=== PATIENT | female | born 1970 | race Two or more races ===

== ENCOUNTER 2018-10-07 18:35 | Inpatient (IN) | payer OTHER ==
[~2018-10-07] VITALS: Ht 157.5 cm; Wt 66.2 kg
--- NOTE | 2018-10-07 18:35 | NUR ---
ED Nurse Note: BROUGHT IN BY LOTTIE FROM [facility] DUE TO MISSED DIALYSIS YESTERDAY. PER EMS, PT IS BLIND AND BS RESULT WAS "HIGH". PORTACATH ON LEFT UPPER CHEST.
[2018-10-07] MEDS ORDERED: CARVEDILOL25 MG ORAL (18:45)
[2018-10-07] MEDS ORDERED: ATORVASTATIN CA40 MG ORAL (18:45)
[2018-10-07] MEDS ORDERED: TRADJENTA5 MG PO (18:45)
[2018-10-07] MEDS ORDERED: RENAGEL800 MG ORAL (18:45)
[2018-10-07] MEDS ORDERED: LOSARTAN POTASS25 MG ORAL (18:45)
[2018-10-07] MEDS ORDERED: LANTUS SOL100 UNIT/1 SUBQ (18:45)
[2018-10-07] MEDS ORDERED: NIFEDIPINE ER60 M2 ORAL (18:45)
[2018-10-07] MEDS ORDERED: ASPIRIN81 MG ORAL (18:45)
[2018-10-07] MEDS ORDERED: LATANOPROST2.5 ML BOTH EYES (18:45)
[2018-10-07] MEDS ORDERED: TRAZODONE HCL50 MG ORAL (18:45)
[2018-10-07] MEDS ORDERED: NEPHROVITE1 TAB ORAL (18:45)
[2018-10-07] MEDS ORDERED: ACETAMINOPHEN325 M1 ORAL (18:45)
[2018-10-07] MEDS ORDERED: HUMALOG100 UNIT/4 SUBQ (18:45)
--- NOTE | 2018-10-07 18:46 | NUR ---
ED Nurse Note: PT REFUSED TO HAVE CONCRETE ROD BUSTER AND DRAW BLOOD. ERMD AT BEDSIDE.
--- NOTE | 2018-10-07 18:55 | Emergency Room Report ---
History of Present Illness General Chief Complaint: Abnormal Labs Source: Patient, EMS Present Illness HPI Apparently dialysis was missed yesterday. Apparently the patient is hypertensive, has high blood sugar and allegedly high potassium at this time. The patient says that she gets short of breath when she lays down. She states he still makes urine at this time. She has only vascular asked success from a Vas-Cath. She says that they didn't clean her Vas-Cath Tuesday when dialysis was performed. + orthopnea. No productive cough. No fevers or chills. No joint pain. She also alleges that she hasn't gotten her insulin and hasn't eaten anything Patient is blind Denies chest pain, NVD, rashes, headache. Allergies: Coded Allergies: PENICILLINS (Verified Allergy, Unknown, 10/07/18) PIPERACILLIN (Verified Allergy, Unknown, 10/07/18) TAZOBACTAM (Verified Allergy, Unknown, 10/07/18) Patient History Past Medical History: see triage record Past Surgical History: other - vascath Social History: Denies: smoking, alcohol use Social History Narrative [facility] facility Reviewed Nursing Documentation: PMH: Agreed; PSxH: Agreed Review of Systems All Other Systems: negative except mentioned in HPI Physical Exam Vital Signs Date Time Temp Pulse Resp B/P (MAP) Pulse Ox O2 Delivery O2 Flow Rate FiO2 10/07/18 18:29 97.5 90 20 168/67 (100) 99 Sp02 EP Interpretation: reviewed, normal General Appearance: well appearing, no apparent distress, GCS 15 Head: normocephalic, atraumatic Eyes: left eye other - Opacity; bilateral eye Scleral Injection ENT: moist mucus membranes Neck: supple Respiratory: decreased breath sounds, rales, other - vas-Cath left Cardiovascular #1: regular rate, rhythm, JVD, edema - 3+ pitting Cardiovascular #2: 2+ radial (R) Gastrointestinal: normal inspection, normal bowel sounds, non tender, no mass, non-distended Musculoskeletal: back normal, gait/station normal, normal range of motion Neurologic: alert, motor strength/tone normal, oriented - 2 Psychiatric: other - Refusing care aside fro Skin: warm/dry, other - Sallow with venous disease Medical Decision Making Diagnostic Impression: Primary Impression: ESRD on dialysis Additional Impressions: Bradycardia Hyperglycemia Pleural effusion, right ER Course Patient presents missing dialysis apparently. I differential includes acute myocardial infarction, congestive heart failure, pulmonary edema, hyperkalemia amongst others. Evaluation with EKG, chest x-ray and labs. Patient is refusing to have IV and labs started. He tried to convince her to allow us to do this. The nurses attempting at this time. Patient will be treated with nitroglycerin paste. Accucheck = 320. Insulin (low dose) ordered. OK to eat. Bloods obtained, but refuses IV. CXR with CHF and R effusion, inc cor. Bicarb 18. K normal. Inc BUN and creat. O2 sats OK but requests oxygen. Insists on sitting. BP better with nitro bid. Text and call Dr. Guzman. Discussed with Dr. Garcia who will write dialysis orders. Admit telemetry, Dr. Guzman. Laboratory Tests Test 10/07/18 18:58 White Blood Count 8.8 K/UL (4.8-10.8) Red Blood Count 3.99 M/UL (4.20-5.40) L Hemoglobin 12.4 G/DL (12.0-16.0) Hematocrit 38.3 % (37.0-47.0) Mean Corpuscular Volume 96 FL (80-99) Mean Corpuscular Hemoglobin 31.0 PG (27.0-31.0) Mean Corpuscular Hemoglobin Concent 32.3 G/DL (32.0-36.0) Red Cell Distribution Width 13.8 % (11.6-14.8) Platelet Count 137 K/UL (150-450) L Mean Platelet Volume 9.2 FL (6.5-10.1) Neutrophils (%) (Auto) 84.2 % (45.0-75.0) H Lymphocytes (%) (Auto) 5.4 % (20.0-45.0) L Monocytes (%) (Auto) 6.6 % (1.0-10.0) Eosinophils (%) (Auto) 2.4 % (0.0-3.0) Basophils (%) (Auto) 1.3 % (0.0-2.0) Prothrombin Time 11.4 SEC (9.30-11.50) Prothrombin Time INR 1.1 (0.9-1.1) PTT 32 SEC (23-33) Sodium Level 126 MMOL/L (136-145) L Potassium Level 4.9 MMOL/L (3.5-5.1) Chloride Level 91 MMOL/L (98-107) L Carbon Dioxide Level 18 MMOL/L (21-32) L Anion Gap 17 mmol/L (5-15) H Blood Urea Nitrogen 76 mg/dL (7-18) H Creatinine 7.1 MG/DL (0.55-1.30) H Estimate Glomerular Filtration Rate 6.2 mL/min (>60) Glucose Level 336 MG/DL (74-106) H Calcium Level 8.4 MG/DL (8.5-10.1) L Total Bilirubin 0.7 MG/DL (0.2-1.0) Aspartate Amino Transferase (AST) 24 U/L (15-37) Alanine Aminotransferase (ALT) 30 U/L (12-78) Alkaline Phosphatase 555 U/L (46-116) H Total Creatine Kinase 65 U/L (26-308) Troponin I 0.011 ng/mL (0.000-0.056) Pro-B-Type Natriuretic Peptide 98282 pg/mL (0-125) H Total Protein 9.1 G/DL (6.4-8.2) H Albumin 3.3 G/DL (3.4-5.0) L Globulin 5.8 g/dL Albumin/Globulin Ratio 0.6 (1.0-2.7) L EKG Diagnostic Results Rate: bradycardiac Rhythm: NSR ST Segments: no acute changes Rhythm Strip Diag. Results EP Interpretation: yes Rhythm: NSR, no PVC's, no ectopy Chest X-Ray Diagnostic Results Chest X-Ray Diagnostic Results : Chest X-Ray Ordered: Yes # of Views/Limited/Complete: 1 View Indication: Shortness of Breath EP Interpretation: Yes Interpretation: no pneumothorax, other - vascath, effusion R, CHF Last Vital Signs Date Time Temp Pulse Resp B/P (MAP) Pulse Ox O2 Delivery O2 Flow Rate FiO2 10/07/18 21:20 98.2 68 20 160/72 99 Nasal Cannula 1.0 Status: improved Disposition: ADMITTED INPATIENT Condition: Serious Roel Malik MD Oct 07, 2018 18:55
[2018-10-07] MEDS ORDERED: Insulin Human Regular 100units/ml 3ml SUBQ ONE (19:00)
[2018-10-07] MEDS ORDERED: Nitroglycerin 2% oint pkt TOPIC ONE (19:00)
--- NOTE | 2018-10-07 19:00 | NUR ---
ED Nurse Note: NOTIFIED ERMD THAT BLOOD DRAWN BUT PT REFUSED IV.
--- NOTE | 2018-10-07 19:07 | NUR ---
HAND-OFF: Report given to GRACIELA MASCORRO. NO S/S OF DISTRESS.
[2018-10-07 19:10] VITALS: BP 165/70
--- NOTE | 2018-10-07 19:15 | NUR ---
ED Nurse Note: Pt asking for NC o2, Dr Malik ordered 1L, placed on pt, tolerating well. Spo2 99% non-labored breathing
[2018-10-07 19:24] LABS: BASOPHILS % (AUTO) 1.3 % (0.0-2.0); EOSINOPHILS % (AUTO) 2.4 % (0.0-3.0); HEMATOCRIT 38.3 % (37.0-47.0); HEMOGLOBIN 12.4 G/DL (12.0-16.0); LYMPHOCYTES % (AUTO) 5.4 % (20.0-45.0); MEAN CORPUSCULAR VOLUME 96 FL (80-99); MONOCYTES % (AUTO) 6.6 % (1.0-10.0); NEUTROPHILS % (AUTO) 84.2 % (45.0-75.0); PLATELET COUNT 137 K/UL (150-450); RED BLOOD COUNT 3.99 M/UL (4.20-5.40); RED CELL DISTRIBUTION WIDTH 13.8 % (11.6-14.8); WHITE BLOOD COUNT 8.8 K/UL (4.8-10.8)
--- NOTE | 2018-10-07 19:24 | Diagnostic Imaging Report ---
EXAM: XR Chest, 1 View CLINICAL HISTORY: CP TECHNIQUE: Frontal view of the chest. COMPARISON: No relevant prior studies available. FINDINGS: Lungs: Near complete opacification of the right hemithorax. Combination of consolidation and effusion in the left hemithorax. Pleural space: Unremarkable. No pneumothorax. Heart: Probable cardiomegaly. Mediastinum: Bulbous aortic knob Bones/joints: No acute fracture. Tubes, lines and devices: Central line. IMPRESSION: 1. Near complete opacification of the right hemithorax. 2. Combination of consolidation and effusion in the left hemithorax.
[2018-10-07 19:26] LABS: ANION GAP 17 mmol/L (5-15); BLOOD UREA NITROGEN 76 mg/dL (7-18); CALCIUM 8.4 MG/DL (8.5-10.1); CARBON DIOXIDE 18 MMOL/L (21-32); CHLORIDE 91 MMOL/L (98-107); CREATININE 7.1 MG/DL (0.55-1.30); POTASSIUM 4.9 MMOL/L (3.5-5.1); SODIUM 126 MMOL/L (136-145)
[2018-10-07 19:30] LABS: INR 1.1 (0.9-1.1)
[2018-10-07 19:37] LABS: ALANINE AMINOTRANSFERASE 30 U/L (12-78); ALBUMIN 3.3 G/DL (3.4-5.0); ALBUMIN/GLOBULIN RATIO 0.6 (1.0-2.7); ALKALINE PHOSPHATASE 555 U/L (46-116); ASPARTATE AMINO TRANSFERASE 24 U/L (15-37); BILIRUBIN,TOTAL 0.7 MG/DL (0.2-1.0); CREATINE KINASE 65 U/L (26-308)
--- NOTE | 2018-10-07 20:31 | NUR ---
ED Nurse Note: Pt refused accucheck. Dr Malik notified.
[2018-10-07 21:20] VITALS: BP 160/72
--- NOTE | 2018-10-07 22:46 | NUR ---
ED Nurse Note: Pt sitting up, refuses to have monitor attached, eating a sandwhich and drinking coffee, denies pain. Will continue to monitor
[2018-10-07 23:00] VITALS: BP 146/92
--- NOTE | 2018-10-08 00:41 | NUR ---
ED Nurse Note: Called to give eport, told to call back in 30 mins, room being cleaned. Rn is Rachael
--- NOTE | 2018-10-08 01:02 | NUR ---
ED Nurse Note: Pt refused VRE and MRSA swabs.
[2018-10-08 01:03] VITALS: BP 152/78
--- NOTE | 2018-10-08 01:30 | NUR ---
TRANSFER TO FLOOR: Patient transferred to as ordered, per Dr Malik. Report given to GRACIELA Cano. . Family and or S/O informed of transfer.
--- NOTE | 2018-10-08 02:00 | NUR ---
NURSE NOTES: received pt from ER, no acute distress noted. pt ambulated from [facility] to , pt refusing IV access and mrsa and vre swab. education provided pt still refused IV access and mrsa and vre swab. pt unable to sign belonging form pt blind, Dr velazquez placed orders. will contact DR. Guzman for additional orders
[2018-10-08 04:00] VITALS: BP 156/62
[2018-10-08] MEDS: Nateglinide 60mg tab ORAL SCH ×3 (06:16→17:28)
--- NOTE | 2018-10-08 06:44 | NUR ---
NURSE NOTES: tried to contact Dr umana, unable to left a message. trying to get order for insulin. will endorse to incoming nurse.
--- NOTE | 2018-10-08 06:53 | NUR ---
NURSE NOTES: pt refusing blood draw. and medications scheduled at 06:00. education provided pt still refused.
--- NOTE | 2018-10-08 06:54 | NUR ---
NURSE NOTES: pt remains stable, no change in condition. all needs met during my shift. bed locked and lowest position. side rail upx2. call light within reach. will endorse plan of care to incoming nurse.
--- NOTE | 2018-10-08 07:02 | NUR ---
NURSE NOTES: reached [facility] for dialysis, waiting bridge ironworker back. will endorse to incoming nurse.
[2018-10-08 08:00] VITALS: BP 130/78
[2018-10-08] MEDS: Aspirin Baby 81mg ORAL SCH (09:00)
[2018-10-08] MEDS: Heparin 5000 units/ml inj SUBQ SCH ×2 (09:00→21:00)
[2018-10-08] MEDS: Nitroglycerin Patch 0.4mg TDERMAL SCH (09:00)
[2018-10-08] MEDS ORDERED: Carvedilol 25mg Tab ORAL SCH (09:00)
--- NOTE | 2018-10-08 10:00 | NUR ---
NURSE NOTES: PATIENT IS LEGALLY BLIND. A/A/OX4, CITIZEN OF [place] SPEAKING. APPEARED NONCOMPLIANT AT TIMES. REFUSED AM MEDS. AWAITING FOR [facility] TO CALL BACK. KEPT BED IN THE LOWEST POSITION. SIDERAILS ARE UP X2, CALL LIGHT IS WITHIN REACH. BED IS LOCK MODE AND ALARM ACTIVATED. WILL CONT TO MONITOR.
[2018-10-08] MEDS: NovoLOG Insulin Flexpen SUBQ SCH ×3 (11:30→21:00)
[2018-10-08] MEDS ORDERED: NovoLOG Insulin Flexpen SUBQ SCH (11:30)
--- NOTE | 2018-10-08 11:35 | NUR ---
NURSE NOTES: CIERRA FROM [facility] CALLED BACK AND CONFIRMED PATIENT WILL BE DIALYZED TODAY. WILL CONT TO MONITOR.
[2018-10-08 12:00] VITALS: BP 177/78
--- NOTE | 2018-10-08 12:17 | NUR ---
NURSE NOTES: PATIENT IS NONCOMPLIANT TO SOME MED REGIMEN. EXPLAINED THE INDICATIONS AND IMPORTANCE OF IT. IRRITABLE AND RESISTIVE TO CARE. PATIENT REFUSED FOR THE B/P TO BE RECHECKED. REFUSED FOR THE NTG PATCH TO BE PLACED AND SHE FOND OF CUSSING TO STAFF. WILL CONT TO MONITOR.
[2018-10-08] MEDS ORDERED: DiphenhydrAMINE 50mg/ml Inj IVP SCH (13:30)
--- NOTE | 2018-10-08 13:38 | Consultation ---
Consult Note Consult Note i was asked to eval for dialysis management Patient ESRD - Adnitted via ER last night. Apparantly misse dialysis on Tuesday Poor historian ER: note Apparently dialysis was missed yesterday. Apparently the patient is hypertensive, has high blood sugar and allegedly high potassium at this time. The patient says that she gets short of breath when she lays down. She states he still makes urine at this time. She has only vascular asked success from a Vas-Cath. She says that they didn't clean her Vas-Cath Tuesday when dialysis was performed. + orthopnea. No productive cough. No fevers or chills. No joint pain. She also alleges that she hasn't gotten her insulin and hasn't eaten anything Patient is blind Denies chest pain, NVD, rashes, headache. Allergies: Coded Allergies: PENICILLINS (Verified Allergy, Unknown, 10/07/18) PIPERACILLIN (Verified Allergy, Unknown, 10/07/18) TAZOBACTAM (Verified Allergy, Unknown, 10/07/18) seen in room 206 dialysis is about to get started via left chest permacath Assessment/Plan Volume overload ESRD on dialysis Bradycardia Hyperglycemia Pleural effusion, right Dialysis and UF BP and BS control per orders discussed with RN and cracker off Elvin Garcia MD Oct 08, 2018 13:37
--- NOTE | 2018-10-08 14:50 | NUR ---
NURSE NOTES: Keith ([facility]) HD nurse @ bedside.
[2018-10-08 16:00] VITALS: BP 139/61
--- NOTE | 2018-10-08 19:12 | NUR ---
HAND-OFF: Report given to Zara.
--- NOTE | 2018-10-08 19:30 | NUR ---
NURSE NOTES: RECEIVED PATIENT LYING IN BED, AWAKE, LATVIAN SPEAKING, DENIES PAIN, HEAD OF BED ELEVATED TO FACILITATE BREATHING, NO SIGNS AND SYMPTOMS OF ACUTE CARDIO RESPIRATORY DISTRESS/SHORTNESS OF BREATH, TRACE EDEMA NOTED, NOTED WITH MULTIPLE SCARS/SELF INFLICTED SCRATCHES/WOUNDS TO BILATERAL LOWER EXTREMITIES, NO BLEEDING NOTED. ABDOMEN SOFT/NON DISTENDED/NON TENDER, BOWEL SOUNDS AUDIBLE. INCONTINENT OF BOWEL, CARE PROVIDED, TOLERATED WELL. PERMACATH TO LEFT UPPER CHEST WALL, DRESSING DRY AND INTACT, HD TODAY, PATIENT REFUSED TUESDAY, REGULAR SCHEDULED DAYS MWF. SIDE RAILS UP X3/BED IN LOWEST POSITION FOR SAFETY. CALL LIGHT WITHIN REACH. NAD.
[2018-10-08 20:00] VITALS: BP 182/79
[2018-10-08] MEDS ORDERED: TraZODone 50mg tab ORAL SCH (21:00)
--- NOTE | 2018-10-08 21:11 | NUR ---
NURSE NOTES: PATIENT REFUSED BLOOD GLUCOSE CHECK VIA GLUCOMETER X3-
[2018-10-09] VITALS: BP 146/61
--- NOTE | 2018-10-09 02:00 | History and Physical Report ---
DATE OF ADMISSION: 10/07/2018 HISTORY OF PRESENT ILLNESS: The patient is admitted for elevated blood pressure as well as blood sugar. The patient has end-stage renal disease, on hemodialysis and diabetes. The patient has hyponatremia. The patient basically denies nausea or vomiting. Denies fever or chills. Denies cough. Denies shortness of breath. Denies chest pain. Denies orthopnea. PAST MEDICAL HISTORY: Significant for NIDDM; hypertension; end-stage renal disease, on hemodialysis; hypertension; history of pleural effusion; history of bradycardia; and hyperlipidemia. PAST SURGICAL HISTORY: Dialysis access on the chest wall and hysterectomy. MEDICATIONS: Insulin, Coreg, Lipitor, aspirin, Tradjenta, losartan, nifedipine, Renagel, and trazodone. ALLERGIES: Penicillin and tazobactam. FAMILY HISTORY: Does have history of diabetes and hypertension. SOCIAL HISTORY: Denies history of smoking, alcohol, or illicit drugs. Comes from a snf. REVIEW OF SYSTEMS: HEENT: Denies headaches. RESPIRATORY: Denies shortness of breath. Denies cough. CARDIOVASCULAR: Denies chest pain. GASTROINTESTINAL: Denies nausea, vomiting, or diarrhea. EXTREMITIES: Denies any pain. NEUROLOGIC: No significant change in speech pattern. PHYSICAL EXAMINATION: VITAL SIGNS: Temperature 97.6 degrees, pulse is 59, and blood pressure is 130/78. HEENT: PERRLA. NECK: Supple. No lymphadenopathy. CHEST: Clear to auscultation. CARDIOVASCULAR: Regular rate and rhythm. No murmurs or extra sounds. GASTROINTESTINAL: Soft, nontender, and nondistended. No organomegaly. EXTREMITIES: A 1+ edema. Reflexes are equal on both sides. Moves all four extremities. LABORATORY DATA: WBC of 8.8, hemoglobin 12.4, and platelets of 137,000. Sodium 136, potassium 4.9, BUN of 76, creatinine 7.1, and glucose of 336. ASSESSMENT AND PLAN: End-stage renal disease, on hemodialysis. Skipped the dialysis session. Blood pressure is elevated as well as blood sugar is elevated. I have asked Dr. Iqbal and Dr. Garcia to see the patient for the management of the blood pressure and end-stage renal disease as well as management of elevated blood pressure. Kimberlee Guzman M.D. DR: ARON JOB#: [id number] CC:
[2018-10-09 04:00] VITALS: BP 149/71
--- NOTE | 2018-10-09 05:14 | NUR ---
NURSE NOTES: REFUSED AM LABS X2-
--- NOTE | 2018-10-09 06:06 | NUR ---
NURSE NOTES: NON COMPLIANT WITH PLAN OF CARE; REFUSED MEDS, REFUSED LABS, REFUSED AM BLOOD GLUCOSE MONITORING VIA GLUCOMETER, "STATED NO MEDICINE SEVERAL TIMES IN [place]".
[2018-10-09] MEDS: Nateglinide 60mg tab ORAL SCH ×3 (06:30→16:01)
[2018-10-09] MEDS ORDERED: sitaGLIPtin 25mg tab ORAL SCH (06:30)
[2018-10-09] MEDS: NovoLOG Insulin Flexpen SUBQ SCH ×4 (06:30→21:00)
--- NOTE | 2018-10-09 07:18 | NUR ---
HAND-OFF: Report given to GRACIELA STAHL.
--- NOTE | 2018-10-09 07:30 | Consultation ---
DATE OF CONSULTATION: 10/09/2018 ENDOCRINOLOGY CONSULTATION: CONSULTING PHYSICIAN: Marck Iqbal M.D. REFERRING PHYSICIAN: Kimberlee Guzman M.D. REASON FOR CONSULTATION: Hyperglycemia. HISTORY OF PRESENT ILLNESS: The patient is a 47-year-old female with history of diabetes, end-stage renal disease on hemodialysis, and hypertension, who missed her dialysis on the day prior to the admission. The patient was hypertensive, elevated glucose, and high potassium. She gets shortness of breath when she lies down. She still makes urine. The patient was admitted to the hospital for observation and treatment and hemodialysis. I was called to manage diabetes since the glucose is over 300. The patient has been refusing glucose monitoring as well as insulin injections and most of her other home medications. The patient is also blind. PAST MEDICAL HISTORY: 1. End-stage disease, on hemodialysis. 2. Diabetes. 3. Hypertension. 4. Blindness. PAST SURGICAL HISTORY: 1. Dialysis access placement. 2. Hysterectomy. ALLERGIES: Penicillin, Zosyn, and Cipro. FAMILY HISTORY: Family history of diabetes. SOCIAL HISTORY: No smoking, alcohol, or drug use. From nursing home facility. REVIEW OF SYSTEMS: As per HPI. MEDICATIONS: Reviewed and reconciled. LABORATORY VALUES: Sodium 126, potassium 4.9, chloride 91, bicarb 18, BUN 76, creatinine 7.1, glucose 336. WBC 8.8, hemoglobin 12, hematocrit 38, platelets of 137. PHYSICAL EXAMINATION: GENERAL: The patient is awake. VITAL SIGNS: Blood pressure 147/91, pulse 57, temperature 98.3, respiratory rate of 19. HEENT: The patient is blind. NECK: No JVD. HEART: Regular. LUNGS: Crackles. ABDOMEN: Positive bowel sounds. EXTREMITIES: Positive for edema. DIAGNOSES: 1. End-stage renal disease, on hemodialysis. 2. Diabetes, out of control. 3. Hypertension. 4. Noncompliance to medication. PLAN: 1. Levemir 8 units daily. 2. Starlix 60 mg before each meal. 3. Januvia 25 mg daily. 4. NovoLog sliding scale before meals and at bedtime. 5. Further adjustment according to the blood glucose values. Thank you, Dr. Guzman, for the courtesy of this consultation. Marck Iqbal M.D. DR: GEORGINA JOB#: [id number] CC: CHEO
[2018-10-09 08:00] VITALS: BP 158/71
--- NOTE | 2018-10-09 08:23 | NUR ---
NURSE NOTES: received report from Zara OWENS. Pt on youth nutritional monitor no signs of cardiac or respiratory distress. Pt is complaining of itching all over body. pt has no IV access. Bed locked and in lowest position. Call light is within reach. Will continue to monitor.
[2018-10-09] MEDS ORDERED: Levemir Flexpen SUBQ SCH (09:00)
[2018-10-09] MEDS: Nitroglycerin Patch 0.4mg TDERMAL SCH (09:00)
[2018-10-09] MEDS: Aspirin Baby 81mg ORAL SCH (09:00)
[2018-10-09] MEDS: Heparin 5000 units/ml inj SUBQ SCH ×2 (09:00→21:00)
[2018-10-09] MEDS ORDERED: Carvedilol 6.25mg Tab ORAL SCH (09:00)
--- NOTE | 2018-10-09 09:20 | NUR ---
NURSE NOTES: Pt refusing all morning meds. and blood sugar check. Per Dr. Rodriguez pt to be transfer to med surge.
--- NOTE | 2018-10-09 09:51 | Nephrology Progress Note ---
Assessment/Plan Problem List: (1) ESRD on dialysis (2) Hyperglycemia (3) Volume overload Assessment Volume overload ESRD on dialysis Bradycardia Hyperglycemia Pleural effusion, right Plan Dialysis and UF 10/08 refusing blood work patient un cooporative and wants to be discharged to [facility] - surg BP and BS control per orders discussed with RN Subjective ROS Limited/Unobtainable: No Constitutional: Reports: other - uncooporative Objective Objective Last 24 Hour Vital Signs Date Time Temp Pulse Resp B/P (MAP) Pulse Ox O2 Delivery O2 Flow Rate FiO2 10/09/18 08:00 96.6 58 18 158/71 (100) 100 10/09/18 04:00 57 10/09/18 04:00 98.3 57 19 149/71 (97) 93 10/09/18 00:00 97.7 57 21 146/61 (89) 94 10/09/18 00:00 57 10/08/18 21:00 Room Air 10/08/18 20:00 73 10/08/18 20:00 97.5 73 19 182/79 (113) 94 10/08/18 17:28 63 139/61 10/08/18 16:52 Room Air 10/08/18 16:00 98.2 63 20 139/61 (87) 90 10/08/18 12:00 98.1 59 20 177/78 (111) 90 Intake and Output 10/08/18 10/09/18 18:59 06:59 Intake Total 260 ml 240 ml Output Total 3200 ml Balance -2940 ml 240 ml Intake Oral 260 ml 240 ml Output Hemodialysis UF 3200 ml # Voids 3 # Bowel Movements 3 Height (Feet): 5 Height (Inches): 2.00 Weight (Pounds): 145 General Appearance: no apparent distress Cardiovascular: normal rate Respiratory/Chest: lungs clear Abdomen: soft Elvin Garcia MD Oct 09, 2018 09:51
--- NOTE | 2018-10-09 11:08 | General Progress Note ---
Assessment/Plan Problem List: (1) Hyperglycemia ICD Codes: R73.9 - Hyperglycemia, unspecified SNOMED: 35445398 (2) ESRD on dialysis ICD Codes: N18.6 - End stage renal disease; Z99.2 - Dependence on renal dialysis SNOMED: 681276340 (3) Volume overload ICD Codes: E87.70 - Fluid overload, unspecified SNOMED: 97951241 (4) Bradycardia ICD Codes: R00.1 - Bradycardia, unspecified SNOMED: 59390882 Status: progressing Assessment/Plan: refused labwork esrd on hd htn elevated bp r/o fluid overload Subjective ROS Limited/Unobtainable: Yes Allergies: Coded Allergies: PENICILLINS (Verified Allergy, Unknown, 10/07/18) PIPERACILLIN (Verified Allergy, Unknown, 10/07/18) TAZOBACTAM (Verified Allergy, Unknown, 10/07/18) Objective Last 24 Hour Vital Signs Date Time Temp Pulse Resp B/P (MAP) Pulse Ox O2 Delivery O2 Flow Rate FiO2 10/09/18 08:00 96.6 58 18 158/71 (100) 100 10/09/18 04:00 57 10/09/18 04:00 98.3 57 19 149/71 (97) 93 10/09/18 00:00 97.7 57 21 146/61 (89) 94 10/09/18 00:00 57 10/08/18 21:00 Room Air 10/08/18 20:00 73 10/08/18 20:00 97.5 73 19 182/79 (113) 94 10/08/18 17:28 63 139/61 10/08/18 16:52 Room Air 10/08/18 16:00 98.2 63 20 139/61 (87) 90 10/08/18 12:00 98.1 59 20 177/78 (111) 90 Intake and Output 10/08/18 10/09/18 18:59 06:59 Intake Total 260 ml 240 ml Output Total 3200 ml Balance -2940 ml 240 ml Intake Oral 260 ml 240 ml Output Hemodialysis UF 3200 ml # Voids 3 # Bowel Movements 3 Height (Feet): 5 Height (Inches): 2.00 Weight (Pounds): 145 EENT: PERRL/EOMI Neck: supple Cardiovascular: normal rate Respiratory/Chest: lungs clear Kimberlee Guzman MD Oct 09, 2018 11:08
--- NOTE | 2018-10-09 11:45 | NUR ---
Pt refused blood sugar check as well as V/S.
--- NOTE | 2018-10-09 13:00 | NUR ---
NURSE NOTES: Transferred pt to Med surg gave report to Valerie . pt off monitoring and evaluation advisor no signs of cardiac distress. pt on stable condition. Belonging list checked. Pt has no pressure ulcers just itching a lot and picks on old scars. Pt is none compliant with meds. V/s and blood sugar checks.
--- NOTE | 2018-10-09 13:02 | NUR ---
NURSE NOTES: Received pt from Tele (GRACIELA Jacobsen) with stable condition. pt denies any pain. a/ox3. Breathing regular and unlabored. all belongings checked and kept at bedside. no iv access due to refusal. still noncompliant. Educated pt to use call light when needed assistance. will continue to monitor
--- NOTE | 2018-10-09 13:16 | NUR ---
*-* NO INSURANCE INFORMATION IN THE BAR UNABLE TO SEND CLINICALS OR REVIEWS *-*
[2018-10-09 16:00] VITALS: BP 143/53
--- NOTE | 2018-10-09 19:16 | NUR ---
HAND-OFF: Report given to GRACIELA Asher.
--- NOTE | 2018-10-09 20:00 | NUR ---
NURSE NOTES: Received patient awake,verbal,Faroese speaking,sitting in bed,no complaints.
[2018-10-09 20:11] VITALS: BP 159/73
[2018-10-09] MEDS: TraZODone 50mg tab ORAL SCH (21:00)
[2018-10-09] MEDS: Carvedilol 6.25mg Tab ORAL SCH (21:00)
[2018-10-10] VITALS: BP 140/67
[2018-10-10] MEDS: sitaGLIPtin 25mg tab ORAL SCH (05:46)
[2018-10-10] MEDS: NovoLOG Insulin Flexpen SUBQ SCH ×4 (05:47→20:44)
[2018-10-10] MEDS: Nateglinide 60mg tab ORAL SCH ×3 (05:47→17:54)
--- NOTE | 2018-10-10 06:30 | General Progress Note ---
Assessment/Plan Problem List: (1) ESRD on dialysis ICD Codes: N18.6 - End stage renal disease; Z99.2 - Dependence on renal dialysis SNOMED: 178300433 (2) Hyperglycemia ICD Codes: R73.9 - Hyperglycemia, unspecified SNOMED: 40821503 (3) Pleural effusion, right ICD Codes: J90 - Pleural effusion, not elsewhere classified SNOMED: 32928008 (4) Bradycardia ICD Codes: R00.1 - Bradycardia, unspecified SNOMED: 71754150 Status: progressing Assessment/Plan: continue Starlix 60 mg ac tid continue Januvia 25 mg daily continue Levemir 8 units daily continue NISS ac / hs Subjective Allergies: Coded Allergies: PENICILLINS (Verified Allergy, Unknown, 10/07/18) PIPERACILLIN (Verified Allergy, Unknown, 10/07/18) TAZOBACTAM (Verified Allergy, Unknown, 10/07/18) All Systems: reviewed and negative except above Subjective events noted refusing glucose check and medications and lab draw Objective Last 24 Hour Vital Signs Date Time Temp Pulse Resp B/P (MAP) Pulse Ox O2 Delivery O2 Flow Rate FiO2 10/10/18 00:00 98.0 59 16 140/67 (91) 98 10/09/18 21:00 Room Air 10/09/18 21:00 57 159/73 10/09/18 20:11 98.8 57 18 159/73 (101) 97 10/09/18 17:22 60 143/53 10/09/18 16:00 98.8 60 18 143/53 (83) 100 10/09/18 12:00 56 10/09/18 09:00 Room Air 10/09/18 08:00 64 10/09/18 08:00 96.6 58 18 158/71 (100) 100 Intake and Output 10/09/18 10/10/18 19:00 07:00 Intake Total 970 ml Balance 970 ml Intake Oral 970 ml # Voids 2 1 Height (Feet): 5 Height (Inches): 2.00 Weight (Pounds): 145 General Appearance: no apparent distress Neck: normal alignment Cardiovascular: normal rate Respiratory/Chest: lungs clear Abdomen: normal bowel sounds Edema: no edema noted Arm (L), no edema noted Arm (R), no edema noted Leg (L), no edema noted Leg (R), no edema noted Pedal (L), no edema noted Pedal (R), no edema noted Generalized Objective Current Medications Medications (Trade) Dose Ordered Sig/Soren Route PRN Reason Start Time Stop Time Status Last Admin Dose Admin Acetaminophen (Tylenol) 650 mg Q6H PRN ORAL Pain Scale (3-5) 10/09/18 12:30 11/06/18 12:29 Aspirin (ASA) 81 mg DAILY ORAL 10/10/18 09:00 11/07/18 08:59 Carvedilol (Coreg) 6.25 mg EVERY 12 HOURS ORAL 10/09/18 21:00 11/07/18 08:59 Dextrose (Dextrose 50%) 25 ml Q30M PRN IV Hypoglycemia 10/09/18 12:38 11/08/18 12:37 Dextrose (Dextrose 50%) 50 ml Q30M PRN IV Hypoglycemia 10/09/18 12:38 11/08/18 12:37 Heparin Sodium (Porcine) (Heparin 5000 units/ml) 5,000 units EVERY 12 HOURS SUBQ 10/09/18 21:00 11/07/18 08:59 Insulin Aspart (NovoLOG) BEFORE MEALS AND HS SUBQ 10/09/18 16:30 11/07/18 11:29 Insulin Detemir (Levemir) 8 units DAILY SUBQ 10/10/18 09:00 11/08/18 08:59 Nateglinide (Starlix) 60 mg TIAC ORAL 10/09/18 16:30 11/07/18 06:29 Nifedipine (Procardia XL) 60 mg BID ORAL 10/09/18 18:00 11/07/18 08:59 10/09/18 17:22 Nitroglycerin (Ntg) 1 patch DAILY TDERMAL 10/10/18 09:00 11/07/18 08:59 Pantoprazole (Protonix) 40 mg ACBREAKFAST ORAL 10/10/18 06:30 11/07/18 06:29 Sevelamer Carbonate (Renvela) 800 mg TIPC ORAL 10/09/18 13:00 11/07/18 08:59 Sitagliptin Phosphate (Januvia) 25 mg ACBREAKFAST ORAL 10/10/18 06:30 11/08/18 06:29 Trazodone HCl (Desyrel) 50 mg BEDTIME ORAL 10/09/18 21:00 11/07/18 20:59 Marck Iqbal MD Oct 10, 2018 06:30
--- NOTE | 2018-10-10 07:44 | NUR ---
HAND-OFF: Report given to Jhonny Garrett RN.
--- NOTE | 2018-10-10 07:45 | NUR ---
NURSE NOTES: Received patient sitting up comfortably at bedside. No IV placed at this time, MD aware. PRESTON AV shunt for HD. Bed at lowest level with 2 side rails up. Call light within reach. In no apparent distress at this time. Will continue to monitor.
[2018-10-10 08:00] VITALS: BP 116/63
[2018-10-10] MEDS: Levemir Flexpen SUBQ SCH (09:00)
[2018-10-10] MEDS: Nitroglycerin Patch 0.4mg TDERMAL SCH (09:00)
[2018-10-10] MEDS: Heparin 5000 units/ml inj SUBQ SCH ×2 (09:00→20:44)
[2018-10-10] MEDS: Aspirin Baby 81mg ORAL SCH (09:00)
[2018-10-10] MEDS: Carvedilol 6.25mg Tab ORAL SCH (09:01)
--- NOTE | 2018-10-10 09:41 | Nephrology Progress Note ---
Assessment/Plan Problem List: (1) ESRD on dialysis (2) Hyperglycemia (3) Volume overload Assessment Volume overload ESRD on dialysis Bradycardia Hyperglycemia Pleural effusion, right Plan Dialysis and UF 10/08 next 10/11 stop Coreg due to low HR refusing blood work patient un cooporative and wants to be discharged in med - surg BP and BS control per orders discussed with RN Subjective ROS Limited/Unobtainable: No Objective Objective Last 24 Hour Vital Signs Date Time Temp Pulse Resp B/P (MAP) Pulse Ox O2 Delivery O2 Flow Rate FiO2 10/10/18 09:01 59 140/67 10/10/18 09:01 59 140/67 10/10/18 00:00 98.0 59 16 140/67 (91) 98 10/09/18 21:00 Room Air 10/09/18 21:00 57 159/73 10/09/18 20:11 98.8 57 18 159/73 (101) 97 10/09/18 17:22 60 143/53 10/09/18 16:00 98.8 60 18 143/53 (83) 100 10/09/18 12:00 56 Intake and Output 10/09/18 10/10/18 19:00 07:00 Intake Total 970 ml Balance 970 ml Intake Oral 970 ml # Voids 2 1 Height (Feet): 5 Height (Inches): 2.00 Weight (Pounds): 145 General Appearance: no apparent distress, other - uncooparative Cardiovascular: bradycardia Objective no change Elvin Garcia MD Oct 10, 2018 09:41
[2018-10-10] MEDS ORDERED: HydrALAZINE 25mg tab ORAL PRN (09:45)
--- NOTE | 2018-10-10 11:50 | NUR ---
NURSE NOTES: Left message with [facility] neph[facility] regarding dialysis scheduled tomorrow, 10/11/18.
--- NOTE | 2018-10-10 12:00 | Consultation ---
DATE OF CONSULTATION: 10/10/2018 NOTE: POOR AUDIO HISTORY OF PRESENT ILLNESS: The patient is a 47-year-old female who is very uncooperative, noncompliant with her care, dialysis medication. In the hospital, she has been refusing IV access uncooperative with the examination PAST MEDICAL HISTORY: renal failure, on dialysis. ALLERGIES: Penicillin, piperacillin, and tazobactam. SUBSTANCE ABUSE HISTORY: No known history of illicit drug use or alcohol. MENTAL STATUS EXAMINATION: The patient is uncooperative with examination, unable to due to being uncooperative. She is alert and oriented times self, place, and situation. Mood is irritable. Affect is constricted, congruent with mood. Thought process is linear. Thought content, no suicidal or homicidal ideations. ASSESSMENT: PLAN: the patient will be started on trazodone . I will continue to follow. May readjust the medication. Barrera Zhu M.D. DR: MORGAN JOB#: [id number] CC:
--- NOTE | 2018-10-10 16:36 | NUR ---
*-* INSURANCE *-* ALL CLINICALS AND REVIEWS HAVE BEEN FAXED TO: MACKENZIE... SHERRY: CULLEN P- [phone] F- [phone]...........REVIEW/CLINICAL
--- NOTE | 2018-10-10 16:42 | NUR ---
CASE MANAGEMENT:REVIEW 47 YR OLD FEMALE BIBA FROM [facility] CC; MISSED DIALYSIS SI: HYPERGLYCEMIA. RT PLEURAL EFFUSION 97.5 90 20 168/67 99% ON RA NA-126 BUN+76 CR+7.1 IS: NITRO 1" TO CW INSULIN SQ X1 CHEST XRAY : TO TELEMETRY UNIT @ 0130 ON 10/08/18
--- NOTE | 2018-10-10 16:49 | NUR ---
CASE MANAGEMENT:REVIEW 10/09/18 SI: HYPERGLYCEMIA. VOLUME OVERLOAD PLEURAL EFFUSION 96.6 58 18 158/71 100% ON RA REFUSED LABS IS: COREG PO Q12 ~ REFUSED LEVEMIR SQ QD ~ REFUSED JANUVIA PO QAM ~ REFUSED TRAZODONE PO QHS ~REFUSED PROCARDIA PO BID ~REFUSED : TELEMETRY STATUS PLAN: TRANSFER TO MED/SURG
--- NOTE | 2018-10-10 18:45 | Progress Note ---
DATE: 10/10/2018 SUBJECTIVE: The patient is not cooperative, refusing blood work. However, during my evaluation, she was not having any anxiety or agitation. She was cooperative and she is Albanian-speaking. MENTAL STATUS EXAMINATION: The patient is alert and oriented x3. Mood is neutral. Affect is flat. Thought process, there is a paucity of thought content. Thought content, no suicidal or homicidal ideations. ASSESSMENT: Stable, MDD. PLAN: 1. We will continue current medications. 2. Provide the patient with reality orientation and supportive therapy. 3. Encourage her to participate in care and treatment. Barrera Zhu M.D. DR: TOSIN JOB#: [id number] CC:
--- NOTE | 2018-10-10 19:25 | NUR ---
HAND-OFF: Report given to GRACIELA Russell.
--- NOTE | 2018-10-10 19:46 | NUR ---
NURSE NOTES: Received patient awake,sitting in a chair,comfortable.
[2018-10-10] MEDS: TraZODone 50mg tab ORAL SCH (20:44)
--- NOTE | 2018-10-10 22:30 | General Progress Note ---
Assessment/Plan Problem List: (1) Hyperglycemia ICD Codes: R73.9 - Hyperglycemia, unspecified SNOMED: 73850068 (2) ESRD on dialysis ICD Codes: N18.6 - End stage renal disease; Z99.2 - Dependence on renal dialysis SNOMED: 165535880 (3) Volume overload ICD Codes: E87.70 - Fluid overload, unspecified SNOMED: 18369128 (4) Bradycardia ICD Codes: R00.1 - Bradycardia, unspecified SNOMED: 84605681 Status: progressing Assessment/Plan: noncompliance afebrile no sob esrd on hd htn elevated bp r/o fluid overload Subjective ROS Limited/Unobtainable: Yes Allergies: Coded Allergies: PENICILLINS (Verified Allergy, Unknown, 10/07/18) PIPERACILLIN (Verified Allergy, Unknown, 10/07/18) TAZOBACTAM (Verified Allergy, Unknown, 10/07/18) Objective Last 24 Hour Vital Signs Date Time Temp Pulse Resp B/P (MAP) Pulse Ox O2 Delivery O2 Flow Rate FiO2 10/10/18 21:37 Room Air 10/10/18 09:01 59 140/67 10/10/18 09:01 59 140/67 10/10/18 09:00 Room Air 10/10/18 08:00 98.6 63 18 116/63 (80) 95 10/10/18 00:00 98.0 59 16 140/67 (91) 98 Intake and Output 10/09/18 10/10/18 19:00 07:00 Intake Total 970 ml Balance 970 ml Intake Oral 970 ml # Voids 2 1 Height (Feet): 5 Height (Inches): 2.00 Weight (Pounds): 145 Neck: supple Cardiovascular: normal rate Respiratory/Chest: lungs clear Kimberlee Guzman MD Oct 10, 2018 22:30
[2018-10-11] MEDS: sitaGLIPtin 25mg tab ORAL SCH (05:48)
[2018-10-11] MEDS: Nateglinide 60mg tab ORAL SCH ×3 (05:48→17:33)
[2018-10-11] MEDS: NovoLOG Insulin Flexpen SUBQ SCH ×3 (05:49→17:37)
--- NOTE | 2018-10-11 06:21 | General Progress Note ---
Assessment/Plan Problem List: (1) ESRD on dialysis ICD Codes: N18.6 - End stage renal disease; Z99.2 - Dependence on renal dialysis SNOMED: 384504295 (2) Hyperglycemia ICD Codes: R73.9 - Hyperglycemia, unspecified SNOMED: 03136790 (3) Pleural effusion, right ICD Codes: J90 - Pleural effusion, not elsewhere classified SNOMED: 46253770 (4) Bradycardia ICD Codes: R00.1 - Bradycardia, unspecified SNOMED: 68370783 Status: progressing Assessment/Plan: continue Starlix 60 mg ac tid continue Januvia 25 mg daily continue Levemir 8 units daily continue NISS ac / hs Subjective ROS Limited/Unobtainable: Yes Allergies: Coded Allergies: PENICILLINS (Verified Allergy, Unknown, 10/07/18) PIPERACILLIN (Verified Allergy, Unknown, 10/07/18) TAZOBACTAM (Verified Allergy, Unknown, 10/07/18) Subjective events noted refusing glucose check and medications Objective Last 24 Hour Vital Signs Date Time Temp Pulse Resp B/P (MAP) Pulse Ox O2 Delivery O2 Flow Rate FiO2 10/10/18 21:37 Room Air 10/10/18 09:01 59 140/67 10/10/18 09:01 59 140/67 10/10/18 09:00 Room Air 10/10/18 08:00 98.6 63 18 116/63 (80) 95 Intake and Output 10/10/18 10/11/18 19:00 07:00 Intake Total 600 ml Balance 600 ml Intake Oral 600 ml # Voids 1 1 # Bowel Movements 2 Height (Feet): 5 Height (Inches): 2.00 Weight (Pounds): 146 General Appearance: no apparent distress Neck: normal alignment Cardiovascular: normal rate Respiratory/Chest: decreased breath sounds Abdomen: normal bowel sounds Objective Current Medications Medications (Trade) Dose Ordered Sig/Soren Route PRN Reason Start Time Stop Time Status Last Admin Dose Admin Acetaminophen (Tylenol) 650 mg Q6H PRN ORAL Pain Scale (3-5) 10/09/18 12:30 11/06/18 12:29 Aspirin (ASA) 81 mg DAILY ORAL 10/10/18 09:00 11/07/18 08:59 10/10/18 09:00 Dextrose (Dextrose 50%) 25 ml Q30M PRN IV Hypoglycemia 10/09/18 12:38 11/08/18 12:37 Dextrose (Dextrose 50%) 50 ml Q30M PRN IV Hypoglycemia 10/09/18 12:38 11/08/18 12:37 Heparin Sodium (Porcine) (Heparin 5000 units/ml) 5,000 units EVERY 12 HOURS SUBQ 10/09/18 21:00 11/07/18 08:59 Hydralazine HCl (Apresoline) 25 mg Q4H PRN ORAL bp over 160 syst 10/10/18 09:45 11/09/18 09:44 Insulin Aspart (NovoLOG) BEFORE MEALS AND HS SUBQ 10/09/18 16:30 11/07/18 11:29 10/10/18 12:15 Insulin Detemir (Levemir) 8 units DAILY SUBQ 10/10/18 09:00 11/08/18 08:59 Nateglinide (Starlix) 60 mg TIAC ORAL 10/09/18 16:30 11/07/18 06:29 10/10/18 17:54 Nifedipine (Procardia XL) 60 mg BID ORAL 10/09/18 18:00 11/07/18 08:59 10/10/18 09:01 Nitroglycerin (Ntg) 1 patch DAILY TDERMAL 10/10/18 09:00 11/07/18 08:59 Pantoprazole (Protonix) 40 mg ACBREAKFAST ORAL 10/10/18 06:30 11/07/18 06:29 Sevelamer Carbonate (Renvela) 800 mg TIPC ORAL 10/09/18 13:00 11/07/18 08:59 Sitagliptin Phosphate (Januvia) 25 mg ACBREAKFAST ORAL 10/10/18 06:30 11/08/18 06:29 Trazodone HCl (Desyrel) 50 mg BEDTIME ORAL 10/09/18 21:00 11/07/18 20:59 Marck Iqbal MD Oct 11, 2018 06:21
--- NOTE | 2018-10-11 07:26 | NUR ---
HAND-OFF: Report given to Harriet Christensen LVN.
--- NOTE | 2018-10-11 07:30 | NUR ---
NURSE NOTES: RECEIVED PATIENT A/A/O, VERBALLY RESPONSIVE AND EXPRESSES NEEDS MORE IN [place] THAN [place]. EASILY GET FRUSTRATED AND HAS AGGRESSIVE BEHAVIOR. ABLE TO FEED SELF. PERMACATH TO LEFT UPPER CHEST WALL, DRESSING DRY AND INTACT, HD TODAY. SIDE RAILS UP X3/BED IN LOWEST POSITION FOR SAFETY. CALL LIGHT WITHIN REACH. WILL CONT TO MONITOR.
[2018-10-11 08:00] VITALS: BP 145/71
[2018-10-11] MEDS: Aspirin Baby 81mg ORAL SCH (08:24)
[2018-10-11] MEDS: Heparin 5000 units/ml inj SUBQ SCH (08:25)
[2018-10-11] MEDS: Levemir Flexpen SUBQ SCH (08:25)
[2018-10-11] MEDS: Nitroglycerin Patch 0.4mg TDERMAL SCH ×2 (09:00→17:34)
--- NOTE | 2018-10-11 09:53 | NUR ---
*-* INSURANCE *-* ALL CLINICALS AND REVIEWS HAVE BEEN FAXED TO: MACKENZIE... SHERRY: CULLEN P- [phone] F- [phone]...........REVIEW/CLINICAL
--- NOTE | 2018-10-11 11:52 | NUR ---
CASE MANAGEMENT:REVIEW 10/11/18 SI: HYPERGLYCEMIA. VOLUME OVERLOAD PLEURAL EFFUSION 96.7 63 18 145/71 94% ON RA IS: COREG PO Q12 ~ REFUSED LEVEMIR SQ QD ~ REFUSED JANUVIA PO QAM ~ REFUSED TRAZODONE PO QHS ~REFUSED PROCARDIA PO BID ~REFUSED : TELEMETRY STATUS DCP: FROM [facility] PLAN: DIALYZE TODAY
--- NOTE | 2018-10-11 12:09 | NUR ---
NOTIFICATION MESSAGE LEFT FOR DR ZHANG REGARDING HOSPITALIZATION CRITERIA
--- NOTE | 2018-10-11 13:48 | NUR ---
NURSE NOTES: PATIENT APPEARED NONCOMPLIANT AND HAS EPISODES OF AGGRESSIVENESS. QUITE STUBBORN AND FRUSTRATED. EXPLAINED THE IMPORTANCE AND INDICATIONS. HD NURSE JUST ARRIVED @ BEDSIDE. AT FIRST PATIENT WAS REFUSING HD HOWEVER, BY EXPLAINING AND REMINDING HER THAT SHE IS GOING BACK TO SNF TODAY. SHE FINALLY AGGREED TO HD. PATIENT BEEN IN A CHAIR SITTING. INSTRUCTED TO CALL FOR ASSISTANCE. CALL LIGHT IS WITHIN REACH. APPETITE IS ADEQUATE. WILL CONT TO MONITOR.
--- NOTE | 2018-10-11 14:49 | Nephrology Progress Note ---
Assessment/Plan Problem List: (1) ESRD on dialysis (2) Hyperglycemia (3) Volume overload Assessment Volume overload ESRD on dialysis Bradycardia Hyperglycemia Pleural effusion, right Plan Dialysis 10/11 stop Coreg due to low HR refusing blood work patient un cooporative and wants to be discharged in med - surg BP and BS control per orders discussed with RN Subjective ROS Limited/Unobtainable: No Constitutional: Reports: malaise Objective Objective Last 24 Hour Vital Signs Date Time Temp Pulse Resp B/P (MAP) Pulse Ox O2 Delivery O2 Flow Rate FiO2 10/11/18 09:00 145/71 10/11/18 09:00 Room Air 10/11/18 08:00 96.7 63 18 145/71 (95) 94 10/10/18 21:37 Room Air Intake and Output 10/10/18 10/11/18 19:00 07:00 Intake Total 600 ml Balance 600 ml Intake Oral 600 ml # Voids 1 1 # Bowel Movements 2 Height (Feet): 5 Height (Inches): 2.00 Weight (Pounds): 146 General Appearance: no apparent distress Objective no change Elvin Garcia MD Oct 11, 2018 14:48
[2018-10-11 16:00] VITALS: BP 178/72
--- NOTE | 2018-10-11 17:10 | NUR ---
DISCHARGE PLANNED PATIENT WILL RETURN TO [facility] [address] SKILLED T: [phone] FOR NURSE TO NURSE REPORT [facility] HAS BEEN ARRANGED FOR 1800 LOG SORTING SUPERVISOR TRANSFER FORM COMPLETED PATIENT WILL CONTINUE WITH OUTPATIENT DIALYSIS AT [facility] [address] [place] [address] T: [phone] M-W-F 1115 AM
--- NOTE | 2018-10-11 18:06 | NUR ---
NURSE NOTES: report given to Jose @ [facility]. Unable to reach the next of kin. voicemail was not set up. personal belongings reviewed noted. HD completed and 3L output. permacath patent and intact. no acute resp distress noted. able to give meds this evening. place NTG patch on Right upper chest. awaiting for ambulance.
[2018-10-11 18:39] VITALS: BP 148/67
--- NOTE | 2018-10-11 19:07 | NUR ---
HAND-OFF: Report given to SHADY.
--- NOTE | 2018-10-11 19:47 | NUR ---
NURSE NOTES: Received report from LINDA Larios. Patient sleeping. On 2L/min nasal cannula following dialysis. No signs of distress or labored breathing. No IV access. Awaiting discharge to [facility].
--- NOTE | 2018-10-11 20:44 | NUR ---
NURSE NOTES: Patient discharged to [facility] [address] [facility]. Gave report to real estate internship Joselyn Tejada and Reed Monterroso.
--- NOTE | 2018-10-11 21:20 | General Progress Note ---
Assessment/Plan Problem List: (1) Hyperglycemia ICD Codes: R73.9 - Hyperglycemia, unspecified SNOMED: 39965279 (2) ESRD on dialysis ICD Codes: N18.6 - End stage renal disease; Z99.2 - Dependence on renal dialysis SNOMED: 295490835 (3) Volume overload ICD Codes: E87.70 - Fluid overload, unspecified SNOMED: 25085076 (4) Bradycardia ICD Codes: R00.1 - Bradycardia, unspecified SNOMED: 07993588 Status: progressing Assessment/Plan: dc see dc summary esrd on hd Subjective Allergies: Coded Allergies: PENICILLINS (Verified Allergy, Unknown, 10/07/18) PIPERACILLIN (Verified Allergy, Unknown, 10/07/18) TAZOBACTAM (Verified Allergy, Unknown, 10/07/18) Objective Last 24 Hour Vital Signs Date Time Temp Pulse Resp B/P (MAP) Pulse Ox O2 Delivery O2 Flow Rate FiO2 10/11/18 18:39 66 148/67 (94) 10/11/18 17:34 178/72 10/11/18 17:33 68 178/72 10/11/18 16:00 97.4 68 18 178/72 (107) 100 10/11/18 09:00 Room Air 10/11/18 08:00 96.7 63 18 145/71 (95) 94 10/10/18 21:37 Room Air Intake and Output 10/10/18 10/11/18 18:59 06:59 Intake Total 600 ml Balance 600 ml Intake Oral 600 ml # Voids 1 1 # Bowel Movements 2 Height (Feet): 5 Height (Inches): 2.00 Weight (Pounds): 146 Kimberlee Guzman MD Oct 11, 2018 21:20
--- NOTE | 2018-10-12 03:30 | Progress Note ---
DATE: 10/11/2018 SUBJECTIVE: The patient is doing well, participating. The patient is uncooperative at times. She is Zimbabwean speaking. MENTAL STATUS EXAMINATION: The patient is alert, oriented to time, self, place, and situation. Mood is neutral. Affect is constricted, congruent with mood. Thought process is concrete. Thought content, no suicidal or homicidal ideation. ASSESSMENT: Major depressive disorder, anxiety disorder. PLAN: We will continue current medications. Provide the patient reality orientation and supportive therapy. Barrera Zhu M.D. DR: NEYMAR JOB#: [id number] CC:
--- NOTE | 2018-10-12 11:16 | Discharge Summary ---
Discharge Summary Discharge Summary _ DATE OF ADMISSION: 10/07/2018 DATE OF DISCHARGE: 10/11/2018 DISCHARGED BY: Dr. Kimberlee Chavez CONSULTANTS: Dr. Elvin Zhu [facility] HOSPITAL COURSE: Patient is a 47-year-old female, who is from shelter facility, who apparently missed hemodialysis. She was taken to ED via EMS. Patient apparently was hypertensive and blood sugar was elevated. She complained of shortness of breath when laying down. She denied any productive cough. She denied fever or chills. She denied joint pains. Denied chest pain, nausea, vomiting and diarrhea. On evaluation at ED, blood pressure was 168/67. Accu-Chek done was 320. Patient initially refused to have IV and blood work. She eventually agreed to blood work. Blood work did not show any leukocytosis, hemoglobin and hematocrit were stable. Sodium 126, potassium 4.9, chloride 91. BUN 76, creatinine 7.1. Glucose 336. Troponin negative. Chest x-ray showed evidence of CHF and right-sided effusion. Was near complete opacification of the right hemithorax; combination of consolidation and effusion in the left hemithorax. She was then admitted for volume overload, and hyperglycemia. Catalyst Concentration Operator was consulted. Inpatient hemodialysis was ordered through the left chest permacath. Blood pressure was monitored. Paraprofessional Education Assistant was consulted for diabetes management. She was ordered Levemir, Starlix and Januvia. She was placed on insulin sliding scale. She was given nifedipine and Coreg for blood pressure control. Patient was refusing lab work and glucose check and medications needed patient was uncooperative. Coreg was discontinued due to bradycardia. Psychiatric evaluation was done. She was diagnosed with anxiety and depression. She was started on trazodone. She was continued on inpatient hemodialysis. Heart rate improved. She was eventually discharged back to care home. FINAL DIAGNOSES: Volume overload Pleural effusion, right End-stage renal disease on hemodialysis Bradycardia Major depressive disorder Anxiety disorder Diabetes, out of control Hypertension Noncompliance DISPOSITION: Patient was discharged to a SNF. DISCHARGE MEDICATIONS: Refer to Discharge Medication List. I have been assigned to complete a discharge summary on this account, I was not involved with the patient's management. Demetria Lawler NP Oct 12, 2018 11:16
--- NOTE | 2018-10-13 14:01 | NUR ---
*-* INSURANCE *-* DISCHARGE SUMMARY HAVE BEEN FAXED TO: MACKENZIE... SHERRYM: CULLEN P- [phone] F- [phone]...........REVIEW/CLINICAL
--- NOTE | 2018-10-17 14:17 | Cardiology Report ---
APPROVED REPORT EKG Measurement Heart [id number] Sinus bradycardia Low voltage QRS Cannot rule out Anteroseptal infarct, age undetermined Prolonged QT Abnormal ECG
[2018-11-18] MEDS ORDERED: HydrALAZINE 25mg tab ORAL PRN (23:45)
== END 2018-10-11 20:43 | DRG 425 ==
LOC: EDBD 18:35 → EMR 19:46 → 2E 20:09 → EDBEDREQ 22:52 → 4E 10-09 12:55
PROC: 5A1D70Z Performance of Urinary Filtration, Intermittent, Less than 6 Hours Per Day (ICD-10-PCS; principal; 2018-10-11)
DX: E87.79 Other fluid overload (principal); J91.8 Pleural effusion in other conditions classified elsewhere; E11.22 Type 2 diabetes mellitus with diabetic chronic kidney disease; E11.65 Type 2 diabetes mellitus with hyperglycemia; I12.0 Hypertensive chronic kidney disease with stage 5 chronic kidney disease or end stage renal disease; N18.6 End stage renal disease; Z91.14 Patient's other noncompliance with medication regimen; Z99.2 Dependence on renal dialysis; F32.9 Major depressive disorder, single episode, unspecified; F41.9 Anxiety disorder, unspecified; R00.1 Bradycardia, unspecified; Z66 Do not resuscitate; Z90.710 Acquired absence of both cervix and uterus; T44.7X5A Adverse effect of beta-adrenoreceptor antagonists, initial encounter; Y92.89 Other specified places as the place of occurrence of the external cause; Z79.4 Long term (current) use of insulin; H54.8 Legal blindness, as defined in USA
CPT/HCPCS: 36415; 71045; 80053; 82550; 82962; 83880; 84484; 85025; 85610; 85730; 93005; 99285; J1815; S5561

== ENCOUNTER 2018-11-18 21:29 | Inpatient (IN) | payer OTHER ==
[~2018-11-18] VITALS: Ht 157.5 cm; Wt 69.9 kg
[~2018-11-18 21:29] MED LIST: ACETAMINOPHEN325 M1 ORAL; ASPIRIN81 MG ORAL; ATORVASTATIN CA40 MG ORAL; CARVEDILOL25 MG ORAL; HUMALOG100 UNIT/4 SUBQ; LANTUS SOL100 UNIT/1 SUBQ; LATANOPROST2.5 ML BOTH EYES; LOSARTAN POTASS25 MG ORAL; NEPHROVITE1 TAB ORAL; NIFEDIPINE ER60 M2 ORAL; RENAGEL800 MG ORAL; TRADJENTA5 MG PO; TRAZODONE HCL50 MG ORAL
[2018-11-18] MEDS ORDERED: NOVOLOG100 UNIT/5 (21:49)
[2018-11-18] MEDS ORDERED: PRO-STAT LIQUID30 ML ORAL (21:49)
[2018-11-18] MEDS ORDERED: LEVEMIR100 UNIT/1 SUBQ (21:49)
[2018-11-18] MEDS ORDERED: XALATAN2.5 ML BOTH EYES (21:49)
[2018-11-18] MEDS ORDERED: ATORVASTATIN CA40 MG ORAL (21:49)
[2018-11-18 22:00] VITALS: BP 105/57
--- NOTE | 2018-11-18 22:00 | NUR ---
ED Nurse Note: RECIEVED PT BIBA FROM SNF WITH C/O SUDDEN RESPIRATORY DISTRESS, RECIEVED PT IN BED, GOWNED AND ON BIPAP, PT ALSO ON CARDIAC MONITORING, PT IS NEPALI SPAKING ONLY, TRANSLATION ASSISTANCE PROVIDED BY [email or web address], PT NOTED WITH HEART RATE OF 43, MD INFORMED IMMEDIATELY, PT DENIES CP OR ANY PAIN, WILL RESUME CARE ORDERED, IV LINE PLACED AND LABS DRAWN, WILL RESUME CARE ORDERED AND CLOSELY MONITOR.
--- NOTE | 2018-11-18 22:40 | NUR ---
ED Nurse Note: PT SUDDENNLY BECAME VERY RESTLESS AND SHOUTING FOR NURSE, PT NOTED TO HAVE DIAPHORESIS AND CLAMMY SKIN, BS TAKEN IMMEDIATELY AND IS LOW AT 55, MD INFORMED, 1 AMP D50 GIVEN AND PT GIVEN SANDWICH AND JUICE, PT EATING ALL, REMAINS ON CARDIC MONITORING WITH HERT RATE OF ABOUT 40, MD REMAINS AWARE AND RE-INFORMED, WILL CONTINUE TO CLOSELY MONITOR, PT PLACED ON NASAL CANULA AT 3L WHILE EATING, O2 SAT=98%.
[2018-11-18 22:42] LABS: BASOPHILS % (AUTO) 1.3 % (0.0-2.0); EOSINOPHILS % (AUTO) 4.3 % (0.0-3.0); HEMATOCRIT 30.2 % (37.0-47.0); HEMOGLOBIN 9.9 G/DL (12.0-16.0); LYMPHOCYTES % (AUTO) 11.5 % (20.0-45.0); MEAN CORPUSCULAR VOLUME 96 FL (80-99); MONOCYTES % (AUTO) 12.2 % (1.0-10.0); NEUTROPHILS % (AUTO) 70.6 % (45.0-75.0); PLATELET COUNT 106 K/UL (150-450); RED BLOOD COUNT 3.15 M/UL (4.20-5.40); RED CELL DISTRIBUTION WIDTH 13.5 % (11.6-14.8); WHITE BLOOD COUNT 8.4 K/UL (4.8-10.8)
[2018-11-18 22:45] LABS: ANION GAP 9 mmol/L (5-15); BLOOD UREA NITROGEN 40 mg/dL (7-18); CALCIUM 8.2 MG/DL (8.5-10.1); CARBON DIOXIDE 30 MMOL/L (21-32); CHLORIDE 94 MMOL/L (98-107); CREATININE 4.3 MG/DL (0.55-1.30); POTASSIUM 3.9 MMOL/L (3.5-5.1); SODIUM 133 MMOL/L (136-145)
[2018-11-18] MEDS ORDERED: LORazepam Inj 2mg/ml 1ml IV ONE (22:45)
[2018-11-18 22:58] LABS: INR 1.1 (0.9-1.1)
[2018-11-18 22:59] LABS: ALANINE AMINOTRANSFERASE 23 U/L (12-78); ALBUMIN 2.9 G/DL (3.4-5.0); ALBUMIN/GLOBULIN RATIO 0.7 (1.0-2.7); ALKALINE PHOSPHATASE 486 U/L (46-116); ASPARTATE AMINO TRANSFERASE 33 U/L (15-37); BILIRUBIN,TOTAL 0.6 MG/DL (0.2-1.0); CKMB 0.8 NG/ML (0.0-3.6); CREATINE KINASE 40 U/L (26-308)
[2018-11-18 23:00] VITALS: BP 111/53
--- NOTE | 2018-11-18 23:35 | Emergency Room Report ---
History of Present Illness General Chief Complaint: Dyspnea/Respdistress Source: Patient, Medical Record Present Illness HPI This is a 48-year-old female with a history of diabetes, hypertension and renal failure hemodialysis. She presents with chief complaint of shortness of breath. care home called 911 because patient was dyspneic and short of breath. Onset tonight. She had dialysis yesterday and came home actually more fluid overloaded and swelling per patient. Worse with lying flat. Worse with exertion. There is some slight bruising to her lower extremity. She was very short of breath per EMS. On a nonrebreather mask and brought her here. Patient denies any chest pain. Allergies: Coded Allergies: PENICILLINS (Verified Allergy, Unknown, 10/07/18) PIPERACILLIN (Verified Allergy, Unknown, 10/07/18) TAZOBACTAM (Verified Allergy, Unknown, 10/07/18) Patient History Past Medical History: see triage record, old chart reviewed, DM, HTN, renal disease, dialysis Past Surgical History: other Pertinent Family History: none Social History: Denies: smoking Now: No Immunizations: other Reviewed Nursing Documentation: PMH: Agreed; PSxH: Agreed Nursing Documentation-PMH Hx Cardiac Problems: Yes Hx Hypertension: Yes Hx Diabetes: Yes Hx Cancer: Yes Hx Gastrointestinal Problems: No Hx Dialysis: Yes Hx Neurological Problems: Yes Hx Weakness: Yes Review of Systems Eye: Denies: eye pain, blurred vision ENT: Denies: ear pain, nose congestion, throat swelling Respiratory: Reports: shortness of breath; Denies: cough Cardiovascular: Denies: chest pain, palpitations Gastrointestinal: Denies: abdominal pain, diarrhea, nausea, vomiting Musculoskeletal: Denies: back pain, joint pain Skin: Denies: rash Neurological: Denies: headache, numbness Endocrine: Denies: increased thirst, increased urine Hematologic/Lymphatic: Denies: easy bruising All Other Systems: negative except mentioned in HPI Physical Exam Vital Signs Date Time Temp Pulse Resp B/P (MAP) Pulse Ox O2 Delivery O2 Flow Rate FiO2 11/18/18 21:25 47 22 102/45 (64) 96 Non-Rebreather 15.0 11/18/18 21:47 40 Vitals with bradycardia Sp02 EP Interpretation: abnormal General Appearance: moderate distress Head: normocephalic, atraumatic Eyes: bilateral eye PERRL, bilateral eye EOMI ENT: hearing grossly normal, normal pharynx Neck: full range of motion, supple, no meningismus Respiratory: chest non-tender, accessory muscle use, rales Cardiovascular #1: regular rate, rhythm, no murmur, bradycardia Gastrointestinal: normal bowel sounds, non tender, no mass, no organomegaly, no bruit, non-distended Musculoskeletal: back normal, normal range of motion, swelling - 2+ pitting edema Psychiatric: anxious Procedures Critical Care Time Critical Care Time Critical care is mandated in this patient who presented with acute respiratory failure secondary to CHF. Patient require my urgent intervention to attenuate the risks of respiratory collapse which may lead to cardiovascular collapse and . Critical care time is 35 minutes excluding any reportable procedure. Critical care time included evaluation, multiple reevaluation, looking at old charts, interpreting laboratory and diagnostic data, discussing case with patient and family and consultants, and charting. Medical Decision Making Diagnostic Impression: Primary Impression: Acute and chronic respiratory failure with hypoxia Additional Impressions: Bradycardia Hypoglycemia Volume overload Qualified Codes: E87.70 - Fluid overload, unspecified CHF exacerbation Qualified Codes: I50.9 - Heart failure, unspecified Anemia, chronic renal failure Qualified Codes: N18.5 - Chronic kidney disease, stage 5; D63.1 - Anemia in chronic kidney disease Sinus bradycardia ER Course Patient presents with respiratory distress. She is fluid overloaded. She may need further dialysis. She became very confused and was agitated here. She was diaphoretic. Blood sugar was low. She was given an amp of D50 and responded appropriately. She was given food. Is been persistently bradycardic at 40. No evidence of heart block. This may be secondary to beta-blockade. Blood pressure has been stable. Pt is comfortable on BiPAP. We will continue with BiPAP. Will admit. I contacted Dr. Guzman for admission. EKG Diagnostic Results Rate: bradycardiac Rhythm: NSR ST Segments: no acute changes Rhythm Strip Diag. Results EP Interpretation: yes Rate: 40 Rhythm: NSR, no PVC's, no ectopy Chest X-Ray Diagnostic Results Chest X-Ray Diagnostic Results : Chest X-Ray Ordered: Yes # of Views/Limited/Complete: 1 View Indication: Shortness of Breath EP Interpretation: Yes Interpretation: no consolidation, no effusion, no pneumothorax, other - Vascular congestion Impression: Other - CHF Electronically Signed by: Tobias Thomas MD Last Vital Signs Date Time Temp Pulse Resp B/P (MAP) Pulse Ox O2 Delivery O2 Flow Rate FiO2 11/18/18 23:09 45 26 97 Facial 40 11/18/18 21:25 102/45 (64) 15.0 Status: improved Disposition: ADMITTED INPATIENT Condition: Serious Referrals: Kimberlee Guzman MD (PCP) Tobias Thomas MD Nov 18, 2018 23:35
--- NOTE | 2018-11-18 23:40 | NUR ---
NURSE NOTES: orders given by DR. Velarde to Charge nurses Melanie- orders in putted by me and carried out.
--- NOTE | 2018-11-18 23:45 | NUR ---
ED Nurse Note: PT CONTINUES TO REST IN BED, HAS ROOM FOR ADMISSION, PT REMAINS ON N/C FOR O2, SAT=99%, MD AWARE, IV SITE PATENT, REPORT CALLD TO FLOOR NURSE, PT BEING TAKEN TO UNIT VIA GURNEY WITH ACLS PROTOCOLS WITH RN AND ER-TECH.
[2018-11-19] VITALS (7 sets, daily range): BP systolic 90–185; BP diastolic 54–78
--- NOTE | 2018-11-19 | NUR ---
ED Nurse Note: PT BEING ADMITTED, SKIN ASSESSMENT WITH NO PRESSURE WOUNDS BUT PT HAS MANY HEALED AND SCABED SMALL LESIONS ON BILAT LEGS, HX OF PT SUGGEST VASCULAR ISSUES, MD HERE AWARE, PT BEING ADMITTED.
--- NOTE | 2018-11-19 00:20 | NUR ---
ED Nurse Note: PT BEING TAKEN TO FLOOR FOR ADMISSION, REPORT CALLED TO GRACIELA VERA ON UNIT, PT SWABS COLLECTED, BELONGINGS LIST COMPLETED, PT REMAINS ON N/C DUE TO HER EATING, O2 SAT=99%, PT DENIES CP OR ANY PAIN, IV SITE PATENT, PT BEING TAKEN TO FLOOR UNIT VIA GURNEY AND ACLS PROTOCOLS WITH RN AND ER-TECH, NAD NOTED DURING PT TRANSPORT TO FLOOR BED.
--- NOTE | 2018-11-19 00:22 | NUR ---
NURSE NOTES: Received report from Lizzie OWENS, pt. brought up from ER, pt. in bed awake, Pashto speaking- able to make needs known, cardiac monitoring placed, pt. teaching done and VS taken, full body assessment done- pt. has intact skin but bilateral lower legs has scattered scabs, pt. appears to be sating well on current BIPAP settings 12/6 and FIo2 40%- no distress noted, bed bath given, pt. has RT. hand 22G IV Intact and patent, call light within easy reach, pt. appears to be calm and resting comfortably in bed, bed in lowest position and safety brakes engaged, safety measures continued, will continue with plan of care. Addendum: 11/19/18 at 0123 by LEODAN VILLAVICENCIO RN RN pt. has Perma cath to left side upper chest area for Hemodialysis.
--- NOTE | 2018-11-19 06:01 | NUR ---
NURSE NOTES: patients morning blood sugar was 62- pt. appears to be stable no signs or symptoms of hypoglycemia noted- pt. states also he is feeling good. one cup of orange juice given per eMAR - will reassess blood sugar in [address] Velarde of results.
[2018-11-19] MEDS: NovoLOG Insulin Flexpen SUBQ SCH ×4 (06:04→20:56)
--- NOTE | 2018-11-19 06:15 | NUR ---
NURSE NOTES: repeated blood sugar test now 75- pt. continues to appear stable and no signs or symptoms of hypoglycemia noted- will continue to monitor patient and with plan of care.
--- NOTE | 2018-11-19 06:19 | NUR ---
NURSE NOTES: left msg for DR. Velarde regarding patients blood sugar this morning was 62 - pt. was given a cup of orange juice per protocol - patients blood sugar is now 75- pt. is not displaying any signs or symptoms of hypoglycemia excess fatigue, shakiness, hunger or irritability- awaiting for call back from doctor.
[2018-11-19] MEDS ORDERED: NovoLOG Insulin Flexpen SUBQ SCH (06:30)
--- NOTE | 2018-11-19 06:45 | NUR ---
RESPIRATORY NOTE: Received pt on NC 2L 28% FiO2, pt is sleeping and stable, saturates at 98%. Put pt back on Bipap per MD's order with the current settings 04/12, 40%FiO2. Titrated FiO2 down to 30%, pt saturates at 96%. No redness or skin breakdown noted upon applying foam tapes to pt's nose bridge, chin and cheeks. Pt is awake, alert, and Occitan speaking only. No SOB or resp distress noted. RN made aware. Alarms are set and audible, Bipap is plugged into the red outlet, ambu bag is at bedside. Will continue to monitor pt. Addendum: 11/19/18 at 0832 by Rona SEGURA Correction: Bipap settin/6, back up rate 16.
--- NOTE | 2018-11-19 06:56 | NUR ---
NURSE NOTES: called spoke with a female powerhouse laborer regarding why pts cbc and cmp was cancelled- she was unaware- tired getting her name but she hung up - tried calling lab again and spoke to Gordon - he states he did not know and was not able to find out who I spoke to as there were many people working in lab. ordered stat labs again -lab aware to come and draw labs.
--- NOTE | 2018-11-19 07:13 | NUR ---
HAND-OFF: Report given to Camille Das, pt. appears to be stable and no sings of distress noted.
--- NOTE | 2018-11-19 07:13 | NUR ---
NURSE NOTES: pt. refusing lab draw- explained 3 times to patient- pt. continued to refuse.
--- NOTE | 2018-11-19 07:14 | NUR ---
NURSE NOTES: Received patient in bed. On bipap,a sleep, easy to arouse. In no apparent distress. denies any pain at this time. Will continue plan of care.
[2018-11-19] MEDS ORDERED: Carvedilol 25mg Tab ORAL SCH (09:00)
--- NOTE | 2018-11-19 09:00 | NUR ---
NURSE NOTES: Called [facility] to ask details regarding patient's dialysis. Staff said that on their record, patient's permacath was placed on september 24, 2018.
--- NOTE | 2018-11-19 09:20 | NUR ---
RESPIRATORY NOTE: Attempted to draw arterial blood gas per MD's order, but pt refused. Pt is Kyrgyz speaking only. Asked my colleague who speaks Kyrgyz to explain to her why we need the blood gas and she still refused. Pt is stable in condition. No SOB or resp distress noted. GRACIELA Turcios made aware. Will try again later.
[2018-11-19] MEDS: Nephrovite tab (Rena-Vite) ORAL SCH (09:42)
[2018-11-19] MEDS: Aspirin Baby 81mg ORAL SCH (09:42)
[2018-11-19] MEDS: Losartan 25mg tab ORAL SCH (10:00)
--- NOTE | 2018-11-19 13:30 | NUR ---
NURSE NOTES: Patient signed dialysis consent. Placed on patient's chart.
--- NOTE | 2018-11-19 13:40 | Consultation ---
Consult Note Consult Note Chief Complaint: Dyspnea/Respdistress HPI This is a 48-year-old female with a history of diabetes, hypertension and renal failure hemodialysis. She presents with chief complaint of shortness of breath. longterm called 911 because patient was dyspneic and short of breath. Onset tonight. She had dialysis yesterday and came home actually more fluid overloaded and swelling per patient. Worse with lying flat. Worse with exertion. There is some slight bruising to her lower extremity. She was very short of breath per EMS. On a nonrebreather mask and brought her here. Patient denies any chest pain. Allergies: Coded Allergies: PENICILLINS (Verified Allergy, Unknown, 10/07/18) PIPERACILLIN (Verified Allergy, Unknown, 10/07/18) TAZOBACTAM (Verified Allergy, Unknown, 10/07/18) Past Medical History: see triage record, old chart reviewed, DM, HTN, renal disease, dialysis Hx Cardiac Problems: Yes Hx Hypertension: Yes Hx Diabetes: Yes Hx Cancer: Yes Hx Gastrointestinal Problems: No Hx Dialysis: Yes Hx Neurological Problems: Yes Hx Weakness: Yes Assessment/Plan Volume overload ESRD on dialysis Bradycardia Hyperglycemia Pleural effusion, Dialysis and UF BP and BS control per orders discussed with RN and sales representative sales manager Elvin Garcia MD Nov 19, 2018 13:40
--- NOTE | 2018-11-19 14:30 | Diagnostic Imaging Report ---
Indication: Dyspnea Comparison: 10/07/2018 A single view chest radiograph was obtained. Findings: Pulmonary edema, moderate in degree demonstrated with suspicion of a prominent right pleural effusion. Heart is enlarged. Left permacath noted. IMPRESSION: Pulmonary edema. Right pleural effusion
[2018-11-19 14:37] LABS: BASOPHILS % (AUTO) 0.5 % (0.0-2.0); EOSINOPHILS % (AUTO) 2.3 % (0.0-3.0); HEMATOCRIT 30.4 % (37.0-47.0); HEMOGLOBIN 9.7 G/DL (12.0-16.0); LYMPHOCYTES % (AUTO) 12.1 % (20.0-45.0); MEAN CORPUSCULAR VOLUME 98 FL (80-99); MONOCYTES % (AUTO) 6.4 % (1.0-10.0); NEUTROPHILS % (AUTO) 78.6 % (45.0-75.0); PLATELET COUNT 108 K/UL (150-450); WHITE BLOOD COUNT 7.7 K/UL (4.8-10.8)
[2018-11-19 14:51] LABS: ANION GAP 8 mmol/L (5-15); BLOOD UREA NITROGEN 47 mg/dL (7-18); CALCIUM 8.5 MG/DL (8.5-10.1); CARBON DIOXIDE 31 MMOL/L (21-32); CHLORIDE 93 MMOL/L (98-107); CREATININE 4.8 MG/DL (0.55-1.30); POTASSIUM 4.1 MMOL/L (3.5-5.1); SODIUM 132 MMOL/L (136-145)
[2018-11-19 14:56] LABS: ALANINE AMINOTRANSFERASE 20 U/L (12-78); ALBUMIN/GLOBULIN RATIO 0.7 (1.0-2.7); ALKALINE PHOSPHATASE 482 U/L (46-116); ASPARTATE AMINO TRANSFERASE 29 U/L (15-37); BILIRUBIN,TOTAL 0.8 MG/DL (0.2-1.0)
[2018-11-19] MEDS: HydrALAZINE 25mg tab ORAL PRN ×2 (17:30→21:37)
--- NOTE | 2018-11-19 18:25 | Pulmonology Progress Note ---
Assessment/Plan Assessment/Plan Acute respiratory failure pulmonary edema pleural effusions ESRD PLAN renal noted HD keep negative off BIPAP as able monitor imaging impression, plan, and exam edited and reviewed in detail care discussed with RN Subjective Allergies: Coded Allergies: PENICILLINS (Verified Allergy, Unknown, 10/07/18) PIPERACILLIN (Verified Allergy, Unknown, 10/07/18) TAZOBACTAM (Verified Allergy, Unknown, 10/07/18) Subjective asked to assist with BIPAP seen earlier currently off and on NC Objective Last 24 Hour Vital Signs Date Time Temp Pulse Resp B/P (MAP) Pulse Ox O2 Delivery O2 Flow Rate FiO2 11/19/18 17:30 166/78 11/19/18 16:00 Nasal Cannula 2.0 11/19/18 16:00 97.2 63 22 166/78 (107) 100 11/19/18 15:27 61 11/19/18 12:53 64 20 94 11/19/18 12:00 Nasal Cannula 2.0 11/19/18 12:00 97.2 67 20 134/58 (83) 93 11/19/18 11:37 58 11/19/18 10:50 63 18 96 11/19/18 10:00 44 140/65 11/19/18 10:00 140/65 11/19/18 09:30 Nasal Cannula 2.0 11/19/18 09:28 44 97 11/19/18 08:57 45 15 97 Facial 30 11/19/18 08:00 Bi-pap 11/19/18 08:00 40 11/19/18 08:00 97.2 43 20 140/65 (90) 97 11/19/18 07:42 42 11/19/18 06:45 42 25 96 Facial 30 11/19/18 04:50 39 25 98 Facial 40 11/19/18 04:00 Bi-pap 11/19/18 04:00 38 11/19/18 04:00 95.9 40 23 119/54 (75) 98 11/19/18 04:00 40 11/19/18 03:07 41 22 99 Facial 40 11/19/18 01:08 Bi-pap 11/19/18 01:06 40 15 97 Facial 40 11/19/18 01:00 40 11/19/18 01:00 96.5 42 18 90/64 (73) 97 11/19/18 01:00 Bi-pap 11/19/18 00:48 40 11/19/18 00:22 40 11/19/18 00:20 98.8 40 26 111/53 97 Bi-pap 15.0 40 11/18/18 23:09 45 26 97 Facial 40 11/18/18 23:00 98.8 40 26 111/53 98 Bi-pap 15.0 40 11/18/18 22:00 50 31 15.0 40 11/18/18 22:00 42 31 105/57 98 Bi-pap 15.0 40 11/18/18 21:49 50 31 98 Bi-Pap 40 11/18/18 21:47 50 31 98 Facial 40 11/18/18 21:25 47 22 102/45 (64) 96 Non-Rebreather 15.0 Intake and Output 11/18/18 11/19/18 19:00 07:00 Output Total 0 ml Balance 0 ml Output Urine Total 0 ml # Bowel Movements 2 Objective WDWN NAD reduced breath sounds bilaterally with some crackles [id number] without MRG NABS nontender no HSM no CC nonfocal Laboratory Tests 11/18/18 22:00: White Blood Count 8.4, Red Blood Count 3.15L, Hemoglobin 9.9L, Hematocrit 30.2L , Mean Corpuscular Volume 96, Mean Corpuscular Hemoglobin 31.4H, Mean Corpuscular Hemoglobin Concent 32.7, Red Cell Distribution Width 13.5, Platelet Count 106L, Mean Platelet Volume 9.0, Neutrophils (%) (Auto) 70.6, Lymphocytes ( %) (Auto) 11.5L, Monocytes (%) (Auto) 12.2H, Eosinophils (%) (Auto) 4.3H, Basophils (%) (Auto) 1.3, Prothrombin Time 11.8H, Prothromb Time International Ratio 1.1, Activated Partial Thromboplast Time 29, Sodium Level 133L, Potassium Level 3.9, Chloride Level 94L, Carbon Dioxide Level 30, Anion Gap 9, Blood Urea Nitrogen 40H, Creatinine 4.3H, Estimat Glomerular Filtration Rate 10.9, Glucose Level 58L, Calcium Level 8.2L, Total Bilirubin 0.6, Aspartate Amino Transf (AST/ SGOT) 33, Alanine Aminotransferase (ALT/SGPT) 23, Alkaline Phosphatase 486H, Total Creatine Kinase 40, Creatine Kinase MB 0.8, Creatine Kinase MB Relative Index 2.0, Troponin I 0.026, Pro-B-Type Natriuretic Peptide 67187J, Total Protein 7.2, Albumin 2.9L, Globulin 4.3, Albumin/Globulin Ratio 0.7L 11/19/18 14:15: Sodium Level 132L, Potassium Level 4.1, Chloride Level 93L, Carbon Dioxide Level 31, Anion Gap 8, Blood Urea Nitrogen 47H, Creatinine 4.8H, Estimat Glomerular Filtration Rate 9.6, Glucose Level 172#H, Calcium Level 8.5, Total Bilirubin 0.8, Aspartate Amino Transf (AST/SGOT) 29, Alanine Aminotransferase ( ALT/SGPT) 20, Alkaline Phosphatase 482H, Total Protein 7.3, Albumin 3.0L, Globulin 4.3, Albumin/Globulin Ratio 0.7L, Hepatitis B Surface Antigen [Pending] 11/19/18 14:25: White Blood Count 7.7, Red Blood Count 3.10L, Hemoglobin 9.7L, Hematocrit 30.4L , Mean Corpuscular Volume 98, Mean Corpuscular Hemoglobin 31.4H, Mean Corpuscular Hemoglobin Concent 32.0, Red Cell Distribution Width 14.0, Platelet Count 108L, Mean Platelet Volume 9.1, Neutrophils (%) (Auto) 78.6H, Lymphocytes (%) (Auto) 12.1L, Monocytes (%) (Auto) 6.4, Eosinophils (%) (Auto) 2.3, Basophils (%) (Auto) 0.5 Current Medications Medications (Trade) Dose Ordered Sig/Soren Route PRN Reason Start Time Stop Time Status Last Admin Dose Admin Acetaminophen (Tylenol) 650 mg Q6H PRN ORAL Pain Scale (3-5) 11/19/18 00:30 12/19/18 00:29 Aspirin (ASA) 81 mg DAILY ORAL 11/19/18 09:00 12/19/18 08:59 11/19/18 09:42 Chlorhexidine Gluconate (Di-Hex 2%) 1 applic DAILY@1999 TOPIC 11/19/18 20:00 12/19/18 19:59 Dextrose (Dextrose 50%) 25 ml Q30M PRN IV Hypoglycemia 11/19/18 03:00 12/19/18 02:59 Dextrose (Dextrose 50%) 50 ml Q30M PRN IV Hypoglycemia 11/19/18 03:00 12/19/18 02:59 Hydralazine HCl (Apresoline) 25 mg Q4H PRN ORAL bp over 160 syst 11/19/18 13:45 12/19/18 13:44 11/19/18 17:30 Insulin Aspart (NovoLOG) BEFORE MEALS AND HS SUBQ 11/19/18 06:30 12/19/18 06:29 Latanoprost (Xalatan) 1 drop BEDTIME BOTH EYES 11/19/18 21:00 12/19/18 20:59 Losartan Potassium (Cozaar) 25 mg DAILY ORAL 11/19/18 09:00 12/19/18 08:59 Nifedipine (Procardia XL) 60 mg DAILY ORAL 11/19/18 09:00 12/19/18 08:59 Trazodone HCl (Desyrel) 50 mg BEDTIME ORAL 11/19/18 21:00 12/19/18 20:59 Vitamin B Complex/ Vit C/Folic Acid (Nephrovite) 1 tab DAILY ORAL 11/19/18 09:00 12/19/18 08:59 11/19/18 09:42 Gennaro Leong MD Nov 19, 2018 18:25
--- NOTE | 2018-11-19 19:15 | NUR ---
NURSE NOTES: Received report from Ana OWENS, pt. in bed awake, French speaking- able to make needs known, pt. in bed sitting listening to television, cardiac monitoring on, VS taken, pt. appears to be sating well on 2L NC- no distress noted, pt. has RT. hand 22G IV Intact and patent, call light within easy reach, pt. appears to be calm and resting comfortably in bed, bed in lowest position and safety brakes engaged, comfort measures provided, safety measures continued, will continue with plan of care. Addendum: 11/19/18 at 2010 by LEODAN VILLAVICENCIO RN RN correction to message above report given to Karolina Obrien RN- not Ana OWENS.
--- NOTE | 2018-11-19 19:30 | NUR ---
HAND-OFF: Report given to Veronica Townsend RN.
--- NOTE | 2018-11-19 19:34 | Cardiac Electrophysiology PN ---
Subjective Subjective Bradycardia due to Coreg, [id number] Objective Last 24 Hour Vital Signs Date Time Temp Pulse Resp B/P (MAP) Pulse Ox O2 Delivery O2 Flow Rate FiO2 11/19/18 17:30 166/78 11/19/18 16:00 Nasal Cannula 2.0 11/19/18 16:00 97.2 63 22 166/78 (107) 100 11/19/18 15:27 61 11/19/18 12:53 64 20 94 11/19/18 12:00 Nasal Cannula 2.0 11/19/18 12:00 97.2 67 20 134/58 (83) 93 11/19/18 11:37 58 11/19/18 10:50 63 18 96 11/19/18 10:00 44 140/65 11/19/18 10:00 140/65 11/19/18 09:30 Nasal Cannula 2.0 11/19/18 09:28 44 97 11/19/18 08:57 45 15 97 Facial 30 11/19/18 08:00 Bi-pap 11/19/18 08:00 40 11/19/18 08:00 97.2 43 20 140/65 (90) 97 11/19/18 07:42 42 11/19/18 06:45 42 25 96 Facial 30 11/19/18 04:50 39 25 98 Facial 40 11/19/18 04:00 Bi-pap 11/19/18 04:00 38 11/19/18 04:00 95.9 40 23 119/54 (75) 98 11/19/18 04:00 40 11/19/18 03:07 41 22 99 Facial 40 11/19/18 01:08 Bi-pap 11/19/18 01:06 40 15 97 Facial 40 11/19/18 01:00 40 11/19/18 01:00 96.5 42 18 90/64 (73) 97 11/19/18 01:00 Bi-pap 11/19/18 00:48 40 11/19/18 00:22 40 11/19/18 00:20 98.8 40 26 111/53 97 Bi-pap 15.0 40 11/18/18 23:09 45 26 97 Facial 40 11/18/18 23:00 98.8 40 26 111/53 98 Bi-pap 15.0 40 11/18/18 22:00 50 31 15.0 40 11/18/18 22:00 42 31 105/57 98 Bi-pap 15.0 40 11/18/18 21:49 50 31 98 Bi-Pap 40 11/18/18 21:47 50 31 98 Facial 40 11/18/18 21:25 47 22 102/45 (64) 96 Non-Rebreather 15.0 Intake and Output 11/18/18 11/19/18 19:00 07:00 Output Total 0 ml Balance 0 ml Output Urine Total 0 ml # Bowel Movements 2 Laboratory Tests Test 11/18/18 22:00 11/19/18 14:15 11/19/18 14:25 White Blood Count 8.4 K/UL (4.8-10.8) 7.7 K/UL (4.8-10.8) Red Blood Count 3.15 M/UL (4.20-5.40) L 3.10 M/UL (4.20-5.40) L Hemoglobin 9.9 G/DL (12.0-16.0) L 9.7 G/DL (12.0-16.0) L Hematocrit 30.2 % (37.0-47.0) L 30.4 % (37.0-47.0) L Mean Corpuscular Volume 96 FL (80-99) 98 FL (80-99) Mean Corpuscular Hemoglobin 31.4 PG (27.0-31.0) H 31.4 PG (27.0-31.0) H Mean Corpuscular Hemoglobin Concent 32.7 G/DL (32.0-36.0) 32.0 G/DL (32.0-36.0) Red Cell Distribution Width 13.5 % (11.6-14.8) 14.0 % (11.6-14.8) Platelet Count 106 K/UL (150-450) L 108 K/UL (150-450) L Mean Platelet Volume 9.0 FL (6.5-10.1) 9.1 FL (6.5-10.1) Neutrophils (%) (Auto) 70.6 % (45.0-75.0) 78.6 % (45.0-75.0) H Lymphocytes (%) (Auto) 11.5 % (20.0-45.0) L 12.1 % (20.0-45.0) L Monocytes (%) (Auto) 12.2 % (1.0-10.0) H 6.4 % (1.0-10.0) Eosinophils (%) (Auto) 4.3 % (0.0-3.0) H 2.3 % (0.0-3.0) Basophils (%) (Auto) 1.3 % (0.0-2.0) 0.5 % (0.0-2.0) Prothrombin Time 11.8 SEC (9.30-11.50) H Prothromb Time International Ratio 1.1 (0.9-1.1) Activated Partial Thromboplast Time 29 SEC (23-33) Sodium Level 133 MMOL/L (136-145) L 132 MMOL/L (136-145) L Potassium Level 3.9 MMOL/L (3.5-5.1) 4.1 MMOL/L (3.5-5.1) Chloride Level 94 MMOL/L (98-107) L 93 MMOL/L (98-107) L Carbon Dioxide Level 30 MMOL/L (21-32) 31 MMOL/L (21-32) Anion Gap 9 mmol/L (5-15) 8 mmol/L (5-15) Blood Urea Nitrogen 40 mg/dL (7-18) H 47 mg/dL (7-18) H Creatinine 4.3 MG/DL (0.55-1.30) H 4.8 MG/DL (0.55-1.30) H Estimat Glomerular Filtration Rate 10.9 mL/min (>60) 9.6 mL/min (>60) Glucose Level 58 MG/DL (74-106) L 172 MG/DL (74-106) #H Calcium Level 8.2 MG/DL (8.5-10.1) L 8.5 MG/DL (8.5-10.1) Total Bilirubin 0.6 MG/DL (0.2-1.0) 0.8 MG/DL (0.2-1.0) Aspartate Amino Transf (AST/SGOT) 33 U/L (15-37) 29 U/L (15-37) Alanine Aminotransferase (ALT/SGPT) 23 U/L (12-78) 20 U/L (12-78) Alkaline Phosphatase 486 U/L (46-116) H 482 U/L (46-116) H Total Creatine Kinase 40 U/L (26-308) Creatine Kinase MB 0.8 NG/ML (0.0-3.6) Creatine Kinase MB Relative Index 2.0 Troponin I 0.026 ng/mL (0.000-0.056) Pro-B-Type Natriuretic Peptide 12592 pg/mL (0-125) H Total Protein 7.2 G/DL (6.4-8.2) 7.3 G/DL (6.4-8.2) Albumin 2.9 G/DL (3.4-5.0) L 3.0 G/DL (3.4-5.0) L Globulin 4.3 g/dL 4.3 g/dL Albumin/Globulin Ratio 0.7 (1.0-2.7) L 0.7 (1.0-2.7) L Hepatitis B Surface Antigen Pending Amanuel Love MD Nov 19, 2018 19:34
[2018-11-19] MEDS ORDERED: Dyna-Hex 2% Top Sol 2oz TOPIC SCH (20:00)
--- NOTE | 2018-11-19 20:45 | History and Physical Report ---
DATE OF ADMISSION: 11/18/2018 HISTORY OF PRESENT ILLNESS: The patient was transferred 911 because of chest pain. The patient has end-stage renal disease on hemodialysis, also admitted for bradycardia and pulmonary edema. The patient is a poor historian. Denies nausea, vomiting, or diarrhea. The patient comes in with shortness of breath, admitted also for possible fluid overload, also pulmonary edema. Does have some mild cough. PAST MEDICAL HISTORY: End-stage renal disease on hemodialysis, hypertension, diabetes, history of cancer, depression, hyperlipidemia PAST SURGICAL HISTORY: Related to dialysis. ALLERGIES: Tazobactam and penicillin. MEDICATIONS: Coreg, insulin, Xalatan, Tradjenta, losartan, Renagel, trazodone. SOCIAL HISTORY: Denies history of smoking, alcohol or illicit drugs. Comes from a group home. FAMILY HISTORY: Diabetes and hypertension. REVIEW OF SYSTEMS: As mentioned. RESPIRATORY: The patient does have shortness of breath. Does have occasional cough CARDIOVASCULAR: Does have chest pain for one day that is nonradiating. Does have orthopnea. EXTREMITIES: leg edema. CENTRAL NERVOUS SYSTEM: Denies change in vision or speech pattern. Feels weak. PHYSICAL EXAMINATION: VITAL SIGNS: Temperature 97.2, pulse 67, blood pressure 132/58. HEENT: PERRLA. NECK: Supple. CHEST: Bibasilar rales. CARDIOVASCULAR: Irregularly irregular. GASTROINTESTINAL: Soft. Positive bowel sounds. No organomegaly. EXTREMITIES: Does have edema in the lower extremities. Reflexes on both sides. LABORATORY DATA: WBC of 8.4, hemoglobin 9.9, and platelets of 106. Sodium 138, potassium 3.9, BUN of 40, creatinine 4.3, and glucose of 58, [place] [address]. Chest x-ray shows possible pulmonary edema. EKG shows acute underlying bradycardia. Elevated BNP and patient also had evidence of hypoglycemia in the hospital. ASSESSMENT AND PLAN: 1. Hypoglycemia and bradycardia. 2. Chest pain rule out acute coronary syndrome. 3. Pulmonary edema. 4. Bradycardia. I have asked Dr. Iqbal, Dr. Leong, Dr. Love, Dr. Garcia see the patient for management of above-mentioned diagnoses and further treatment. Kimberlee Guzman M.D. DR: Polo JOB#: [id number] CC:
[2018-11-19] MEDS ORDERED: Atorvastatin 80mg tab ORAL SCH ×2 (21:00)
[2018-11-19] MEDS ORDERED: TraZODone 50mg tab ORAL SCH (21:00)
[2018-11-19] MEDS ORDERED: Latanoprost 0.005% Opth 2.5ml Soln BOTH EYES SCH ×2 (21:00)
--- NOTE | 2018-11-19 21:00 | Consultation ---
DATE OF CONSULTATION: 11/19/2018 CARDIOLOGY CONSULTATION CONSULTING PHYSICIAN: Amanuel Love M.D. REFERRING PHYSICIAN: Kimberlee Guzman M.D. REASON FOR CONSULTATION: Bradycardia. HISTORY OF PRESENT ILLNESS: The patient is a 48-year-old lady with history of hypertension, diabetes, end-stage renal disease on hemodialysis, was brought to the hospital for increasing shortness of breath. [facility] as the patient was dyspneic and short of breath. The patient had dialysis yesterday, noticed to have more fluid overloaded with more swelling. On admission, the patient was found to be bradycardic, heart rate dropping to 37. Cardiac electrophysiology consultation was obtained for further evaluation and management. REVIEW OF SYSTEMS: Review of systems was negative other than what is mentioned in the history of present illness. PAST MEDICAL HISTORY: As mentioned above. FAMILY HISTORY: Noncontributory. SOCIAL HISTORY: She does not smoke or drink alcohol. ALLERGIES: She is allergic to penicillin, piperacillin and tazobactam. PHYSICAL EXAMINATION: VITAL SIGNS: Show blood pressure 166/78, heart rate was in the 30s and currently 63, respirations 18, and temperature 97.2. HEAD AND NECK: No JVD. LUNGS: Clear. CARDIOVASCULAR: Shows regular S1 and S2 with no gallop. ABDOMEN: Soft. EXTREMITIES: No pitting edema. The PermCath in the left chest. LABORATORY DATA: Show white count 7.7, hemoglobin 9.7, hematocrit of 30, and platelet count is 108. Sodium is 132, potassium 4.1, BUN of 47, creatinine 4.8, and glucose of 170. [place] [address]. ASSESSMENT AND PLAN: 1. Bradycardia. This is likely due to the patient's carvedilol was discontinued. The heart rate has already improved. We will get an echocardiogram to evaluate of ejection fraction and wall motion abnormality. 2. History of hypertension on losartan 25 mg daily, Procardia XL 60 mg daily and p.r.n. p.o. hydralazine. 3. Diabetes on insulin. 4. End-stage renal disease, on hemodialysis. Thank you very much for allowing me to participate in the care of this patient. Please do not hesitate to contact me for any questions regarding my evaluation. Sincerely, Amanuel Love M.D. DR: Francisco Javier JOB#: [id number] CC:
[2018-11-20] VITALS (7 sets, daily range): BP systolic 151–184; BP diastolic 62–79
[2018-11-20] MEDS ORDERED: HydrALAZINE 25mg tab ORAL SCH
[2018-11-20] MEDS: HydrALAZINE 25mg tab ORAL PRN (05:09)
[2018-11-20] MEDS: NovoLOG Insulin Flexpen SUBQ SCH ×4 (05:34→21:40)
[2018-11-20] MEDS ORDERED: sitaGLIPtin 25mg tab ORAL SCH (06:45)
--- NOTE | 2018-11-20 07:03 | NUR ---
HAND-OFF: Report given to Farhat OWENS, pt. remains stable and no signs of distress noted.
--- NOTE | 2018-11-20 07:59 | Consultation ---
DATE OF CONSULTATION: 11/20/2018 ENDOCRINOLOGY CONSULTATION CONSULTING PHYSICIAN: Marck Iqbal M.D. REFERRING PHYSICIAN: Kimberlee Guzman M.D. REASON FOR CONSULTATION: Diabetes management. HISTORY OF PRESENT ILLNESS: The patient is a 48-year-old female with history of diabetes and end-stage renal disease, on hemodialysis. For diabetes, she is on Levemir 8 units daily and Tradjenta 5 mg daily. The patient presented to the hospital with worsening of the shortness of breath, admitted for observation and treatment. I was called to manage diabetes. Glucose is 266. PAST MEDICAL HISTORY: 1. Type 2 diabetes. 2. End-stage renal disease, on hemodialysis. 3. Cardiac disease. 4. History of cancer. ALLERGIES: Penicillin and Zosyn. REVIEW OF SYSTEMS: A 12-point review of systems was performed. The pertinent positives and negatives are mentioned in history of present illness. MEDICATIONS: Reviewed and reconciled. FAMILY HISTORY: Noncontributory. SOCIAL HISTORY: No smoking, alcohol, or drug use. LABORATORY VALUES: WBC 7.7, hemoglobin 9.7, hematocrit 30.4, platelets of 108. Sodium 132, potassium 4.1, chloride 92, bicarb 31, BUN 27, creatinine 4.8, alkaline phosphatase 482, glucose of 172. On presentation, had a glucose of 58. PHYSICAL EXAMINATION: GENERAL: The patient is awake. VITAL SIGNS: Blood pressure 156/79, pulse 59, respiratory rate of 20, temperature of 97.7. HEENT: Pupils reactive to light. Sclerae anicteric. NECK: Positive for JVD. HEART: Regular. LUNGS: Decreased breath sounds. ABDOMEN: Positive for bowel sounds. EXTREMITIES: Positive for edema. DIAGNOSES: 1. Diabetes, out of control. 2. Hypoglycemia. 3. End-stage renal disease, on hemodialysis. 4. CHF. 5. Bradycardia. PLAN: 1. Hold off on basal insulin. 2. NovoLog sliding scale before meals and at bedtime. 3. Start Januvia 25 mg daily. 4. I will follow the patient closely during hospital stay. Thank you, Dr. Guzman, for the courtesy of this consultation. Marck Iqbal M.D. DR: GEORGINA JOB#: [id number] CC: CHEO
--- NOTE | 2018-11-20 08:05 | NUR ---
RADIOLOGY DEPT., PT REFUSED EXAM AT THIS TIME.-P.D
--- NOTE | 2018-11-20 08:10 | NUR ---
NURSE NOTES: received pi in the bed, awake, alert, oriented, vital signs stable, no co pain, no SOB, pt blind, pt refuse, blood work, refuse 2d echo, dr Garcia aware, skin warm and dry to touch, bed in low position, call light within reach.
--- NOTE | 2018-11-20 08:33 | NUR ---
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 SINUS BRADYCARDIA . HYPOGLYCEMIA 102/45, P 40, T 98.8, RR 31, SpO2 96 on Bi-pap 15.0, FiO2 40 Glucose 58, RBC 3.15, H&H 9.9/30.2, Plt.Count 106, Na 133, BUN 40, CR 4.3 CXR: Pulmonary edema. Right pleural effusion IS:LASIX 80mg IV D50 50ml IV PLAN: ECHO pending Hold off on basal insulin Start JANUVIA 25mg ADMITTED TO [facility] DCP: RETURN TO [facility] Addendum: 11/20/18 at 1503 by Lubna Ryan CM INTERQUAL MET
[2018-11-20] MEDS: Nephrovite tab (Rena-Vite) ORAL SCH ×2 (08:56→09:00)
[2018-11-20] MEDS: Aspirin Baby 81mg ORAL SCH (08:56)
[2018-11-20] MEDS: Losartan 25mg tab ORAL SCH (08:57)
--- NOTE | 2018-11-20 09:45 | NUR ---
CARDIOLOGY PT REFUSED 2D ECHO
--- NOTE | 2018-11-20 10:21 | Nephrology Progress Note ---
Assessment/Plan Problem List: (1) ESRD (end stage renal disease) (2) Volume overload (3) Sinus bradycardia Assessment Volume overload ESRD on dialysis Bradycardia improved Hyperglycemia Pleural effusion, Plan Dialysis and UF done 11/19\ Refuses blood work , wants to be discharged BP and BS control per orders stable for med surg Subjective ROS Limited/Unobtainable: No Constitutional: Reports: other - awake NAD Uncooparative Objective Objective Last 24 Hour Vital Signs Date Time Temp Pulse Resp B/P (MAP) Pulse Ox O2 Delivery O2 Flow Rate FiO2 11/20/18 08:57 151/62 11/20/18 08:56 65 151/62 11/20/18 08:00 Nasal Cannula 2.0 11/20/18 08:00 59 11/20/18 08:00 97.9 65 20 151/62 (91) 95 11/20/18 06:17 59 156/79 (104) 11/20/18 05:09 177/66 11/20/18 04:00 2.0 11/20/18 04:00 Nasal Cannula 2.0 11/20/18 04:00 97.7 53 20 177/66 (103) 99 11/20/18 03:56 56 11/20/18 00:00 2.0 11/20/18 00:00 58 11/20/18 00:00 Nasal Cannula 2.0 11/20/18 00:00 97.4 69 18 152/73 (99) 100 11/19/18 22:00 63 158/69 (98) 11/19/18 21:37 185/65 11/19/18 20:00 72 11/19/18 20:00 Nasal Cannula 2.0 11/19/18 20:00 97.4 64 20 185/65 (105) 100 11/19/18 20:00 2.0 11/19/18 17:30 166/78 11/19/18 16:00 Nasal Cannula 2.0 11/19/18 16:00 97.2 63 22 166/78 (107) 100 11/19/18 15:27 61 11/19/18 12:53 64 20 94 11/19/18 12:00 Nasal Cannula 2.0 11/19/18 12:00 97.2 67 20 134/58 (83) 93 11/19/18 11:37 58 11/19/18 10:50 63 18 96 Intake and Output 11/19/18 11/20/18 19:00 07:00 Intake Total 240 ml Output Total 2175 ml 0 ml Balance -1935 ml 0 ml Intake Oral 240 ml Output Urine Total 175 ml 0 ml Hemodialysis UF 2000 ml # Bowel Movements 1 1 Laboratory Tests 11/19/18 14:15: Sodium Level 132L, Potassium Level 4.1, Chloride Level 93L, Carbon Dioxide Level 31, Anion Gap 8, Blood Urea Nitrogen 47H, Creatinine 4.8H, Estimat Glomerular Filtration Rate 9.6, Glucose Level 172#H, Calcium Level 8.5, Total Bilirubin 0.8, Aspartate Amino Transf (AST/SGOT) 29, Alanine Aminotransferase ( ALT/SGPT) 20, Alkaline Phosphatase 482H, Total Protein 7.3, Albumin 3.0L, Globulin 4.3, Albumin/Globulin Ratio 0.7L, Hepatitis B Surface Antigen [Pending] 11/19/18 14:25: White Blood Count 7.7, Red Blood Count 3.10L, Hemoglobin 9.7L, Hematocrit 30.4L , Mean Corpuscular Volume 98, Mean Corpuscular Hemoglobin 31.4H, Mean Corpuscular Hemoglobin Concent 32.0, Red Cell Distribution Width 14.0, Platelet Count 108L, Mean Platelet Volume 9.1, Neutrophils (%) (Auto) 78.6H, Lymphocytes (%) (Auto) 12.1L, Monocytes (%) (Auto) 6.4, Eosinophils (%) (Auto) 2.3, Basophils (%) (Auto) 0.5 Height (Feet): 5 Height (Inches): 2.00 Weight (Pounds): 148 General Appearance: no apparent distress Cardiovascular: normal rate Respiratory/Chest: decreased breath sounds Abdomen: distended Elvin Garcia MD Nov 20, 2018 10:21
[2018-11-20] MEDS ORDERED: HydrALAZINE 10mg Tab ORAL SCH (12:00)
--- NOTE | 2018-11-20 16:07 | NUR ---
NURSE NOTES: pt transferred to 4E as ordered, condition stable, report given to AMARI OWENS.
--- NOTE | 2018-11-20 16:12 | NUR ---
NURSE NOTES: Patient received in stable condition. Belongings reviewed with nurse, patient has a black ZTE phone and tong hooker by the bedside. Insulin pen received.
[2018-11-20] MEDS ORDERED: HydrALAZINE 25mg tab ORAL PRN (17:30)
[2018-11-20] MEDS ORDERED: Losartan 25mg tab ORAL SCH ×2 (18:00)
[2018-11-20] MEDS: HydrALAZINE 10mg Tab ORAL SCH (18:09)
--- NOTE | 2018-11-20 18:27 | Cardiac Electrophysiology PN ---
Assessment/Plan Assessment/Plan 1. Bradycardia. Resolved after carvedilol was discontinued. Echo pending 2. History of hypertension on losartan 25 mg daily, Procardia XL 60 mg daily and p.r.n. p.o. hydralazine. 3. Diabetes on insulin. 4. End-stage renal disease, on hemodialysis. Subjective Subjective HR improved off Coreg. Just transferred to [facility] Objective Last 24 Hour Vital Signs Date Time Temp Pulse Resp B/P (MAP) Pulse Ox O2 Delivery O2 Flow Rate FiO2 11/20/18 18:09 184/75 11/20/18 18:09 184/75 11/20/18 16:00 97.4 56 18 184/75 (111) 93 11/20/18 16:00 Nasal Cannula 2.0 11/20/18 12:53 175/68 11/20/18 12:00 54 11/20/18 12:00 97.9 58 21 175/68 (103) 94 11/20/18 12:00 Nasal Cannula 2.0 11/20/18 08:57 151/62 11/20/18 08:56 65 151/62 11/20/18 08:00 Nasal Cannula 2.0 11/20/18 08:00 59 11/20/18 08:00 97.9 65 20 151/62 (91) 95 11/20/18 06:17 59 156/79 (104) 11/20/18 05:09 177/66 11/20/18 04:00 2.0 11/20/18 04:00 Nasal Cannula 2.0 11/20/18 04:00 97.7 53 20 177/66 (103) 99 11/20/18 03:56 56 11/20/18 00:00 2.0 11/20/18 00:00 58 11/20/18 00:00 Nasal Cannula 2.0 11/20/18 00:00 97.4 69 18 152/73 (99) 100 11/19/18 22:00 63 158/69 (98) 11/19/18 21:37 185/65 11/19/18 20:00 72 11/19/18 20:00 Nasal Cannula 2.0 11/19/18 20:00 97.4 64 20 185/65 (105) 100 11/19/18 20:00 2.0 Intake and Output 11/19/18 11/20/18 18:59 06:59 Intake Total 240 ml Output Total 2175 ml 0 ml Balance -1935 ml 0 ml Intake Oral 240 ml Output Urine Total 175 ml 0 ml Hemodialysis UF 2000 ml # Bowel Movements 1 1 Objective HEAD AND NECK: No JVD. LUNGS: Clear. CARDIOVASCULAR: Shows regular S1 and S2 with no gallop. ABDOMEN: Soft. EXTREMITIES: No pitting edema. The PermCath in the left chest. Amanuel Love MD Nov 20, 2018 18:27
--- NOTE | 2018-11-20 19:31 | NUR ---
HAND-OFF: Report given to Suri OWENS.
--- NOTE | 2018-11-20 19:40 | NUR ---
NURSE NOTES: Received report from GRACIELA Peralta. Patient is awake, sitting up in bed, alert x4. Patient is wearing nasal cannula with no signs of respiratory distress. Bed is locked and in lowest position. Call light is within reach. Will continue to monitor the patient.
[2018-11-20] MEDS ORDERED: Dyna-Hex 2% Top Sol 2oz TOPIC SCH (20:00)
[2018-11-20] MEDS ORDERED: Latanoprost 0.005% Opth 2.5ml Soln BOTH EYES SCH (21:00)
[2018-11-20] MEDS ORDERED: TraZODone 50mg tab ORAL SCH (21:00)
--- NOTE | 2018-11-20 22:16 | General Progress Note ---
Assessment/Plan Problem List: (1) CHF exacerbation ICD Codes: I50.9 - Heart failure, unspecified SNOMED: 444291484, 32822866688980 Qualifiers: Qualified Codes: I50.9 - Heart failure, unspecified (2) Anemia, chronic renal failure ICD Codes: N18.9 - Chronic kidney disease, unspecified; D63.1 - Anemia in chronic kidney disease SNOMED: 43397833, 27418399210697 Qualifiers: Qualified Codes: N18.5 - Chronic kidney disease, stage 5; D63.1 - Anemia in chronic kidney disease (3) Bradycardia ICD Codes: R00.1 - Bradycardia, unspecified SNOMED: 91298283, 184062610 (4) ESRD (end stage renal disease) ICD Codes: N18.6 - End stage renal disease SNOMED: 29315881 (5) Volume overload ICD Codes: E87.70 - Fluid overload, unspecified SNOMED: 44163503 Qualifiers: Qualified Codes: E87.70 - Fluid overload, unspecified (6) Sinus bradycardia ICD Codes: R00.1 - Bradycardia, unspecified SNOMED: 34709502 Status: progressing Assessment/Plan: bradycardia chf pulmonary edema anemia esrd on hd no sob not hypoxic Subjective ROS Limited/Unobtainable: Yes Allergies: Coded Allergies: PENICILLINS (Verified Allergy, Unknown, 10/07/18) PIPERACILLIN (Verified Allergy, Unknown, 10/07/18) TAZOBACTAM (Verified Allergy, Unknown, 10/07/18) Objective Last 24 Hour Vital Signs Date Time Temp Pulse Resp B/P (MAP) Pulse Ox O2 Delivery O2 Flow Rate FiO2 11/20/18 18:09 184/75 11/20/18 18:09 184/75 11/20/18 16:00 97.4 56 18 184/75 (111) 93 11/20/18 16:00 Nasal Cannula 2.0 11/20/18 12:53 175/68 11/20/18 12:00 54 11/20/18 12:00 97.9 58 21 175/68 (103) 94 11/20/18 12:00 Nasal Cannula 2.0 11/20/18 08:57 151/62 11/20/18 08:56 65 151/62 11/20/18 08:00 Nasal Cannula 2.0 11/20/18 08:00 59 11/20/18 08:00 97.9 65 20 151/62 (91) 95 11/20/18 06:17 59 156/79 (104) 11/20/18 05:09 177/66 11/20/18 04:00 2.0 11/20/18 04:00 Nasal Cannula 2.0 11/20/18 04:00 97.7 53 20 177/66 (103) 99 11/20/18 03:56 56 11/20/18 00:00 2.0 11/20/18 00:00 58 11/20/18 00:00 Nasal Cannula 2.0 11/20/18 00:00 97.4 69 18 152/73 (99) 100 Intake and Output 11/19/18 11/20/18 19:00 07:00 Intake Total 240 ml Output Total 2175 ml 0 ml Balance -1935 ml 0 ml Intake Oral 240 ml Output Urine Total 175 ml 0 ml Hemodialysis UF 2000 ml # Bowel Movements 1 1 Height (Feet): 5 Height (Inches): 2.00 Weight (Pounds): 148 Cardiovascular: normal rate Respiratory/Chest: lungs clear Abdomen: soft Kimberlee Guzman MD Nov 20, 2018 22:16
--- NOTE | 2018-11-20 23:25 | Pulmonology Progress Note ---
Assessment/Plan Assessment/Plan Pulmonary Progress Note Assessment/Plan Acute respiratory failure improving - on NC O2, comfortable pulmonary edema pleural effusions ESRD on HD No new complaints, less SOB PLAN renal noted HD keep negative off BIPAP monitor imaging impression, plan, and exam edited and reviewed in detail care discussed with RN Subjective Allergies: Coded Allergies: PENICILLINS (Verified Allergy, Unknown, 10/07/18) PIPERACILLIN (Verified Allergy, Unknown, 10/07/18) TAZOBACTAM (Verified Allergy, Unknown, 10/07/18) Subjective asked to assist with BIPAP seen earlier currently off and on NC Objective Vital Signs Noted Objective WDWN NAD reduced breath sounds bilaterally with some crackles [id number] without MRG NABS nontender no HSM no CC nonfocal Laboratory Tests 11/18/18 22:00: White Blood Count 8.4, Red Blood Count 3.15L, Hemoglobin 9.9L, Hematocrit 30.2L , Mean Corpuscular Volume 96, Mean Corpuscular Hemoglobin 31.4H, Mean Corpuscular Hemoglobin Concent 32.7, Red Cell Distribution Width 13.5, Platelet Count 106L, Mean Platelet Volume 9.0, Neutrophils (%) (Auto) 70.6, Lymphocytes ( %) (Auto) 11.5L, Monocytes (%) (Auto) 12.2H, Eosinophils (%) (Auto) 4.3H, Basophils (%) (Auto) 1.3, Prothrombin Time 11.8H, Prothromb Time International Ratio 1.1, Activated Partial Thromboplast Time 29, Sodium Level 133L, Potassium Level 3.9, Chloride Level 94L, Carbon Dioxide Level 30, Anion Gap 9, Blood Urea Nitrogen 40H, Creatinine 4.3H, Estimat Glomerular Filtration Rate 10.9, Glucose Level 58L, Calcium Level 8.2L, Total Bilirubin 0.6, Aspartate Amino Transf (AST/ SGOT) 33, Alanine Aminotransferase (ALT/SGPT) 23, Alkaline Phosphatase 486H, Total Creatine Kinase 40, Creatine Kinase MB 0.8, Creatine Kinase MB Relative Index 2.0, Troponin I 0.026, Pro-B-Type Natriuretic Peptide 25060F, Total Protein 7.2, Albumin 2.9L, Globulin 4.3, Albumin/Globulin Ratio 0.7L 11/19/18 14:15: Sodium Level 132L, Potassium Level 4.1, Chloride Level 93L, Carbon Dioxide Level 31, Anion Gap 8, Blood Urea Nitrogen 47H, Creatinine 4.8H, Estimat Glomerular Filtration Rate 9.6, Glucose Level 172#H, Calcium Level 8.5, Total Bilirubin 0.8, Aspartate Amino Transf (AST/SGOT) 29, Alanine Aminotransferase ( ALT/SGPT) 20, Alkaline Phosphatase 482H, Total Protein 7.3, Albumin 3.0L, Globulin 4.3, Albumin/Globulin Ratio 0.7L, Hepatitis B Surface Antigen [Pending] 11/19/18 14:25: White Blood Count 7.7, Red Blood Count 3.10L, Hemoglobin 9.7L, Hematocrit 30.4L , Mean Corpuscular Volume 98, Mean Corpuscular Hemoglobin 31.4H, Mean Corpuscular Hemoglobin Concent 32.0, Red Cell Distribution Width 14.0, Platelet Count 108L, Mean Platelet Volume 9.1, Neutrophils (%) (Auto) 78.6H, Lymphocytes (%) (Auto) 12.1L, Monocytes (%) (Auto) 6.4, Eosinophils (%) (Auto) 2.3, Basophils (%) (Auto) 0.5 Current Medications Medications (Trade) Dose Ordered Sig/Soren Route PRN Reason Start Time Stop Time Status Last Admin Dose Admin Acetaminophen (Tylenol) 650 mg Q6H PRN ORAL Pain Scale (3-5) 11/19/18 00:30 12/19/18 00:29 Aspirin (ASA) 81 mg DAILY ORAL 11/19/18 09:00 12/19/18 08:59 11/19/18 09:42 Chlorhexidine Gluconate (Di-Hex 2%) 1 applic DAILY@1999 TOPIC 11/19/18 20:00 12/19/18 19:59 Dextrose (Dextrose 50%) 25 ml Q30M PRN IV Hypoglycemia 11/19/18 03:00 12/19/18 02:59 Dextrose (Dextrose 50%) 50 ml Q30M PRN IV Hypoglycemia 11/19/18 03:00 12/19/18 02:59 Hydralazine HCl (Apresoline) 25 mg Q4H PRN ORAL bp over 160 syst 11/19/18 13:45 12/19/18 13:44 11/19/18 17:30 Insulin Aspart (NovoLOG) BEFORE MEALS AND HS SUBQ 11/19/18 06:30 12/19/18 06:29 Latanoprost (Xalatan) 1 drop BEDTIME BOTH EYES 11/19/18 21:00 12/19/18 20:59 Losartan Potassium (Cozaar) 25 mg DAILY ORAL 11/19/18 09:00 12/19/18 08:59 Nifedipine (Procardia XL) 60 mg DAILY ORAL 11/19/18 09:00 12/19/18 08:59 Trazodone HCl (Desyrel) 50 mg BEDTIME ORAL 11/19/18 21:00 12/19/18 20:59 Vitamin B Complex/ Vit C/Folic Acid (Nephrovite) 1 tab DAILY ORAL 11/19/18 09:00 12/19/18 08:59 11/19/18 09:42 Subjective ROS Limited/Unobtainable: No Allergies: Coded Allergies: PENICILLINS (Verified Allergy, Unknown, 10/07/18) PIPERACILLIN (Verified Allergy, Unknown, 10/07/18) TAZOBACTAM (Verified Allergy, Unknown, 10/07/18) Objective Last 24 Hour Vital Signs Date Time Temp Pulse Resp B/P (MAP) Pulse Ox O2 Delivery O2 Flow Rate FiO2 11/20/18 18:09 184/75 11/20/18 18:09 184/75 11/20/18 16:00 97.4 56 18 184/75 (111) 93 11/20/18 16:00 Nasal Cannula 2.0 11/20/18 12:53 175/68 11/20/18 12:00 54 11/20/18 12:00 97.9 58 21 175/68 (103) 94 11/20/18 12:00 Nasal Cannula 2.0 11/20/18 08:57 151/62 11/20/18 08:56 65 151/62 11/20/18 08:00 Nasal Cannula 2.0 11/20/18 08:00 59 11/20/18 08:00 97.9 65 20 151/62 (91) 95 11/20/18 06:17 59 156/79 (104) 11/20/18 05:09 177/66 11/20/18 04:00 2.0 11/20/18 04:00 Nasal Cannula 2.0 11/20/18 04:00 97.7 53 20 177/66 (103) 99 11/20/18 03:56 56 11/20/18 00:00 2.0 11/20/18 00:00 58 11/20/18 00:00 Nasal Cannula 2.0 11/20/18 00:00 97.4 69 18 152/73 (99) 100 Intake and Output 11/19/18 11/20/18 19:00 07:00 Intake Total 240 ml Output Total 2175 ml 0 ml Balance -1935 ml 0 ml Intake Oral 240 ml Output Urine Total 175 ml 0 ml Hemodialysis UF 2000 ml # Bowel Movements 1 1 Current Medications Medications (Trade) Dose Ordered Sig/Soren Route PRN Reason Start Time Stop Time Status Last Admin Dose Admin Acetaminophen (Tylenol) 650 mg Q6H PRN ORAL Pain Scale (3-5) 11/20/18 17:00 12/19/18 16:59 Aspirin (ASA) 81 mg DAILY ORAL 11/21/18 09:00 12/19/18 08:59 Chlorhexidine Gluconate (Di-Hex 2%) 1 applic DAILY@2000 TOPIC 11/20/18 20:00 12/19/18 19:59 11/20/18 21:38 Dextrose (Dextrose 50%) 25 ml Q30M PRN IV Hypoglycemia 11/20/18 17:30 12/19/18 02:59 Dextrose (Dextrose 50%) 50 ml Q30M PRN IV Hypoglycemia 11/20/18 17:30 12/19/18 02:59 Hydralazine HCl (Apresoline) 25 mg Q4H PRN ORAL bp over 160 syst 11/20/18 17:30 12/19/18 17:29 Hydralazine HCl (Apresoline) 25 mg Q6H ORAL 11/21/18 00:00 12/21/18 00:00 Insulin Aspart (NovoLOG) BEFORE MEALS AND HS SUBQ 11/20/18 21:00 12/19/18 06:29 11/20/18 21:40 Latanoprost (Xalatan) 1 drop BEDTIME BOTH EYES 11/20/18 21:00 12/19/18 20:59 11/20/18 22:26 Losartan Potassium (Cozaar) 50 mg BID ORAL 11/21/18 09:00 12/19/18 08:59 Nifedipine (Procardia XL) 60 mg DAILY ORAL 11/21/18 09:00 12/19/18 08:59 Sitagliptin Phosphate (Januvia) 25 mg ACBREAKFAST ORAL 11/21/18 06:30 12/20/18 06:44 Trazodone HCl (Desyrel) 50 mg BEDTIME ORAL 11/20/18 21:00 12/19/18 20:59 11/20/18 21:38 Vitamin B Complex/ Vit C/Folic Acid (Nephrovite) 1 tab DAILY ORAL 11/21/18 09:00 12/19/18 08:59 Roel Flood MD Nov 20, 2018 23:25
[2018-11-21 00:20] VITALS: BP 112/53
[2018-11-21] MEDS: HydrALAZINE 10mg Tab ORAL SCH ×2 (03:43→03:44)
[2018-11-21 04:00] VITALS: BP 147/74
--- NOTE | 2018-11-21 04:55 | NUR ---
NURSE NOTES: Received report from microbiology, Jeramy Panchal, that the patient is positive for VRE - rectum. MD notified: left message.
--- NOTE | 2018-11-21 05:20 | NUR ---
HAND-OFF: Report given to GRACIELA Russell.
[2018-11-21] MEDS: HydrALAZINE 25mg tab ORAL SCH ×4 (06:00→17:08)
[2018-11-21] MEDS: NovoLOG Insulin Flexpen SUBQ SCH ×3 (06:06→17:07)
[2018-11-21] MEDS ORDERED: sitaGLIPtin 25mg tab ORAL SCH ×2 (06:30)
--- NOTE | 2018-11-21 07:19 | NUR ---
HAND-OFF: Report given to Leann Schneider RN.
--- NOTE | 2018-11-21 07:30 | NUR ---
NURSE NOTES: During round, patient is sitting in bed, awake, verbally responsive. Christopher any pain but noted with nose bleed. Rn helped the patient to stop the nose bleed. Nose bleed stopped after RN assisted patient. VSS. Afebrile. Patient denies any pain or discomfort. Will continue to monitor. Dr. Guzman was paged.
[2018-11-21 08:00] VITALS: BP 139/76
[2018-11-21] MEDS: Losartan 25mg tab ORAL SCH ×2 (08:34→17:08)
[2018-11-21] MEDS ORDERED: Nephrovite tab (Rena-Vite) ORAL SCH (09:00)
[2018-11-21] MEDS ORDERED: Aspirin Baby 81mg ORAL SCH (09:00)
--- NOTE | 2018-11-21 09:05 | Consultation ---
History of Present Illness General Chief Complaint: Dyspnea/Respdistress Present Illness Allergies: Coded Allergies: PENICILLINS (Verified Allergy, Unknown, 10/07/18) PIPERACILLIN (Verified Allergy, Unknown, 10/07/18) TAZOBACTAM (Verified Allergy, Unknown, 10/07/18) Medication History Scheduled Amino Acids/Protein Hydrolys (Pro-Stat Liquid), 45 ML ORAL TWICE A DAY, ( Reported) Aspirin* (Aspirin*), 81 MG ORAL DAILY, (Reported) Atorvastatin Calcium* (Atorvastatin Calcium*), 80 MG ORAL BEDTIME, (Reported) Atorvastatin Calcium* (Atorvastatin Calcium*), 40 MG ORAL BEDTIME, (Reported) Carvedilol* (Carvedilol*), 25 MG ORAL EVERY 12 HOURS, (Reported) Insulin Detemir (Levemir), 8 SUBQ BEDTIME, (Reported) Latanoprost* (Xalatan*), 1 DROP BOTH EYES BEDTIME, (Reported) Linagliptin (Tradjenta), 5 MG PO ONCE A DAY, (Reported) Losartan Potassium* (Losartan Potassium*), 25 MG ORAL DAILY, (Reported) Nifedipine* (Nifedipine Er*), 60 MG ORAL DAILY, (Reported) Sevelamer Hcl (Renagel), 800 MG ORAL ONCE A DAY, (Reported) Trazodone Hcl* (Desyrel*), 50 MG ORAL BEDTIME, (Reported) Vitamin B Cmplx/Vit C/Folic AC (Nephro-Michelet Tablet), 1 TAB ORAL DAILY, (Reported ) Scheduled PRN Acetaminophen* (Acetaminophen 325MG Tablet*), 650 MG ORAL Q6H PRN for Pain Scale (3-5), (Reported) Miscellaneous Medications Insulin Aspart (Novolog), (Reported) Discontinued Medications Insulin Glargine (Lantus), 0 SUBQ BEDTIME, (Reported) Discontinued Reason: MD discontinued med Insulin Lispro (Humalog), 0 SUBQ, (Reported) Discontinued Reason: MD discontinued med Patient History Healthcare decision maker Resuscitation status Do Not Resuscitate Advanced Directive on File Physical Exam Last 24 Hour Vital Signs Date Time Temp Pulse Resp B/P (MAP) Pulse Ox O2 Delivery O2 Flow Rate FiO2 11/21/18 08:35 57 139/76 11/21/18 08:34 139/76 11/21/18 06:00 147/74 11/21/18 04:00 97.7 51 20 147/74 (98) 94 11/21/18 00:20 50 112/53 (72) 11/21/18 00:00 112/53 11/21/18 00:00 Nasal Cannula 2.0 11/20/18 20:00 98.0 54 18 152/74 (100) 94 24 11/20/18 20:00 Nasal Cannula 2.0 11/20/18 18:09 184/75 11/20/18 18:09 184/75 11/20/18 16:00 97.4 56 18 184/75 (111) 93 11/20/18 16:00 Nasal Cannula 2.0 11/20/18 12:53 175/68 11/20/18 12:00 54 11/20/18 12:00 97.9 58 21 175/68 (103) 94 11/20/18 12:00 Nasal Cannula 2.0 Intake and Output 11/20/18 11/21/18 19:00 07:00 Intake Total 200 ml 120 ml Balance 200 ml 120 ml Intake Oral 200 ml 120 ml Height (Feet): 5 Height (Inches): 2.00 Weight (Pounds): 154 Medications Current Medications Medications (Trade) Dose Ordered Sig/Soren Route PRN Reason Start Time Stop Time Status Last Admin Dose Admin Acetaminophen (Tylenol) 650 mg Q6H PRN ORAL Pain Scale (3-5) 11/20/18 17:00 12/19/18 16:59 Aspirin (ASA) 81 mg DAILY ORAL 11/21/18 09:00 12/19/18 08:59 Chlorhexidine Gluconate (Di-Hex 2%) 1 applic DAILY@1999 TOPIC 11/20/18 20:00 12/19/18 19:59 11/20/18 21:38 Dextrose (Dextrose 50%) 25 ml Q30M PRN IV Hypoglycemia 11/20/18 17:30 12/19/18 02:59 Dextrose (Dextrose 50%) 50 ml Q30M PRN IV Hypoglycemia 11/20/18 17:30 12/19/18 02:59 Hydralazine HCl (Apresoline) 25 mg Q4H PRN ORAL bp over 160 syst 11/20/18 17:30 12/19/18 17:29 Hydralazine HCl (Apresoline) 25 mg Q6H ORAL 11/21/18 00:00 12/21/18 00:00 Insulin Aspart (NovoLOG) BEFORE MEALS AND HS SUBQ 11/20/18 21:00 12/19/18 06:29 11/20/18 21:40 Latanoprost (Xalatan) 1 drop BEDTIME BOTH EYES 11/20/18 21:00 12/19/18 20:59 11/20/18 22:26 Losartan Potassium (Cozaar) 50 mg BID ORAL 11/21/18 09:00 12/19/18 08:59 Nifedipine (Procardia XL) 60 mg DAILY ORAL 11/21/18 09:00 12/19/18 08:59 Sitagliptin Phosphate (Januvia) 25 mg ACBREAKFAST ORAL 11/21/18 06:30 12/20/18 06:44 Trazodone HCl (Desyrel) 50 mg BEDTIME ORAL 11/20/18 21:00 12/19/18 20:59 11/20/18 21:38 Vitamin B Complex/ Vit C/Folic Acid (Nephrovite) 1 tab DAILY ORAL 11/21/18 09:00 12/19/18 08:59 Assessment/Plan Assessment/Plan: Hematology Consult REQ MD: Kimberlee Guzman RFC: Anemia and thrombocytopenia Chief Complaint: Dyspnea/Respdistress HPI This is a 48-year-old female with a history of diabetes, hypertension and renal failure hemodialysis. Per ER notes, she presents with chief complaint of shortness of breath. [facility] called 911 because patient was dyspneic and short of breath. Onset tonight. She had dialysis yesterday and came home actually more fluid overloaded and swelling per patient. Worse with lying flat. Worse with exertion. There is some slight bruising to her lower extremity. She was very short of breath per EMS. On a nonrebreather mask and brought her here. Patient denies any chest pain. Noted to have anemia and low plts and heme was consulted. All: PENICILLINS (Verified Allergy, Unknown, 10/07/18) PIPERACILLIN (Verified Allergy, Unknown, 10/07/18) TAZOBACTAM (Verified Allergy, Unknown, 10/07/18) Patient History Past Medical History: see triage record, old chart reviewed, DM, HTN, renal disease, dialysis Past Surgical History: other Pertinent Family History: none Social History: Denies: smoking Now: No Immunizations: other Reviewed Nursing Documentation: PMH: Agreed; PSxH: Agreed Nursing Documentation-PMH Hx Cardiac Problems: Yes Hx Hypertension: Yes Hx Diabetes: Yes Hx Cancer: Yes Hx Gastrointestinal Problems: No Hx Dialysis: Yes Hx Neurological Problems: Yes Hx Weakness: Yes Review of Systems Eye: Denies: eye pain, blurred vision ENT: Denies: ear pain, nose congestion, throat swelling Respiratory: Reports: shortness of breath; Denies: cough Cardiovascular: Denies: chest pain, palpitations Gastrointestinal: Denies: abdominal pain, diarrhea, nausea, vomiting Musculoskeletal: Denies: back pain, joint pain Skin: Denies: rash Neurological: Denies: headache, numbness Endocrine: Denies: increased thirst, increased urine Hematologic/Lymphatic: No easy bruising All Other Systems: negative Physical Exam Vital Signs reviewed Sp02 EP Interpretation: abnormal Gen: moderate distress Head: normocephalic, atraumatic Respiratory: chest non-tender, accessory muscle use, rales CV: regular rate, rhythm, no murmur, bradycardia GI: normal bowel sounds, non tender, no mass, no organomegaly, nd Musculoskeletal: back normal, normal range of motion, swelling - 1-2+ pitting edema Labs: noted Imaging: reviewed Assessment and Recs: # Anemia due to underlying chronic disease, multifactorial, does have a hx of esrd --> anemia panel has been ordered --> hgb goal is >7 --> consider use of iron and/or epo based on anemia panel --> diuresis may help anemia as well, negative fluid balance --> smear has been reviewed and no schistocytes noted # Thrombocytopenia likely related to infection/chf --> at this time, hepatitis and hiv are ordered --> us of the abdomen has been ordered as well --> give plts if total plt <20k # Acute respiratory failure secondary to CHF --> diuresis as per cards --> pulm has evaluated, breathing rx --> hd will help as well # Bradycardia --> per cards # Esrd requiring HD --> as per renal # Pleural effusions --> likely related to overload Greatly appreciate consultation. Myke Pearson MD Nov 21, 2018 09:05
--- NOTE | 2018-11-21 09:10 | NUR ---
NURSE NOTES: Patient refused blood draw. refused to take 9:00am scheduled medication. Dr. Guzman called back and RN relayed the patient's condition. Dr. Guzman is aware of episodes of nose bleed and refusal of blood draw and meds with new order to discharge patient back to residential after dialysis with home meds.
--- NOTE | 2018-11-21 10:30 | NUR ---
NURSE NOTES: Patient noted with nose bleed again. RN assisted patient and VSS. Nose clip was on by the charge nurse. Will continue to monitor and patient let staff consultant draw the blood after she spoke to Dr. Garcia.
[2018-11-21 10:33] LABS: EOSINOPHILS % (AUTO) 2.9 % (0.0-3.0); HEMATOCRIT 32.6 % (37.0-47.0); HEMOGLOBIN 10.5 G/DL (12.0-16.0); LYMPHOCYTES % (AUTO) 9.7 % (20.0-45.0); MEAN CORPUSCULAR VOLUME 97 FL (80-99); MONOCYTES % (AUTO) 7.5 % (1.0-10.0); NEUTROPHILS % (AUTO) 78.8 % (45.0-75.0); PLATELET COUNT 117 K/UL (150-450); RED BLOOD COUNT 3.36 M/UL (4.20-5.40); RED CELL DISTRIBUTION WIDTH 14.4 % (11.6-14.8); WHITE BLOOD COUNT 8.7 K/UL (4.8-10.8)
--- NOTE | 2018-11-21 11:00 | NUR ---
NURSE NOTES: Nose bleed stopped. Will continue to monitor. VSS
--- NOTE | 2018-11-21 11:05 | NUR ---
TOLL RELIEF OPERATOR NOTES CONFIRMED PATIENT GETS DIALYSIS M-W-F [id number] [facility], T [phone].
[2018-11-21 11:06] LABS: ALANINE AMINOTRANSFERASE 20 U/L (12-78); ALBUMIN 3.4 G/DL (3.4-5.0); ALBUMIN/GLOBULIN RATIO 0.7 (1.0-2.7); ALKALINE PHOSPHATASE 510 U/L (46-116); ANION GAP 10 mmol/L (5-15); ASPARTATE AMINO TRANSFERASE 29 U/L (15-37); BLOOD UREA NITROGEN 44 mg/dL (7-18); CALCIUM 8.8 MG/DL (8.5-10.1); CARBON DIOXIDE 30 MMOL/L (21-32); CHLORIDE 90 MMOL/L (98-107); CHOLESTEROL 134 MG/DL (< 200); CREATINE KINASE 39 U/L (26-308); CREATININE 4.4 MG/DL (0.55-1.30); FERRITIN 1004 NG/ML (8-388); GAMMA GLUTAMYL TRANSPEPTIDASE 425 U/L (5-85); HDL CHOLESTEROL 64 MG/DL (40-60); PHOSPHORUS 5.5 MG/DL (2.5-4.9); SODIUM 130 MMOL/L (136-145); TRIGLYCERIDES 66 MG/DL (30-150)
--- NOTE | 2018-11-21 12:00 | NUR ---
NURSE NOTES: RN spoke to Lizz. Per Lizz Garcia would put dialysis order. RN is waiting dialysis order. RN spoke to dialysis nurse. She will be here when order is in.
--- NOTE | 2018-11-21 12:20 | NUR ---
NURSE NOTES: Lizz will remind Dr. Garcia for the dialysis order.
--- NOTE | 2018-11-21 12:45 | Cardiac Electrophysiology PN ---
Assessment/Plan Assessment/Plan 1. Bradycardia. Better after carvedilol was discontinued. Refused Echo 2. History of hypertension on losartan 25 mg daily, Procardia XL 60 mg daily and p.r.n. p.o. hydralazine. 3. Diabetes on insulin. 4. End-stage renal disease, on hemodialysis. CANDIE RN DC today Subjective Subjective HR improved off Coreg. Now off tele. .On Med Surge. Getting HD today Objective Last 24 Hour Vital Signs Date Time Temp Pulse Resp B/P (MAP) Pulse Ox O2 Delivery O2 Flow Rate FiO2 11/21/18 09:00 Nasal Cannula 2.0 11/21/18 08:35 57 139/76 11/21/18 08:34 139/76 11/21/18 08:00 97.0 60 20 139/76 (97) 96 11/21/18 06:00 147/74 11/21/18 04:00 97.7 51 20 147/74 (98) 94 11/21/18 00:20 50 112/53 (72) 11/21/18 00:00 112/53 11/21/18 00:00 Nasal Cannula 2.0 11/20/18 20:00 98.0 54 18 152/74 (100) 94 24 11/20/18 20:00 Nasal Cannula 2.0 11/20/18 18:09 184/75 11/20/18 18:09 184/75 11/20/18 16:00 97.4 56 18 184/75 (111) 93 11/20/18 16:00 Nasal Cannula 2.0 11/20/18 12:53 175/68 Intake and Output 11/20/18 11/21/18 19:00 07:00 Intake Total 200 ml 120 ml Balance 200 ml 120 ml Intake Oral 200 ml 120 ml Laboratory Tests Test 11/21/18 10:20 White Blood Count 8.7 K/UL (4.8-10.8) Red Blood Count 3.36 M/UL (4.20-5.40) L Hemoglobin 10.5 G/DL (12.0-16.0) L Hematocrit 32.6 % (37.0-47.0) L Mean Corpuscular Volume 97 FL (80-99) Mean Corpuscular Hemoglobin 31.4 PG (27.0-31.0) H Mean Corpuscular Hemoglobin Concent 32.4 G/DL (32.0-36.0) Red Cell Distribution Width 14.4 % (11.6-14.8) Platelet Count 117 K/UL (150-450) L Mean Platelet Volume 9.3 FL (6.5-10.1) Neutrophils (%) (Auto) 78.8 % (45.0-75.0) H Lymphocytes (%) (Auto) 9.7 % (20.0-45.0) L Monocytes (%) (Auto) 7.5 % (1.0-10.0) Eosinophils (%) (Auto) 2.9 % (0.0-3.0) Basophils (%) (Auto) 1.0 % (0.0-2.0) Sodium Level 130 MMOL/L (136-145) L Potassium Level 4.0 MMOL/L (3.5-5.1) Chloride Level 90 MMOL/L (98-107) L Carbon Dioxide Level 30 MMOL/L (21-32) Anion Gap 10 mmol/L (5-15) Blood Urea Nitrogen 44 mg/dL (7-18) H Creatinine 4.4 MG/DL (0.55-1.30) H Estimat Glomerular Filtration Rate 10.6 mL/min (>60) Glucose Level 200 MG/DL (74-106) H Hemoglobin A1c 9.4 % (4.3-6.0) H Uric Acid 4.2 MG/DL (2.6-7.2) Calcium Level 8.8 MG/DL (8.5-10.1) Phosphorus Level 5.5 MG/DL (2.5-4.9) H Magnesium Level 2.6 MG/DL (1.8-2.4) H Ferritin 1004 NG/ML (8-388) H Total Bilirubin 1.0 MG/DL (0.2-1.0) Gamma Glutamyl Transpeptidase 425 U/L (5-85) H Aspartate Amino Transf (AST/SGOT) 29 U/L (15-37) Alanine Aminotransferase (ALT/SGPT) 20 U/L (12-78) Alkaline Phosphatase 510 U/L (46-116) H Total Creatine Kinase 39 U/L (26-308) Troponin I 0.005 ng/mL (0.000-0.056) C-Reactive Protein, Quantitative 1.5 mg/dL (0.00-0.90) H Pro-B-Type Natriuretic Peptide 00006 pg/mL (0-125) H Total Protein 8.1 G/DL (6.4-8.2) Albumin 3.4 G/DL (3.4-5.0) Globulin 4.7 g/dL Albumin/Globulin Ratio 0.7 (1.0-2.7) L Triglycerides Level 66 MG/DL (30-150) Cholesterol Level 134 MG/DL (< 200) LDL Cholesterol 55 mg/dL (<100) HDL Cholesterol 64 MG/DL (40-60) H Cholesterol/HDL Ratio 2.1 (3.3-4.4) L Vitamin B12 Level > 2000 PG/ML (193-986) H Folate 17.7 NG/ML (8.6-58.9) Thyroid Stimulating Hormone (TSH) 4.751 uiU/mL (0.358-3.740) Hepatitis A IgM Antibody Pending Hepatitis B Surface Antigen Pending Hepatitis B Core IgM Antibody Pending Hepatitis C Antibody Pending HIV (1&2) Antibody Rapid Negative (NEGATIVE) Microbiology Date/Time Source Procedure Growth Status 11/19/18 00:38 Nasal Nares MRSA Culture - Final Staphylococcus Aureus - Mrsa Complete 11/19/18 00:38 Rectum VRE Culture - Final Enterococcus Faecalis - Vre Resulted 11/19/18 00:38 Rectum Pending Resulted Objective HEAD AND NECK: No JVD. LUNGS: Clear. CARDIOVASCULAR: Shows regular S1 and S2 with no gallop. ABDOMEN: Soft. EXTREMITIES: No pitting edema. The PermCath in the left chest. Amanuel Love MD Nov 21, 2018 12:45
--- NOTE | 2018-11-21 12:59 | Nephrology Progress Note ---
Assessment/Plan Problem List: (1) ESRD (end stage renal disease) (2) Volume overload (3) Sinus bradycardia Assessment Volume overload ESRD on dialysis Bradycardia improved Hyperglycemia Pleural effusion, Plan Dialysis and UF done 11/19 repeat 11/21 today's blood work reviewed BP and BS control per orders Ok to DC Subjective ROS Limited/Unobtainable: No Constitutional: Reports: malaise Objective Objective Last 24 Hour Vital Signs Date Time Temp Pulse Resp B/P (MAP) Pulse Ox O2 Delivery O2 Flow Rate FiO2 11/21/18 09:00 Nasal Cannula 2.0 11/21/18 08:35 57 139/76 11/21/18 08:34 139/76 11/21/18 08:00 97.0 60 20 139/76 (97) 96 11/21/18 06:00 147/74 11/21/18 04:00 97.7 51 20 147/74 (98) 94 11/21/18 00:20 50 112/53 (72) 11/21/18 00:00 112/53 11/21/18 00:00 Nasal Cannula 2.0 11/20/18 20:00 98.0 54 18 152/74 (100) 94 24 11/20/18 20:00 Nasal Cannula 2.0 11/20/18 18:09 184/75 11/20/18 18:09 184/75 11/20/18 16:00 97.4 56 18 184/75 (111) 93 11/20/18 16:00 Nasal Cannula 2.0 Intake and Output 11/20/18 11/21/18 19:00 07:00 Intake Total 200 ml 120 ml Balance 200 ml 120 ml Intake Oral 200 ml 120 ml Current Medications Medications (Trade) Dose Ordered Sig/Soren Route PRN Reason Start Time Stop Time Status Last Admin Dose Admin Acetaminophen (Tylenol) 650 mg Q6H PRN ORAL Pain Scale (3-5) 11/20/18 17:00 12/19/18 16:59 Aspirin (ASA) 81 mg DAILY ORAL 11/21/18 09:00 12/19/18 08:59 Chlorhexidine Gluconate (Di-Hex 2%) 1 applic DAILY@1999 TOPIC 11/20/18 20:00 12/19/18 19:59 11/20/18 21:38 Dextrose (Dextrose 50%) 25 ml Q30M PRN IV Hypoglycemia 11/20/18 17:30 12/19/18 02:59 Dextrose (Dextrose 50%) 50 ml Q30M PRN IV Hypoglycemia 11/20/18 17:30 12/19/18 02:59 Hydralazine HCl (Apresoline) 25 mg Q4H PRN ORAL bp over 160 syst 11/20/18 17:30 12/19/18 17:29 Hydralazine HCl (Apresoline) 25 mg Q6H ORAL 11/21/18 00:00 12/21/18 00:00 Insulin Aspart (NovoLOG) BEFORE MEALS AND HS SUBQ 11/20/18 21:00 12/19/18 06:29 11/21/18 12:08 Latanoprost (Xalatan) 1 drop BEDTIME BOTH EYES 11/20/18 21:00 12/19/18 20:59 11/20/18 22:26 Losartan Potassium (Cozaar) 50 mg BID ORAL 11/21/18 09:00 12/19/18 08:59 Nifedipine (Procardia XL) 60 mg DAILY ORAL 11/21/18 09:00 12/19/18 08:59 Sitagliptin Phosphate (Januvia) 25 mg ACBREAKFAST ORAL 11/21/18 06:30 12/20/18 06:44 Trazodone HCl (Desyrel) 50 mg BEDTIME ORAL 11/20/18 21:00 12/19/18 20:59 11/20/18 21:38 Vitamin B Complex/ Vit C/Folic Acid (Nephrovite) 1 tab DAILY ORAL 11/21/18 09:00 12/19/18 08:59 Laboratory Tests 11/21/18 10:20: White Blood Count 8.7, Red Blood Count 3.36L, Hemoglobin 10.5L, Hematocrit 32.6L , Mean Corpuscular Volume 97, Mean Corpuscular Hemoglobin 31.4H, Mean Corpuscular Hemoglobin Concent 32.4, Red Cell Distribution Width 14.4, Platelet Count 117L, Mean Platelet Volume 9.3, Neutrophils (%) (Auto) 78.8H, Lymphocytes (%) (Auto) 9.7L, Monocytes (%) (Auto) 7.5, Eosinophils (%) (Auto) 2.9, Basophils (%) (Auto) 1.0, Sodium Level 130L, Potassium Level 4.0, Chloride Level 90L, Carbon Dioxide Level 30, Anion Gap 10, Blood Urea Nitrogen 44H, Creatinine 4.4H, Estimat Glomerular Filtration Rate 10.6, Glucose Level 200H, Hemoglobin A1c 9.4H, Uric Acid 4.2, Calcium Level 8.8, Phosphorus Level 5.5H, Magnesium Level 2.6H, Ferritin 1004H, Total Bilirubin 1.0, Gamma Glutamyl Transpeptidase 425H, Aspartate Amino Transf (AST/SGOT) 29, Alanine Aminotransferase (ALT/SGPT) 20, Alkaline Phosphatase 510H, Total Creatine Kinase 39, Troponin I 0.005, C-Reactive Protein, Quantitative 1.5H, Pro-B-Type Natriuretic Peptide 50264M, Total Protein 8.1, Albumin 3.4, Globulin 4.7, Albumin/Globulin Ratio 0.7L, Triglycerides Level 66, Cholesterol Level 134, LDL Cholesterol 55, HDL Cholesterol 64H, Cholesterol/HDL Ratio 2.1L, Vitamin B12 Level > 2000H, Folate 17.7, Thyroid Stimulating Hormone (TSH) 4.751H, Hepatitis A IgM Antibody [Pending], Hepatitis B Surface Antigen [Pending], Hepatitis B Core IgM Antibody [Pending], Hepatitis C Antibody [Pending], HIV (1&2) Antibody Rapid Negative Height (Feet): 5 Height (Inches): 2.00 Weight (Pounds): 154 General Appearance: no apparent distress Cardiovascular: normal rate Respiratory/Chest: decreased breath sounds Abdomen: distended Objective no change Elvin Garcia MD Nov 21, 2018 12:59
--- NOTE | 2018-11-21 15:08 | NUR ---
NURSE NOTES: Dialysis is in progress. US abdomen done.
--- NOTE | 2018-11-21 15:37 | NUR ---
DISCHARGE PLANNED PT WILL DC TO [address] ASSISTED T [phone] FOR NURSE TO NURSE REPORT [facility] HAS BEEN PLACED ON WILL CALL. PATIENT NEEDS TO FINISH DIALYSIS BEFORE LEAVING, PER DC ORDER.
[2018-11-21 16:00] VITALS: BP 175/71
--- NOTE | 2018-11-21 16:03 | Diagnostic Imaging Report ---
Indication: Abdominal distention Technique: Ulloa-scale and duplex images of the upper abdomen were obtained there are Doppler interrogation of the pancreatic and hepatic vessels Comparison: none Findings: Gallbladder demonstrates gallstones. Gallbladder wall is thickened, measures up to 5 mm thick. Sonographic Conte's sign is negative. Common bile duct measures 4 mm in diameter. However, there is possibly a small stone noted within the common bile duct. No intrahepatic biliary ductal dilatation. Liver demonstrates normal echogenicity, no focal abnormality. Portal vein and hepatic veins are patent. Pancreas is unremarkable. Spleen is unremarkable. Left kidney measures 8.2 cm in length. Right kidney measures 7.7 cm length. Both kidneys demonstrate increased echogenicity. There is no hydronephrosis. No focal abnormality . Abdominal aorta is partially obscured by bowel gas, visualized portions are non-aneurysmal . There are bilateral pleural effusions. There is trace ascites fluid Impression: Trace ascites Bilateral pleural effusions Cholelithiasis. Gallbladder wall thickening raises concern for acute cholecystitis. However, given the presence of pleural fluid and a small amount of ascites, gallbladder wall thickening could represent edema due to hemodynamic derangements. Correlate with clinical findings, consider hepatobiliary nuclear scan if there is high clinical suspicion Possible choledocholithiasis. However, there is no biliary ductal dilatation. MRCP may be useful for better characterization is clinically indicated correlation with liver function tests is also recommended Echogenic atrophic kidneys, consistent with known history of medical renal disease
--- NOTE | 2018-11-21 17:41 | NUR ---
NURSE NOTES: RN set up the ambulance and inter facility report given to Marc nurse @ [facility] and discharge instruction given.
--- NOTE | 2018-11-21 18:38 | General Progress Note ---
Assessment/Plan Problem List: (1) Diabetes mellitus out of control ICD Codes: E11.65 - Type 2 diabetes mellitus with hyperglycemia SNOMED: 67075748, 053331257 (2) ESRD (end stage renal disease) ICD Codes: N18.6 - End stage renal disease SNOMED: 64971021 (3) Anemia, chronic renal failure ICD Codes: N18.9 - Chronic kidney disease, unspecified; D63.1 - Anemia in chronic kidney disease SNOMED: 63875294, 07180084302387 Qualifiers: Qualified Codes: N18.5 - Chronic kidney disease, stage 5; D63.1 - Anemia in chronic kidney disease (4) CHF exacerbation ICD Codes: I50.9 - Heart failure, unspecified SNOMED: 576436923, [id number] Qualifiers: Qualified Codes: I50.9 - Heart failure, unspecified (5) Hypoglycemia ICD Codes: E16.2 - Hypoglycemia, unspecified SNOMED: 413400874, 907103793 Status: progressing Assessment/Plan: add Levemir 5 units qhs continue Januvia 25 mg daily continue NISS ac / hs Subjective Allergies: Coded Allergies: PENICILLINS (Verified Allergy, Unknown, 10/07/18) PIPERACILLIN (Verified Allergy, Unknown, 10/07/18) TAZOBACTAM (Verified Allergy, Unknown, 10/07/18) All Systems: reviewed and negative except above Subjective events noted refusing Januvia glucose values on higher side Item Value Date Time Bedside Blood Glucose 162 mg/dl H 11/21/18 1707 Bedside Blood Glucose 183 mg/dl H 11/21/18 1208 Bedside Blood Glucose 181 mg/dl H 11/20/18 2140 Bedside Blood Glucose 255 mg/dl H 11/20/18 1651 Objective Last 24 Hour Vital Signs Date Time Temp Pulse Resp B/P (MAP) Pulse Ox O2 Delivery O2 Flow Rate FiO2 11/21/18 17:08 175/71 11/21/18 17:08 175/71 11/21/18 16:00 97.9 59 18 175/71 (105) 97 11/21/18 09:00 Nasal Cannula 2.0 11/21/18 08:35 57 139/76 11/21/18 08:34 139/76 11/21/18 08:00 97.0 60 20 139/76 (97) 96 11/21/18 06:00 147/74 11/21/18 04:00 97.7 51 20 147/74 (98) 94 11/21/18 00:20 50 112/53 (72) 11/21/18 00:00 112/53 11/21/18 00:00 Nasal Cannula 2.0 11/20/18 20:00 98.0 54 18 152/74 (100) 94 24 11/20/18 20:00 Nasal Cannula 2.0 Intake and Output 11/20/18 11/21/18 18:59 06:59 Intake Total 200 ml 120 ml Balance 200 ml 120 ml Intake Oral 200 ml 120 ml Laboratory Tests 11/21/18 10:20: White Blood Count 8.7, Red Blood Count 3.36L, Hemoglobin 10.5L, Hematocrit 32.6L , Mean Corpuscular Volume 97, Mean Corpuscular Hemoglobin 31.4H, Mean Corpuscular Hemoglobin Concent 32.4, Red Cell Distribution Width 14.4, Platelet Count 117L, Mean Platelet Volume 9.3, Neutrophils (%) (Auto) 78.8H, Lymphocytes (%) (Auto) 9.7L, Monocytes (%) (Auto) 7.5, Eosinophils (%) (Auto) 2.9, Basophils (%) (Auto) 1.0, Sodium Level 130L, Potassium Level 4.0, Chloride Level 90L, Carbon Dioxide Level 30, Anion Gap 10, Blood Urea Nitrogen 44H, Creatinine 4.4H, Estimat Glomerular Filtration Rate 10.6, Glucose Level 200H, Hemoglobin A1c 9.4H, Uric Acid 4.2, Calcium Level 8.8, Phosphorus Level 5.5H, Magnesium Level 2.6H, Ferritin 1004H, Total Bilirubin 1.0, Gamma Glutamyl Transpeptidase 425H, Aspartate Amino Transf (AST/SGOT) 29, Alanine Aminotransferase (ALT/SGPT) 20, Alkaline Phosphatase 510H, Total Creatine Kinase 39, Troponin I 0.005, C-Reactive Protein, Quantitative 1.5H, Pro-B-Type Natriuretic Peptide 90277B, Total Protein 8.1, Albumin 3.4, Globulin 4.7, Albumin/Globulin Ratio 0.7L, Triglycerides Level 66, Cholesterol Level 134, LDL Cholesterol 55, HDL Cholesterol 64H, Cholesterol/HDL Ratio 2.1L, Vitamin B12 Level > 2000H, Folate 17.7, Thyroid Stimulating Hormone (TSH) 4.751H, Hepatitis A IgM Antibody [Pending], Hepatitis B Surface Antigen [Pending], Hepatitis B Core IgM Antibody [Pending], Hepatitis C Antibody [Pending], HIV (1&2) Antibody Rapid Negative Height (Feet): 5 Height (Inches): 2.00 Weight (Pounds): 154 General Appearance: no apparent distress Neck: normal alignment Cardiovascular: normal rate Respiratory/Chest: decreased breath sounds Abdomen: normal bowel sounds Objective Current Medications Medications (Trade) Dose Ordered Sig/Soren Route PRN Reason Start Time Stop Time Status Last Admin Dose Admin Acetaminophen (Tylenol) 650 mg Q6H PRN ORAL Pain Scale (3-5) 11/20/18 17:00 12/19/18 16:59 Aspirin (ASA) 81 mg DAILY ORAL 11/21/18 09:00 12/19/18 08:59 Chlorhexidine Gluconate (Di-Hex 2%) 1 applic DAILY@2000 TOPIC 11/20/18 20:00 12/19/18 19:59 11/20/18 21:38 Dextrose (Dextrose 50%) 25 ml Q30M PRN IV Hypoglycemia 11/20/18 17:30 12/19/18 02:59 Dextrose (Dextrose 50%) 50 ml Q30M PRN IV Hypoglycemia 11/20/18 17:30 12/19/18 02:59 Hydralazine HCl (Apresoline) 25 mg Q4H PRN ORAL bp over 160 syst 11/20/18 17:30 12/19/18 17:29 Hydralazine HCl (Apresoline) 25 mg Q6H ORAL 11/21/18 00:00 12/21/18 00:00 Insulin Aspart (NovoLOG) BEFORE MEALS AND HS SUBQ 11/20/18 21:00 12/19/18 06:29 11/21/18 17:07 Latanoprost (Xalatan) 1 drop BEDTIME BOTH EYES 11/20/18 21:00 12/19/18 20:59 11/20/18 22:26 Losartan Potassium (Cozaar) 50 mg BID ORAL 11/21/18 09:00 12/19/18 08:59 Nifedipine (Procardia XL) 60 mg DAILY ORAL 11/21/18 09:00 12/19/18 08:59 Sitagliptin Phosphate (Januvia) 25 mg ACBREAKFAST ORAL 11/21/18 06:30 12/20/18 06:44 Trazodone HCl (Desyrel) 50 mg BEDTIME ORAL 11/20/18 21:00 12/19/18 20:59 11/20/18 21:38 Vitamin B Complex/ Vit C/Folic Acid (Nephrovite) 1 tab DAILY ORAL 11/21/18 09:00 12/19/18 08:59 Marck Iqbal MD Nov 21, 2018 18:38
[2018-11-21 18:54] VITALS: BP 176/72
--- NOTE | 2018-11-21 19:00 | NUR ---
NURSE NOTES: Given blood pressure meds due to BP of 176/72 her pulse is 77. Will continue to monitor
--- NOTE | 2018-11-21 19:15 | NUR ---
HAND-OFF: Report given to
--- NOTE | 2018-11-21 19:30 | NUR ---
NURSE NOTES: Patient sitting on chair waiting for ambulance coal picker. Will follow up accordingly. Patient strongly wanted to leave.
--- NOTE | 2018-11-21 20:07 | NUR ---
NURSE NOTES: Discharged patient via gurney with 2 ambulance personnel. Belongings took by patient. For transfer to [facility].
--- NOTE | 2018-11-21 20:11 | NUR ---
NURSE NOTES: IV access removed.
[2018-11-21] MEDS ORDERED: Levemir Flexpen SUBQ SCH (21:00)
--- NOTE | 2018-11-22 10:21 | NUR ---
INSURANCE UPDATED CLINICALS and REVIEW HAVE BEEN FAXED PLEASE FAX THE REVIEW AND CLINICAL TO: F/S FAXED TO CHANI/LARRY NCM: CULLEN P- [phone] F- [phone]....REVIEW/CLINICAL
--- NOTE | 2018-11-22 13:20 | Discharge Summary ---
Discharge Summary Discharge Summary _ DATE OF ADMISSION: 11/18/2018 DATE OF DISCHARGE: 11/21/2018 DISCHARGED BY: Dr. Huitron REASON FOR ADMISSION: 48 years old female with past medical history of diabetes mellitus, hypertension , renal failure, hemodialysis, presented with complaint of shortness of breath. half-way called 911 because patient was dyspneic and short of breath. Patient had dialysis day prior to presentation , but came with more fluid overload and swelling as per patient. Shortness of breath worse while lying flat and with exertion. Patient required nonrebreathing mask. Patient denied chest pain. Upon evaluation patient was bradycardic with heart rate of 47 , blood pressure on the low side 102/45 , tachypneic with respiratory rate 22 and pulse oximetry was 96% on 100% nonrebreathing mask. Patient presented with acute respiratory failure secondary to CHF / fluid overload. Upon evaluation laboratory work-up revealed no leukocytosis , hemoglobin 9.9, hematocrit 30.2 , platelet count 106. BUN 40, creatinine 4.3, consistent with known history of end-stage renal disease. Glucose 58. Sodium 133. Troponin -0.026. Pro BNP 46339. EKG revealed sinus bradycardia, no acute ischemic changes. Chest x-ray demonstrated pulmonary edema and right pleural effusion. Clinical presentation was consistent with acute respiratory failure secondary to congestive heart failure/fluid overload. Patient was placed on the BiPAP. Patient subsequently admitted for further evaluation and management. CONSULTANTS: senior brand manager Dr. Feliciano pulmonary Dr. Leong aircraft powertrain repairer Dr. Garcia machine sneller/oncologist Dr. Pearson career manager Dr. [facility]erald [facility] COURSE: Patient initially admitted to monitored floor. Steel Estimator closely followed. Serial troponin were negative. EKG revealed sinus bradycardia. Beta mylene was discontinued. Heart rate improved. Prior to discharge heart rate is 59. Patient declined echocardiogram. Blood pressure was managed with multiple antihypertensive regimen as per senior brand manager , including losartan, Procardia, and hydralazine on as-needed basis. Lipid panel was stable. Supplemental oxygen provided and titrated to keep pulse oximetry above 92%. Pulmonary toilet provided as needed. Patient was able to be weaned from the BiPAP. Prior to discharge pulse oximetry stable on oxygen 2 L via nasal cannula. Byproducts Extractor followed. Hemodialysis provided as per aircraft powertrain repairer orders with close monitoring of volumes and renal parameters. Electrolytes corrected as needed. Marshmallow Runner followed. Hemoglobin A1c -9.4, clearly not at goal. Blood sugar was managed with Januvia, long-acting Levemir, and sliding scale of insulin as needed. Patient was educated on diabetic diet. Diabetic teaching provided. No further episodes of hypoglycemia. Hemoglobin and hematocrit were closely monitored with goal to keep hemoglobin above 7. Ferritin elevated 1004. Prior to discharge hemoglobin 10.5, hematocrit 32.6. Patient noted to have thrombocytopenia. Counts were closely monitored. Platelet count improved from initial 106 up to 117. Hepatitis panel was negative. HIV test was nonreactive. Abdominal ultrasound revealed no evidence of liver disease. No biliary ductal dilatation. Echogenic atrophic kidneys, consistent with known history of medical renal disease. Per machine sneller thrombocytopenia was likely related to CHF. Patient clinically stabilized and was ready for discharge to the [facility] facility for continuation of care. FINAL DIAGNOSES: Acute respiratory failure-resolved Pulmonary edema CHF exacerbation Pleural effusion Bradycardia improved Hypertension Diabetes mellitus out of control End-stage renal disease , on hemodialysis Anemia of chronic disease/chronic kidney disease Thrombocytopenia Episode of hypoglycemia -resolved DISCHARGE MEDICATIONS: See Medication Reconciliation list. DISCHARGE INSTRUCTIONS: Patient was discharged to the [facility] facility. Follow up with medical doctor at the facility. I have been assigned to dictate discharge summary for this account. I was not involved in the patient's management. Chioma Sosa NP Nov 22, 2018 13:20
--- NOTE | 2018-11-22 18:41 | Diagnostic Imaging Report ---
APPROVED REPORT CPT Code: 36040 Present Symptoms Lower Extremity Edema: Bilateral BILATERAL: Imaging reveals a patent deep venous system bilaterally. There is no evidence of thrombus within the femoral, popliteal or tibial segments. The greater saphenous veins are also within normal limits. Doppler indicates normal spontaneous flow within these segments.
--- NOTE | 2018-11-27 20:57 | Cardiology Report ---
APPROVED REPORT EKG Measurement Heart [id number] Sinus bradycardia with 1st degree AV block Low voltage QRS Cannot rule out Anteroseptal infarct, age undetermined Abnormal ECG
== END 2018-11-21 20:07 | DRG 194 ==
LOC: EDBD 21:29 → EMR 21:59 → 2W 23:11 → EDBEDREQ 23:31 → 4E 11-20 15:40
PROC: 5A1D70Z Performance of Urinary Filtration, Intermittent, Less than 6 Hours Per Day (ICD-10-PCS; principal; 2018-11-19)
DX: I13.2 Hypertensive heart and chronic kidney disease with heart failure and with stage 5 chronic kidney disease, or end stage renal disease (principal); J96.00 Acute respiratory failure, unspecified whether with hypoxia or hypercapnia; N18.6 End stage renal disease; D69.6 Thrombocytopenia, unspecified; E11.649 Type 2 diabetes mellitus with hypoglycemia without coma; E87.70 Fluid overload, unspecified; I50.9 Heart failure, unspecified; Z88.1 Allergy status to other antibiotic agents; Z88.0 Allergy status to penicillin; Z79.4 Long term (current) use of insulin; R00.1 Bradycardia, unspecified; E78.5 Hyperlipidemia, unspecified; Z99.2 Dependence on renal dialysis; D63.1 Anemia in chronic kidney disease
CPT/HCPCS: 36415; 71045; 76700; 80053; 80061; 82550; 82553; 82607; 82728; 82746; 82962; 82977; 83036; 83735; 83880; 84100; 84443; 84484; 84550; 85025; 85610; 85730; 86140; 86703; 86705; 86706; 86709; 86803; 87081; 87340; 93005; 93970; 94660; 94664; 96374; 96375; 99285; J1815; S5561

== ENCOUNTER 2019-01-28 01:46 | Inpatient (IN) | payer OTHER ==
[~2019-01-28] VITALS: Ht 144.8 cm; Wt 53.1 kg
[~2019-01-28 01:46] MED LIST changes: +LEVEMIR100 UNIT/1 SUBQ; +NOVOLOG100 UNIT/5; +PRO-STAT LIQUID30 ML ORAL; +XALATAN2.5 ML BOTH EYES
[2019-01-28] MEDS ORDERED: AMLODIPINE BESYL5 MG ORAL (01:49)
[2019-01-28] MEDS ORDERED: LOVENOX10 MG SUBQ (01:51)
[2019-01-28] MEDS ORDERED: FERROUS SULFAT325 MG ORAL (01:51)
[2019-01-28] MEDS ORDERED: BENAZEPRIL HCL10 MG ORAL (01:51)
[2019-01-28] MEDS ORDERED: HUMALOG100 UNIT/4 SUBQ (01:52)
[2019-01-28 02:26] LABS: EOSINOPHILS % (AUTO) 2.5 % (0.0-3.0); HEMATOCRIT 33.4 % (37.0-47.0); HEMOGLOBIN 11.1 G/DL (12.0-16.0); LYMPHOCYTES % (AUTO) 10.8 % (20.0-45.0); MEAN CORPUSCULAR VOLUME 97 FL (80-99); MONOCYTES % (AUTO) 8.1 % (1.0-10.0); NEUTROPHILS % (AUTO) 77.6 % (45.0-75.0); PLATELET COUNT 261 K/UL (150-450); RED BLOOD COUNT 3.44 M/UL (4.20-5.40); RED CELL DISTRIBUTION WIDTH 14.4 % (11.6-14.8); WHITE BLOOD COUNT 11.2 K/UL (4.8-10.8)
--- NOTE | 2019-01-28 02:32 | Emergency Room Report ---
History of Present Illness General Chief Complaint: Chest Pain Source: Patient Present Illness HPI This is a 48-year-old female with history of renal failure hemodialysis. Dialysis days are Tuesday, Tuesday, and Tuesday. She presents with chief complaint of chest pain. Onset this morning. Pain is to the right side. No radiation. Does have a cough. Pain is 7 out of 10. No nausea no vomiting. No fever chills. Denies any other complaint. longterm sent her by EMS. Did not give any medication. Allergies: Coded Allergies: PENICILLINS (Verified Allergy, Unknown, 10/07/18) PIPERACILLIN (Verified Allergy, Unknown, 10/07/18) TAZOBACTAM (Verified Allergy, Unknown, 10/07/18) Patient History Past Medical History: see triage record, old chart reviewed, HTN, renal disease , dialysis Past Surgical History: other Pertinent Family History: none Social History: Denies: smoking Now: No Immunizations: other Reviewed Nursing Documentation: PMH: Agreed; PSxH: Agreed Nursing Documentation-PMH Past Medical History: No History, Except For Hx Hypertension: Yes Hx Diabetes: Yes Hx Cancer: Yes Hx Gastrointestinal Problems: No Hx Dialysis: Yes Hx Neurological Problems: Yes Hx Weakness: Yes Review of Systems Eye: Denies: eye pain, blurred vision ENT: Denies: ear pain, nose congestion, throat swelling Respiratory: Denies: cough, shortness of breath Cardiovascular: Reports: chest pain; Denies: palpitations Gastrointestinal: Denies: abdominal pain, diarrhea, nausea, vomiting Musculoskeletal: Denies: back pain, joint pain Skin: Denies: rash Neurological: Denies: headache, numbness Endocrine: Denies: increased thirst, increased urine Hematologic/Lymphatic: Denies: easy bruising All Other Systems: negative except mentioned in HPI Physical Exam Vital Signs Date Time Temp Pulse Resp B/P (MAP) Pulse Ox O2 Delivery O2 Flow Rate FiO2 01/28/19 01:45 97.5 82 16 175/75 (108) 96 Room Air Vitals with high blood pressure Sp02 EP Interpretation: reviewed, normal General Appearance: no apparent distress, alert, Chronically Ill Head: normocephalic, atraumatic Eyes: bilateral eye PERRL, bilateral eye EOMI ENT: hearing grossly normal, normal pharynx Neck: full range of motion, supple, no meningismus Respiratory: chest non-tender, rales - Right base Cardiovascular #1: regular rate, rhythm, no murmur Gastrointestinal: normal bowel sounds, non tender, no mass, no organomegaly, no bruit, non-distended Musculoskeletal: back normal, gait/station normal, normal range of motion Psychiatric: mood/affect normal Medical Decision Making Diagnostic Impression: Primary Impression: Chest pain Qualified Codes: R07.9 - Chest pain, unspecified ER Course Patient presents with right-sided chest pain. She does have end-stage renal disease and has pleural effusion in the right side. Also with atelectasis. Chest pain is atypical. She does have risk factor for CAD. Will admit for further work-up and rule out. I contacted Dr. Chavez for admission. EKG Diagnostic Results Rate: normal Rhythm: NSR ST Segments: no acute changes ASA given to the pt in ED: Yes Rhythm Strip Diag. Results EP Interpretation: yes Rate: 83 Rhythm: NSR, no PVC's, no ectopy Chest X-Ray Diagnostic Results Chest X-Ray Diagnostic Results : Chest X-Ray Ordered: Yes # of Views/Limited/Complete: 1 View Indication: Chest Pain EP Interpretation: Yes Interpretation: no pneumothorax, other - Cardiomegaly. Right effusion Impression: Other - rt effusion Last Vital Signs Date Time Temp Pulse Resp B/P (MAP) Pulse Ox O2 Delivery O2 Flow Rate FiO2 01/28/19 01:45 97.5 82 16 175/75 (108) 96 Room Air Status: improved Disposition: ADMITTED INPATIENT Condition: Serious Tobias Thomas MD Jan 28, 2019 02:32
[2019-01-28] MEDS ORDERED: Aspirin Baby 81mg ORAL ONE (02:45)
[2019-01-28 02:55] LABS: ANION GAP 13 mmol/L (5-15); BLOOD UREA NITROGEN 34 mg/dL (7-18); CALCIUM 10.1 MG/DL (8.5-10.1); CARBON DIOXIDE 28 MMOL/L (21-32); CHLORIDE 89 MMOL/L (98-107); CREATININE 4.6 MG/DL (0.55-1.30); POTASSIUM 3.8 MMOL/L (3.5-5.1); SODIUM 130 MMOL/L (136-145)
[2019-01-28 03:06] LABS: ALANINE AMINOTRANSFERASE 41 U/L (12-78); ALBUMIN 3.5 G/DL (3.4-5.0); ALBUMIN/GLOBULIN RATIO 0.6 (1.0-2.7); ALKALINE PHOSPHATASE 649 U/L (46-116); ASPARTATE AMINO TRANSFERASE 35 U/L (15-37); BILIRUBIN,TOTAL 1.3 MG/DL (0.2-1.0)
[2019-01-28 03:10] LABS: BILIRUBIN,DIRECT 0.8 MG/DL (0.0-0.3)
--- NOTE | 2019-01-28 03:20 | NUR ---
ED Nurse Note: PT C/O CHEST PAIN, 02/15, ERMD NOTIFIED. WILL FOLLOW UP WITH ORDER.
[2019-01-28] MEDS ORDERED: Morphine Sulfate 4mg/ml Inj (IV USE ONLY) IVP ONE (03:30)
[2019-01-28 03:33] VITALS: BP 170/70
--- NOTE | 2019-01-28 03:44 | NUR ---
ED Nurse Note: REPORT GIVEN TO GRACIELA DICKEY FROM TELE.
--- NOTE | 2019-01-28 03:48 | Diagnostic Imaging Report ---
EXAM: XR Chest, 1 View CLINICAL HISTORY: CP TECHNIQUE: Frontal view of the chest. COMPARISON: Chest x-ray November 18, 2018 FINDINGS: Lungs: Mild interstitial edema. Ill-defined opacity in the peripheral right midlung. Pleural space: Bilateral pleural effusions. No pneumothorax. Heart: Similar diffuse cardiomegaly left chest large bore central venous catheter. Mediastinum: Unremarkable. Bones joints: Unremarkable. IMPRESSION: Findings of heart failure with superimposed possible pneumonia in the right midlung.
--- NOTE | 2019-01-28 03:50 | NUR ---
ED Nurse Note: PT TRANSFERRED TO TELE, PT VSS, SINUS RHYTHM ON TWISTING MACHINE OPERATOR, IV INTACT AND PATENT, CARE ENDORSED TO RN KELI, RESP EVEN AND UNLABORED ON O2 VIA NC 2L/MIN, O2SAT 100%. PT HAS NO BELONGINGS AND SWABS SENT TO LAB.
--- NOTE | 2019-01-28 03:50 | NUR ---
NURSE NOTES: Received patient from ER. Patient is alert and oriented x4. Czech speaking. When asked if she is in pain, she states it is mostly emotional. No pressure sores noted. Trace edema bilateral feet. Patient is blind on both eyes. Left eye is reddish with diffuse white patches. Right eye is greater than 5mm and unreactive. Patient is on 2L NC, 96%, no signs of respiratory distress. Diminished lung sounds on the lower bases, rhonchi on the left upper lobe. Right forearm 22 gauge iv.
[2019-01-28 04:00] VITALS: BP 174/76
--- NOTE | 2019-01-28 04:30 | NUR ---
NURSE NOTES: Patient asleep in bed. No signs of distress or discomfort. Bed in low position, locked, bed alarm on, call light within reach. Called Dr. Guzman's emergency line, no response, left message requesting admission orders and that the patient is currently hypertensive.
--- NOTE | 2019-01-28 07:30 | NUR ---
NURSE NOTES: Received report from GRACIELA Enamorado. Patient in bed resting, no active s/s cardiac, respiratory distress noticed at this time. Patient AOX4, bilateral blind, SR with HR 80. Endorsed awaiting for admission orders from . IV on right FA 22G, asymptomatic, patent, intact. Bed in lowest position, side rails upx2, call light within reach. Will continue to monitor.
--- NOTE | 2019-01-28 07:45 | NUR ---
NURSE NOTES: Received admission order from Dr. Guzman. Order noted, entered, carried out.
[2019-01-28] MEDS ORDERED: DUONEB 0.5-3(2.53 ML HHN (07:49)
[2019-01-28] MEDS ORDERED: COLACE100 MG ORAL (07:49)
[2019-01-28] MEDS ORDERED: ARTIFICIAL TEA1 EAC2 OP (07:49)
[2019-01-28 08:00] VITALS: BP 156/76
[2019-01-28] MEDS ORDERED: Albuterol/Ipratropium 3ml neb HHN PRN (10:00)
--- NOTE | 2019-01-28 10:49 | Consultation ---
Consult Note Consult Note asked to eval for dialysis management know to me from her previous 2 admissions khmer speaker examined lab reviewed on HD for 4 years has a left permacath in upper chest ER: This is a 48-year-old female with history of renal failure hemodialysis. Dialysis days are Tuesday, Tuesday, and Tuesday. She presents with chief complaint of chest pain. Onset this morning. Pain is to the right side. No radiation. Does have a cough. Pain is 7 out of 10. No nausea no vomiting. No fever chills. Denies any other complaint. correction sent her by EMS. Did not give any medication. Allergies: Coded Allergies: PENICILLINS (Verified Allergy, Unknown, 10/07/18) PIPERACILLIN (Verified Allergy, Unknown, 10/07/18) TAZOBACTAM (Verified Allergy, Unknown, 10/07/18) Past Medical History: No History, Except For Hx Hypertension: Yes Hx Diabetes: Yes Hx Cancer: Yes Hx Gastrointestinal Problems: No Hx Dialysis: Yes Hx Neurological Problems: Yes Hx Weakness: Yes . Assessment/Plan Volume overload / CHF on CXR ESRD on dialysis M W Fri Hyperglycemia h/o Pleural effusion, Dialysis and UF in am BP and BS control per orders discussed with Elvin Bee MD Jan 28, 2019 10:49
[2019-01-28] MEDS: Benazepril 10mg tab ORAL SCH ×2 (11:04→20:09)
[2019-01-28] MEDS: Nephrovite tab (Rena-Vite) ORAL SCH (11:04)
--- NOTE | 2019-01-28 11:13 | NUR ---
NURSE NOTES: Called [facility]. Spoke to Dereck. GIO on 01/29/19.
--- NOTE | 2019-01-28 11:50 | Consultation ---
History of Present Illness General Date patient seen: Jan 28, 2019 Present Illness Allergies: Coded Allergies: PENICILLINS (Verified Allergy, Unknown, 10/07/18) PIPERACILLIN (Verified Allergy, Unknown, 10/07/18) TAZOBACTAM (Verified Allergy, Unknown, 10/07/18) Medication History Scheduled Amino Acids/Protein Hydrolys (Pro-Stat Liquid), 45 ML ORAL TWICE A DAY, ( Reported) Amlodipine Besylate* (Amlodipine Besylate*), 5 MG ORAL BID, (Reported) Aspirin* (Aspirin*), 81 MG ORAL DAILY, (Reported) Atorvastatin Calcium* (Atorvastatin Calcium*), 80 MG ORAL BEDTIME, (Reported) Atorvastatin Calcium* (Atorvastatin Calcium*), 40 MG ORAL BEDTIME, (Reported) Benazepril Hcl* (Benazepril Hcl*), 10 MG ORAL BID, (Reported) Carvedilol* (Carvedilol*), 25 MG ORAL EVERY 12 HOURS, (Reported) Dextran 70/Hypromellose (Artificial Tears), 1 EACH OP EVERY 6 HOURS, (Reported) Docusate Sodium* (Colace*), 100 MG ORAL BID, (Reported) Enoxaparin* (Lovenox*), 30 MG SUBQ DAILY, (Reported) Ferrous Sulfate* (Ferrous Sulfate*), 325 MG ORAL BID, (Reported) Insulin Detemir (Levemir), 8 SUBQ BEDTIME, (Reported) Ipratropium/Albuterol Sulfate (DuoNeb 0.5-3(2.5)mg/3ml), 3 ML HHN EVERY 4 HOURS, (Reported) Latanoprost* (Xalatan*), 1 DROP BOTH EYES BEDTIME, (Reported) Linagliptin (Tradjenta), 5 MG PO ONCE A DAY, (Reported) Losartan Potassium* (Losartan Potassium*), 25 MG ORAL DAILY, (Reported) Nifedipine* (Nifedipine Er*), 60 MG ORAL DAILY, (Reported) Sevelamer Hcl (Renagel), 800 MG ORAL ONCE A DAY, (Reported) Trazodone Hcl* (Desyrel*), 50 MG ORAL BEDTIME, (Reported) Vitamin B Cmplx/Vit C/Folic AC (Nephro-Michelet Tablet), 1 TAB ORAL DAILY, (Reported ) Scheduled PRN Acetaminophen* (Acetaminophen 325MG Tablet*), 650 MG ORAL Q6H PRN for Pain Scale (3-5), (Reported) Miscellaneous Medications Insulin Aspart (Novolog), (Reported) Insulin Lispro (Humalog), 0 SUBQ, (Reported) Patient History Healthcare decision maker Resuscitation status Do Not Resuscitate Advanced Directive on File Physical Exam Last 24 Hour Vital Signs Date Time Temp Pulse Resp B/P (MAP) Pulse Ox O2 Delivery O2 Flow Rate FiO2 01/28/19 11:04 156/76 01/28/19 11:04 79 156/76 01/28/19 09:00 Nasal Cannula 2.0 01/28/19 08:00 98.6 79 24 156/76 (102) 97 01/28/19 08:00 2.0 01/28/19 04:38 Nasal Cannula 2.0 01/28/19 04:00 97.6 80 24 174/76 (108) 96 01/28/19 04:00 80 01/28/19 03:45 99.2 81 18 170/67 99 Room Air 01/28/19 03:33 99.1 82 16 170/70 98 Room Air 01/28/19 03:28 82 16 Room Air 01/28/19 01:45 97.5 82 16 175/75 (108) 96 Room Air Intake and Output 01/27/19 01/28/19 18:59 06:59 Intake Total 20 ml Balance 20 ml IV Total 20 ml # Bowel Movements 1 Laboratory Tests Test 01/28/19 02:12 White Blood Count 11.2 K/UL (4.8-10.8) H Red Blood Count 3.44 M/UL (4.20-5.40) L Hemoglobin 11.1 G/DL (12.0-16.0) L Hematocrit 33.4 % (37.0-47.0) L Mean Corpuscular Volume 97 FL (80-99) Mean Corpuscular Hemoglobin 32.2 PG (27.0-31.0) H Mean Corpuscular Hemoglobin Concent 33.2 G/DL (32.0-36.0) Red Cell Distribution Width 14.4 % (11.6-14.8) Platelet Count 261 K/UL (150-450) Mean Platelet Volume 6.9 FL (6.5-10.1) Neutrophils (%) (Auto) 77.6 % (45.0-75.0) H Lymphocytes (%) (Auto) 10.8 % (20.0-45.0) L Monocytes (%) (Auto) 8.1 % (1.0-10.0) Eosinophils (%) (Auto) 2.5 % (0.0-3.0) Basophils (%) (Auto) 1.0 % (0.0-2.0) Sodium Level 130 MMOL/L (136-145) L Potassium Level 3.8 MMOL/L (3.5-5.1) Chloride Level 89 MMOL/L (98-107) L Carbon Dioxide Level 28 MMOL/L (21-32) Anion Gap 13 mmol/L (5-15) Blood Urea Nitrogen 34 mg/dL (7-18) H Creatinine 4.6 MG/DL (0.55-1.30) H Estimat Glomerular Filtration Rate 10.1 mL/min (>60) Glucose Level 262 MG/DL (74-106) H Calcium Level 10.1 MG/DL (8.5-10.1) Total Bilirubin 1.3 MG/DL (0.2-1.0) H Direct Bilirubin 0.8 MG/DL (0.0-0.3) H Aspartate Amino Transf (AST/SGOT) 35 U/L (15-37) Alanine Aminotransferase (ALT/SGPT) 41 U/L (12-78) Alkaline Phosphatase 649 U/L (46-116) H Troponin I 0.000 ng/mL (0.000-0.056) Total Protein 9.5 G/DL (6.4-8.2) H Albumin 3.5 G/DL (3.4-5.0) Globulin 6.0 g/dL Albumin/Globulin Ratio 0.6 (1.0-2.7) L Height (Feet): 4 Height (Inches): 9.00 Weight (Pounds): 116 Medications Current Medications Medications (Trade) Dose Ordered Sig/Soren Route PRN Reason Start Time Stop Time Status Last Admin Dose Admin Acetaminophen (Tylenol) 650 mg Q6H PRN ORAL Mild Pain/Temp > 100.5 01/28/19 07:45 02/27/19 07:44 Albuterol/ Ipratropium (Albuterol/ Ipratropium) 3 ml Q4H PRN HHN Shortness of Breath 01/28/19 10:00 02/02/19 09:59 Amlodipine Besylate (Norvasc) 5 mg BID ORAL 01/28/19 10:00 02/27/19 09:59 01/28/19 11:04 Artificial Tears (Akwa-Tears) 1 drop Q6HR BOTH EYES 01/28/19 12:00 02/27/19 11:59 Atorvastatin Calcium (Lipitor) 40 mg BEDTIME ORAL 01/28/19 21:00 02/27/19 20:59 Benazepril HCl (Lotensin) 10 mg Q12HR ORAL 01/28/19 10:00 02/27/19 09:59 01/28/19 11:04 Clonidine HCl (Catapres Tab) 0.1 mg Q4H PRN ORAL For High Blood Pressure 01/28/19 07:45 02/27/19 07:44 Dextrose (Dextrose 50%) 25 ml Q30M PRN IV Hypoglycemia 01/28/19 07:45 02/27/19 07:44 Dextrose (Dextrose 50%) 50 ml Q30M PRN IV Hypoglycemia 01/28/19 07:45 02/27/19 07:44 Docusate Sodium (Colace) 100 mg TID ORAL 01/28/19 13:00 02/27/19 17:59 Hydralazine HCl (Apresoline) 50 mg Q8HR ORAL 01/28/19 14:00 02/27/19 13:59 Insulin Aspart (NovoLOG) BEFORE MEALS AND HS SUBQ 01/28/19 11:30 02/27/19 11:29 Latanoprost (Xalatan) 1 drop BEDTIME BOTH EYES 01/28/19 21:00 02/27/19 20:59 Pantoprazole (Protonix) 40 mg DAILY ORAL 01/29/19 09:00 02/28/19 08:59 Vitamin B Complex/ Vit C/Folic Acid (Nephrovite) 1 tab DAILY ORAL 01/28/19 10:00 02/27/19 09:59 01/28/19 11:04 Assessment/Plan Assessment/Plan: (1) Chest pain (2) ACS (3) DJD (4) ESRD on dialysis seen dictated Nelson Lao Jan 28, 2019 11:50
[2019-01-28 12:00] VITALS: BP 162/69
[2019-01-28] MEDS ORDERED: Morphine Sulfate 2mg/ml Inj(IV/IM USE ONLY) IVP PRN (12:00)
[2019-01-28] MEDS: NovoLOG Insulin Flexpen SUBQ SCH ×3 (12:49→20:04)
[2019-01-28] MEDS: HydrALAZINE 50mg tab ORAL SCH ×2 (13:06→21:06)
[2019-01-28] MEDS: Docusate 100mg cap ORAL SCH ×2 (13:06→17:01)
[2019-01-28 16:00] VITALS: BP 155/84
--- NOTE | 2019-01-28 17:15 | Consultation ---
DATE OF CONSULTATION: 01/28/2019 PAIN MANAGEMENT CONSULTATION CONSULTING PHYSICIAN: Neo Carlos M.D. REFERRING PHYSICIAN: Kimberlee Guzman M.D. PHYSICIAN ELECTROCARDIOGRAM TECHNICIAN: Yolanda Cadet CHIEF COMPLAINT: Generalized body pain. HISTORY OF PRESENT ILLNESS: This is a 48-year-old female who is being seen on the telemetry floor of [facility] for initial pain management. The patient admitted under the care of Dr. Guzman due to chest pain and has been having this pain since Tuesday, she rates it as 8/10, describing the pain as pressure, increasing with breathing and movement, and also complaining of bilateral upper and lower extremity pain which is worse with movement, describes the pain as an aching and throbbing pain, was given one time dose morphine 4 mg IV in the ER which helped to relieve the pain. She also has a history of end-stage renal disease on hemodialysis and is being seen by a rn clinical trials at this time. We were consulted so that the patient would have adequate pain control while here in the hospital. PAST MEDICAL HISTORY: Hypertension, diabetes mellitus, end-stage renal disease. PAST SURGICAL HISTORY: Right eye surgery, . SOCIAL HISTORY: No history of smoking tobacco, drinking alcohol, or IV drug abuse. ALLERGIES: Penicillin, piperacillin and tazobactam. REVIEW OF SYSTEMS: Denies rash, fever, chills, sweating, dizziness, drowsiness, blurred vision, sore throat, change in weight. No shortness of breath. No nausea, vomiting, diarrhea, blood in the stool or urine. No bowel or bladder incontinence. No dysuria. She is complaining of generalized body pain. PHYSICAL EXAMINATION: GENERAL: Alert, awake, oriented. VITAL SIGNS: Blood pressure 156/76, heart rate 79, oxygen saturation 98%, respirations 24, temperature 98.6 degrees Fahrenheit. HEENT: Right PERRLA. Left changes noted. NECK: Range of motion is decreased due to the patient's condition. No tenderness to paracervical muscles. No adenopathy. LUNGS: Decreased breath sounds bilaterally. HEART: S1 and S2 regular. ABDOMEN: Obese. BACK: Range of motion is decreased in flexion and extension. EXTREMITIES: Upper and lower extremity range of motion is decreased due to the patient's condition. No cyanosis. No clubbing. Sensory is decreased. Reflexes are not obtainable. No adenopathy. ASSESSMENT: The patient is a 48-year-old female with chest pain, rule out ACS, end-stage renal disease on hemodialysis, degenerative joint disease. The patient will be started on morphine 2 mg IV every 4 hours as needed for severe pain. The patient was discussed with Dr. Carlos and Dr. Carlos concurred. We will follow the patient. Thank you very much for the courtesy of this consultation. Neo Carlos M.D. MORA Cadet DR: [place] JOB#: [id number] CC: CHEO
--- NOTE | 2019-01-28 17:17 | Cardiology Report ---
APPROVED REPORT EKG Measurement Heart [id number] [id number] Normal sinus rhythm Rightward axis Anterior infarct, age undetermined Abnormal ECG
[2019-01-28] MEDS ORDERED: Docusate 100mg cap ORAL SCH (18:00)
--- NOTE | 2019-01-28 19:10 | NUR ---
OBTAINED REPORT FROM IMELDA OWENS. PT RESTING IN CHAIR COMFORTABLY. NO DISTRESS NOTED.
--- NOTE | 2019-01-28 19:13 | NUR ---
HAND-OFF: Report given to GRACIELA Riley.
[2019-01-28] MEDS: Latanoprost 0.005% Opth 2.5ml Soln BOTH EYES SCH (20:05)
[2019-01-28] MEDS: Atorvastatin 20mg tab ORAL SCH (20:08)
[2019-01-28 21:00] VITALS: BP 153/90
[2019-01-29] VITALS: BP 153/79
--- NOTE | 2019-01-29 00:30 | History and Physical Report ---
DATE OF ADMISSION: 01/28/2019 HISTORY OF PRESENT ILLNESS: The patient is admitted for chest pain x1 day. The patient is Uzbek-speaking only. The patient denies nausea, vomiting, or diarrhea. Denies shortness of breath. Denies cough. Denies fever or chills. No abdominal pain. The patient has a moderate risk for VA because of hypertension, NIDDM, and her age and as well as hyperlipidemia. PAST MEDICAL HISTORY: Hypertension, hyperlipidemia, constipation, iron deficiency anemia, NIDDM, glaucoma, blindness, and end-stage renal disease. ALLERGIES: Penicillin. PAST SURGICAL HISTORY: related to dialysis. MEDICATIONS: Lipitor, benazepril, ferrous sulfate, insulin, Xalatan, Renagel, and Levemir. FAMILY HISTORY: Does have history of diabetes and hypertension. SOCIAL HISTORY: Denies history of smoking, alcohol, or illicit drugs. REVIEW OF SYSTEMS: HEENT: The patient is blind. RESPIRATORY: The patient has shortness of breath. Denies chest pain. Denies shortness of breath. Denies cough. CARDIOVASCULAR: Chest pain x1. No radiation. No orthopnea. GASTROINTESTINAL: Denies nausea, vomiting, or diarrhea. Denies heartburn. EXTREMITIES: Denies pain. CENTRAL NERVOUS SYSTEM: No change in vision or speech pattern. Does have blindness. PHYSICAL EXAMINATION: VITAL SIGNS: Temperature is 96.8, pulse is 74, and blood pressure 155/84. HEENT: The patient is blind. CHEST: Clear to auscultation. CARDIOVASCULAR: Regular rate and rhythm. No murmur. GASTROINTESTINAL: Soft. Positive bowel sounds. Nontender. EXTREMITIES: No edema. Reflexes on both sides. . LABORATORY DATA: WBC of 11.2, hemoglobin 11.1, and platelets 261,000. Sodium 130, potassium 3.8, BUN of 34, creatinine 4.6, and glucose of 262. ASSESSMENT AND PLAN: Chest pain; hypertension; end-stage renal disease, on dialysis; and hypertension. I have consulted Dr. Garcias as well as Dr. Garcia for the management of dialysis as well as for hypertension and management of chest pain. For the chest pain, she will be referred to Dr. Garcias. The patient is blind. I have also consulted Dr. Iqbal for the labile blood sugar. Ali Loreto Guzman DR: JESSICA JOB#: [id number] CC:
[2019-01-29 04:00] VITALS: BP 133/65
[2019-01-29] MEDS: HydrALAZINE 50mg tab ORAL SCH ×3 (05:00→22:00)
[2019-01-29] MEDS: NovoLOG Insulin Flexpen SUBQ SCH ×4 (06:19→21:00)
[2019-01-29] MEDS: sitaGLIPtin 25mg tab ORAL SCH (07:00)
--- NOTE | 2019-01-29 07:00 | NUR ---
HAND-OFF: Report given to Britni OWENS. Pt resting in bed comfortably. No apparent distress. Pt due for HD today. Day shift RN aware.
--- NOTE | 2019-01-29 07:18 | NUR ---
NURSE NOTES: Received report from GRACIELA Riley. Patient in chair resting, no active s/s cardiac, respiratory distress noticed at this time. Patient on 2L oxygen via NC. Endorsed patient schedule for HD today 01/29/19, patient signed consent for Hemodialysis. Permacath on upper left chest, asymptomatic. IV on right FA 22G, asymptomatic, patent, intact. Bed in lowest position, side rails upx2, patient made aware to call to assist when back to bed, call light within reach. Will continue to monitor.
--- NOTE | 2019-01-29 08:27 | General Progress Note ---
Assessment/Plan Assessment/Plan: (1) Chest pain (2) ACS (3) DJD (4) ESRD on dialysis Patient to be continued on Morphine as needed. D/w Dr. Carlos and he concurred. Subjective Date patient seen: Jan 29, 2019 Time patient seen: 08:15 - am Constitutional: Reports: weakness HEENT: Reports: blurred vision Cardiovascular: Reports: no symptoms Respiratory: Reports: no symptoms Gastrointestinal/Abdominal: Reports: no symptoms Genitourinary: Reports: no symptoms Neurologic/Psychiatric: Reports: weakness Endocrine: Reports: no symptoms Hematologic/Lymphatic: Reports: no symptoms Allergies: Coded Allergies: PENICILLINS (Verified Allergy, Unknown, 10/07/18) PIPERACILLIN (Verified Allergy, Unknown, 10/07/18) TAZOBACTAM (Verified Allergy, Unknown, 10/07/18) Subjective Patient is in bed denies pain at this time and has no requested the Morphine in the last 24hrs. She has no new complaints at this time. Objective Last 24 Hour Vital Signs Date Time Temp Pulse Resp B/P (MAP) Pulse Ox O2 Delivery O2 Flow Rate FiO2 01/29/19 08:00 73 01/29/19 07:09 68 16 97 Nasal Cannula 2.0 28 01/29/19 07:09 97 Nasal Cannula 2.0 28 01/29/19 05:00 133/65 01/29/19 04:00 74 01/29/19 04:00 97.5 73 18 133/65 (87) 95 01/29/19 00:00 97.5 69 18 153/79 (103) 96 01/29/19 00:00 73 01/28/19 21:06 150/90 01/28/19 21:00 75 01/28/19 21:00 97.7 72 18 153/90 (111) 95 01/28/19 20:09 155/90 01/28/19 19:45 Nasal Cannula 2.0 01/28/19 19:29 98 Nasal Cannula 2.0 28 01/28/19 19:29 80 20 98 Nasal Cannula 2.0 28 01/28/19 17:05 79 155/84 01/28/19 16:00 2.0 01/28/19 16:00 96.8 74 20 155/84 (107) 95 01/28/19 16:00 79 9/22/19 13:06 162/69 01/28/19 12:00 97.0 80 20 162/69 (100) 97 01/28/19 12:00 75 01/28/19 12:00 2.0 01/28/19 11:04 156/76 01/28/19 11:04 79 156/76 01/28/19 09:00 Nasal Cannula 2.0 Intake and Output 01/28/19 01/29/19 19:00 07:00 Intake Total 240 ml 130 ml Balance 240 ml 130 ml Intake Oral 240 ml 120 ml IV Total 10 ml # Voids 3 3 # Bowel Movements 1 Height (Feet): 4 Height (Inches): 9.00 Weight (Pounds): 116 General Appearance: no apparent distress EENT: normal ENT inspection Neck: non-tender, normal alignment Cardiovascular: normal rate, regular rhythm Respiratory/Chest: decreased breath sounds Abdomen: soft, no organomegaly Extremities: non-tender Edema: trace edema Neurologic: alert, oriented x 3 Skin: normal pigmentation Nelson Lao Jan 29, 2019 08:27
--- NOTE | 2019-01-29 08:30 | Consultation ---
DATE OF CONSULTATION: 01/29/2019 ENDOCRINOLOGY CONSULTATION CONSULTING PHYSICIAN: Marck Iqbal M.D. REFERRING PHYSICIAN: Kimberlee Guzman M.D. REASON FOR CONSULTATION: Diabetes management. HISTORY OF PRESENT ILLNESS: The patient is a 48-year-old female with past medical history of end-stage renal disease and diabetes. The patient is Arabic-speaking only, presented to the hospital with chest pain x1 day. Glucose was elevated upon presentation. Therefore, Endocrinology was consulted in order to assist in the management of diabetes. The patient is known to me due to some previous admissions to [facility]. PAST MEDICAL HISTORY: 1. Hypertension. 2. Dyslipidemia. 3. Iron deficiency anemia. 4. Diabetes. 5. Glaucoma. 6. Blindness. 7. Allergy to penicillin. PAST SURGICAL HISTORY: Dialysis access placement. MEDICATIONS: Reviewed and reconciled. FAMILY HISTORY: History of diabetes and hypertension. SOCIAL HISTORY: No smoking, alcohol, or drug use. REVIEW OF SYSTEMS: As per HPI. LABORATORY VALUES: WBC 11, hemoglobin 11, hematocrit 33, platelets of 261. Sodium 130, potassium 3.8, chloride 89, bicarb 28, BUN 34, creatinine 4.6, glucose 266. PHYSICAL EXAMINATION: VITAL SIGNS: Blood pressure 133/65, pulse 74, temperature 97.5, respiratory rate of 18. HEENT/NECK: No JVD. HEART: Regular. LUNGS: Clear. ABDOMEN: Positive bowel sounds. Soft. EXTREMITIES: Positive for edema. DIAGNOSES: 1. Chest pain. 2. Diabetes, out of control. 3. End-stage renal disease. 4. Hypertension. PLAN: 1. Start Levemir 8 units daily. 2. Start Januvia 25 mg daily. 3. NovoLog sliding scale before meals and at bedtime. 4. Further adjustment according to blood glucose value. Thank you, Dr. Guzman, for the courtesy of this consultation. Marck Iqbal M.D. DR: GRACIELA/ABDELRAHMAN JOB#: [id number] CC:
[2019-01-29] MEDS: Benazepril 10mg tab ORAL SCH ×2 (08:45→21:00)
[2019-01-29] MEDS: Docusate 100mg cap ORAL SCH ×3 (08:45→17:39)
[2019-01-29] MEDS: Nephrovite tab (Rena-Vite) ORAL SCH (08:46)
[2019-01-29] MEDS: Levemir Flexpen SUBQ SCH (08:47)
--- NOTE | 2019-01-29 09:00 | NUR ---
NURSE NOTES: Patient AOX3-4, explained risks of refusing medication and treatment. 0900 medication refused and patient refused to take vital sign and BS.
--- NOTE | 2019-01-29 09:13 | Consultation ---
History of Present Illness General Chief Complaint: Chest Pain Present Illness Allergies: Coded Allergies: PENICILLINS (Verified Allergy, Unknown, 10/07/18) PIPERACILLIN (Verified Allergy, Unknown, 10/07/18) TAZOBACTAM (Verified Allergy, Unknown, 10/07/18) Medication History Scheduled Amino Acids/Protein Hydrolys (Pro-Stat Liquid), 45 ML ORAL TWICE A DAY, ( Reported) Amlodipine Besylate* (Amlodipine Besylate*), 5 MG ORAL BID, (Reported) Aspirin* (Aspirin*), 81 MG ORAL DAILY, (Reported) Atorvastatin Calcium* (Atorvastatin Calcium*), 80 MG ORAL BEDTIME, (Reported) Atorvastatin Calcium* (Atorvastatin Calcium*), 40 MG ORAL BEDTIME, (Reported) Benazepril Hcl* (Benazepril Hcl*), 10 MG ORAL BID, (Reported) Carvedilol* (Carvedilol*), 25 MG ORAL EVERY 12 HOURS, (Reported) Dextran 70/Hypromellose (Artificial Tears), 1 EACH OP EVERY 6 HOURS, (Reported) Docusate Sodium* (Colace*), 100 MG ORAL BID, (Reported) Enoxaparin* (Lovenox*), 30 MG SUBQ DAILY, (Reported) Ferrous Sulfate* (Ferrous Sulfate*), 325 MG ORAL BID, (Reported) Insulin Detemir (Levemir), 8 SUBQ BEDTIME, (Reported) Ipratropium/Albuterol Sulfate (DuoNeb 0.5-3(2.5)mg/3ml), 3 ML HHN EVERY 4 HOURS, (Reported) Latanoprost* (Xalatan*), 1 DROP BOTH EYES BEDTIME, (Reported) Linagliptin (Tradjenta), 5 MG PO ONCE A DAY, (Reported) Losartan Potassium* (Losartan Potassium*), 25 MG ORAL DAILY, (Reported) Nifedipine* (Nifedipine Er*), 60 MG ORAL DAILY, (Reported) Sevelamer Hcl (Renagel), 800 MG ORAL ONCE A DAY, (Reported) Trazodone Hcl* (Desyrel*), 50 MG ORAL BEDTIME, (Reported) Vitamin B Cmplx/Vit C/Folic AC (Nephro-Michelet Tablet), 1 TAB ORAL DAILY, (Reported ) Scheduled PRN Acetaminophen* (Acetaminophen 325MG Tablet*), 650 MG ORAL Q6H PRN for Pain Scale (3-5), (Reported) Miscellaneous Medications Insulin Aspart (Novolog), (Reported) Insulin Lispro (Humalog), 0 SUBQ, (Reported) Patient History Healthcare decision maker Resuscitation status Do Not Resuscitate Advanced Directive on File Physical Exam Last 24 Hour Vital Signs Date Time Temp Pulse Resp B/P (MAP) Pulse Ox O2 Delivery O2 Flow Rate FiO2 01/29/19 08:46 73 133/65 01/29/19 08:45 133/65 01/29/19 08:00 73 01/29/19 07:09 68 16 97 Nasal Cannula 2.0 28 01/29/19 07:09 97 Nasal Cannula 2.0 28 01/29/19 05:00 133/65 01/29/19 04:00 74 01/29/19 04:00 97.5 73 18 133/65 (87) 95 01/29/19 00:00 97.5 69 18 153/79 (103) 96 01/29/19 00:00 73 01/28/19 21:06 150/90 01/28/19 21:00 75 01/28/19 21:00 97.7 72 18 153/90 (111) 95 01/28/19 20:09 155/90 01/28/19 19:45 Nasal Cannula 2.0 01/28/19 19:29 98 Nasal Cannula 2.0 28 01/28/19 19:29 80 20 98 Nasal Cannula 2.0 28 01/28/19 17:05 79 155/84 01/28/19 16:00 2.0 01/28/19 16:00 96.8 74 20 155/84 (107) 95 01/28/19 16:00 79 01/28/19 13:06 162/69 01/28/19 12:00 97.0 80 20 162/69 (100) 97 01/28/19 12:00 75 01/28/19 12:00 2.0 01/28/19 11:04 156/76 01/28/19 11:04 79 156/76 Intake and Output 01/28/19 01/29/19 19:00 07:00 Intake Total 240 ml 130 ml Balance 240 ml 130 ml Intake Oral 240 ml 120 ml IV Total 10 ml # Voids 3 3 # Bowel Movements 1 Height (Feet): 4 Height (Inches): 9.00 Weight (Pounds): 116 Medications Current Medications Medications (Trade) Dose Ordered Sig/Soren Route PRN Reason Start Time Stop Time Status Last Admin Dose Admin Acetaminophen (Tylenol) 650 mg Q6H PRN ORAL Mild Pain/Temp > 100.5 01/28/19 07:45 02/27/19 07:44 Albuterol/ Ipratropium (Albuterol/ Ipratropium) 3 ml Q4H PRN HHN Shortness of Breath 01/28/19 10:00 02/02/19 09:59 Amlodipine Besylate (Norvasc) 5 mg BID ORAL 01/28/19 10:00 02/27/19 09:59 01/28/19 17:05 Artificial Tears (Akwa-Tears) 1 drop Q6HR BOTH EYES 01/28/19 12:00 02/27/19 11:59 01/28/19 17:05 Atorvastatin Calcium (Lipitor) 40 mg BEDTIME ORAL 01/28/19 21:00 02/27/19 20:59 01/28/19 20:08 Benazepril HCl (Lotensin) 10 mg Q12HR ORAL 01/28/19 10:00 02/27/19 09:59 01/28/19 20:09 Clonidine HCl (Catapres Tab) 0.1 mg Q4H PRN ORAL For High Blood Pressure 01/28/19 07:45 02/27/19 07:44 Dextrose (Dextrose 50%) 25 ml Q30M PRN IV Hypoglycemia 01/29/19 07:00 02/28/19 06:59 Dextrose (Dextrose 50%) 50 ml Q30M PRN IV Hypoglycemia 01/29/19 07:00 02/28/19 06:59 Docusate Sodium (Colace) 100 mg TID ORAL 01/28/19 13:00 02/27/19 17:59 01/28/19 13:06 Hydralazine HCl (Apresoline) 50 mg Q8HR ORAL 01/28/19 14:00 02/27/19 13:59 01/28/19 21:06 Insulin Aspart (NovoLOG) BEFORE MEALS AND HS SUBQ 01/28/19 11:30 02/27/19 11:29 01/29/19 06:19 Insulin Detemir (Levemir) 8 units DAILY SUBQ 01/29/19 09:00 02/28/19 08:59 Latanoprost (Xalatan) 1 drop BEDTIME BOTH EYES 01/28/19 21:00 02/27/19 20:59 Morphine Sulfate (Morphine Sulfate) 2 mg Q4H PRN IVP severe pain 01/28/19 12:00 02/04/19 11:59 Pantoprazole (Protonix) 40 mg DAILY ORAL 01/29/19 09:00 02/28/19 08:59 Sitagliptin Phosphate (Januvia) 25 mg ACBREAKFAST ORAL 01/29/19 07:00 02/28/19 06:59 Vitamin B Complex/ Vit C/Folic Acid (Nephrovite) 1 tab DAILY ORAL 01/28/19 10:00 02/27/19 09:59 01/28/19 11:04 Assessment/Plan Assessment/Plan: Hematology Consult REQ MD: Kimberlee Guzman RFC: Anemia and hyperproteinemia Chief Complaint: Dyspnea/Respdistress, chest pain DOS: 01/29/19 HPI 48-year-old female with a history of diabetes, hypertension and renal failure hemodialysis. Per ER notes, she presents with chief complaint of chest pain/ discomfort. snf called 911 because patient had some shortness of breath as well. She has had hemodialysis 3x per week, p/w fluid overloaded and swelling per patient. Worse with lying flat. Worse with exertion. There is some slight bruising to her lower extremity. She was very short of breath per EMS. On a nonrebreather mask and brought her here. Patient denies any chest pain. Noted to have anemia and high protein, and heme was consulted. All: PENICILLINS (Verified Allergy, Unknown, 10/07/18) PIPERACILLIN (Verified Allergy, Unknown, 10/07/18) TAZOBACTAM (Verified Allergy, Unknown, 10/07/18) Patient History Past Medical History: see triage record, old chart reviewed, DM, HTN, renal disease, dialysis Past Surgical History: other Pertinent Family History: none Social History: Denies: smoking Now: No Immunizations: other Reviewed Nursing Documentation: PMH: Agreed; PSxH: Agreed Nursing Documentation-PMH Hx Cardiac Problems: Yes Hx Hypertension: Yes Hx Diabetes: Yes Hx Cancer: Yes Hx Gastrointestinal Problems: No Hx Dialysis: Yes Hx Neurological Problems: Yes Hx Weakness: Yes Review of Systems Eye: Denies: eye pain, blurred vision ENT: Denies: ear pain, nose congestion, throat swelling Respiratory: Reports: shortness of breath; Denies: cough Cardiovascular: Denies: chest pain, palpitations Gastrointestinal: Denies: abdominal pain, diarrhea, no nausea/vomiting Musculoskeletal: Denies: back pain, joint pain Skin: Denies: rash Neurological: Denies: headache, numbness Endocrine: Denies: increased thirst, increased urine Hematologic/Lymphatic: No easy bruising All Other Systems: negative Physical Exam Vital Signs: reviewed vitals noted Gen: mod distress Head: normocephalic, atraumatic Respiratory: chest non-tender, accessory muscle use, rales CV: regular rate, rhythm, no murmur, bradycardia GI: normal bowel sounds, non tender, no mass, no organomegaly, nd Musculoskeletal: 1-2+ pitting edema Labs: noted Imaging: reviewed Assessment and Recs: # Anemia due to underlying chronic disease, multifactorial, does have a hx of esrd, ferritin in the past was 1004 --> anemia panel has been reviewed from prior adm --> hgb goal is >7, transfuse prn --> consider use of iron and/or epo based on anemia panel (ferritin reordered) --> diuresis may help anemia as well, negative fluid balance --> smear has been reviewed and no schistocytes noted # Hyperproteinemia, on admission protein is >9 --> at this time can be 2/2 inflammatory process --> spep has been ordered --> if negative, consider get upep # Thrombocytopenia likely related to infection/chf --> in prior was negative, reviewed and us abd neg # Acute respiratory failure secondary to CHF --> diuresis as per cards --> pulm has evaluated, breathing rx --> hd will help as well # Bradycardia --> per cards # Esrd requiring HD --> as per renal --> continue 3x a week # Pleural effusions --> likely related to overload # Dvt ppx scds Time of note does not necessarily correspond to then patient was seen. Greatly appreciate consultation. Myke Pearson MD Jan 29, 2019 09:13
--- NOTE | 2019-01-29 09:20 | NUR ---
NURSE NOTES: Dr. Perason at the nursing station, made aware patient refusing treatment
--- NOTE | 2019-01-29 10:11 | NUR ---
*-* INSURANCE *-* ALL AVAILABLE CLINICALS HAVE BEEN FAXED TO: MACKENZIE POWELLM: [place] P- [phone] F- [phone]...........REVIEW/CLINICAL
--- NOTE | 2019-01-29 11:28 | NUR ---
CLINICAL TEAM LEAD: REVIEW 48 YR OLD FEMALE BIBS[facility] FROM [facility] CC: CHEST PAIN PMH: END STAGE RENAL DISEASE, HEMODIALYSIS SI: ACS 97.7 82 175/75 16 96% RA WBC 11.2; H/H 11.1/33.2; NA+ 130; BUN+34; CR+4.6; GFR 10.1 TROP NEG IS: ASA PO X1 IV MORPHINE X1 : TO TELE UNIT DCP: TO RETURN TO SNF UPON DISCHARGE PLAN: CONSULT CARDIO PENDING DIALYSIS IN AM
--- NOTE | 2019-01-29 11:38 | Nephrology Progress Note ---
Assessment/Plan Problem List: (1) ESRD (end stage renal disease) (2) Volume overload (3) Chest pain Assessment: CAD Assessment Volume overload / CHF on CXR ESRD on dialysis M W Fri Hyperglycemia h/o Pleural effusion, Plan Dialysis and UF today Refuses blood work BP and BS control per orders discussed with RN Subjective ROS Limited/Unobtainable: No Constitutional: Reports: malaise Objective Objective Last 24 Hour Vital Signs Date Time Temp Pulse Resp B/P (MAP) Pulse Ox O2 Delivery O2 Flow Rate FiO2 01/29/19 09:00 Nasal Cannula 2.0 01/29/19 08:46 73 133/65 01/29/19 08:45 133/65 01/29/19 08:00 74 01/29/19 08:00 73 01/29/19 07:09 68 16 97 Nasal Cannula 2.0 28 01/29/19 07:09 97 Nasal Cannula 2.0 28 01/29/19 05:00 133/65 01/29/19 04:00 74 01/29/19 04:00 97.5 73 18 133/65 (87) 95 01/29/19 00:00 97.5 69 18 153/79 (103) 96 01/29/19 00:00 73 01/28/19 21:06 150/90 01/28/19 21:00 75 01/28/19 21:00 97.7 72 18 153/90 (111) 95 01/28/19 20:09 155/90 01/28/19 19:45 Nasal Cannula 2.0 01/28/19 19:29 98 Nasal Cannula 2.0 28 01/28/19 19:29 80 20 98 Nasal Cannula 2.0 28 01/28/19 17:05 79 155/84 01/28/19 16:00 2.0 01/28/19 16:00 96.8 74 20 155/84 (107) 95 01/28/19 16:00 79 01/28/19 13:06 162/69 01/28/19 12:00 97.0 80 20 162/69 (100) 97 01/28/19 12:00 75 01/28/19 12:00 2.0 Intake and Output 01/28/19 01/29/19 18:59 06:59 Intake Total 240 ml 130 ml Balance 240 ml 130 ml Intake Oral 240 ml 120 ml IV Total 10 ml # Voids 3 3 # Bowel Movements 1 Height (Feet): 4 Height (Inches): 9.00 Weight (Pounds): 116 General Appearance: no apparent distress Cardiovascular: normal rate Respiratory/Chest: decreased breath sounds Abdomen: distended Objective no change Elvin Garcia MD Jan 29, 2019 11:38
--- NOTE | 2019-01-29 11:48 | NUR ---
NURSE NOTES: Called lab regarding Dr. Garcia requesting to blood drawn before HD. Called [facility] nephrology tele :[phone], spoke with Aleksandar and informed patient schedule for HD today 01/29/19. Will continue to monitor.
[2019-01-29] MEDS ORDERED: HYDRALAZINE HCL50 MG ORAL (14:37)
[2019-01-29] MEDS ORDERED: ACETAMINOPHEN325 M1 ORAL (14:37)
--- NOTE | 2019-01-29 15:08 | NUR ---
NURSE NOTES: Called [facility] nephrology 2nd time spoke with Kanu and informed patient schedule for HD today.
--- NOTE | 2019-01-29 17:44 | NUR ---
NURSE NOTES: Patient refused medication, explained risks and disadvantages. On HD, T 97.8, BP 170/83, HR 78 at this time.
--- NOTE | 2019-01-29 18:33 | NUR ---
NURSE NOTES: HD almost done 3L out, patient tolerating well, BP still high, 170/83, HR 78, 1800 amlodipine given.
--- NOTE | 2019-01-29 18:49 | Cardiology Progress Note ---
Assessment/Plan Assessment/Plan The patient is seen and examined, full consult note will be dictated. Objective Last 24 Hour Vital Signs Date Time Temp Pulse Resp B/P (MAP) Pulse Ox O2 Delivery O2 Flow Rate FiO2 01/29/19 18:30 78 170/83 01/29/19 16:00 81 01/29/19 16:00 80 01/29/19 12:00 80 01/29/19 12:00 81 01/29/19 09:00 Nasal Cannula 2.0 01/29/19 08:46 73 133/65 01/29/19 08:45 133/65 01/29/19 08:00 74 01/29/19 08:00 73 01/29/19 07:09 68 16 97 Nasal Cannula 2.0 28 01/29/19 07:09 97 Nasal Cannula 2.0 28 01/29/19 05:00 133/65 01/29/19 04:00 74 01/29/19 04:00 97.5 73 18 133/65 (87) 95 01/29/19 00:00 97.5 69 18 153/79 (103) 96 01/29/19 00:00 73 01/28/19 21:06 150/90 01/28/19 21:00 75 01/28/19 21:00 97.7 72 18 153/90 (111) 95 01/28/19 20:09 155/90 01/28/19 19:45 Nasal Cannula 2.0 01/28/19 19:29 98 Nasal Cannula 2.0 28 01/28/19 19:29 80 20 98 Nasal Cannula 2.0 28 Intake and Output 01/28/19 01/29/19 19:00 07:00 Intake Total 240 ml 130 ml Balance 240 ml 130 ml Intake Oral 240 ml 120 ml IV Total 10 ml # Voids 3 3 # Bowel Movements 1 Amanuel Garcias MD Jan 29, 2019 18:49
--- NOTE | 2019-01-29 19:04 | NUR ---
NURSE NOTES: Dr. Garcias at the nursing station, made aware patient was refusing everything including medication, procedure. No order given at this time.
--- NOTE | 2019-01-29 19:29 | NUR ---
HAND-OFF: Report given to GRACIELA Ogden.
--- NOTE | 2019-01-29 19:30 | NUR ---
NURSE NOTES: Received report from Reed Hernandes RN. Patient in bed AAO X3 Kinyarwanda speaking with blindness on both eyes. No complaints of acute pain or distress noted, kept clean, dry, and clean in bed. Patient kept on bedrest for safety. IV line intact and patent, placed on continuous cardiac monitoring per protocol. Safety precaution in place; siderails X3 up, call light within reach, bed in lowest position, brakes and alarm on at all times. Needs and wants anticipated and attended, will continue plan of care and monitor for any changes noted. HD done today, 3L out.
--- NOTE | 2019-01-29 20:45 | Consultation ---
DATE OF CONSULTATION: 01/29/2019 CARDIOLOGY CONSULTATION CONSULTING PHYSICIAN: Amanuel Garcias M.D. REFERRING PHYSICIAN: Kimberlee Guzman M.D. REASON FOR CONSULTATION: Management of chest pain. HISTORY OF PRESENT ILLNESS: The patient is a very unfortunate 48-year-old female, who presents to the hospital with complaints of chest pain, started on 01/28/2019, mostly in the right side, nonradiating with associated cough. Pain was greatest intensity of 7/10. The patient is a resident of a nursing facility and was sent by EMS. Her cardiovascular history is significant for history of diabetes mellitus, hypertension. She also suffers from end-stage renal disease. At the time of arrival to this facility, blood pressure was 175/75 mmHg and heart rate was 82. A 12-lead electrocardiogram reveals sinus rhythm with first-degree AV block, low voltage, and poor progression suggestive of possible anterior infarct, age indeterminate. There was no acute ischemic changes and some nonspecific T-wave changes were seen. Initial troponin I level was 0. The patient was admitted to telemetry for further evaluation and management of chest pain. Chest x-ray done in the emergency department was significant for bilateral pleural effusion and possible pneumonia in the right mid lung. The patient also showed leukocytosis on CBC. Cardiology consultation was made at request of Dr. Guzman for management of chest pain. PAST MEDICAL HISTORY: 1. Diabetes mellitus. 2. Hypertension. 3. End-stage renal disease, on hemodialysis on Tuesday, Tuesday, and Fridays. PAST SURGICAL HISTORY: Av shunt creation. MEDICATIONS: List of cardiac medication include amlodipine 5 mg twice daily, atorvastatin 40 mg at bedtime, benazepril 10 mg p.o. twice daily, enoxaparin 30 mg subcutaneous daily, hydralazine 50 mg q.8 h. ALLERGIES: Penicillin, piperacillin, tazobactam. SOCIAL HISTORY: Denies any tobacco, alcohol, or illicit drug use. FAMILY HISTORY: No premature coronary artery disease in first-degree relatives. REVIEW OF SYSTEMS: A 12-system review done, essentially negative except what is mentioned in the history of present illness. PHYSICAL EXAMINATION: VITAL SIGNS: Blood pressure was 175/75, respirations 16, pulse of 82, O2 saturation 98% on room air, and temperature 97.5 degrees Fahrenheit. GENERAL: The patient is a very unfortunate 48-year-old lady, in no apparent respiratory distress. Alert and oriented x4. HEENT: Atraumatic, normocephalic. Anicteric. Pupils are equal, round, and reactive to light and accommodation. Extraocular muscles intact. NECK: JVP less than 5 cm. No carotid bruit. Carotid upstroke is 2+ bilaterally. CARDIOVASCULAR: Normal S1, S2. Regular rate and rhythm. No murmurs, gallops, or rubs. PMI is at the fourth intercostal space at the midclavicular line. LUNGS: Clear to auscultation bilaterally. ABDOMEN: Soft, nontender, and nondistended. No hepatosplenomegaly. Positive bowel sounds. EXTREMITIES: No evidence of edema, clubbing, or cyanosis. LABORATORY FINDINGS: WBC is 11.2, hemoglobin 11.1, hematocrit 33.4, and platelet count is 261. Sodium 130, potassium 3.8, chloride 89, carbon dioxide 28, BUN of 34, creatinine 4.6, glucose is 262, and calcium is 10.1. Troponin I is 0. ASSESSMENT AND PLAN: The patient is a very unfortunate 48-year-old lady seen in Cardiology consultation. 1. Most likely atypical chest pain. Chest pain is most likely pleuritic and associated with pneumonia, which was evident on the chest x-ray. There is also evidence of pleural effusion on the right lung. We will obtain 2D echocardiography to assess LV systolic and diastolic function and assessment of LVEF. After therapeutic and diagnostic, decision will be based on the results of 2D echocardiography. We will obtain another troponin I level to also rule out acute myocardial infarction. A 12-lead electrocardiogram does not show any acute ischemic changes. 2. End-stage renal disease. 3. Diabetes mellitus. We will like to stress on using aspirin and statin on this patient. 4. History of hypertension. We will continue with hydralazine, amlodipine, and benazepril. Adjust the dose of the above medication to come to the goal of 120/80 mmHg. Clonidine will be used as needed for breakthrough hypertension. I would like to thank, Dr. Guzman, for the courtesy of this consultation. Amanuel Garcias M.D. DR: ЕКАТЕРИНА JOB#: [id number] CC:
[2019-01-29] MEDS: Latanoprost 0.005% Opth 2.5ml Soln BOTH EYES SCH (21:00)
[2019-01-29] MEDS: Atorvastatin 20mg tab ORAL SCH (21:00)
--- NOTE | 2019-01-29 21:31 | General Progress Note ---
Assessment/Plan Problem List: (1) ESRD (end stage renal disease) ICD Codes: N18.6 - End stage renal disease SNOMED: 33046479 (2) Chest pain ICD Codes: R07.9 - Chest pain, unspecified SNOMED: 99435093 Qualifiers: Qualified Codes: R07.9 - Chest pain, unspecified (3) Diabetes mellitus out of control ICD Codes: E11.65 - Type 2 diabetes mellitus with hyperglycemia SNOMED: 33553254, 114907590 Status: progressing Assessment/Plan: chest pain r/o acs esrd on hd htn niddm reviewed chart and labs Subjective ROS Limited/Unobtainable: Yes Allergies: Coded Allergies: PENICILLINS (Verified Allergy, Unknown, 10/07/18) PIPERACILLIN (Verified Allergy, Unknown, 10/07/18) TAZOBACTAM (Verified Allergy, Unknown, 10/07/18) Objective Last 24 Hour Vital Signs Date Time Temp Pulse Resp B/P (MAP) Pulse Ox O2 Delivery O2 Flow Rate FiO2 01/29/19 20:00 98 Nasal Cannula 2.0 28 01/29/19 20:00 68 16 97 Nasal Cannula 2.0 28 01/29/19 18:30 78 170/83 01/29/19 16:00 81 01/29/19 16:00 80 01/29/19 12:00 80 01/29/19 12:00 81 01/29/19 09:00 Nasal Cannula 2.0 01/29/19 08:46 73 133/65 01/29/19 08:45 133/65 01/29/19 08:00 74 01/29/19 08:00 73 01/29/19 07:09 68 16 97 Nasal Cannula 2.0 28 01/29/19 07:09 97 Nasal Cannula 2.0 28 01/29/19 05:00 133/65 01/29/19 04:00 74 01/29/19 04:00 97.5 73 18 133/65 (87) 95 01/29/19 00:00 97.5 69 18 153/79 (103) 96 01/29/19 00:00 73 Intake and Output 01/28/19 01/29/19 19:00 07:00 Intake Total 240 ml 130 ml Balance 240 ml 130 ml Intake Oral 240 ml 120 ml IV Total 10 ml # Voids 3 3 # Bowel Movements 1 Laboratory Tests 01/29/19 19:19: White Blood Count [Pending], Red Blood Count [Pending], Hemoglobin [Pending], Hematocrit [Pending], Mean Corpuscular Volume [Pending], Mean Corpuscular Hemoglobin [Pending], Mean Corpuscular Hemoglobin Concent [Pending], Red Cell Distribution Width [Pending], Platelet Count [Pending], Mean Platelet Volume [ Pending], Neutrophils (%) (Auto) [Pending], Lymphocytes (%) (Auto) [Pending], Monocytes (%) (Auto) [Pending], Eosinophils (%) (Auto) [Pending], Basophils (%) (Auto) [Pending], Troponin I 0.003 Height (Feet): 4 Height (Inches): 9.00 Weight (Pounds): 116 Cardiovascular: normal rate Respiratory/Chest: lungs clear Abdomen: soft Kimberlee Guzman MD Jan 29, 2019 21:31
--- NOTE | 2019-01-29 21:40 | NUR ---
NURSE NOTES: Patient refused HS meds and BS check. Explained risks and benefits. CN aware and will continue to monitor.
--- NOTE | 2019-01-29 22:10 | NUR ---
NURSE NOTES: Patient refused 2200 BP med. Refused VS check. Explained risks and benefits but still refused.
[2019-01-30] VITALS: BP 154/78
--- NOTE | 2019-01-30 00:26 | NUR ---
NURSE NOTES: Patient refused 0000 med, explained risks and benefits but still refused. Will continue to monitor.
[2019-01-30 04:00] VITALS: BP 162/75
--- NOTE | 2019-01-30 05:53 | Hematology/Onc Progress Note ---
Assessment/Plan Assessment/Plan Assessment and Recs: # Anemia due to underlying chronic disease, multifactorial, does have a hx of esrd, ferritin in the past was 1004 --> anemia panel has been reviewed from prior adm --> hgb goal is >7, transfuse prn --> consider use of iron and/or epo based on anemia panel (ferritin reordered) --> diuresis may help anemia as well, negative fluid balance --> smear has been reviewed and no schistocytes noted # Hyperproteinemia, on admission protein is >9 --> at this time can be 2/2 inflammatory process --> spep has been ordered --> if negative, consider get upep # Thrombocytopenia likely related to infection/chf --> in prior was negative, reviewed and us abd neg # Acute respiratory failure secondary to CHF --> diuresis as per cards --> pulm has evaluated, breathing rx --> hd will help as well # Bradycardia --> per cards # Esrd requiring HD --> as per renal --> continue 3x a week # Pleural effusions --> likely related to overload # Noncompliance, refusing labs, meds # Dvt ppx scds Time of note does not necessarily correspond to then patient was seen. Greatly appreciate consultation. Subjective Constitutional: Denies: no symptoms, chills, fever, malaise, weakness, other HEENT: Denies: no symptoms, eye pain, blurred vision, tearing, double vision, ear pain, ear discharge, nose pain, nose congestion, throat pain, throat swelling, mouth pain, mouth swelling, other Cardiovascular: Denies: no symptoms, chest pain, edema, irregular heart rate, lightheadedness, palpitations, syncope, other Respiratory: Denies: no symptoms, cough, shortness of breath, SOB with excertion, SOB at rest, sputum, wheezing, other Gastrointestinal/Abdominal: Denies: no symptoms, abdomen distended, abdominal pain, black stools, tarry stools, blood in stool, constipated, diarrhea, difficulty swallowing, nausea, poor appetite, poor fluid intake, rectal bleeding , vomiting, other Allergies: Coded Allergies: PENICILLINS (Verified Allergy, Unknown, 10/07/18) PIPERACILLIN (Verified Allergy, Unknown, 10/07/18) TAZOBACTAM (Verified Allergy, Unknown, 10/07/18) Subjective 01/30: has been refusing medications overnight, no chest pain this am, hd done yest Objective Objective Current Medications Medications (Trade) Dose Ordered Sig/Soren Route PRN Reason Start Time Stop Time Status Last Admin Dose Admin Acetaminophen (Tylenol) 650 mg Q6H PRN ORAL Mild Pain/Temp > 100.5 01/28/19 07:45 02/27/19 07:44 Albuterol/ Ipratropium (Albuterol/ Ipratropium) 3 ml Q4H PRN HHN Shortness of Breath 01/28/19 10:00 02/02/19 09:59 Amlodipine Besylate (Norvasc) 5 mg BID ORAL 01/28/19 10:00 02/27/19 09:59 01/29/19 18:30 Artificial Tears (Akwa-Tears) 1 drop Q6HR BOTH EYES 01/28/19 12:00 02/27/19 11:59 01/29/19 13:34 Atorvastatin Calcium (Lipitor) 40 mg BEDTIME ORAL 01/28/19 21:00 02/27/19 20:59 01/28/19 20:08 Benazepril HCl (Lotensin) 10 mg Q12HR ORAL 01/28/19 10:00 02/27/19 09:59 01/28/19 20:09 Clonidine HCl (Catapres Tab) 0.1 mg Q4H PRN ORAL For High Blood Pressure 01/28/19 07:45 02/27/19 07:44 Dextrose (Dextrose 50%) 25 ml Q30M PRN IV Hypoglycemia 01/29/19 07:00 02/28/19 06:59 Dextrose (Dextrose 50%) 50 ml Q30M PRN IV Hypoglycemia 01/29/19 07:00 02/28/19 06:59 Docusate Sodium (Colace) 100 mg TID ORAL 01/28/19 13:00 02/27/19 17:59 01/28/19 13:06 Hydralazine HCl (Apresoline) 50 mg Q8HR ORAL 01/28/19 14:00 02/27/19 13:59 01/28/19 21:06 Insulin Aspart (NovoLOG) BEFORE MEALS AND HS SUBQ 01/28/19 11:30 02/27/19 11:29 01/29/19 13:26 Insulin Detemir (Levemir) 8 units DAILY SUBQ 01/29/19 09:00 02/28/19 08:59 Latanoprost (Xalatan) 1 drop BEDTIME BOTH EYES 01/28/19 21:00 02/27/19 20:59 Morphine Sulfate (Morphine Sulfate) 2 mg Q4H PRN IVP severe pain 01/28/19 12:00 02/04/19 11:59 Pantoprazole (Protonix) 40 mg DAILY ORAL 01/29/19 09:00 02/28/19 08:59 Sitagliptin Phosphate (Januvia) 25 mg ACBREAKFAST ORAL 01/29/19 07:00 02/28/19 06:59 Vitamin B Complex/ Vit C/Folic Acid (Nephrovite) 1 tab DAILY ORAL 01/28/19 10:00 02/27/19 09:59 01/28/19 11:04 Last 24 Hour Vital Signs Date Time Temp Pulse Resp B/P (MAP) Pulse Ox O2 Delivery O2 Flow Rate FiO2 01/30/19 04:00 98.3 77 19 162/75 (104) 95 01/30/19 00:00 98.1 79 18 154/78 (103) 94 01/29/19 21:00 Nasal Cannula 2.0 01/29/19 20:00 75 01/29/19 20:00 98 Nasal Cannula 2.0 28 01/29/19 20:00 68 16 97 Nasal Cannula 2.0 28 01/29/19 18:30 78 170/83 01/29/19 16:00 81 01/29/19 16:00 80 01/29/19 12:00 80 01/29/19 12:00 81 01/29/19 09:00 Nasal Cannula 2.0 01/29/19 08:46 73 133/65 01/29/19 08:45 133/65 01/29/19 08:00 74 01/29/19 08:00 73 01/29/19 07:09 68 16 97 Nasal Cannula 2.0 28 01/29/19 07:09 97 Nasal Cannula 2.0 28 01/29/19 05:00 133/65 01/29/19 04:00 74 01/29/19 04:00 97.5 73 18 133/65 (87) 95 01/29/19 00:00 97.5 69 18 153/79 (103) 96 01/29/19 00:00 73 01/28/19 21:06 150/90 01/28/19 21:00 75 01/28/19 21:00 97.7 72 18 153/90 (111) 95 01/28/19 20:09 155/90 01/28/19 19:45 Nasal Cannula 2.0 01/28/19 19:29 98 Nasal Cannula 2.0 28 01/28/19 19:29 80 20 98 Nasal Cannula 2.0 28 01/28/19 17:05 79 155/84 01/28/19 16:00 2.0 01/28/19 16:00 96.8 74 20 155/84 (107) 95 01/28/19 16:00 79 01/28/19 13:06 162/69 01/28/19 12:00 97.0 80 20 162/69 (100) 97 01/28/19 12:00 75 01/28/19 12:00 2.0 01/28/19 11:04 156/76 01/28/19 11:04 79 156/76 01/28/19 09:00 Nasal Cannula 2.0 01/28/19 08:00 98.6 79 24 156/76 (102) 97 01/28/19 08:00 2.0 Intake and Output 01/29/19 01/30/19 19:00 07:00 Intake Total 490 ml Output Total 3000 ml Balance -2510 ml Intake Oral 490 ml Output Hemodialysis UF 3000 ml Labs Test 01/28/19 02:12 01/29/19 19:19 White Blood Count 11.2 K/UL (4.8-10.8) Red Blood Count 3.44 M/UL (4.20-5.40) Hemoglobin 11.1 G/DL (12.0-16.0) Hematocrit 33.4 % (37.0-47.0) Mean Corpuscular Volume 97 FL (80-99) Mean Corpuscular Hemoglobin 32.2 PG (27.0-31.0) Mean Corpuscular Hemoglobin Concent 33.2 G/DL (32.0-36.0) Red Cell Distribution Width 14.4 % (11.6-14.8) Platelet Count 261 K/UL (150-450) Mean Platelet Volume 6.9 FL (6.5-10.1) Neutrophils (%) (Auto) 77.6 % (45.0-75.0) Lymphocytes (%) (Auto) 10.8 % (20.0-45.0) Monocytes (%) (Auto) 8.1 % (1.0-10.0) Eosinophils (%) (Auto) 2.5 % (0.0-3.0) Basophils (%) (Auto) 1.0 % (0.0-2.0) Sodium Level 130 MMOL/L (136-145) Potassium Level 3.8 MMOL/L (3.5-5.1) Chloride Level 89 MMOL/L (98-107) Carbon Dioxide Level 28 MMOL/L (21-32) Anion Gap 13 mmol/L (5-15) Blood Urea Nitrogen 34 mg/dL (7-18) Creatinine 4.6 MG/DL (0.55-1.30) Estimat Glomerular Filtration Rate 10.1 mL/min (>60) Glucose Level 262 MG/DL (74-106) Calcium Level 10.1 MG/DL (8.5-10.1) Total Bilirubin 1.3 MG/DL (0.2-1.0) Direct Bilirubin 0.8 MG/DL (0.0-0.3) Aspartate Amino Transf (AST/SGOT) 35 U/L (15-37) Alanine Aminotransferase (ALT/SGPT) 41 U/L (12-78) Alkaline Phosphatase 649 U/L (46-116) Troponin I 0.000 ng/mL (0.000-0.056) 0.003 ng/mL (0.000-0.056) Total Protein 9.5 G/DL (6.4-8.2) Albumin 3.5 G/DL (3.4-5.0) Globulin 6.0 g/dL Albumin/Globulin Ratio 0.6 (1.0-2.7) Height (Feet): 4 Height (Inches): 9.00 Weight (Pounds): 116 Objective Physical Exam Vital Signs: reviewed vitals noted Gen: mod distress Head: normocephalic, atraumatic Respiratory: chest non-tender, accessory muscle use, rales CV: regular rate, rhythm, no murmur, bradycardia GI: normal bowel sounds, non tender, no mass, no organomegaly, nd Musculoskeletal: 1-2+ pitting edema Kleynberg,Myke L. MD Jan 30, 2019 05:53
[2019-01-30] MEDS: NovoLOG Insulin Flexpen SUBQ SCH ×4 (06:15→21:00)
[2019-01-30] MEDS: HydrALAZINE 50mg tab ORAL SCH ×3 (06:15→22:00)
[2019-01-30] MEDS: sitaGLIPtin 25mg tab ORAL SCH (06:16)
--- NOTE | 2019-01-30 06:41 | General Progress Note ---
Assessment/Plan Problem List: (1) Diabetes mellitus out of control ICD Codes: E11.65 - Type 2 diabetes mellitus with hyperglycemia SNOMED: 49884865, 559996466 (2) ESRD (end stage renal disease) ICD Codes: N18.6 - End stage renal disease SNOMED: 07598752 (3) Chest pain ICD Codes: R07.9 - Chest pain, unspecified SNOMED: 98322399 Qualifiers: Qualified Codes: R07.9 - Chest pain, unspecified Status: progressing Assessment/Plan: continue Levemir 8 units daily continue Januvia 25 mg daily continue NISS ac / hs Subjective Allergies: Coded Allergies: PENICILLINS (Verified Allergy, Unknown, 10/07/18) PIPERACILLIN (Verified Allergy, Unknown, 10/07/18) TAZOBACTAM (Verified Allergy, Unknown, 10/07/18) All Systems: reviewed and negative except above Subjective events noted refusing medications and vital signs check Item Value Date Time Bedside Blood Glucose 175 mg/dl H 01/29/19 1630 Bedside Blood Glucose 217 mg/dl H 01/29/19 1326 Bedside Blood Glucose 291 mg/dl H 01/29/19 0630 Objective Last 24 Hour Vital Signs Date Time Temp Pulse Resp B/P (MAP) Pulse Ox O2 Delivery O2 Flow Rate FiO2 01/30/19 06:15 162/85 01/30/19 05:55 78 01/30/19 04:00 98.3 77 19 162/75 (104) 95 01/30/19 00:00 98.1 79 18 154/78 (103) 94 01/30/19 00:00 80 01/29/19 21:00 Nasal Cannula 2.0 01/29/19 20:00 82 01/29/19 20:00 75 01/29/19 20:00 98 Nasal Cannula 2.0 28 01/29/19 20:00 68 16 97 Nasal Cannula 2.0 28 01/29/19 18:30 78 170/83 01/29/19 16:00 81 01/29/19 16:00 80 01/29/19 12:00 80 01/29/19 12:00 81 01/29/19 09:00 Nasal Cannula 2.0 01/29/19 08:46 73 133/65 01/29/19 08:45 133/65 01/29/19 08:00 74 01/29/19 08:00 73 01/29/19 07:09 68 16 97 Nasal Cannula 2.0 28 01/29/19 07:09 97 Nasal Cannula 2.0 28 Intake and Output 01/29/19 01/30/19 19:00 07:00 Intake Total 490 ml Output Total 3000 ml Balance -2510 ml Intake Oral 490 ml Output Hemodialysis UF 3000 ml Laboratory Tests 01/29/19 19:19: Troponin I 0.003 Height (Feet): 4 Height (Inches): 9.00 Weight (Pounds): 116 General Appearance: no apparent distress Neck: normal alignment Cardiovascular: normal rate Respiratory/Chest: decreased breath sounds Abdomen: normal bowel sounds Objective Current Medications Medications (Trade) Dose Ordered Sig/Soren Route PRN Reason Start Time Stop Time Status Last Admin Dose Admin Acetaminophen (Tylenol) 650 mg Q6H PRN ORAL Mild Pain/Temp > 100.5 01/28/19 07:45 02/27/19 07:44 Albuterol/ Ipratropium (Albuterol/ Ipratropium) 3 ml Q4H PRN HHN Shortness of Breath 01/28/19 10:00 02/02/19 09:59 Amlodipine Besylate (Norvasc) 5 mg BID ORAL 01/28/19 10:00 02/27/19 09:59 01/29/19 18:30 Artificial Tears (Akwa-Tears) 1 drop Q6HR BOTH EYES 01/28/19 12:00 02/27/19 11:59 01/29/19 13:34 Atorvastatin Calcium (Lipitor) 40 mg BEDTIME ORAL 01/28/19 21:00 02/27/19 20:59 01/28/19 20:08 Benazepril HCl (Lotensin) 10 mg Q12HR ORAL 01/28/19 10:00 02/27/19 09:59 01/28/19 20:09 Clonidine HCl (Catapres Tab) 0.1 mg Q4H PRN ORAL For High Blood Pressure 01/28/19 07:45 02/27/19 07:44 Dextrose (Dextrose 50%) 25 ml Q30M PRN IV Hypoglycemia 01/29/19 07:00 02/28/19 06:59 Dextrose (Dextrose 50%) 50 ml Q30M PRN IV Hypoglycemia 01/29/19 07:00 02/28/19 06:59 Docusate Sodium (Colace) 100 mg TID ORAL 01/28/19 13:00 02/27/19 17:59 01/28/19 13:06 Hydralazine HCl (Apresoline) 50 mg Q8HR ORAL 01/28/19 14:00 02/27/19 13:59 01/30/19 06:15 Insulin Aspart (NovoLOG) BEFORE MEALS AND HS SUBQ 01/28/19 11:30 02/27/19 11:29 01/29/19 13:26 Insulin Detemir (Levemir) 8 units DAILY SUBQ 01/29/19 09:00 02/28/19 08:59 Latanoprost (Xalatan) 1 drop BEDTIME BOTH EYES 01/28/19 21:00 02/27/19 20:59 Morphine Sulfate (Morphine Sulfate) 2 mg Q4H PRN IVP severe pain 01/28/19 12:00 02/04/19 11:59 Pantoprazole (Protonix) 40 mg DAILY ORAL 01/29/19 09:00 02/28/19 08:59 Sitagliptin Phosphate (Januvia) 25 mg ACBREAKFAST ORAL 01/29/19 07:00 02/28/19 06:59 Vitamin B Complex/ Vit C/Folic Acid (Nephrovite) 1 tab DAILY ORAL 01/28/19 10:00 02/27/19 09:59 01/28/19 11:04 Marck qIbal MD Jan 30, 2019 06:41
--- NOTE | 2019-01-30 08:02 | NUR ---
HAND-OFF: Report given to Jeremy Deleon RN. Patient in bed asleep in bed with no S/S of distress. Endorsed plan of care.
--- NOTE | 2019-01-30 08:03 | NUR ---
NURSE NOTES: Received report and patient from Alin OWENS in the chair having breakfast, denies any pain, no s/s of respiratory distress noted. Patient is legally blind and have episodes of confusion. Assisted patient with breakfast. Bed is on lowest position, brakes engaged for safety, call light is within reach. Will continue with the plan of care.
--- NOTE | 2019-01-30 08:39 | General Progress Note ---
Assessment/Plan Assessment/Plan: (1) Chest pain (2) ACS (3) DJD (4) ESRD on dialysis Patient to be continued on Morphine as needed. D/w Dr. Carlos and he concurred. Subjective Date patient seen: Jan 30, 2019 Time patient seen: 08:15 - am Allergies: Coded Allergies: PENICILLINS (Verified Allergy, Unknown, 10/07/18) PIPERACILLIN (Verified Allergy, Unknown, 10/07/18) TAZOBACTAM (Verified Allergy, Unknown, 10/07/18) Subjective Constitutional: Reports: weakness HEENT: Reports: blurred vision Cardiovascular: Reports: no symptoms Respiratory: Reports: no symptoms Gastrointestinal/Abdominal: Reports: no symptoms Genitourinary: Reports: no symptoms Neurologic/Psychiatric: Reports: weakness Endocrine: Reports: no symptoms Hematologic/Lymphatic: Reports: no symptoms Subjective Patient showing no signs of pain or distress. She denies pain and has not requested the Morphine in the last 24hrs. Was advised to take medications as prescribed by doctor and she seems to understand Objective Last 24 Hour Vital Signs Date Time Temp Pulse Resp B/P (MAP) Pulse Ox O2 Delivery O2 Flow Rate FiO2 01/30/19 06:15 162/85 01/30/19 05:55 78 01/30/19 04:00 98.3 77 19 162/75 (104) 95 01/30/19 00:00 98.1 79 18 154/78 (103) 94 01/30/19 00:00 80 01/29/19 21:00 Nasal Cannula 2.0 01/29/19 20:00 82 01/29/19 20:00 75 01/29/19 20:00 98 Nasal Cannula 2.0 28 01/29/19 20:00 68 16 97 Nasal Cannula 2.0 28 01/29/19 18:30 78 170/83 01/29/19 16:00 81 01/29/19 16:00 80 01/29/19 12:00 80 01/29/19 12:00 81 01/29/19 09:00 Nasal Cannula 2.0 01/29/19 08:46 73 133/65 01/29/19 08:45 133/65 Intake and Output 01/29/19 01/30/19 19:00 07:00 Intake Total 490 ml 250 ml Output Total 3000 ml Balance -2510 ml 250 ml Intake Oral 490 ml 250 ml Output Hemodialysis UF 3000 ml # Voids 1 Laboratory Tests 01/29/19 19:19: Troponin I 0.003 Height (Feet): 4 Height (Inches): 9.00 Weight (Pounds): 116 Objective General Appearance: no apparent distress EENT: normal ENT inspection Neck: non-tender, normal alignment Cardiovascular: normal rate, regular rhythm Respiratory/Chest: decreased breath sounds Abdomen: soft, no organomegaly Extremities: non-tender Edema: trace edema Neurologic: alert, oriented x 3 Skin: normal pigmentation Nelson Lao Jan 30, 2019 08:39
[2019-01-30] MEDS: Levemir Flexpen SUBQ SCH (08:45)
[2019-01-30] MEDS: Nephrovite tab (Rena-Vite) ORAL SCH (08:48)
[2019-01-30] MEDS: Docusate 100mg cap ORAL SCH ×3 (08:53→18:05)
[2019-01-30] MEDS: Benazepril 10mg tab ORAL SCH ×2 (08:53→21:53)
[2019-01-30 12:50] VITALS: BP 140/66
--- NOTE | 2019-01-30 14:53 | Nephrology Progress Note ---
Assessment/Plan Problem List: (1) ESRD (end stage renal disease) (2) Volume overload (3) Chest pain Assessment: CAD Assessment Volume overload / CHF on CXR ESRD on dialysis M W Fri Hyperglycemia h/o Pleural effusion, Plan Dialysis and UF done yesterday Refuses blood work BP and BS control per orders discussed with RN Subjective ROS Limited/Unobtainable: No Constitutional: Reports: malaise Objective Objective Last 24 Hour Vital Signs Date Time Temp Pulse Resp B/P (MAP) Pulse Ox O2 Delivery O2 Flow Rate FiO2 01/30/19 13:31 140/66 01/30/19 12:50 97.5 73 18 140/66 (90) 95 01/30/19 12:00 73 01/30/19 11:17 Nasal Cannula 2.0 01/30/19 08:53 166/77 01/30/19 08:53 90 166/77 01/30/19 08:30 72 16 97 Nasal Cannula 2.0 28 01/30/19 08:30 98 Nasal Cannula 2.0 28 01/30/19 08:00 88 01/30/19 08:00 88 01/30/19 06:15 162/85 01/30/19 05:55 78 01/30/19 04:00 98.3 77 19 162/75 (104) 95 01/30/19 00:00 98.1 79 18 154/78 (103) 94 01/30/19 00:00 80 01/29/19 21:00 Nasal Cannula 2.0 01/29/19 20:00 82 01/29/19 20:00 75 01/29/19 20:00 98 Nasal Cannula 2.0 28 01/29/19 20:00 68 16 97 Nasal Cannula 2.0 28 01/29/19 18:30 78 170/83 01/29/19 16:00 81 01/29/19 16:00 80 Intake and Output 01/29/19 01/30/19 18:59 06:59 Intake Total 490 ml 250 ml Output Total 3000 ml Balance -2510 ml 250 ml Intake Oral 490 ml 250 ml Output Hemodialysis UF 3000 ml # Voids 1 Laboratory Tests 01/29/19 19:19: Troponin I 0.003 Height (Feet): 4 Height (Inches): 9.00 Weight (Pounds): 116 General Appearance: no apparent distress Cardiovascular: normal rate Respiratory/Chest: decreased breath sounds Abdomen: soft Objective no change Elvin Garcia MD Jan 30, 2019 14:53
--- NOTE | 2019-01-30 18:27 | Cardiology Report ---
APPROVED REPORT EXAM: Two-dimensional and M-mode echocardiogram with Doppler and color Doppler. INDICATION Chest Pain M-Mode DIMENSIONS IVSd1.3 (0.7-1.1cm)Left Atrium (MM)4.1 (1.6-4.0cm) LVDd4.7 (3.5-5.6cm)Aortic Root2.5 (2.0-3.7cm) PWd1.1 (0.7-1.1cm)Aortic Cusp Exc.1.5 (1.5-2.0cm) LVDs3.7 (2.5-4.0cm) PWs1.4 cm Normal left ventricular chamber size. septum hypokinesis may be related to RV dysfucntion Left ventricular ejection fraction estimated to be 40-45 %. No left ventricular hypertrophy. Anterior Echo-free space, may be due to pericardial fat or effusion. Left and right atrial sizes at upper limits of normal. Right ventricular chamber size enlarged adn hypokinetic Focal aortic valve sclerosis with adequate cusp excursion. Thickened mitral valve leaflets with normal excursion. Mitral annulus and aortic root calcification. Pulmonic valve not well visualized. Normal tricuspid valve structure. IVC at normal size with physiologic collapse. A color flow and spectral Doppler study was performed and revealed: Mild to moderate mitral regurgitation. Mitral diastolic velocities suggest normal left ventricular diastolic function. Moderate tricuspid regurgitation. Tricuspid systolic velocities suggests peak right ventricular systolic pressure of 59 mmHg, consistent with moderate to severe pulmonary hypertension. Moderate pulmonic regurgitation present.
--- NOTE | 2019-01-30 18:50 | NUR ---
CASE MANAGEMENT: REVIEW SI: CHEST PAIN . ESRD ON HD . T 97.5 HR 73 RR 18 BP 140/66 SAT 95% NC/2L 2D ECHO w/DOPPLER -- MODERATE PULMONIC REGURGITATION -- MILD TO MODERATE MITRAL REGURGITATION -- MODERATE TRICUSPID REGURGITATION IS: PROTONIX PO QD LEVEMIR SUBQ QD JANUVIA PO QD HYDRALAZINE PO Q8HR NORVASC PO BID HD PRN TELEMETRY UNIT STATUS DCP: PATIENT IS FROM [facility]
--- NOTE | 2019-01-30 19:20 | NUR ---
HAND-OFF: Report given to Alin RN.Endorsed plan of care.
--- NOTE | 2019-01-30 19:30 | NUR ---
NURSE NOTES: Received report from Antonio Deleon RN. Patient in bed AAO X3-4 [place] speaking with no complaints of acute pain or distress noted. Kept clean, dry, and comfortable in bed. IV line and Permacath intact, and on continuous cardiac monitoring per protocol. Patient blind in both eyes. On 2L NC with no S/S of SOB. Safety precaution in place; siderails X3 up, call light within reach, bed in lowest position, brakes and alarm on at all times. Needs and wants anticipated and attended. Will continue plan of care and monitor for any changes noted. Patient is often times non-compliant with medications and treatment. Will continue to monitor.
[2019-01-30 20:00] VITALS: BP 134/68
[2019-01-30] MEDS: Latanoprost 0.005% Opth 2.5ml Soln BOTH EYES SCH (21:00)
--- NOTE | 2019-01-30 21:01 | General Progress Note ---
Assessment/Plan Problem List: (1) ESRD (end stage renal disease) ICD Codes: N18.6 - End stage renal disease SNOMED: 50899789 (2) Chest pain ICD Codes: R07.9 - Chest pain, unspecified SNOMED: 03954186 Qualifiers: Qualified Codes: R07.9 - Chest pain, unspecified (3) Diabetes mellitus out of control ICD Codes: E11.65 - Type 2 diabetes mellitus with hyperglycemia SNOMED: 28220802, 392368538 Status: progressing Assessment/Plan: no cp neg trop afebrile no gerd esrd on hd htn niddm reviewed chart and labs Subjective ROS Limited/Unobtainable: Yes Allergies: Coded Allergies: PENICILLINS (Verified Allergy, Unknown, 10/07/18) PIPERACILLIN (Verified Allergy, Unknown, 10/07/18) TAZOBACTAM (Verified Allergy, Unknown, 10/07/18) Objective Last 24 Hour Vital Signs Date Time Temp Pulse Resp B/P (MAP) Pulse Ox O2 Delivery O2 Flow Rate FiO2 01/30/19 18:05 72 140/66 01/30/19 16:00 72 01/30/19 16:00 72 01/30/19 13:31 140/66 01/30/19 12:50 97.5 73 18 140/66 (90) 95 01/30/19 12:00 73 01/30/19 11:17 Nasal Cannula 2.0 01/30/19 08:53 166/77 01/30/19 08:53 90 166/77 01/30/19 08:30 72 16 97 Nasal Cannula 2.0 28 01/30/19 08:30 98 Nasal Cannula 2.0 28 01/30/19 08:00 88 01/30/19 08:00 88 01/30/19 06:15 162/85 01/30/19 05:55 78 01/30/19 04:00 98.3 77 19 162/75 (104) 95 01/30/19 00:00 98.1 79 18 154/78 (103) 94 01/30/19 00:00 80 Intake and Output 01/29/19 01/30/19 18:59 06:59 Intake Total 490 ml 250 ml Output Total 3000 ml Balance -2510 ml 250 ml Intake Oral 490 ml 250 ml Output Hemodialysis UF 3000 ml # Voids 1 Height (Feet): 4 Height (Inches): 9.00 Weight (Pounds): 116 Cardiovascular: normal rate Respiratory/Chest: lungs clear Abdomen: soft Kimberlee Guzman MD Jan 30, 2019 21:01
[2019-01-30] MEDS: Atorvastatin 20mg tab ORAL SCH (21:53)
[2019-01-31] VITALS: BP 131/72
--- NOTE | 2019-01-31 00:07 | NUR ---
NURSE NOTES: Patient refused HS meds. Explained risks and benefits but still refused. Continue to monitor.
--- NOTE | 2019-01-31 02:56 | NUR ---
NURSE NOTES: Patient in bed asleep with no S/S of distress. Will continue to monitor.
[2019-01-31 04:00] VITALS: BP 125/66
[2019-01-31] MEDS: HydrALAZINE 50mg tab ORAL SCH ×2 (05:47→13:24)
[2019-01-31] MEDS: sitaGLIPtin 25mg tab ORAL SCH (05:47)
[2019-01-31] MEDS: NovoLOG Insulin Flexpen SUBQ SCH ×3 (06:48→16:30)
--- NOTE | 2019-01-31 06:57 | General Progress Note ---
Assessment/Plan Problem List: (1) Diabetes mellitus out of control ICD Codes: E11.65 - Type 2 diabetes mellitus with hyperglycemia SNOMED: 34839741, 483374071 (2) ESRD (end stage renal disease) ICD Codes: N18.6 - End stage renal disease SNOMED: 35395172 (3) Chest pain ICD Codes: R07.9 - Chest pain, unspecified SNOMED: 44456058 Qualifiers: Qualified Codes: R07.9 - Chest pain, unspecified Status: progressing Assessment/Plan: increase Levemir to 10 units daily continue Januvia 25 mg daily continue NISS ac / hs Subjective Allergies: Coded Allergies: PENICILLINS (Verified Allergy, Unknown, 10/07/18) PIPERACILLIN (Verified Allergy, Unknown, 10/07/18) TAZOBACTAM (Verified Allergy, Unknown, 10/07/18) All Systems: reviewed and negative except above Subjective events noted Item Value Date Time Bedside Blood Glucose 207 mg/dl H 01/31/19 0648 Bedside Blood Glucose 383 mg/dl H 01/30/19 0900 Objective Last 24 Hour Vital Signs Date Time Temp Pulse Resp B/P (MAP) Pulse Ox O2 Delivery O2 Flow Rate FiO2 01/31/19 05:47 125/66 01/31/19 04:00 97.4 77 18 125/66 (85) 98 01/31/19 04:00 89 01/31/19 00:00 97.4 66 18 131/72 (91) 97 01/31/19 00:00 72 01/30/19 21:53 134/68 01/30/19 21:00 69 18 95 Room Air 21 01/30/19 21:00 95 Room Air 21 01/30/19 21:00 Nasal Cannula 2.0 01/30/19 20:00 81 01/30/19 20:00 98.0 71 18 134/68 (90) 97 01/30/19 18:05 72 140/66 01/30/19 16:00 72 01/30/19 16:00 72 01/30/19 13:31 140/66 01/30/19 12:50 97.5 73 18 140/66 (90) 95 01/30/19 12:00 73 01/30/19 11:17 Nasal Cannula 2.0 01/30/19 08:53 166/77 01/30/19 08:53 90 166/77 9/24/19 08:30 72 16 97 Nasal Cannula 2.0 28 01/30/19 08:30 98 Nasal Cannula 2.0 28 01/30/19 08:00 88 01/30/19 08:00 88 Intake and Output 01/30/19 01/31/19 19:00 07:00 Intake Total 630 ml Balance 630 ml Intake Oral 630 ml # Voids 2 # Bowel Movements 1 Height (Feet): 4 Height (Inches): 9.00 Weight (Pounds): 117 General Appearance: no apparent distress Neck: normal alignment Cardiovascular: normal rate Respiratory/Chest: lungs clear Abdomen: normal bowel sounds Objective Current Medications Medications (Trade) Dose Ordered Sig/Soren Route PRN Reason Start Time Stop Time Status Last Admin Dose Admin Acetaminophen (Tylenol) 650 mg Q6H PRN ORAL Mild Pain/Temp > 100.5 01/28/19 07:45 02/27/19 07:44 Albuterol/ Ipratropium (Albuterol/ Ipratropium) 3 ml Q4H PRN HHN Shortness of Breath 01/28/19 10:00 02/02/19 09:59 Amlodipine Besylate (Norvasc) 5 mg BID ORAL 01/28/19 10:00 02/27/19 09:59 01/30/19 18:05 Artificial Tears (Akwa-Tears) 1 drop Q6HR BOTH EYES 01/28/19 12:00 02/27/19 11:59 01/31/19 05:48 Atorvastatin Calcium (Lipitor) 40 mg BEDTIME ORAL 01/28/19 21:00 02/27/19 20:59 01/30/19 21:53 Benazepril HCl (Lotensin) 10 mg Q12HR ORAL 01/28/19 10:00 02/27/19 09:59 01/30/19 21:53 Clonidine HCl (Catapres Tab) 0.1 mg Q4H PRN ORAL For High Blood Pressure 01/28/19 07:45 02/27/19 07:44 Dextrose (Dextrose 50%) 25 ml Q30M PRN IV Hypoglycemia 01/29/19 07:00 02/28/19 06:59 Dextrose (Dextrose 50%) 50 ml Q30M PRN IV Hypoglycemia 01/29/19 07:00 02/28/19 06:59 Docusate Sodium (Colace) 100 mg TID ORAL 01/28/19 13:00 02/27/19 17:59 01/30/19 18:05 Hydralazine HCl (Apresoline) 50 mg Q8HR ORAL 01/28/19 14:00 02/27/19 13:59 01/31/19 05:47 Insulin Aspart (NovoLOG) BEFORE MEALS AND HS SUBQ 01/28/19 11:30 02/27/19 11:29 01/31/19 06:48 Insulin Detemir (Levemir) 8 units DAILY SUBQ 01/29/19 09:00 02/28/19 08:59 01/30/19 08:45 Latanoprost (Xalatan) 1 drop BEDTIME BOTH EYES 01/28/19 21:00 02/27/19 20:59 Morphine Sulfate (Morphine Sulfate) 2 mg Q4H PRN IVP severe pain 01/28/19 12:00 02/04/19 11:59 Pantoprazole (Protonix) 40 mg DAILY ORAL 01/29/19 09:00 02/28/19 08:59 01/30/19 08:48 Sitagliptin Phosphate (Januvia) 25 mg ACBREAKFAST ORAL 01/29/19 07:00 02/28/19 06:59 01/31/19 05:47 Vitamin B Complex/ Vit C/Folic Acid (Nephrovite) 1 tab DAILY ORAL 01/28/19 10:00 02/27/19 09:59 01/30/19 08:48 Marck Iqbal MD Jan 31, 2019 06:57
--- NOTE | 2019-01-31 07:31 | NUR ---
HAND-OFF: Report given to Antonio Deleon RN. Patient in bed asleep with no S/S of distress. Endorsed plan of care.
--- NOTE | 2019-01-31 07:33 | NUR ---
NURSE NOTES: Received report and patient from Alin OWENS in the chair having breakfast, denies any pain, no s/s of respiratory distress noted. Patient is legally blind with episodes of confusion. Assisted patient with breakfast. Bed is on lowest position, brakes engaged for safety, call light is within reach. Will continue with the plan of care.
[2019-01-31 08:00] VITALS: BP 157/73
--- NOTE | 2019-01-31 08:39 | General Progress Note ---
Assessment/Plan Assessment/Plan: (1) Chest pain (2) ACS (3) DJD (4) ESRD on dialysis Patient to be continued on Morphine as needed. D/w Dr. Carlos and he concurred. Subjective Date patient seen: Jan 31, 2019 Time patient seen: 07:45 - am Allergies: Coded Allergies: PENICILLINS (Verified Allergy, Unknown, 10/07/18) PIPERACILLIN (Verified Allergy, Unknown, 10/07/18) TAZOBACTAM (Verified Allergy, Unknown, 10/07/18) Subjective Constitutional: Reports: weakness HEENT: Reports: blurred vision Cardiovascular: Reports: no symptoms Respiratory: Reports: no symptoms Gastrointestinal/Abdominal: Reports: no symptoms Genitourinary: Reports: no symptoms Neurologic/Psychiatric: Reports: weakness Endocrine: Reports: no symptoms Hematologic/Lymphatic: Reports: no symptoms Subjective Patient is in chair sitting up. Denies pain at this time. She was advised to eat and has no new complaints. Objective Last 24 Hour Vital Signs Date Time Temp Pulse Resp B/P (MAP) Pulse Ox O2 Delivery O2 Flow Rate FiO2 01/31/19 05:47 125/66 01/31/19 04:00 97.4 77 18 125/66 (85) 98 01/31/19 04:00 89 01/31/19 00:00 97.4 66 18 131/72 (91) 97 01/31/19 00:00 72 01/30/19 21:53 134/68 01/30/19 21:00 69 18 95 Room Air 21 01/30/19 21:00 95 Room Air 21 01/30/19 21:00 Nasal Cannula 2.0 01/30/19 20:00 81 01/30/19 20:00 98.0 71 18 134/68 (90) 97 01/30/19 18:05 72 140/66 01/30/19 16:00 72 01/30/19 16:00 72 01/30/19 13:31 140/66 01/30/19 12:50 97.5 73 18 140/66 (90) 95 01/30/19 12:00 73 01/30/19 11:17 Nasal Cannula 2.0 01/30/19 08:53 166/77 01/30/19 08:53 90 166/77 Intake and Output 01/30/19 01/31/19 18:59 06:59 Intake Total 630 ml Balance 630 ml Intake Oral 630 ml # Voids 2 # Bowel Movements 1 Height (Feet): 4 Height (Inches): 9.00 Weight (Pounds): 117 Objective General Appearance: no apparent distress EENT: normal ENT inspection Neck: non-tender, normal alignment Cardiovascular: normal rate, regular rhythm Respiratory/Chest: decreased breath sounds Abdomen: soft, no organomegaly Extremities: non-tender Edema: trace edema Neurologic: alert, oriented x 3 Skin: normal pigmentation Nelson Lao Jan 31, 2019 08:39
--- NOTE | 2019-01-31 08:46 | Hematology/Onc Progress Note ---
Assessment/Plan Assessment/Plan Assessment and Recs: # Anemia due to underlying chronic disease, multifactorial, does have a hx of esrd, ferritin in the past was 1004 --> anemia panel has been reviewed from prior adm --> hgb goal is >7, transfuse prn --> consider use of iron and/or epo based on anemia panel (ferritin reordered) --> diuresis may help anemia as well, negative fluid balance --> smear has been reviewed and no schistocytes noted # Hyperproteinemia, on admission protein is >9 --> at this time can be 2/2 inflammatory process --> spep has been ordered --> if negative, consider get upep # Thrombocytopenia likely related to infection/chf --> in prior was negative, reviewed and us abd neg # Acute respiratory failure secondary to CHF --> diuresis as per cards --> pulm has evaluated, breathing rx --> hd will help as well # Bradycardia --> per cards # Esrd requiring HD --> as per renal --> continue 3x a week # Pleural effusions --> likely related to overload # Noncompliance, refusing labs, meds # Dvt ppx scds Time of note does not necessarily correspond to then patient was seen. Greatly appreciate consultation. Subjective Allergies: Coded Allergies: PENICILLINS (Verified Allergy, Unknown, 10/07/18) PIPERACILLIN (Verified Allergy, Unknown, 10/07/18) TAZOBACTAM (Verified Allergy, Unknown, 10/07/18) Subjective 01/30: has been refusing medications overnight, no chest pain this am, hd done yest 01/31: resting in bed, no overnight events, echo last night, cbc ordered Objective Objective Current Medications Medications (Trade) Dose Ordered Sig/Soren Route PRN Reason Start Time Stop Time Status Last Admin Dose Admin Acetaminophen (Tylenol) 650 mg Q6H PRN ORAL Mild Pain/Temp > 100.5 01/28/19 07:45 02/27/19 07:44 Albuterol/ Ipratropium (Albuterol/ Ipratropium) 3 ml Q4H PRN HHN Shortness of Breath 01/28/19 10:00 02/02/19 09:59 Amlodipine Besylate (Norvasc) 5 mg BID ORAL 01/28/19 10:00 02/27/19 09:59 01/30/19 18:05 Artificial Tears (Akwa-Tears) 1 drop Q6HR BOTH EYES 01/28/19 12:00 02/27/19 11:59 01/31/19 05:48 Atorvastatin Calcium (Lipitor) 40 mg BEDTIME ORAL 01/28/19 21:00 02/27/19 20:59 01/30/19 21:53 Benazepril HCl (Lotensin) 10 mg Q12HR ORAL 01/28/19 10:00 02/27/19 09:59 01/30/19 21:53 Clonidine HCl (Catapres Tab) 0.1 mg Q4H PRN ORAL For High Blood Pressure 01/28/19 07:45 02/27/19 07:44 Dextrose (Dextrose 50%) 25 ml Q30M PRN IV Hypoglycemia 01/29/19 07:00 02/28/19 06:59 Dextrose (Dextrose 50%) 50 ml Q30M PRN IV Hypoglycemia 01/29/19 07:00 02/28/19 06:59 Docusate Sodium (Colace) 100 mg TID ORAL 01/28/19 13:00 02/27/19 17:59 01/30/19 18:05 Hydralazine HCl (Apresoline) 50 mg Q8HR ORAL 01/28/19 14:00 02/27/19 13:59 01/31/19 05:47 Insulin Aspart (NovoLOG) BEFORE MEALS AND HS SUBQ 01/28/19 11:30 02/27/19 11:29 01/31/19 06:48 Insulin Detemir (Levemir) 10 units DAILY SUBQ 01/31/19 09:00 02/28/19 08:59 Latanoprost (Xalatan) 1 drop BEDTIME BOTH EYES 01/28/19 21:00 02/27/19 20:59 Morphine Sulfate (Morphine Sulfate) 2 mg Q4H PRN IVP severe pain 01/28/19 12:00 02/04/19 11:59 Pantoprazole (Protonix) 40 mg DAILY ORAL 01/29/19 09:00 02/28/19 08:59 01/30/19 08:48 Sitagliptin Phosphate (Januvia) 25 mg ACBREAKFAST ORAL 01/29/19 07:00 02/28/19 06:59 01/31/19 05:47 Vitamin B Complex/ Vit C/Folic Acid (Nephrovite) 1 tab DAILY ORAL 01/28/19 10:00 02/27/19 09:59 01/30/19 08:48 Last 24 Hour Vital Signs Date Time Temp Pulse Resp B/P (MAP) Pulse Ox O2 Delivery O2 Flow Rate FiO2 01/31/19 05:47 125/66 01/31/19 04:00 97.4 77 18 125/66 (85) 98 01/31/19 04:00 89 01/31/19 00:00 97.4 66 18 131/72 (91) 97 01/31/19 00:00 72 01/30/19 21:53 134/68 01/30/19 21:00 69 18 95 Room Air 21 01/30/19 21:00 95 Room Air 21 01/30/19 21:00 Nasal Cannula 2.0 01/30/19 20:00 81 01/30/19 20:00 98.0 71 18 134/68 (90) 97 01/30/19 18:05 72 140/66 01/30/19 16:00 72 01/30/19 16:00 72 01/30/19 13:31 140/66 01/30/19 12:50 97.5 73 18 140/66 (90) 95 01/30/19 12:00 73 01/30/19 11:17 Nasal Cannula 2.0 01/30/19 08:53 166/77 01/30/19 08:53 90 166/77 01/30/19 08:30 72 16 97 Nasal Cannula 2.0 28 01/30/19 08:30 98 Nasal Cannula 2.0 28 01/30/19 08:00 88 01/30/19 08:00 88 01/30/19 06:15 162/85 01/30/19 05:55 78 01/30/19 04:00 98.3 77 19 162/75 (104) 95 01/30/19 00:00 98.1 79 18 154/78 (103) 94 01/30/19 00:00 80 01/29/19 21:00 Nasal Cannula 2.0 01/29/19 20:00 82 01/29/19 20:00 75 01/29/19 20:00 98 Nasal Cannula 2.0 28 01/29/19 20:00 68 16 97 Nasal Cannula 2.0 28 01/29/19 18:30 78 170/83 01/29/19 16:00 81 01/29/19 16:00 80 01/29/19 12:00 80 01/29/19 12:00 81 01/29/19 09:00 Nasal Cannula 2.0 01/29/19 08:46 73 133/65 01/29/19 08:45 133/65 Intake and Output 01/30/19 01/31/19 19:00 07:00 Intake Total 630 ml Balance 630 ml Intake Oral 630 ml # Voids 2 # Bowel Movements 1 Labs Test 01/29/19 19:19 Troponin I 0.003 ng/mL (0.000-0.056) Height (Feet): 4 Height (Inches): 9.00 Weight (Pounds): 117 Objective Physical Exam Vital Signs: reviewed vitals noted Gen: mod distress, blind+ Head: normocephalic, atraumatic Respiratory: chest non-tender, accessory muscle use, rales CV: regular rate, rhythm, no murmur, bradycardia GI: normal bowel sounds, non tender, no mass, no organomegaly, nd Musculoskeletal: 1-2+ pitting edema Myke Pearson MD Jan 31, 2019 08:46
[2019-01-31] MEDS: Benazepril 10mg tab ORAL SCH (09:00)
[2019-01-31] MEDS ORDERED: Levemir Flexpen SUBQ SCH (09:00)
[2019-01-31] MEDS: Docusate 100mg cap ORAL SCH ×3 (09:14→17:07)
[2019-01-31] MEDS: Nephrovite tab (Rena-Vite) ORAL SCH (09:14)
--- NOTE | 2019-01-31 09:25 | NUR ---
OPENSTACK DEVELOPER: REVIEW PMH: END STAGE RENAL DISEASE, HEMODIALYSIS SI: ACS 97.4 89 18 125/66 98% NC 2L IS: HYDRALAZINE PO Q8H LOTENSIN PO Q12 NORVASC PO BID PROTONIX PO QD LIPITOR PO HS JANUVIA PO : TO TELE UNIT DCP: TO RETURN TO SNF UPON DISCHARGE
--- NOTE | 2019-01-31 10:23 | Nephrology Progress Note ---
Assessment/Plan Problem List: (1) ESRD (end stage renal disease) (2) Volume overload (3) Chest pain Assessment: CAD Assessment Volume overload / CHF on CXR ESRD on dialysis M W Fri Hyperglycemia h/o Pleural effusion, Plan Dialysis and UF in process now Refuses blood work BP and BS control per orders discussed with RN OK to Dc after dialysis from renal stand point Subjective ROS Limited/Unobtainable: No Constitutional: Reports: malaise Objective Objective Last 24 Hour Vital Signs Date Time Temp Pulse Resp B/P (MAP) Pulse Ox O2 Delivery O2 Flow Rate FiO2 01/31/19 09:00 157/73 01/31/19 09:00 80 157/73 01/31/19 09:00 Nasal Cannula 2.0 01/31/19 08:00 82 01/31/19 08:00 97.2 82 18 157/73 (101) 95 01/31/19 07:05 68 18 96 Room Air 21 01/31/19 07:05 96 Room Air 21 01/31/19 05:47 125/66 01/31/19 04:00 97.4 77 18 125/66 (85) 98 01/31/19 04:00 89 01/31/19 00:00 97.4 66 18 131/72 (91) 97 01/31/19 00:00 72 01/30/19 21:53 134/68 01/30/19 21:00 69 18 95 Room Air 21 01/30/19 21:00 95 Room Air 21 01/30/19 21:00 Nasal Cannula 2.0 01/30/19 20:00 81 01/30/19 20:00 98.0 71 18 134/68 (90) 97 01/30/19 18:05 72 140/66 01/30/19 16:00 72 01/30/19 16:00 72 01/30/19 13:31 140/66 01/30/19 12:50 97.5 73 18 140/66 (90) 95 01/30/19 12:00 73 01/30/19 11:17 Nasal Cannula 2.0 Intake and Output 01/30/19 01/31/19 19:00 07:00 Intake Total 630 ml Balance 630 ml Intake Oral 630 ml # Voids 2 # Bowel Movements 1 Height (Feet): 4 Height (Inches): 9.00 Weight (Pounds): 117 General Appearance: no apparent distress Cardiovascular: normal rate Respiratory/Chest: decreased breath sounds Abdomen: soft Objective no change Elvin Garcia MD Jan 31, 2019 10:23
--- NOTE | 2019-01-31 11:49 | General Progress Note ---
Assessment/Plan Problem List: (1) ESRD (end stage renal disease) ICD Codes: N18.6 - End stage renal disease SNOMED: 18751399 (2) Chest pain ICD Codes: R07.9 - Chest pain, unspecified SNOMED: 10313154 Qualifiers: Qualified Codes: R07.9 - Chest pain, unspecified (3) Diabetes mellitus out of control ICD Codes: E11.65 - Type 2 diabetes mellitus with hyperglycemia SNOMED: 65870700, 072044963 Status: progressing Assessment/Plan: dc if cleared by networking specialist esrd on hd htn niddm.sugar improved Subjective ROS Limited/Unobtainable: Yes Allergies: Coded Allergies: PENICILLINS (Verified Allergy, Unknown, 10/07/18) PIPERACILLIN (Verified Allergy, Unknown, 10/07/18) TAZOBACTAM (Verified Allergy, Unknown, 10/07/18) Objective Last 24 Hour Vital Signs Date Time Temp Pulse Resp B/P (MAP) Pulse Ox O2 Delivery O2 Flow Rate FiO2 01/31/19 09:00 157/73 01/31/19 09:00 80 157/73 01/31/19 09:00 Nasal Cannula 2.0 01/31/19 08:00 82 01/31/19 08:00 97.2 82 18 157/73 (101) 95 01/31/19 07:05 68 18 96 Room Air 21 01/31/19 07:05 96 Room Air 21 01/31/19 05:47 125/66 01/31/19 04:00 97.4 77 18 125/66 (85) 98 01/31/19 04:00 89 01/31/19 00:00 97.4 66 18 131/72 (91) 97 01/31/19 00:00 72 01/30/19 21:53 134/68 01/30/19 21:00 69 18 95 Room Air 21 01/30/19 21:00 95 Room Air 21 01/30/19 21:00 Nasal Cannula 2.0 01/30/19 20:00 81 01/30/19 20:00 98.0 71 18 134/68 (90) 97 01/30/19 18:05 72 140/66 01/30/19 16:00 72 01/30/19 16:00 72 01/30/19 13:31 140/66 01/30/19 12:50 97.5 73 18 140/66 (90) 95 01/30/19 12:00 73 Intake and Output 01/30/19 01/31/19 19:00 07:00 Intake Total 630 ml Balance 630 ml Intake Oral 630 ml # Voids 2 # Bowel Movements 1 Height (Feet): 4 Height (Inches): 9.00 Weight (Pounds): 117 Neck: supple Cardiovascular: normal rate Respiratory/Chest: lungs clear Abdomen: soft Kimberlee Guzman MD Jan 31, 2019 11:49
[2019-01-31 12:00] VITALS: BP 159/7
[2019-01-31 16:00] VITALS: BP 146/80
--- NOTE | 2019-01-31 16:10 | NUR ---
NURSE NOTES: Inter-facility report given to Azalea OWENS at [facility] .
--- NOTE | 2019-01-31 16:25 | NUR ---
DISCHARGE PLANNING DISCHARGE ORDER NOTED Patient has been accepted to; [facility] [id number] [place] [address] Bed:208 Skilled [phone] for Nurse to Nurse report [facility] ETA for transportation or Call a Car : 18:00
--- NOTE | 2019-01-31 19:35 | NUR ---
HAND-OFF: Report given to GRACIELA Cornell.Patient is awaiting to be picked up by ambulance. Endorsed the plan of care.
--- NOTE | 2019-01-31 19:39 | NUR ---
NURSE NOTES: Received report from GRACIELA Powers, patient in stable condition, awaiting to be discharged, AOx2, denies pain at this time, IV site right forearm G22, asymptomatic, intact, patent, left chest permacath intact, patient sitting in chair, will continue to monitor and reassess
[2019-01-31 20:00] VITALS: BP 140/78
--- NOTE | 2019-01-31 20:12 | NUR ---
HAND-OFF: Patient taken by ambulance via gurney in stable condition,library monitor removed, IV removed, discharge package given to ambulance.
--- NOTE | 2019-02-01 10:24 | Discharge Summary ---
Discharge Summary Discharge Summary _ DATE OF ADMISSION: 01/28/2019 DATE OF DISCHARGE: 01/31/2019 DISCHARGED BY : Dr Guzman REASON FOR ADMISSION: 48 years old female with past medical history of end-stage renal disease, on hemodialysis Tuesday, Tuesday , Tuesday, diabetes mellitus, hypertension, hypercholesterolemia, atherosclerotic heart disease, bilateral blindness, presented from the correction [facility] by EMS with chief complaint of chest pain since morning. Chest pain reported on the right side without radiation. Pain 7 out of 10 on a scale 1-10. Patient reported cough. No nausea, no vomiting. No fever or chills. On evaluation vital signs reveal elevated blood pressure 175/75. Laboratory work-up revealed mild leukocytosis WBC 11.2, hemoglobin 11.1, hematocrit 23.4. Sodium 130 . BUN 34, creatinine 4.6. Troponin negative. EKG showed normal sinus rhythm, no acute ischemic changes Glucose 262. Chest x-ray revealed bilateral pleural effusion with fluid overload. Patient admitted for further management. CONSULTANTS: stress analyst Dr. Garcias national account representative Dr. Garcia hosiery mender/oncologist Dr. Pearson steam and gas turbine assembler Dr. Iqbal pain specialist Dr. Carlos [facility]SE: Patient admitted to telemetry floor. Patient Svcs Mgr followed. Serial troponin were negative. EKG revealed no acute ischemic changes. Patient was ruled out for acute myocardial infarction. Echocardiogram demonstrated septal hypokinesis. Ejection fraction estimated to be 40 to 45%. No left ventricular hypertrophy. Mild to moderate mitral regurgitation. Right ventricular systolic pressure of 59 consistent with moderate to severe pulmonary hypertension. Moderate pulmonary regurgitation was noted as well. Per stress analyst, chest pain was atypical most likely related to fluid overload , pleural effusion. Antiplatelet therapy with aspirin continued. Statin continued. Blood pressure was managed with multiple antihypertensive medication to keep blood pressure under control. Continue with guideline directed medical management for cardiomyopathy. Volumes were monitored. Hemodialysis with ultrafiltration provided as per national account representative. Patient was noncompliant with blood draw and medications. Supplemental oxygen titrated to keep pulse oximetry above 92%. Pulmonary toilet with bronchodilator was on board as needed. Lock Corner Machine Operator followed. Blood sugar was managed with Januvia and long-acting Levemir, dose uptitrated as per steam and gas turbine assembler. Sliding scale of short-acting insulin provided as needed. Diabetic diet provided. Continue close monitoring of blood sugar and further optimization as outpatient. Dog Pound Attendant followed. Patient had anemia due to underlying chronic disease, including history of end- stage renal disease. Hemoglobin and hematocrit were monitored with goal to keep hemoglobin above 7. DVT prophylaxis with SCD provided and GI prophylaxis provided. Patient with evidence of degenerative joint disease. Pain management provided as per pain specialist recommendation. Patient clinically stabilized and was ready for transfer back to correction facility for continuation of care. FINAL DIAGNOSES: Atypical chest pain End-stage renal disease, on hemodialysis Volume overload Right pleural effusion Diabetes mellitus out of control Hypertension Cardiomyopathy /ejection fraction 40 to 45%-per ECHO Anemia of chronic disease Noncompliance/ refusal of labs, medications Moderate to severe pulmonary hypertension-per ECHO Degenerative joint disease. DISCHARGE MEDICATIONS: See Medication Reconciliation list. DISCHARGE INSTRUCTIONS: Patient was discharged to the correction facility. Follow up with medical doctor at the facility. I have been assigned to dictate discharge summary for this account. I was not involved in the patient's management. Chioma Sosa NP Feb 01, 2019 10:24
--- NOTE | 2019-02-02 10:18 | NUR ---
*-* INSURANCE *-* ALL AVAILABLE CLINICALS HAVE BEEN FAXED TO: MACKENZIE CARMICHAEL: [facility] REF# [id number] [phone]...........REVIEW/CLINICAL
== END 2019-01-31 20:04 | DRG 425 ==
LOC: EDBD 01:46 → EMR 01:59 → 2E 02:45 → EDBEDREQ 02:59 → 2E 04:15
DX: E87.79 Other fluid overload (principal); R07.89 Other chest pain; E11.22 Type 2 diabetes mellitus with diabetic chronic kidney disease; Z99.2 Dependence on renal dialysis; I12.0 Hypertensive chronic kidney disease with stage 5 chronic kidney disease or end stage renal disease; J18.9 Pneumonia, unspecified organism; E11.65 Type 2 diabetes mellitus with hyperglycemia; N18.6 End stage renal disease; D69.6 Thrombocytopenia, unspecified; J96.00 Acute respiratory failure, unspecified whether with hypoxia or hypercapnia; I44.0 Atrioventricular block, first degree; Z88.1 Allergy status to other antibiotic agents; Z88.0 Allergy status to penicillin; E78.5 Hyperlipidemia, unspecified; H40.9 Unspecified glaucoma; H54.7 Unspecified visual loss; Z79.4 Long term (current) use of insulin; I25.10 Atherosclerotic heart disease of native coronary artery without angina pectoris; D63.1 Anemia in chronic kidney disease; I37.1 Nonrheumatic pulmonary valve insufficiency; Z91.14 Patient's other noncompliance with medication regimen; I27.20 Pulmonary hypertension, unspecified; M19.90 Unspecified osteoarthritis, unspecified site; N18.9 Chronic kidney disease, unspecified; I34.0 Nonrheumatic mitral (valve) insufficiency; Z66 Do not resuscitate
CPT/HCPCS: 36415; 71045; 80053; 82248; 82962; 84484; 85025; 87081; 93005; 93306; 94664; 96374; 99285; J1815; S5561

== ENCOUNTER 2019-03-09 00:44 | Emergency (ER) | payer OTHER ==
[~2019-03-09] VITALS: Ht 147.3 cm; Wt 40.8 kg
[~2019-03-09 00:44] MED LIST changes: +AMLODIPINE BESYL5 MG ORAL; +ARTIFICIAL TEA1 EAC2 OP; +BENAZEPRIL HCL10 MG ORAL; +COLACE100 MG ORAL; +DUONEB 0.5-3(2.53 ML HHN; +FERROUS SULFAT325 MG ORAL; +HYDRALAZINE HCL50 MG ORAL; +LOVENOX10 MG SUBQ
[2019-03-09 01:07] VITALS: BP 170/86
--- NOTE | 2019-03-09 01:08 | NUR ---
ED Nurse Note: Patient presents with complaints of chronic superficial chest pain at the site of her portacath.
--- NOTE | 2019-03-09 01:09 | NUR ---
ED Nurse Note: Patient stated "i did not want to come here". She also refused a work-up. Will continue to monitor.
--- NOTE | 2019-03-09 01:31 | Emergency Room Report ---
History of Present Illness General Chief Complaint: Pain Source: Patient, Medical Record Present Illness HPI 48-year-old female residential patient. She has a history of end-stage renal disease on hemodialysis. She presents with chief complaint of right-sided chest pain. Pain was in the right upper chest. She said she always have this pain but got worse yesterday after dialysis. She denies any fever chills but no trauma. No radiation. She said that she does not want to stay here at [facility]. She says she does not want blood work done her pain medication. She wants to be sent back to the residential. History is done through a chair car driver. Allergies: Coded Allergies: PENICILLINS (Verified Allergy, Unknown, 10/07/18) PIPERACILLIN (Verified Allergy, Unknown, 10/07/18) TAZOBACTAM (Verified Allergy, Unknown, 10/07/18) Patient History Past Medical History: see triage record, old chart reviewed, HTN, renal disease , dialysis Past Surgical History: other Pertinent Family History: none Social History: Denies: smoking Now: No Immunizations: other Reviewed Nursing Documentation: PMH: Agreed; PSxH: Agreed Nursing Documentation-PMH Past Medical History: No History, Except For Hx Cardiac Problems: Yes Hx Hypertension: Yes Hx Diabetes: Yes Hx Cancer: Yes Hx Gastrointestinal Problems: No Hx Dialysis: Yes - MWF Hx Neurological Problems: Yes Hx Weakness: Yes Review of Systems Eye: Denies: eye pain, blurred vision ENT: Denies: ear pain, nose congestion, throat swelling Respiratory: Denies: cough, shortness of breath Cardiovascular: Reports: chest pain; Denies: palpitations Gastrointestinal: Denies: abdominal pain, diarrhea, nausea, vomiting Musculoskeletal: Denies: back pain, joint pain Skin: Denies: rash Neurological: Denies: headache, numbness Endocrine: Denies: increased thirst, increased urine Hematologic/Lymphatic: Denies: easy bruising All Other Systems: negative except mentioned in HPI Physical Exam Vital Signs Date Time Temp Pulse Resp B/P (MAP) Pulse Ox O2 Delivery O2 Flow Rate FiO2 03/09/19 00:43 81 18 170/86 (114) 99 Nasal Cannula 2.0 Vitals with high blood pressure Sp02 EP Interpretation: reviewed, normal General Appearance: well appearing, no apparent distress, alert Head: normocephalic, atraumatic Eyes: bilateral eye PERRL, bilateral eye EOMI ENT: hearing grossly normal, normal pharynx Neck: full range of motion, supple, no meningismus Respiratory: lungs clear, normal breath sounds, other - Right upper chest tenderness with palpation. Cardiovascular #1: regular rate, rhythm, no murmur Gastrointestinal: normal bowel sounds, non tender, no mass, no organomegaly, no bruit, non-distended Musculoskeletal: back normal, gait/station normal, normal range of motion Psychiatric: mood/affect normal Medical Decision Making Diagnostic Impression: Primary Impression: Chest pain Qualified Codes: R07.9 - Chest pain, unspecified Additional Impression: Chronic pain Qualified Codes: G89.4 - Chronic pain syndrome ER Course This patient presents with right upper chest pain. This is a chronic issue. He refused all blood work, EKG and chest x-ray. She was admitted here a month and a half ago and work-up was unremarkable. Will send back to her residential. Last Vital Signs Date Time Temp Pulse Resp B/P (MAP) Pulse Ox O2 Delivery O2 Flow Rate FiO2 03/09/19 01:07 89 18 170/86 99 Nasal Cannula 2.0 Status: unchanged Disposition: ER SNF Condition: Stable Additional Instructions: Follow up with in 7 days. Return if worse. Tboias Thomas MD Mar 09, 2019 01:31
--- NOTE | 2019-03-09 02:10 | NUR ---
ED Nurse Note: Patient refuse blood draw. MARY KATE made aware.
[2019-03-09] MEDS ORDERED: Neosporin Oint Ud Pkt TOPIC ONE (04:45)
--- NOTE | 2019-03-09 07:17 | NUR ---
HAND-OFF: Report given to Karen OWENS.
[2019-03-09 07:37] VITALS: BP 160/85
--- NOTE | 2019-03-09 07:38 | NUR ---
ED Nurse Note:called SNF-given report to Ronel about pt. going back
[2019-03-09 08:57] VITALS: BP 160/85
--- NOTE | 2019-03-09 08:59 | NUR ---
ED Nurse Note:pt. was picked up by ALS transport for transfer to SNF, condition stable ,report given
[2019-03-09] MEDS ORDERED: LISINOPRIL5 MG ORAL (19:20)
[2019-03-09] MEDS ORDERED: LEVOTHYROXINE125 MCG ORAL (19:20)
[2019-03-09] MEDS ORDERED: ASPIR 8181 MG ORAL (19:20)
[2019-03-09] MEDS ORDERED: GLIPIZIDE5 MG ORAL (19:20)
== END 2019-03-09 08:57 ==
LOC: EDBD 00:44 → EMR 01:32
DX: R07.9 Chest pain, unspecified (principal); G89.4 Chronic pain syndrome; E11.22 Type 2 diabetes mellitus with diabetic chronic kidney disease; I12.0 Hypertensive chronic kidney disease with stage 5 chronic kidney disease or end stage renal disease; N18.6 End stage renal disease; Z99.2 Dependence on renal dialysis; Z88.0 Allergy status to penicillin; Z88.8 Allergy status to other drugs, medicaments and biological substances
CPT/HCPCS: 99282

== ENCOUNTER 2019-03-09 19:12 | Emergency (ER) | payer OTHER ==
[~2019-03-09] VITALS: Ht 162.6 cm; Wt 68.0 kg
[2019-03-09 19:13] VITALS: BP 150/72
--- NOTE | 2019-03-09 19:13 | NUR ---
ED Nurse Note: Patient brought in by RA from [facility] due to CP, SOB and epistaxis. Per ems symptoms started after dialysis today. HD days MWF. Patient DNR on polst. No SOB. On O2 tx @6L/min.
[2019-03-09] MEDS ORDERED: ASPIR 8181 MG ORAL (19:20)
[2019-03-09] MEDS ORDERED: LISINOPRIL5 MG ORAL (19:20)
[2019-03-09] MEDS ORDERED: LEVOTHYROXINE125 MCG ORAL (19:20)
[2019-03-09] MEDS ORDERED: GLIPIZIDE5 MG ORAL (19:20)
--- NOTE | 2019-03-09 19:24 | NUR ---
ED Nurse Note: Patient refused blood draw, refused blood work up. As per patient she doesnt want to get treated. MD aware. Will continue to monitor.
--- NOTE | 2019-03-09 19:39 | NUR ---
ED Nurse Note: Pt refused Xray. notified.
[2019-03-09] MEDS ORDERED: Haloperidol 5mg/ml Inj IM ONE (19:45)
[2019-03-09] MEDS ORDERED: LORazepam Inj 2mg/ml 1ml IM ONE (19:45)
--- NOTE | 2019-03-09 21:07 | NUR ---
ED Nurse Note: IV line established. Blood collected and sent to lab.
[2019-03-09 21:27] LABS: BASOPHILS % (AUTO) 1.7 % (0.0-2.0); EOSINOPHILS % (AUTO) 1.8 % (0.0-3.0); HEMATOCRIT 26.5 % (37.0-47.0); HEMOGLOBIN 9.2 G/DL (12.0-16.0); LYMPHOCYTES % (AUTO) 10.4 % (20.0-45.0); MEAN CORPUSCULAR VOLUME 95 FL (80-99); MONOCYTES % (AUTO) 12.3 % (1.0-10.0); NEUTROPHILS % (AUTO) 73.8 % (45.0-75.0); PLATELET COUNT 190 K/UL (150-450); RED CELL DISTRIBUTION WIDTH 13.4 % (11.6-14.8); WHITE BLOOD COUNT 6.5 K/UL (4.8-10.8)
[2019-03-09 21:28] LABS: ANION GAP 9 mmol/L (5-15); BLOOD UREA NITROGEN 26 mg/dL (7-18); CALCIUM 8.4 MG/DL (8.5-10.1); CARBON DIOXIDE 29 MMOL/L (21-32); CHLORIDE 93 MMOL/L (98-107); CREATININE 3.1 MG/DL (0.55-1.30); POTASSIUM 4.1 MMOL/L (3.5-5.1); SODIUM 131 MMOL/L (136-145)
[2019-03-09 21:37] VITALS: BP 156/76
--- NOTE | 2019-03-09 21:39 | Emergency Room Report ---
History of Present Illness General Chief Complaint: Chest Pain Source: Patient Present Illness HPI 48-year-old female presents ED for evaluation. [facility] Is complaining of chest pain. History of end-stage renal disease on dialysis. Upon arrival patient is agitated and yelling. Is refusing treatment. Patient denies chest pain to me. Patient was seen here last night for similar presentation. Refused all work-up and was subsequently discharged back to facility. No other aggravating relieving factors. No other associated symptoms Allergies: Coded Allergies: PENICILLINS (Verified Allergy, Unknown, 10/07/18) PIPERACILLIN (Verified Allergy, Unknown, 10/07/18) TAZOBACTAM (Verified Allergy, Unknown, 10/07/18) Patient History Past Medical History: DM, HTN, renal disease, dialysis Pertinent Family History: none Social History: Denies: smoking, alcohol use, drug use Now: No Immunizations: UTD Reviewed Nursing Documentation: PMH: Agreed; PSxH: Agreed Nursing Documentation-PMH Past Medical History: No History, Except For Hx Cardiac Problems: Yes Hx Hypertension: Yes Hx Diabetes: Yes Hx Cancer: Yes Hx Gastrointestinal Problems: No Hx Dialysis: Yes - MWF Hx Neurological Problems: Yes Hx Weakness: Yes Review of Systems All Other Systems: limited Physical Exam Vital Signs Date Time Temp Pulse Resp B/P (MAP) Pulse Ox O2 Delivery O2 Flow Rate FiO2 03/09/19 19:12 97.5 80 22 150/72 (98) 90 Nasal Cannula 5.0 Sp02 EP Interpretation: reviewed, normal General Appearance: no apparent distress, GCS 15, non-toxic, other - agitated Head: normocephalic, atraumatic Eyes: bilateral eye normal inspection, bilateral eye PERRL ENT: hearing grossly normal, normal pharynx, no angioedema, normal voice Neck: full range of motion, supple/symm/no masses Respiratory: chest non-tender, lungs clear, normal breath sounds, speaking full sentences Cardiovascular #1: regular rate, rhythm, no edema Cardiovascular #2: 2+ carotid (R), 2+ carotid (L), 2+ radial (R), 2+ radial (L) , 2+ dorsalis pedis (R), 2+ dorsalis pedis (L) Gastrointestinal: normal bowel sounds, non tender, soft, non-distended, no guarding, no rebound Rectal: deferred Genitourinary: normal inspection, no CVA tenderness Musculoskeletal: back normal, gait/station normal, normal range of motion, non- tender Neurologic: other - agitated Psychiatric: other - agitated Reflexes: 3+ bicep (R), 3+ bicep (L), 3+ tricep (R), 3+ tricep (L), 3+ knee (R) , 3+ knee (L) Lymphatic: no adenopathy Medical Decision Making Diagnostic Impression: Primary Impression: ESRD (end stage renal disease) Additional Impression: Chest pain EKG Diagnostic Results Rate: normal Rhythm: NSR ST Segments: no acute changes ASA given to the pt in ED: No Rhythm Strip Diag. Results EP Interpretation: yes Rhythm: NSR, no PVC's, no ectopy Last Vital Signs Date Time Temp Pulse Resp B/P (MAP) Pulse Ox O2 Delivery O2 Flow Rate FiO2 03/09/19 19:13 80 22 Nasal Cannula 5.0 03/09/19 19:13 97.5 150/72 90 Referrals: NOT CHOSEN IPA/,REFERRING (PCP) Cash Prasad MD Mar 09, 2019 21:39
[2019-03-09 21:40] LABS: ALANINE AMINOTRANSFERASE 32 U/L (12-78); ALBUMIN 2.5 G/DL (3.4-5.0); ALBUMIN/GLOBULIN RATIO 0.5 (1.0-2.7); ALKALINE PHOSPHATASE 747 U/L (46-116); ASPARTATE AMINO TRANSFERASE 35 U/L (15-37)
--- NOTE | 2019-03-09 22:15 | NUR ---
Spoke with Isma at [facility]-informed that patient is going back home.
[2019-03-10 00:35] VITALS: BP 162/73
[2019-03-10 00:36] VITALS: BP 162/73
--- NOTE | 2019-03-10 00:36 | NUR ---
ED Nurse Note: Pt cleared by ERMD for discharge. DC instructions/prescription was given and explained to pt and verbalized understanding of teachings. All medical deviecs such as ID band and IV line removed. Pt is AAO x4, ambulatory and left with all personal belongings. Pt was accompanied by 2 EMT from [facility] via [place].
== END 2019-03-10 00:36 ==
LOC: EDBD 19:12 → EMR 19:45
DX: R07.9 Chest pain, unspecified (principal); E11.22 Type 2 diabetes mellitus with diabetic chronic kidney disease; I12.0 Hypertensive chronic kidney disease with stage 5 chronic kidney disease or end stage renal disease; N18.6 End stage renal disease; Z99.2 Dependence on renal dialysis; Z88.0 Allergy status to penicillin; Z88.8 Allergy status to other drugs, medicaments and biological substances
CPT/HCPCS: 36415; 80053; 83880; 84484; 85025; J1630; Z7502; 99283

== ENCOUNTER 2019-04-04 09:46 | Inpatient (IN) | payer MEDICAID, OTHER ==
[~2019-04-04] VITALS: Ht 152.4 cm; Wt 62.6 kg
[2019-04-04] VITALS (8 sets, daily range): BP systolic 147–187; BP diastolic 62–92
[~2019-04-04 09:46] MED LIST changes: +ASPIR 8181 MG ORAL; +GLIPIZIDE5 MG ORAL; +LEVOTHYROXINE125 MCG ORAL; +LISINOPRIL5 MG ORAL
--- NOTE | 2019-04-04 09:51 | Emergency Room Report ---
History of Present Illness General Chief Complaint: Dyspnea/Respdistress Source: Patient, EMS Present Illness HPI Disclaimer: Please note that this report is being documented using DRAGON technology. This can lead to erroneous entry secondary to incorrect interpretation by the dictating instrument. HPI: 48-year-old male with a history of ESRD on hemodialysis MWF presents for evaluation of chest pain. Patient has had many visits for chest pain in the past and states it is somewhat related to hemodialysis either during hemodialysis or before. Present for several hours and also reports shortness of breath. She was reportedly found hypoxic in the 70s but improved on nonrebreather. Planing of pain over the left chest. Unclear when her last hemodialysis was as EMS as 5 days ago and the patient states 2 days ago. She is feeling better and received nitroglycerin on the way though is not clear whether or not this improves her symptoms. Denies any recent fevers, chills, cough. PMH: ESRD PSH: Dialysis catheter insertion Allergies: Penicillin, Zosyn Social Hx: Denies drug or alcohol abuse Allergies: Coded Allergies: PENICILLINS (Verified Allergy, Unknown, 10/07/18) PIPERACILLIN (Verified Allergy, Unknown, 10/07/18) TAZOBACTAM (Verified Allergy, Unknown, 10/07/18) Nursing Documentation-PMH Hx Cardiac Problems: Yes Hx Hypertension: Yes Hx Diabetes: Yes Hx Cancer: Yes Hx Gastrointestinal Problems: No Hx Dialysis: Yes - MWF Hx Neurological Problems: Yes Hx Weakness: Yes Review of Systems All Other Systems: negative except mentioned in HPI Physical Exam . General: Awake and alert, breathing comfortably now on nonrebreather HEENT: NC/AT. EOMI. Chest Wall: No tenderness, no deformity. Permacath in the left upper chest Cardiovascular: RRR. S1 and S2 normal. No murmur appreciated Resp: Normal work of breathing. No cough, wheezing or crackles appreciated Abdomen: Abdomen is soft, nondistended. Nontender Skin: Intact. No abrasions, laceration or rash over the exposed skin MSK: Normal tone and bulk. Moving all extremities. No obvious deformity. Neuro: Awake and alert. Mentating appropriately. Medical Decision Making Diagnostic Impression: Primary Impression: ESRD (end stage renal disease) Additional Impressions: Volume overload Hyperkalemia Pulmonary edema ER Course 48-year-old female presents for evaluation of chest pain. Differential includes was not limited to angina, ACS, pneumothorax, pneumonia, bronchitis, CHF exacerbation, volume overload state from missed hemodialysis, electrolyte abnormality. Will obtain x-ray, EKG, broad labs. Patient is scheduled for dialysis today at noon. May have missed one session though this is unclear. Laboratory Tests Test 04/04/19 09:40 White Blood Count 6.5 K/UL (4.8-10.8) Red Blood Count 2.85 M/UL (4.20-5.40) L Hemoglobin 9.3 G/DL (12.0-16.0) L Hematocrit 29.1 % (37.0-47.0) L Mean Corpuscular Volume 102 FL (80-99) H Mean Corpuscular Hemoglobin 32.9 PG (27.0-31.0) H Mean Corpuscular Hemoglobin Concent 32.2 G/DL (32.0-36.0) Red Cell Distribution Width 16.4 % (11.6-14.8) H Platelet Count 173 K/UL (150-450) Mean Platelet Volume 9.2 FL (6.5-10.1) Neutrophils (%) (Auto) 74.0 % (45.0-75.0) Lymphocytes (%) (Auto) 10.7 % (20.0-45.0) L Monocytes (%) (Auto) 8.2 % (1.0-10.0) Eosinophils (%) (Auto) 5.4 % (0.0-3.0) H Basophils (%) (Auto) 1.6 % (0.0-2.0) Sodium Level 131 MMOL/L (136-145) L Potassium Level 5.3 MMOL/L (3.5-5.1) H Chloride Level 90 MMOL/L (98-107) L Carbon Dioxide Level 26 MMOL/L (21-32) Anion Gap 15 mmol/L (5-15) Blood Urea Nitrogen 56 mg/dL (7-18) H Creatinine 5.0 MG/DL (0.55-1.30) H Estimate Glomerular Filtration Rate 9.1 mL/min (>60) Glucose Level 230 MG/DL (74-106) H Calcium Level 8.6 MG/DL (8.5-10.1) Total Bilirubin 1.1 MG/DL (0.2-1.0) H Direct Bilirubin 0.7 MG/DL (0.0-0.3) H Aspartate Amino Transferase (AST) 33 U/L (15-37) Alanine Aminotransferase (ALT) 34 U/L (12-78) Alkaline Phosphatase 874 U/L (46-116) H Troponin I 0.004 ng/mL (0.000-0.056) Pro-B-Type Natriuretic Peptide 66071 pg/mL (0-125) H Total Protein 8.6 G/DL (6.4-8.2) H Albumin 3.1 G/DL (3.4-5.0) L Globulin 5.5 g/dL Albumin/Globulin Ratio 0.6 (1.0-2.7) L EKG Diagnostic Results EKG Time: 09:45 Rate: normal Rhythm: NSR ST Segments: no acute changes Other Impression Sinus rhythm, normal axis, first-degree AV block with NC intervals [address] segment changes. Rhythm Strip Diag. Results Rhythm Strip Time: 09:45 EP Interpretation: yes Rate: 80s Rhythm: NSR, no PVC's, no ectopy Chest X-Ray Diagnostic Results Chest X-Ray Diagnostic Results : Chest X-Ray Ordered: Yes Indication: Shortness of Breath EP Interpretation: Yes Interpretation: other - Bilateral moderate to severe pulmonary edema with effusions Impression: Other - Lateral effusions and vascular congestion consistent with volume overload Electronically Signed by: Electronically signed by Dr. Neo Saldivar Reevaluation Time: 10:57 Reevaluation Impression Chest x-ray shows significant bilateral pulmonary edema and effusions consistent with fluid overload. Peptide is greater than 11,000. Troponins negative. Troponin 5.3. Patient will require admission for dialysis possible pleurocentesis. Will give Lasix now as the patient does continue to make some urine. Patient require admission. 1200: Attempted to wean the patient down to nasal cannula however was unsuccessful. The patient will be kept in our hospital as I do not think she will be safe for transfer given her large bilateral pleural effusions. Will arrange for dialysis. She has received Lasix with some diuresis. Disposition: ADMITTED INPATIENT Condition: Serious Neo Saldivar MD Apr 04, 2019 09:51
[2019-04-04] MEDS ORDERED: Nitroglycerin 2% oint pkt TOPIC ONE (10:00)
[2019-04-04] MEDS ORDERED: Aspirin Baby 81mg ORAL ONE (10:00)
[2019-04-04] MEDS ORDERED: CLONIDINE0.1 MG PO (10:00)
[2019-04-04 10:08] LABS: BASOPHILS % (AUTO) 1.6 % (0.0-2.0); EOSINOPHILS % (AUTO) 5.4 % (0.0-3.0); HEMATOCRIT 29.1 % (37.0-47.0); HEMOGLOBIN 9.3 G/DL (12.0-16.0); LYMPHOCYTES % (AUTO) 10.7 % (20.0-45.0); MEAN CORPUSCULAR VOLUME 102 FL (80-99); MONOCYTES % (AUTO) 8.2 % (1.0-10.0); PLATELET COUNT 173 K/UL (150-450); RED BLOOD COUNT 2.85 M/UL (4.20-5.40); RED CELL DISTRIBUTION WIDTH 16.4 % (11.6-14.8); WHITE BLOOD COUNT 6.5 K/UL (4.8-10.8)
--- NOTE | 2019-04-04 10:22 | Diagnostic Imaging Report ---
Indication: Chest pain, dyspnea Technique: One view of the chest Comparison: 01/28/2019 Findings: Again demonstrated is a left jugular tunneled dialysis catheter, tip of which projects deep within the right atrium. There is extensive bilateral right greater than left interstitial and airspace edema. There is bilateral pleural fluid. The heart is upper limits of normal in size. Impression: Bilateral interstitial and airspace infiltrates versus edema Bilateral pleural effusions Dialysis catheter
[2019-04-04 10:30] LABS: ANION GAP 15 mmol/L (5-15); BLOOD UREA NITROGEN 56 mg/dL (7-18); CALCIUM 8.6 MG/DL (8.5-10.1); CARBON DIOXIDE 26 MMOL/L (21-32); CHLORIDE 90 MMOL/L (98-107); POTASSIUM 5.3 MMOL/L (3.5-5.1); SODIUM 131 MMOL/L (136-145)
[2019-04-04 10:47] LABS: ALANINE AMINOTRANSFERASE 34 U/L (12-78); ALBUMIN 3.1 G/DL (3.4-5.0); ALBUMIN/GLOBULIN RATIO 0.6 (1.0-2.7); ALKALINE PHOSPHATASE 874 U/L (46-116); ASPARTATE AMINO TRANSFERASE 33 U/L (15-37); BILIRUBIN,TOTAL 1.1 MG/DL (0.2-1.0)
[2019-04-04 10:49] LABS: BILIRUBIN,DIRECT 0.7 MG/DL (0.0-0.3)
--- NOTE | 2019-04-04 13:26 | Pulmonology Progress Note ---
Assessment/Plan Assessment/Plan Pulmonary Consultation HPI Patient is a 48-year-old female with a history of ESRD on hemodialysis MWF admitted with shortness of breath and chest pain. Unclear when her last hemodialysis was as EMS as 5 days ago and the patient states 2 days ago. Pain improved after receiving nitroglycerin. Denies any recent fevers, chills, cough. Noted to have fluid overload and Pulmonary Congestion on CXR, K 5.3 PMH: ESRD, Diabetes, Hypertension, Hypertensive Heart Disease, Weakness PSH: Dialysis catheter insertion Allergies: Penicillin, Zosyn Social Hx: Denies drug or alcohol abuse Allergies: PENICILLINS (Verified Allergy, Unknown, 10/07/18) PIPERACILLIN (Verified Allergy, Unknown, 10/07/18) TAZOBACTAM (Verified Allergy, Unknown, 10/07/18) All Other Systems: negative except mentioned in HPI Physical Exam . Vital Signs Noted General: Awake and alert, breathing comfortably on O2 HEENT: NC/AT. EOMI. Chest Wall: No tenderness, no deformity. Permacath in the left upper chest Cardiovascular: RRR. S1 and S2 normal. No murmur appreciated Resp: Normal work of breathing. No cough, wheezing or crackles appreciated Abdomen: Abdomen is soft, nondistended. Nontender Skin: Intact. No abrasions, laceration or rash over the exposed skin MSK: Normal tone and bulk. Moving all extremities. No obvious deformity. Neuro: Awake and alert. Mentating appropriately. Impression: End stage renal disease Volume overload Hyperkalemia Pulmonary edema Pleuraleffusions Diabetes Hypertension Hypertensive Heart Disease Weakness Plan HD per Renal INR/PTT Thoracentesis O2 PRN BiPAP PRN PPX Monitor labs [employer]ER medications Laboratory Tests Test 04/04/19 09:40 White Blood Count 6.5 K/UL (4.8-10.8) Red Blood Count 2.85 M/UL (4.20-5.40) L Hemoglobin 9.3 G/DL (12.0-16.0) L Hematocrit 29.1 % (37.0-47.0) L Mean Corpuscular Volume 102 FL (80-99) H Mean Corpuscular Hemoglobin 32.9 PG (27.0-31.0) H Mean Corpuscular Hemoglobin Concent 32.2 G/DL (32.0-36.0) Red Cell Distribution Width 16.4 % (11.6-14.8) H Platelet Count 173 K/UL (150-450) Mean Platelet Volume 9.2 FL (6.5-10.1) Neutrophils (%) (Auto) 74.0 % (45.0-75.0) Lymphocytes (%) (Auto) 10.7 % (20.0-45.0) L Monocytes (%) (Auto) 8.2 % (1.0-10.0) Eosinophils (%) (Auto) 5.4 % (0.0-3.0) H Basophils (%) (Auto) 1.6 % (0.0-2.0) Sodium Level 131 MMOL/L (136-145) L Potassium Level 5.3 MMOL/L (3.5-5.1) H Chloride Level 90 MMOL/L (98-107) L Carbon Dioxide Level 26 MMOL/L (21-32) Anion Gap 15 mmol/L (5-15) Blood Urea Nitrogen 56 mg/dL (7-18) H Creatinine 5.0 MG/DL (0.55-1.30) H Estimate Glomerular Filtration Rate 9.1 mL/min (>60) Glucose Level 230 MG/DL (74-106) H Calcium Level 8.6 MG/DL (8.5-10.1) Total Bilirubin 1.1 MG/DL (0.2-1.0) H Direct Bilirubin 0.7 MG/DL (0.0-0.3) H Aspartate Amino Transferase (AST) 33 U/L (15-37) Alanine Aminotransferase (ALT) 34 U/L (12-78) Alkaline Phosphatase 874 U/L (46-116) H Troponin I 0.004 ng/mL (0.000-0.056) Pro-B-Type Natriuretic Peptide 13281 pg/mL (0-125) H Total Protein 8.6 G/DL (6.4-8.2) H Albumin 3.1 G/DL (3.4-5.0) L Globulin 5.5 g/dL Albumin/Globulin Ratio 0.6 (1.0-2.7) L EKG: Rate: normal Rhythm: NSR Sinus rhythm, normal axis, first-degree AV block with MS intervals [address] segment changes. Chest X-Ray: Bilateral moderate to severe pulmonary edema with bilateral effusions Subjective ROS Limited/Unobtainable: No Allergies: Coded Allergies: PENICILLINS (Verified Allergy, Unknown, 10/07/18) PIPERACILLIN (Verified Allergy, Unknown, 10/07/18) TAZOBACTAM (Verified Allergy, Unknown, 10/07/18) Objective Last 24 Hour Vital Signs Date Time Temp Pulse Resp B/P (MAP) Pulse Ox O2 Delivery O2 Flow Rate FiO2 04/04/19 12:06 98.1 77 23 154/62 97 Nasal Cannula 3.0 04/04/19 11:38 98.1 78 28 158/68 99 Simple Mask 6.0 04/04/19 10:59 98.1 79 27 159/70 100 Non-Rebreather 15.0 04/04/19 10:00 85 25 Non-Rebreather 15.0 04/04/19 09:57 98.1 85 25 187/92 99 Non-Rebreather 15.0 04/04/19 09:56 187/92 04/04/19 09:46 98.1 83 17 187/92 (123) 98 Non-Rebreather 15.0 Laboratory Tests 04/04/19 09:40: White Blood Count 6.5, Red Blood Count 2.85L, Hemoglobin 9.3L, Hematocrit 29.1L , Mean Corpuscular Volume 102H, Mean Corpuscular Hemoglobin 32.9H, Mean Corpuscular Hemoglobin Concent 32.2, Red Cell Distribution Width 16.4H, Platelet Count 173, Mean Platelet Volume 9.2, Neutrophils (%) (Auto) 74.0, Lymphocytes (%) (Auto) 10.7L, Monocytes (%) (Auto) 8.2, Eosinophils (%) (Auto) 5.4H, Basophils (%) (Auto) 1.6, Sodium Level 131L, Potassium Level 5.3H, Chloride Level 90L, Carbon Dioxide Level 26, Anion Gap 15, Blood Urea Nitrogen 56H, Creatinine 5.0H, Estimat Glomerular Filtration Rate 9.1, Glucose Level 230H , Calcium Level 8.6, Total Bilirubin 1.1H, Direct Bilirubin 0.7H, Aspartate Amino Transf (AST/SGOT) 33, Alanine Aminotransferase (ALT/SGPT) 34, Alkaline Phosphatase 874H, Troponin I 0.004, Pro-B-Type Natriuretic Peptide [id number], Total Protein 8.6H, Albumin 3.1L, Globulin 5.5, Albumin/Globulin Ratio 0.6L Roel Flood MD Apr 04, 2019 13:26
--- NOTE | 2019-04-04 14:29 | Consultation ---
Consult Note Consult Note asked to evaluate for dialysis know to me from her previous admissions HPI: 48-year-old male with a history of ESRD on hemodialysis MWF presents for evaluation of chest pain. Patient has had many visits for chest pain in the past and states it is somewhat related to hemodialysis either during hemodialysis or before. Present for several hours and also reports shortness of breath. She was reportedly found hypoxic in the 70s but improved on nonrebreather. Planing of pain over the left chest. Unclear when her last hemodialysis was as EMS as 5 days ago and the patient states 2 days ago. She is feeling better and received nitroglycerin on the way though is not clear whether or not this improves her symptoms. Denies any recent fevers, chills, cough. PMH: ESRD PSH: Dialysis catheter insertion Social Hx: Denies drug or alcohol abuse Allergies: PENICILLINS (Verified Allergy, Unknown, 10/07/18) PIPERACILLIN (Verified Allergy, Unknown, 10/07/18) TAZOBACTAM (Verified Allergy, Unknown, 10/07/18) Hx Cardiac Problems: Yes Hx Hypertension: Yes Hx Diabetes: Yes Hx Cancer: Yes Hx Gastrointestinal Problems: No Hx Dialysis: Yes - MWF Hx Neurological Problems: Yes Hx Weakness: Yes . Assessment/Plan End stage renal disease Volume overload Hyperkalemia Pulmonary edema Pleuraleffusions Diabetes Hypertension Hypertensive Heart Disease HD with UF ordered keep bp under control per orders Elvin Garcia MD Apr 04, 2019 14:29
[2019-04-04] MEDS ORDERED: HydrALAZINE 25mg tab ORAL PRN ×2 (14:30→14:45)
[2019-04-04] MEDS: NovoLOG Insulin Flexpen SUBQ SCH ×2 (17:23→20:41)
[2019-04-04] MEDS: HydrALAZINE 25mg tab ORAL SCH ×3 (17:24→23:36)
[2019-04-04] MEDS: Heparin 5000 units/ml inj SUBQ SCH (20:39)
[2019-04-04] MEDS: Epoetin Alfa-EPBX(ESRD on dialysis)10,000 unit/ml vial SUBQ SCH (20:39)
[2019-04-04] MEDS: Albuterol/Ipratropium 3ml neb HHN PRN (23:54)
[2019-04-05] VITALS: BP 143/90
[2019-04-05] MEDS: Guaifenesin/DM 10ml syrup ORAL PRN ×2 (02:04→13:34)
--- NOTE | 2019-04-05 02:31 | History and Physical Report ---
DATE OF ADMISSION: 04/04/2019 HISTORY OF PRESENT ILLNESS: The patient is admitted for shortness of breath and chest pain, was found to have bilateral pulmonary edema and hypokalemia. She is a dialysis patient. She was also hypoxic and unstable for transfer. She was initially on 100% mask, according to the ER doctor. was also 11,000 approximately. The patient also needs dialysis. That decision will be deferred to Dr. Garcia. He has already been consulted. The patient is complaining of chest pain, shortness of breath, and orthopnea. Denies nausea, vomiting, diarrhea, fever, or chills. Does have shortness of breath. PAST MEDICAL HISTORY: Hypertension, end-stage renal disease on hemodialysis, NIDDM, and hypothyroidism. PAST SURGICAL HISTORY: Significant for dialysis access. ALLERGIES: Penicillin. MEDICATIONS: Basically amlodipine, aspirin, clonidine, glipizide, insulin, Levoxyl, and lisinopril. SOCIAL HISTORY: Denies history of alcohol or drug abuse. FAMILY HISTORY: Noncontributory. REVIEW OF SYSTEMS: HEENT: Denies headaches. RESPIRATORY: Reports shortness of breath and cough. CARDIOVASCULAR: Reports chest pain for a couple of days. No orthopnea. GASTROINTESTINAL: Denies nausea, vomiting, or diarrhea. EXTREMITIES: Does have some pain. CENTRAL NERVOUS SYSTEM: No change in vision or speech pattern. Feels weak. PHYSICAL EXAMINATION: VITAL SIGNS: Temperature 98, pulse 74, and blood pressure 150/75. HEENT: PERRLA. NECK: Supple. CHEST: Bibasilar rales. CARDIOVASCULAR: Regular rate and rhythm. ABDOMEN: Soft. Positive bowel sounds. No organomegaly. EXTREMITIES: 1+ edema. Reflexes on both sides. Generalized weakness. LABORATORY DATA: WBC 6.5, hemoglobin 9.3, and platelets of 173. Sodium 131, potassium 5.3, BUN 56, and creatinine 5. Glucose of 330. BNP of 11,214. ASSESSMENT AND PLAN: Congestive heart failure and pulmonary edema, needs dialysis. The patient also has anemia of chronic renal disease. The patient also has pulmonary edema and hypokalemia, needs dialysis. She was initially hypoxic. I have consulted Dr. Garcia, Dr. Flood, Dr. Garcias, and Dr. Alber Dennison to rule out infectious etiology as well as for the fluid management of the pulmonary edema, CHF, hypokalemia, and dialysis. Kimberlee Guzman M.D. DR: ISMAEL JOB#: [id number] CC:
[2019-04-05] MEDS: HydrALAZINE 25mg tab ORAL SCH ×3 (06:09→18:08)
[2019-04-05] MEDS: NovoLOG Insulin Flexpen SUBQ SCH ×4 (06:11→22:24)
[2019-04-05] MEDS: Albuterol/Ipratropium 3ml neb HHN PRN (08:17)
[2019-04-05] MEDS: Aspirin EC 81mg tab ORAL SCH (09:00)
[2019-04-05] MEDS: Heparin 5000 units/ml inj SUBQ SCH ×2 (09:00→21:00)
--- NOTE | 2019-04-05 10:55 | Nephrology Progress Note ---
Assessment/Plan Problem List: (1) ESRD (end stage renal disease) (2) Hyperkalemia (3) Pulmonary edema Assessment End stage renal disease Volume overload Hyperkalemia Pulmonary edema Pleuraleffusions Diabetes Hypertension Hypertensive Heart Disease Plan refuses blood work today ! HD with UF ordered and done last night - 3 liters out keep bp under control per pulmonary dialysis in am 04/06 per orders Subjective ROS Limited/Unobtainable: No Constitutional: Reports: malaise Objective Objective Last 24 Hour Vital Signs Date Time Temp Pulse Resp B/P (MAP) Pulse Ox O2 Delivery O2 Flow Rate FiO2 04/05/19 08:34 88 35 93 Facial 35 04/05/19 07:00 80 18 93 04/05/19 06:09 145/90 04/05/19 05:25 83 20 92 04/05/19 04:30 79 04/05/19 03:25 81 20 94 04/05/19 03:10 2.0 04/05/19 01:18 84 20 92 04/05/19 00:00 78 04/05/19 00:00 98.5 75 18 143/90 (107) 95 04/04/19 23:55 84 20 97 Nasal Cannula 3.0 32 81 21 93 04/04/19 23:36 143/90 04/04/19 23:30 84 21 93 04/04/19 21:19 80 20 92 04/04/19 20:00 2.0 04/04/19 20:00 79 04/04/19 20:00 98.6 77 20 153/90 (111) 95 04/04/19 20:00 Nasal Cannula 2.0 04/04/19 19:23 80 20 93 04/04/19 18:00 147/72 04/04/19 18:00 78 147/72 04/04/19 16:54 Bi-pap 04/04/19 16:00 98.1 73 20 147/72 (97) 96 04/04/19 16:00 78 04/04/19 15:05 78 04/04/19 15:00 81 21 95 Bi-Pap 35 04/04/19 15:00 81 21 95 Facial 35 04/04/19 14:30 98.0 74 20 150/75 (100) 96 04/04/19 14:09 98.1 74 19 149/67 100 Non-Rebreather 13.0 04/04/19 13:31 98.1 74 19 149/67 100 Non-Rebreather 13.0 04/04/19 12:06 98.1 77 23 154/62 97 Nasal Cannula 3.0 04/04/19 11:38 98.1 78 28 158/68 99 Simple Mask 6.0 04/04/19 10:59 98.1 79 27 159/70 100 Non-Rebreather 15.0 Intake and Output 04/04/19 04/05/19 19:00 07:00 Intake Total 190 ml Output Total 0 ml 6000 ml Balance 190 ml -6000 ml Intake Oral 190 ml Output Urine Total 0 ml Hemodialysis UF 6000 ml Laboratory Tests 04/04/19 14:36: Arterial Blood pH 7.411, Arterial Blood Partial Pressure CO2 41.4, Arterial Blood Partial Pressure O2 61.5L, Arterial Blood HCO3 25.7, Arterial Blood Oxygen Saturation 89.5*L, Arterial Blood Base Excess 1, Dima Test Positive Height (Feet): 5 Height (Inches): 0.00 Weight (Pounds): 154 General Appearance: mild distress EENT: other - on BIPAP Cardiovascular: normal rate Respiratory/Chest: decreased breath sounds Abdomen: distended Elvin Garcia MD Apr 05, 2019 10:55
--- NOTE | 2019-04-05 14:08 | Pulmonology Progress Note ---
Assessment/Plan Assessment/Plan Pulmonary Progress Note HPI Patient is a 48-year-old female with a history of ESRD on hemodialysis MWF admitted with shortness of breath and chest pain. Unclear when her last hemodialysis was as EMS as 5 days ago and the patient states 2 days ago. Pain improved after receiving nitroglycerin. Denies any recent fevers, chills, cough. Noted to have fluid overload and Pulmonary Congestion on CXR, Less SOB s/p HD, refused thoracentesis PMH: ESRD, Diabetes, Hypertension, Hypertensive Heart Disease, Weakness PSH: Dialysis catheter insertion Allergies: Penicillin, Zosyn Social Hx: Denies drug or alcohol abuse Allergies: PENICILLINS (Verified Allergy, Unknown, 10/07/18) PIPERACILLIN (Verified Allergy, Unknown, 10/07/18) TAZOBACTAM (Verified Allergy, Unknown, 10/07/18) All Other Systems: negative except mentioned in HPI Physical Exam . Vital Signs Noted General: Awake and alert, breathing comfortably on O2 HEENT: NC/AT. EOMI. Chest Wall: No tenderness, no deformity. Permacath in the left upper chest Cardiovascular: RRR. S1 and S2 normal. No murmur appreciated Resp: Normal work of breathing. No cough, wheezing or crackles appreciated Abdomen: Abdomen is soft, nondistended. Nontender Skin: Intact. No abrasions, laceration or rash over the exposed skin MSK: Normal tone and bulk. Moving all extremities. No obvious deformity. Neuro: Awake and alert. Mentating appropriately. Impression: End stage renal disease Volume overload, Pulmonary edema improved s/p HD Pleural effusions - refused thoracentesis Diabetes Hypertension Hypertensive Heart Disease Weakness Plan HD per Renal O2 PRN BiPAP PRN PPX Monitor labs [employer]TAIN medications Laboratory Tests Noted Test 04/04/19 09:40 White Blood Count 6.5 K/UL (4.8-10.8) Red Blood Count 2.85 M/UL (4.20-5.40) L Hemoglobin 9.3 G/DL (12.0-16.0) L Hematocrit 29.1 % (37.0-47.0) L Mean Corpuscular Volume 102 FL (80-99) H Mean Corpuscular Hemoglobin 32.9 PG (27.0-31.0) H Mean Corpuscular Hemoglobin Concent 32.2 G/DL (32.0-36.0) Red Cell Distribution Width 16.4 % (11.6-14.8) H Platelet Count 173 K/UL (150-450) Mean Platelet Volume 9.2 FL (6.5-10.1) Neutrophils (%) (Auto) 74.0 % (45.0-75.0) Lymphocytes (%) (Auto) 10.7 % (20.0-45.0) L Monocytes (%) (Auto) 8.2 % (1.0-10.0) Eosinophils (%) (Auto) 5.4 % (0.0-3.0) H Basophils (%) (Auto) 1.6 % (0.0-2.0) Sodium Level 131 MMOL/L (136-145) L Potassium Level 5.3 MMOL/L (3.5-5.1) H Chloride Level 90 MMOL/L (98-107) L Carbon Dioxide Level 26 MMOL/L (21-32) Anion Gap 15 mmol/L (5-15) Blood Urea Nitrogen 56 mg/dL (7-18) H Creatinine 5.0 MG/DL (0.55-1.30) H Estimate Glomerular Filtration Rate 9.1 mL/min (>60) Glucose Level 230 MG/DL (74-106) H Calcium Level 8.6 MG/DL (8.5-10.1) Total Bilirubin 1.1 MG/DL (0.2-1.0) H Direct Bilirubin 0.7 MG/DL (0.0-0.3) H Aspartate Amino Transferase (AST) 33 U/L (15-37) Alanine Aminotransferase (ALT) 34 U/L (12-78) Alkaline Phosphatase 874 U/L (46-116) H Troponin I 0.004 ng/mL (0.000-0.056) Pro-B-Type Natriuretic Peptide 82129 pg/mL (0-125) H Total Protein 8.6 G/DL (6.4-8.2) H Albumin 3.1 G/DL (3.4-5.0) L Globulin 5.5 g/dL Albumin/Globulin Ratio 0.6 (1.0-2.7) L EKG: Rate: normal Rhythm: NSR Sinus rhythm, normal axis, first-degree AV block with DC intervals [address] segment changes. Chest X-Ray: Bilateral moderate to severe pulmonary edema with bilateral effusions Subjective ROS Limited/Unobtainable: No Allergies: Coded Allergies: PENICILLINS (Verified Allergy, Unknown, 10/07/18) PIPERACILLIN (Verified Allergy, Unknown, 10/07/18) TAZOBACTAM (Verified Allergy, Unknown, 10/07/18) Objective Last 24 Hour Vital Signs Date Time Temp Pulse Resp B/P (MAP) Pulse Ox O2 Delivery O2 Flow Rate FiO2 04/05/19 13:32 160/74 04/05/19 13:14 88 20 94 04/05/19 10:59 98 40 92 Facial 35 04/05/19 09:00 74 129/65 04/05/19 08:34 88 35 93 Facial 35 04/05/19 07:00 80 18 93 04/05/19 06:09 145/90 04/05/19 05:25 83 20 92 04/05/19 04:30 79 04/05/19 03:25 81 20 94 04/05/19 03:10 2.0 04/05/19 01:18 84 20 92 04/05/19 00:00 78 04/05/19 00:00 98.5 75 18 143/90 (107) 95 04/04/19 23:55 84 20 97 Nasal Cannula 3.0 32 81 21 93 04/04/19 23:36 143/90 04/04/19 23:30 84 21 93 04/04/19 21:19 80 20 92 04/04/19 20:00 2.0 04/04/19 20:00 79 04/04/19 20:00 98.6 77 20 153/90 (111) 95 04/04/19 20:00 Nasal Cannula 2.0 04/04/19 19:23 80 20 93 04/04/19 18:00 147/72 04/04/19 18:00 78 147/72 04/04/19 16:54 Bi-pap 04/04/19 16:00 98.1 73 20 147/72 (97) 96 04/04/19 16:00 78 04/04/19 15:05 78 04/04/19 15:00 81 21 95 Bi-Pap 35 04/04/19 15:00 81 21 95 Facial 35 04/04/19 14:30 98.0 74 20 150/75 (100) 96 04/04/19 14:09 98.1 74 19 149/67 100 Non-Rebreather 13.0 Intake and Output 04/04/19 04/05/19 19:00 07:00 Intake Total 190 ml Output Total 0 ml 6000 ml Balance 190 ml -6000 ml Intake Oral 190 ml Output Urine Total 0 ml Hemodialysis UF 6000 ml Microbiology Date/Time Source Procedure Growth Status 04/04/19 10:15 Rectum Received Laboratory Tests 04/04/19 14:36: Arterial Blood pH 7.411, Arterial Blood Partial Pressure CO2 41.4, Arterial Blood Partial Pressure O2 61.5L, Arterial Blood HCO3 25.7, Arterial Blood Oxygen Saturation 89.5*L, Arterial Blood Base Excess 1, Dima Test Positive Current Medications Medications (Trade) Dose Ordered Sig/Soren Route PRN Reason Start Time Stop Time Status Last Admin Dose Admin Acetaminophen (Tylenol) 650 mg Q6H PRN ORAL Pain Scale (3-5) 04/04/19 14:45 05/04/19 14:44 04/05/19 00:39 Albuterol/ Ipratropium (Albuterol/ Ipratropium) 3 ml Q4H PRN HHN Shortness of Breath 04/04/19 14:00 04/09/19 13:59 04/05/19 08:17 Amlodipine Besylate (Norvasc) 5 mg BID ORAL 04/04/19 18:00 05/04/19 17:59 04/05/19 09:00 Aspirin (Ecotrin) 81 mg DAILY ORAL 04/05/19 09:00 05/05/19 08:59 04/05/19 09:00 Dextrose (Dextrose 50%) 25 ml Q30M PRN IV Hypoglycemia 04/04/19 14:30 05/04/19 14:29 Dextrose (Dextrose 50%) 50 ml Q30M PRN IV Hypoglycemia 04/04/19 14:30 05/04/19 14:29 Diphenhydramine HCl (Benadryl) 25 mg QHS PRN ORAL Insomnia 04/05/19 01:45 05/05/19 01:44 04/05/19 02:04 Epoetin Dimitry (Epoetin Dimitry(ESRD on dialysis)) 10,000 unit TUE-TUE-TUE SUBQ 04/04/19 21:00 05/04/19 20:59 04/04/19 20:39 Guaifenesin/ Dextromethorphan (Robitussin DM Syrup) 5 ml Q6H PRN ORAL For Cough 04/05/19 01:45 05/05/19 01:44 04/05/19 13:34 Heparin Sodium (Porcine) (Heparin 5000 units/ml) 5,000 units EVERY 12 HOURS SUBQ 04/04/19 21:00 05/04/19 20:59 04/05/19 09:00 Hydralazine HCl (Apresoline) 25 mg Q4H PRN ORAL SBP > 160mmHg 04/04/19 14:45 05/04/19 14:29 Hydralazine HCl (Apresoline) 25 mg Q6HR ORAL 04/04/19 18:00 05/04/19 17:59 04/05/19 13:32 Insulin Aspart (NovoLOG) BEFORE MEALS AND HS SUBQ 04/04/19 16:30 05/04/19 16:29 04/05/19 13:29 Roel Flood MD Apr 05, 2019 14:08
[2019-04-05 20:00] VITALS: BP 170/87
[2019-04-05] MEDS ORDERED: AMLODIPINE BESY10 MG ORAL (21:46)
[2019-04-05] MEDS ORDERED: DUONEB 0.5-3(2.53 ML HHN (21:56)
[2019-04-05] MEDS ORDERED: NITRO0.4 SL (21:56)
[2019-04-05] MEDS ORDERED: ROBITUSSIN COU237 M2 PO (21:56)
[2019-04-05] MEDS ORDERED: ISOSORBIDE MONO60 M1 PO (21:56)
--- NOTE | 2019-04-05 22:09 | General Progress Note ---
Assessment/Plan Problem List: (1) Hyperkalemia ICD Codes: E87.5 - Hyperkalemia SNOMED: 64691424 (2) Volume overload ICD Codes: E87.70 - Fluid overload, unspecified SNOMED: 13809546 (3) Pulmonary edema ICD Codes: J81.1 - Chronic pulmonary edema SNOMED: 03093699 (4) ESRD (end stage renal disease) ICD Codes: N18.6 - End stage renal disease SNOMED: 41612838 Status: progressing Assessment/Plan: pulmonary edema fluid overload lyte abnormality hd esrd Subjective ROS Limited/Unobtainable: Yes Allergies: Coded Allergies: PENICILLINS (Verified Allergy, Unknown, 10/07/18) PIPERACILLIN (Verified Allergy, Unknown, 10/07/18) TAZOBACTAM (Verified Allergy, Unknown, 10/07/18) Objective Last 24 Hour Vital Signs Date Time Temp Pulse Resp B/P (MAP) Pulse Ox O2 Delivery O2 Flow Rate FiO2 04/05/19 18:46 79 35 96 Facial 35 04/05/19 18:08 150/70 04/05/19 18:08 76 150/70 04/05/19 18:00 2.0 04/05/19 17:05 86 22 95 04/05/19 16:00 77 04/05/19 15:19 87 38 91 Facial 35 04/05/19 14:55 2.0 04/05/19 14:45 75 04/05/19 13:32 160/74 04/05/19 13:14 88 20 94 04/05/19 10:59 98 40 92 Facial 35 04/05/19 09:00 74 129/65 04/05/19 09:00 Nasal Cannula 2.0 04/05/19 08:34 88 35 93 Facial 35 04/05/19 08:00 75 04/05/19 07:00 80 18 93 04/05/19 06:09 145/90 04/05/19 05:25 83 20 92 04/05/19 04:30 79 04/05/19 03:25 81 20 94 04/05/19 03:10 2.0 04/05/19 01:18 84 20 92 04/05/19 00:00 78 04/05/19 00:00 98.5 75 18 143/90 (107) 95 04/04/19 23:55 84 20 97 Nasal Cannula 3.0 32 81 21 93 04/04/19 23:36 143/90 04/04/19 23:30 84 21 93 Intake and Output 04/04/19 04/05/19 18:59 06:59 Intake Total 190 ml Output Total 0 ml 6000 ml Balance 190 ml -6000 ml Intake Oral 190 ml Output Urine Total 0 ml Hemodialysis UF 6000 ml Height (Feet): 5 Height (Inches): 0.00 Weight (Pounds): 136 Cardiovascular: normal rate Respiratory/Chest: lungs clear Abdomen: soft Kimberlee Guzman MD Apr 05, 2019 22:09
[2019-04-06] VITALS: BP_SYST 159; BP_SYST 170; BP_DIAS 75; BP_DIAS 87
[2019-04-06] MEDS: HydrALAZINE 25mg tab ORAL SCH ×5 (00:44→23:36)
[2019-04-06 04:00] VITALS: BP 156/70
[2019-04-06] MEDS: NovoLOG Insulin Flexpen SUBQ SCH ×4 (06:13→20:48)
[2019-04-06 06:39] LABS: BASOPHILS % (AUTO) 1.2 % (0.0-2.0); EOSINOPHILS % (AUTO) 5.5 % (0.0-3.0); HEMATOCRIT 24.9 % (37.0-47.0); HEMOGLOBIN 8.1 G/DL (12.0-16.0); LYMPHOCYTES % (AUTO) 15.2 % (20.0-45.0); MEAN CORPUSCULAR VOLUME 102 FL (80-99); MONOCYTES % (AUTO) 11.4 % (1.0-10.0); NEUTROPHILS % (AUTO) 66.8 % (45.0-75.0); PLATELET COUNT 156 K/UL (150-450); RED BLOOD COUNT 2.43 M/UL (4.20-5.40); RED CELL DISTRIBUTION WIDTH 16.6 % (11.6-14.8); WHITE BLOOD COUNT 6.7 K/UL (4.8-10.8)
[2019-04-06 06:41] LABS: INR 1.1 (0.9-1.1)
[2019-04-06 07:42] VITALS: BP 134/71
[2019-04-06] MEDS: Aspirin EC 81mg tab ORAL SCH (08:32)
[2019-04-06] MEDS: Heparin 5000 units/ml inj SUBQ SCH ×2 (08:32→20:47)
[2019-04-06 09:29] LABS: ANION GAP 11 mmol/L (5-15); BLOOD UREA NITROGEN 51 mg/dL (7-18); CALCIUM 8.3 MG/DL (8.5-10.1); CARBON DIOXIDE 28 MMOL/L (21-32); CHLORIDE 98 MMOL/L (98-107); POTASSIUM 5.2 MMOL/L (3.5-5.1); SODIUM 137 MMOL/L (136-145)
[2019-04-06 09:34] LABS: ALANINE AMINOTRANSFERASE 24 U/L (12-78); ALBUMIN 2.5 G/DL (3.4-5.0); ALBUMIN/GLOBULIN RATIO 0.6 (1.0-2.7); ALKALINE PHOSPHATASE 673 U/L (46-116); ASPARTATE AMINO TRANSFERASE 25 U/L (15-37); BILIRUBIN,TOTAL 0.9 MG/DL (0.2-1.0); PHOSPHORUS 7.1 MG/DL (2.5-4.9)
--- NOTE | 2019-04-06 10:43 | Nephrology Progress Note ---
Assessment/Plan Problem List: (1) ESRD (end stage renal disease) (2) Hyperkalemia (3) Pulmonary edema Assessment End stage renal disease Volume overload Hyperkalemia Pulmonary edema Pleuraleffusions Diabetes Hypertension Hypertensive Heart Disease Plan HD with UF ordered and done 04/04 - 3 liters out keep bp under control per pulmonary dialysis in am 04/06 per orders Subjective ROS Limited/Unobtainable: No Constitutional: Reports: malaise Objective Objective Last 24 Hour Vital Signs Date Time Temp Pulse Resp B/P (MAP) Pulse Ox O2 Delivery O2 Flow Rate FiO2 04/06/19 08:32 82 134/71 04/06/19 08:11 82 20 95 Nasal Cannula 3.0 32 04/06/19 07:42 98.2 81 20 134/71 (92) 99 04/06/19 06:13 156/70 04/06/19 05:12 81 19 97 Facial 35 04/06/19 04:00 98.2 71 20 156/70 (98) 99 04/06/19 04:00 30 04/06/19 04:00 70 04/06/19 03:05 86 18 96 Facial 35 04/06/19 01:07 82 21 97 Facial 35 04/06/19 00:44 159/75 04/06/19 00:00 76 04/06/19 00:00 98.5 87 20 159/75 (103) 98 04/05/19 23:00 80 28 96 Facial 35 04/05/19 21:05 81 35 96 Facial 35 04/05/19 21:00 Bi-pap 04/05/19 20:00 98.6 78 20 170/87 (114) 98 04/05/19 20:00 30 04/05/19 20:00 75 04/05/19 18:46 79 35 96 Facial 35 04/05/19 18:08 150/70 04/05/19 18:08 76 150/70 04/05/19 18:00 2.0 04/05/19 17:05 86 22 95 04/05/19 16:00 77 04/05/19 15:19 87 38 91 Facial 35 04/05/19 14:55 2.0 04/05/19 14:45 75 04/05/19 13:32 160/74 04/05/19 13:14 88 20 94 04/05/19 10:59 98 40 92 Facial 35 Intake and Output 04/05/19 04/06/19 19:00 07:00 Intake Total 360 ml 240 ml Balance 360 ml 240 ml Intake Oral 360 ml Other 240 ml Laboratory Tests 04/06/19 05:40: White Blood Count 6.7, Red Blood Count 2.43L, Hemoglobin 8.1L, Hematocrit 24.9L , Mean Corpuscular Volume 102H, Mean Corpuscular Hemoglobin 33.1H, Mean Corpuscular Hemoglobin Concent 32.3, Red Cell Distribution Width 16.6H, Platelet Count 156, Mean Platelet Volume 8.4, Neutrophils (%) (Auto) 66.8, Lymphocytes (%) (Auto) 15.2L, Monocytes (%) (Auto) 11.4H, Eosinophils (%) (Auto ) 5.5H, Basophils (%) (Auto) 1.2, Prothrombin Time 11.4, Prothromb Time International Ratio 1.1, Activated Partial Thromboplast Time 33, Sodium Level 137, Potassium Level 5.2H, Chloride Level 98, Carbon Dioxide Level 28, Anion Gap 11, Blood Urea Nitrogen 51H, Creatinine 5.0H, Estimat Glomerular Filtration Rate 9.1, Glucose Level 55L, Calcium Level 8.3L, Phosphorus Level 7.1H, Magnesium Level 2.7H, Total Bilirubin 0.9, Aspartate Amino Transf (AST/SGOT) 25 , Alanine Aminotransferase (ALT/SGPT) 24, Alkaline Phosphatase 673H, Total Protein 7.0, Total Protein (PEP) [Pending], Albumin 2.5L, Albumin (PEP) [Pending ], Globulin 4.5, Globulin (PEP) [Pending], Albumin/Globulin Ratio 0.6L, Alpha-1- Globulins [Pending], Fcqex-2-Mhyawfuwk [Pending], Beta Globulins [Pending], Beta Gamma Globulin [Pending], PEP Abnormal Protein Bands [Pending], Protein Electrophoresis Interpret [Pending] Height (Feet): 5 Height (Inches): 0.00 Weight (Pounds): 141 General Appearance: no apparent distress Cardiovascular: normal rate Respiratory/Chest: decreased breath sounds Abdomen: distended Elvin Garcia MD Apr 06, 2019 10:43
--- NOTE | 2019-04-06 11:17 | General Progress Note ---
Assessment/Plan Problem List: (1) Hypothyroid ICD Codes: E03.9 - Hypothyroidism, unspecified SNOMED: 89663416 (2) Hypoglycemia ICD Codes: E16.2 - Hypoglycemia, unspecified SNOMED: 883804974 (3) Volume overload ICD Codes: E87.70 - Fluid overload, unspecified SNOMED: 62845409 (4) ESRD (end stage renal disease) ICD Codes: N18.6 - End stage renal disease SNOMED: 37784712 (5) Pulmonary edema ICD Codes: J81.1 - Chronic pulmonary edema SNOMED: 31463555 (6) Hyperkalemia ICD Codes: E87.5 - Hyperkalemia SNOMED: 30719366 (7) Diabetes mellitus out of control ICD Codes: E11.65 - Type 2 diabetes mellitus with hyperglycemia SNOMED: 60302287, 526493374 Status: progressing Assessment/Plan: hold glipizide glucose check w/o insulin coverage hypoglycemia protocol in order check TSH, free T4 resume Levothyroxine 125 mcg daily Subjective ROS Limited/Unobtainable: Yes Allergies: Coded Allergies: PENICILLINS (Verified Allergy, Unknown, 10/07/18) PIPERACILLIN (Verified Allergy, Unknown, 10/07/18) TAZOBACTAM (Verified Allergy, Unknown, 10/07/18) Subjective events noted hypoglycemia due to Glipizide just came back from thoracentesis she is blind having nose bleed now Item Value Date Time Bedside Blood Glucose 91 mg/dl 04/06/19 0650 Bedside Blood Glucose 139 mg/dl H 04/05/19 2224 Bedside Blood Glucose 194 mg/dl H 04/05/19 1809 Bedside Blood Glucose 142 mg/dl H 04/05/19 1329 Bedside Blood Glucose 235 mg/dl H 04/05/19 0635 Objective Last 24 Hour Vital Signs Date Time Temp Pulse Resp B/P (MAP) Pulse Ox O2 Delivery O2 Flow Rate FiO2 04/06/19 09:00 Bi-pap 04/06/19 08:32 82 134/71 04/06/19 08:11 82 20 95 Nasal Cannula 3.0 32 04/06/19 08:00 2.0 04/06/19 07:42 98.2 81 20 134/71 (92) 99 04/06/19 06:13 156/70 04/06/19 05:12 81 19 97 Facial 35 04/06/19 04:00 98.2 71 20 156/70 (98) 99 04/06/19 04:00 30 04/06/19 04:00 70 04/06/19 03:05 86 18 96 Facial 35 04/06/19 01:07 82 21 97 Facial 35 04/06/19 00:44 159/75 04/06/19 00:00 76 04/06/19 00:00 98.5 87 20 159/75 (103) 98 04/05/19 23:00 80 28 96 Facial 35 04/05/19 21:05 81 35 96 Facial 35 04/05/19 21:00 Bi-pap 04/05/19 20:00 98.6 78 20 170/87 (114) 98 04/05/19 20:00 30 04/05/19 20:00 75 04/05/19 18:46 79 35 96 Facial 35 04/05/19 18:08 150/70 04/05/19 18:08 76 150/70 04/05/19 18:00 2.0 04/05/19 17:05 86 22 95 04/05/19 16:00 77 04/05/19 15:19 87 38 91 Facial 35 04/05/19 14:55 2.0 04/05/19 14:45 75 04/05/19 13:32 160/74 04/05/19 13:14 88 20 94 Intake and Output 04/05/19 04/06/19 19:00 07:00 Intake Total 360 ml 240 ml Balance 360 ml 240 ml Intake Oral 360 ml Other 240 ml Laboratory Tests 04/06/19 05:40: White Blood Count 6.7, Red Blood Count 2.43L, Hemoglobin 8.1L, Hematocrit 24.9L , Mean Corpuscular Volume 102H, Mean Corpuscular Hemoglobin 33.1H, Mean Corpuscular Hemoglobin Concent 32.3, Red Cell Distribution Width 16.6H, Platelet Count 156, Mean Platelet Volume 8.4, Neutrophils (%) (Auto) 66.8, Lymphocytes (%) (Auto) 15.2L, Monocytes (%) (Auto) 11.4H, Eosinophils (%) (Auto ) 5.5H, Basophils (%) (Auto) 1.2, Prothrombin Time 11.4, Prothromb Time International Ratio 1.1, Activated Partial Thromboplast Time 33, Sodium Level 137, Potassium Level 5.2H, Chloride Level 98, Carbon Dioxide Level 28, Anion Gap 11, Blood Urea Nitrogen 51H, Creatinine 5.0H, Estimat Glomerular Filtration Rate 9.1, Glucose Level 55L, Calcium Level 8.3L, Phosphorus Level 7.1H, Magnesium Level 2.7H, Total Bilirubin 0.9, Aspartate Amino Transf (AST/SGOT) 25 , Alanine Aminotransferase (ALT/SGPT) 24, Alkaline Phosphatase 673H, Total Protein 7.0, Total Protein (PEP) [Pending], Albumin 2.5L, Albumin (PEP) [Pending ], Globulin 4.5, Globulin (PEP) [Pending], Albumin/Globulin Ratio 0.6L, Alpha-1- Globulins [Pending], Qzwrz-3-Yhrmafmon [Pending], Beta Globulins [Pending], Beta Gamma Globulin [Pending], PEP Abnormal Protein Bands [Pending], Protein Electrophoresis Interpret [Pending], Thyroid Stimulating Hormone (TSH) [Pending] , Free Thyroxine [Pending] Height (Feet): 5 Height (Inches): 0.00 Weight (Pounds): 141 General Appearance: no apparent distress EENT: other - blind - epistaxis Neck: normal alignment Cardiovascular: normal rate Respiratory/Chest: lungs clear Abdomen: normal bowel sounds Objective Current Medications Medications (Trade) Dose Ordered Sig/Soren Route PRN Reason Start Time Stop Time Status Last Admin Dose Admin Acetaminophen (Tylenol) 650 mg Q6H PRN ORAL Pain Scale (3-5) 04/04/19 14:45 05/04/19 14:44 04/05/19 00:39 Albuterol/ Ipratropium (Albuterol/ Ipratropium) 3 ml Q4H PRN HHN Shortness of Breath 04/04/19 14:00 04/09/19 13:59 04/05/19 08:17 Amlodipine Besylate (Norvasc) 5 mg BID ORAL 04/04/19 18:00 05/04/19 17:59 04/05/19 18:08 Aspirin (Ecotrin) 81 mg DAILY ORAL 04/05/19 09:00 05/05/19 08:59 04/05/19 09:00 Chlorhexidine Gluconate (Di-Hex 2%) 1 applic DAILY@1999 TOPIC 04/06/19 20:00 05/06/19 19:59 Dextrose (Dextrose 50%) 25 ml Q30M PRN IV Hypoglycemia 04/04/19 14:30 05/04/19 14:29 Dextrose (Dextrose 50%) 50 ml Q30M PRN IV Hypoglycemia 04/04/19 14:30 05/04/19 14:29 Diphenhydramine HCl (Benadryl) 25 mg QHS PRN ORAL Insomnia 04/05/19 01:45 05/05/19 01:44 04/05/19 02:04 Epoetin Dimitry (Epoetin Dimitry(ESRD on dialysis)) 10,000 unit TUE-TUE-TUE SUBQ 04/04/19 21:00 05/04/19 20:59 04/04/19 20:39 Guaifenesin/ Dextromethorphan (Robitussin DM Syrup) 5 ml Q6H PRN ORAL For Cough 04/05/19 01:45 05/05/19 01:44 04/05/19 13:34 Heparin Sodium (Porcine) (Heparin 5000 units/ml) 5,000 units EVERY 12 HOURS SUBQ 04/04/19 21:00 05/04/19 20:59 04/05/19 09:00 Hydralazine HCl (Apresoline) 25 mg Q4H PRN ORAL SBP > 160mmHg 04/04/19 14:45 05/04/19 14:29 Hydralazine HCl (Apresoline) 25 mg Q6HR ORAL 04/04/19 18:00 05/04/19 17:59 04/06/19 06:13 Insulin Aspart (NovoLOG) BEFORE MEALS AND HS SUBQ 04/04/19 16:30 05/04/19 16:29 04/05/19 18:09 Levothyroxine Sodium (Synthroid) 125 mcg DAILY@0630 ORAL 04/07/19 06:30 05/07/19 06:29 Sevelamer Carbonate (Renvela) 2,400 mg THREE TIMES A DAY ORAL 04/06/19 13:00 05/06/19 12:59 Marck Iqbal MD Apr 06, 2019 11:17
--- NOTE | 2019-04-06 11:33 | Diagnostic Imaging Report ---
Indication: Status post thoracentesis Comparison: 04/04/2019 A single view chest radiograph was obtained. Findings: No pneumothorax seen following thoracentesis. There is a moderate degree of pulmonary edema again noted unchanged from last study. Left permacath is noted in good position. IMPRESSION: No pneumothorax. Moderate pulmonary edema
--- NOTE | 2019-04-06 11:34 | Diagnostic Imaging Report ---
Indications: Pleural effusion Technique: Ultrasound used to localize optimal puncture site. Sterile prepping and draping of the right lower chest performed. Local anesthesia with 1% lidocaine. Dermatotomy made. Puncture of the pleural space using thoracentesis needle. Stylet removed. Catheter placed to vacuum bottle suction. Fluid was aspirated. Patient tolerated procedure well, without immediate complication. Fluid obtained was dark nohelia color. Findings: Followup sonography demonstrates a small residual. There is suggestion of loculation within the pleural fluid. Followup chest x-ray is pending. Impression: Successful ultrasound-guided right thoracentesis, yielding 750 cc of fluid
[2019-04-06 12:00] VITALS: BP 159/78
--- NOTE | 2019-04-06 12:13 | Pulmonology Progress Note ---
Assessment/Plan Assessment/Plan Pulmonary Progress Note HPI Patient is a 48-year-old female with a history of ESRD on hemodialysis MWF admitted with shortness of breath and chest pain. Unclear when her last hemodialysis was as EMS as 5 days ago and the patient states 2 days ago. Pain improved after receiving nitroglycerin. Denies any recent fevers, chills, cough. Noted to have fluid overload and Pulmonary Congestion on CXR, Less SOB s/p HD sp thoracentesis PMH: ESRD, Diabetes, Hypertension, Hypertensive Heart Disease, Weakness PSH: Dialysis catheter insertion Allergies: Penicillin, Zosyn Social Hx: Denies drug or alcohol abuse Allergies: PENICILLINS (Verified Allergy, Unknown, 10/07/18) PIPERACILLIN (Verified Allergy, Unknown, 10/07/18) TAZOBACTAM (Verified Allergy, Unknown, 10/07/18) All Other Systems: negative except mentioned in HPI Physical Exam . Vital Signs Noted General: Awake and alert, breathing comfortably on O2 HEENT: NC/AT. EOMI. Chest Wall: No tenderness, no deformity. Permacath in the left upper chest Cardiovascular: RRR. S1 and S2 normal. No murmur appreciated Resp: Normal work of breathing. No cough, wheezing or crackles appreciated Abdomen: Abdomen is soft, nondistended. Nontender Skin: Intact. No abrasions, laceration or rash over the exposed skin MSK: Normal tone and bulk. Moving all extremities. No obvious deformity. Neuro: Awake and alert. Mentating appropriately. Impression: End stage renal disease Volume overload, Pulmonary edema improved s/p HD Pleural effusions - sp thoracentesis - 750ml Diabetes Hypertension Hypertensive Heart Disease Weakness Plan Thoracenetsis labs HD per Renal O2 PRN BiPAP PRN PPX Monitor labs [employer] medications Laboratory Tests Noted Test 04/04/19 09:40 White Blood Count 6.5 K/UL (4.8-10.8) Red Blood Count 2.85 M/UL (4.20-5.40) L Hemoglobin 9.3 G/DL (12.0-16.0) L Hematocrit 29.1 % (37.0-47.0) L Mean Corpuscular Volume 102 FL (80-99) H Mean Corpuscular Hemoglobin 32.9 PG (27.0-31.0) H Mean Corpuscular Hemoglobin Concent 32.2 G/DL (32.0-36.0) Red Cell Distribution Width 16.4 % (11.6-14.8) H Platelet Count 173 K/UL (150-450) Mean Platelet Volume 9.2 FL (6.5-10.1) Neutrophils (%) (Auto) 74.0 % (45.0-75.0) Lymphocytes (%) (Auto) 10.7 % (20.0-45.0) L Monocytes (%) (Auto) 8.2 % (1.0-10.0) Eosinophils (%) (Auto) 5.4 % (0.0-3.0) H Basophils (%) (Auto) 1.6 % (0.0-2.0) Sodium Level 131 MMOL/L (136-145) L Potassium Level 5.3 MMOL/L (3.5-5.1) H Chloride Level 90 MMOL/L (98-107) L Carbon Dioxide Level 26 MMOL/L (21-32) Anion Gap 15 mmol/L (5-15) Blood Urea Nitrogen 56 mg/dL (7-18) H Creatinine 5.0 MG/DL (0.55-1.30) H Estimate Glomerular Filtration Rate 9.1 mL/min (>60) Glucose Level 230 MG/DL (74-106) H Calcium Level 8.6 MG/DL (8.5-10.1) Total Bilirubin 1.1 MG/DL (0.2-1.0) H Direct Bilirubin 0.7 MG/DL (0.0-0.3) H Aspartate Amino Transferase (AST) 33 U/L (15-37) Alanine Aminotransferase (ALT) 34 U/L (12-78) Alkaline Phosphatase 874 U/L (46-116) H Troponin I 0.004 ng/mL (0.000-0.056) Pro-B-Type Natriuretic Peptide 55288 pg/mL (0-125) H Total Protein 8.6 G/DL (6.4-8.2) H Albumin 3.1 G/DL (3.4-5.0) L Globulin 5.5 g/dL Albumin/Globulin Ratio 0.6 (1.0-2.7) L EKG: Rate: normal Rhythm: NSR Sinus rhythm, normal axis, first-degree AV block with ID intervals [address] segment changes. Chest X-Ray: Bilateral moderate to severe pulmonary edema with bilateral effusions Subjective ROS Limited/Unobtainable: No Allergies: Coded Allergies: PENICILLINS (Verified Allergy, Unknown, 10/07/18) PIPERACILLIN (Verified Allergy, Unknown, 10/07/18) TAZOBACTAM (Verified Allergy, Unknown, 10/07/18) Objective Last 24 Hour Vital Signs Date Time Temp Pulse Resp B/P (MAP) Pulse Ox O2 Delivery O2 Flow Rate FiO2 04/06/19 09:00 Bi-pap 04/06/19 08:32 82 134/71 04/06/19 08:11 82 20 95 Nasal Cannula 3.0 32 04/06/19 08:00 2.0 04/06/19 07:49 82 04/06/19 07:42 98.2 81 20 134/71 (92) 99 04/06/19 06:13 156/70 04/06/19 05:12 81 19 97 Facial 35 04/06/19 04:00 98.2 71 20 156/70 (98) 99 04/06/19 04:00 30 04/06/19 04:00 70 04/06/19 03:05 86 18 96 Facial 35 04/06/19 01:07 82 21 97 Facial 35 04/06/19 00:44 159/75 04/06/19 00:00 76 04/06/19 00:00 98.5 87 20 159/75 (103) 98 04/05/19 23:00 80 28 96 Facial 35 04/05/19 21:05 81 35 96 Facial 35 04/05/19 21:00 Bi-pap 04/05/19 20:00 98.6 78 20 170/87 (114) 98 04/05/19 20:00 30 04/05/19 20:00 75 04/05/19 18:46 79 35 96 Facial 35 04/05/19 18:08 150/70 04/05/19 18:08 76 150/70 04/05/19 18:00 2.0 04/05/19 17:05 86 22 95 04/05/19 16:00 77 04/05/19 15:19 87 38 91 Facial 35 04/05/19 14:55 2.0 04/05/19 14:45 75 04/05/19 13:32 160/74 04/05/19 13:14 88 20 94 Intake and Output 04/05/19 04/06/19 19:00 07:00 Intake Total 360 ml 240 ml Balance 360 ml 240 ml Intake Oral 360 ml Other 240 ml Microbiology Date/Time Source Procedure Growth Status 04/04/19 10:15 Nasal Nares MRSA Culture - Final NO METHICILLIN RESISTANT STAPH AUREUS... Complete 04/04/19 10:15 Rectum - Final NO CARBAPENEM-RESISTANT ENTEROBACTERI... Complete 04/04/19 10:15 Rectum VRE Culture - Final Enterococcus Faecium - Vre Complete Laboratory Tests 04/06/19 05:40: White Blood Count 6.7, Red Blood Count 2.43L, Hemoglobin 8.1L, Hematocrit 24.9L , Mean Corpuscular Volume 102H, Mean Corpuscular Hemoglobin 33.1H, Mean Corpuscular Hemoglobin Concent 32.3, Red Cell Distribution Width 16.6H, Platelet Count 156, Mean Platelet Volume 8.4, Neutrophils (%) (Auto) 66.8, Lymphocytes (%) (Auto) 15.2L, Monocytes (%) (Auto) 11.4H, Eosinophils (%) (Auto ) 5.5H, Basophils (%) (Auto) 1.2, Prothrombin Time 11.4, Prothromb Time International Ratio 1.1, Activated Partial Thromboplast Time 33, Sodium Level 137, Potassium Level 5.2H, Chloride Level 98, Carbon Dioxide Level 28, Anion Gap 11, Blood Urea Nitrogen 51H, Creatinine 5.0H, Estimat Glomerular Filtration Rate 9.1, Glucose Level 55L, Calcium Level 8.3L, Phosphorus Level 7.1H, Magnesium Level 2.7H, Total Bilirubin 0.9, Aspartate Amino Transf (AST/SGOT) 25 , Alanine Aminotransferase (ALT/SGPT) 24, Alkaline Phosphatase 673H, Total Protein 7.0, Total Protein (PEP) [Pending], Albumin 2.5L, Albumin (PEP) [Pending ], Globulin 4.5, Globulin (PEP) [Pending], Albumin/Globulin Ratio 0.6L, Alpha-1- Globulins [Pending], [id number]-6-[id number] [Pending], Beta Globulins [Pending], Beta Gamma Globulin [Pending], PEP Abnormal Protein Bands [Pending], Protein Electrophoresis Interpret [Pending], Thyroid Stimulating Hormone (TSH) 5.189H, Free Thyroxine 1.15 Current Medications Medications (Trade) Dose Ordered Sig/Soren Route PRN Reason Start Time Stop Time Status Last Admin Dose Admin Acetaminophen (Tylenol) 650 mg Q6H PRN ORAL Pain Scale (3-5) 04/04/19 14:45 05/04/19 14:44 04/05/19 00:39 Albuterol/ Ipratropium (Albuterol/ Ipratropium) 3 ml Q4H PRN HHN Shortness of Breath 04/04/19 14:00 04/09/19 13:59 04/05/19 08:17 Amlodipine Besylate (Norvasc) 5 mg BID ORAL 04/04/19 18:00 05/04/19 17:59 04/05/19 18:08 Aspirin (Ecotrin) 81 mg DAILY ORAL 04/05/19 09:00 05/05/19 08:59 04/05/19 09:00 Chlorhexidine Gluconate (Di-Hex 2%) 1 applic DAILY@2000 TOPIC 04/06/19 20:00 05/06/19 19:59 Dextrose (Dextrose 50%) 25 ml Q30M PRN IV Hypoglycemia 04/04/19 14:30 05/04/19 14:29 Dextrose (Dextrose 50%) 50 ml Q30M PRN IV Hypoglycemia 04/04/19 14:30 05/04/19 14:29 Diphenhydramine HCl (Benadryl) 25 mg QHS PRN ORAL Insomnia 04/05/19 01:45 05/05/19 01:44 04/05/19 02:04 Epoetin Dimitry (Epoetin Dimitry(ESRD on dialysis)) 10,000 unit TUE-TUE-TUE SUBQ 04/04/19 21:00 05/04/19 20:59 04/04/19 20:39 Guaifenesin/ Dextromethorphan (Robitussin DM Syrup) 5 ml Q6H PRN ORAL For Cough 04/05/19 01:45 05/05/19 01:44 04/05/19 13:34 Heparin Sodium (Porcine) (Heparin 5000 units/ml) 5,000 units EVERY 12 HOURS SUBQ 04/04/19 21:00 05/04/19 20:59 04/05/19 09:00 Hydralazine HCl (Apresoline) 25 mg Q4H PRN ORAL SBP > 160mmHg 04/04/19 14:45 05/04/19 14:29 Hydralazine HCl (Apresoline) 25 mg Q6HR ORAL 04/04/19 18:00 05/04/19 17:59 04/06/19 06:13 Insulin Aspart (NovoLOG) BEFORE MEALS AND HS SUBQ 04/04/19 16:30 05/04/19 16:29 04/06/19 11:41 Levothyroxine Sodium (Synthroid) 125 mcg DAILY@0630 ORAL 04/07/19 06:30 05/07/19 06:29 Sevelamer Carbonate (Renvela) 2,400 mg THREE TIMES A DAY ORAL 04/06/19 13:00 05/06/19 12:59 Roel Flood MD Apr 06, 2019 12:13
[2019-04-06 17:22] VITALS: BP 160/78
[2019-04-06 20:00] VITALS: BP 158/87
[2019-04-06] MEDS: Dyna-Hex 2% Top Sol 2oz TOPIC SCH (20:20)
[2019-04-06] MEDS: Epoetin Alfa-EPBX(ESRD on dialysis)10,000 unit/ml vial SUBQ SCH (20:46)
--- NOTE | 2019-04-06 21:04 | General Progress Note ---
Assessment/Plan Problem List: (1) Hyperkalemia ICD Codes: E87.5 - Hyperkalemia SNOMED: 80506727 (2) Volume overload ICD Codes: E87.70 - Fluid overload, unspecified SNOMED: 63552792 (3) Pulmonary edema ICD Codes: J81.1 - Chronic pulmonary edema SNOMED: 88654084 (4) ESRD (end stage renal disease) ICD Codes: N18.6 - End stage renal disease SNOMED: 36810808 Status: progressing Assessment/Plan: pulmonary edema is improving fluid overload improving tendency for refusal of care check lyte abnormality hd esrd Subjective ROS Limited/Unobtainable: Yes Allergies: Coded Allergies: PENICILLINS (Verified Allergy, Unknown, 10/07/18) PIPERACILLIN (Verified Allergy, Unknown, 10/07/18) TAZOBACTAM (Verified Allergy, Unknown, 10/07/18) Objective Last 24 Hour Vital Signs Date Time Temp Pulse Resp B/P (MAP) Pulse Ox O2 Delivery O2 Flow Rate FiO2 04/06/19 17:22 97.2 84 20 160/78 (105) 99 04/06/19 16:00 2.0 04/06/19 15:50 81 04/06/19 12:00 97.2 78 20 159/78 (105) 99 04/06/19 12:00 2.0 04/06/19 11:44 81 04/06/19 09:00 Bi-pap 04/06/19 08:32 82 134/71 04/06/19 08:11 82 20 95 Nasal Cannula 3.0 32 04/06/19 08:00 2.0 04/06/19 07:49 82 04/06/19 07:42 98.2 80 20 134/71 (92) 99 04/06/19 06:13 156/70 04/06/19 05:12 81 19 97 Facial 35 04/06/19 04:00 98.2 71 20 156/70 (98) 99 04/06/19 04:00 30 04/06/19 04:00 70 04/06/19 03:05 86 18 96 Facial 35 04/06/19 01:07 82 21 97 Facial 35 04/06/19 00:44 159/75 04/06/19 00:00 76 04/06/19 00:00 98.5 87 20 159/75 (103) 98 04/05/19 23:00 80 28 96 Facial 35 04/05/19 21:05 81 35 96 Facial 35 Intake and Output 04/05/19 04/06/19 19:00 07:00 Intake Total 360 ml 240 ml Balance 360 ml 240 ml Intake Oral 360 ml Other 240 ml Laboratory Tests 04/06/19 05:40: White Blood Count 6.7, Red Blood Count 2.43L, Hemoglobin 8.1L, Hematocrit 24.9L , Mean Corpuscular Volume 102H, Mean Corpuscular Hemoglobin 33.1H, Mean Corpuscular Hemoglobin Concent 32.3, Red Cell Distribution Width 16.6H, Platelet Count 156, Mean Platelet Volume 8.4, Neutrophils (%) (Auto) 66.8, Lymphocytes (%) (Auto) 15.2L, Monocytes (%) (Auto) 11.4H, Eosinophils (%) (Auto ) 5.5H, Basophils (%) (Auto) 1.2, Prothrombin Time 11.4, Prothromb Time International Ratio 1.1, Activated Partial Thromboplast Time 33, Sodium Level 137, Potassium Level 5.2H, Chloride Level 98, Carbon Dioxide Level 28, Anion Gap 11, Blood Urea Nitrogen 51H, Creatinine 5.0H, Estimat Glomerular Filtration Rate 9.1, Glucose Level 55L, Calcium Level 8.3L, Phosphorus Level 7.1H, Magnesium Level 2.7H, Total Bilirubin 0.9, Aspartate Amino Transf (AST/SGOT) 25 , Alanine Aminotransferase (ALT/SGPT) 24, Alkaline Phosphatase 673H, Total Protein 7.0, Total Protein (PEP) [Pending], Albumin 2.5L, Albumin (PEP) [Pending ], Globulin 4.5, Globulin (PEP) [Pending], Albumin/Globulin Ratio 0.6L, Alpha-1- Globulins [Pending], Igmzw-5-Rptfupeda [Pending], Beta Globulins [Pending], Beta Gamma Globulin [Pending], PEP Abnormal Protein Bands [Pending], Protein Electrophoresis Interpret [Pending], Thyroid Stimulating Hormone (TSH) 5.189H, Free Thyroxine 1.15 Height (Feet): 5 Height (Inches): 0.00 Weight (Pounds): 141 Respiratory/Chest: lungs clear Abdomen: soft Kimberlee Guzman MD Apr 06, 2019 21:04
[2019-04-06] MEDS: Albuterol/Ipratropium 3ml neb HHN PRN (21:31)
[2019-04-07] VITALS: BP 147/65
[2019-04-07 04:00] VITALS: BP 132/54
[2019-04-07] MEDS: HydrALAZINE 25mg tab ORAL SCH ×4 (06:00→17:03)
[2019-04-07] MEDS: Levothyroxine 125mcg tab ORAL SCH ×2 (06:09→06:30)
[2019-04-07] MEDS: NovoLOG Insulin Flexpen SUBQ SCH ×4 (06:10→21:00)
--- NOTE | 2019-04-07 06:45 | Hematology/Onc Progress Note ---
Assessment/Plan Assessment/Plan Assessment and Recs: # Anemia due to underlying chronic disease, multifactorial, does have a hx of esrd, ferritin in the past was 1004 --> anemia panel has been reviewed from prior adm --> hgb goal is >7, transfuse prn --> on epogen as per renal --> diuresis may help anemia as well, negative fluid balance --> smear has been reviewed and no schistocytes noted --> hgb trend 9.3-->8.1 # Hyperproteinemia, on admission protein is >9 --> at this time can be 2/2 inflammatory process --> if negative, consider get upep --> spep reviewed from before # Thrombocytopenia likely related to infection/chf --> in prior was negative --> reviewed and us abd neg # Acute respiratory failure secondary to CHF --> diuresis as per cards --> pulm has evaluated, breathing rx --> hd will help as well # Bradycardia --> per cards # Esrd requiring HD --> as per renal --> continue 3x a week # Pleural effusions --> likely related to overload # Noncompliance, refusing labs, meds # Dvt ppx scds Time of note does not necessarily correspond to then patient was seen. Greatly appreciate consultation. Subjective HEENT: Denies: no symptoms, eye pain, blurred vision, tearing, double vision, ear pain, ear discharge, nose pain, nose congestion, throat pain, throat swelling, mouth pain, mouth swelling, other Cardiovascular: Denies: no symptoms, chest pain, edema, irregular heart rate, lightheadedness, palpitations, syncope, other Respiratory: Denies: no symptoms, cough, shortness of breath, SOB with excertion, SOB at rest, sputum, wheezing, other Genitourinary: Denies: no symptoms, burning, discharge, frequency, flank pain, hematuria, incontinence, pain, urgency, other Neurologic/Psychiatric: Denies: no symptoms, anxiety, depressed, emotional problems, headache, numbness, paresthesia, pre-existing deficit, seizure, tingling, tremors, weakness, other Endocrine: Denies: no symptoms, excessive sweating, flushing, intolerance to cold, intolerance to heat, increased hunger, increased thirst, increased urine, unexplained weight gain, unexplained weight loss, other Hematologic/Lymphatic: Denies: no symptoms, anemia, easy bleeding, easy bruising, adenopathy, other Allergies: Coded Allergies: PENICILLINS (Verified Allergy, Unknown, 10/07/18) PIPERACILLIN (Verified Allergy, Unknown, 10/07/18) TAZOBACTAM (Verified Allergy, Unknown, 10/07/18) Subjective Gen: nad Pulm: ctab, no cwr CV: rrr, no mgr Abd: soft, nt, nd Ext: no cce Objective Objective Current Medications Medications (Trade) Dose Ordered Sig/Soren Route PRN Reason Start Time Stop Time Status Last Admin Dose Admin Acetaminophen (Tylenol) 650 mg Q6H PRN ORAL Pain Scale (3-5) 04/04/19 14:45 05/04/19 14:44 04/06/19 23:39 Albuterol/ Ipratropium (Albuterol/ Ipratropium) 3 ml Q4H PRN HHN Shortness of Breath 04/04/19 14:00 04/09/19 13:59 04/06/19 21:31 Amlodipine Besylate (Norvasc) 5 mg BID ORAL 04/04/19 18:00 05/04/19 17:59 04/05/19 18:08 Aspirin (Ecotrin) 81 mg DAILY ORAL 04/05/19 09:00 05/05/19 08:59 04/05/19 09:00 Chlorhexidine Gluconate (Di-Hex 2%) 1 applic DAILY@1999 TOPIC 04/06/19 20:00 05/06/19 19:59 04/06/19 20:20 Dextrose (Dextrose 50%) 25 ml Q30M PRN IV Hypoglycemia 04/04/19 14:30 05/04/19 14:29 Dextrose (Dextrose 50%) 50 ml Q30M PRN IV Hypoglycemia 04/04/19 14:30 05/04/19 14:29 Diphenhydramine HCl (Benadryl) 25 mg QHS PRN ORAL Insomnia 04/05/19 01:45 05/05/19 01:44 04/06/19 23:36 Epoetin Dimitry (Epoetin Dimitry(ESRD on dialysis)) 10,000 unit MON-WED-TUE SUBQ 04/04/19 21:00 05/04/19 20:59 04/06/19 20:46 Guaifenesin/ Dextromethorphan (Robitussin DM Syrup) 5 ml Q6H PRN ORAL For Cough 04/05/19 01:45 05/05/19 01:44 04/05/19 13:34 Heparin Sodium (Porcine) (Heparin 5000 units/ml) 5,000 units EVERY 12 HOURS SUBQ 04/04/19 21:00 05/04/19 20:59 04/05/19 09:00 Hydralazine HCl (Apresoline) 25 mg Q4H PRN ORAL SBP > 160mmHg 04/04/19 14:45 05/04/19 14:29 Hydralazine HCl (Apresoline) 25 mg Q6HR ORAL 04/04/19 18:00 05/04/19 17:59 04/07/19 06:09 Insulin Aspart (NovoLOG) BEFORE MEALS AND HS SUBQ 04/04/19 16:30 05/04/19 16:29 04/07/19 06:10 Levothyroxine Sodium (Synthroid) 125 mcg DAILY@0630 ORAL 04/07/19 06:30 05/07/19 06:29 04/07/19 06:09 Sevelamer Carbonate (Renvela) 2,400 mg THREE TIMES A DAY ORAL 04/06/19 13:00 05/06/19 12:59 04/06/19 17:03 Last 24 Hour Vital Signs Date Time Temp Pulse Resp B/P (MAP) Pulse Ox O2 Delivery O2 Flow Rate FiO2 04/07/19 06:38 83 30 99 Facial 35 04/07/19 06:09 132/59 04/07/19 04:00 30 04/07/19 04:00 97.9 83 19 132/54 (80) 93 04/07/19 04:00 80 04/07/19 01:36 80 34 97 Facial 35 04/07/19 00:00 30 04/07/19 00:00 98.7 93 20 147/65 (92) 93 04/07/19 00:00 94 04/06/19 23:51 88 29 96 Facial 35 04/06/19 23:36 147/65 04/06/19 21:48 83 26 96 Facial 35 04/06/19 21:31 85 20 99 Nasal Cannula 2.0 28 83 20 96 04/06/19 21:00 Bi-pap 04/06/19 20:00 90 04/06/19 20:00 98.0 88 19 158/87 (110) 96 04/06/19 20:00 2.0 04/06/19 17:22 97.2 84 20 160/78 (105) 99 04/06/19 16:00 2.0 04/06/19 15:50 81 04/06/19 12:00 97.2 78 20 159/78 (105) 99 04/06/19 12:00 2.0 04/06/19 11:44 81 04/06/19 09:00 Bi-pap 04/06/19 08:32 82 134/71 04/06/19 08:11 82 20 95 Nasal Cannula 3.0 32 04/06/19 08:00 2.0 04/06/19 07:49 82 04/06/19 07:42 98.2 80 20 134/71 (92) 99 04/06/19 06:13 156/70 04/06/19 05:12 81 19 97 Facial 35 04/06/19 04:00 98.2 71 20 156/70 (98) 99 04/06/19 04:00 30 04/06/19 04:00 70 04/06/19 03:05 86 18 96 Facial 35 04/06/19 01:07 82 21 97 Facial 35 04/06/19 00:44 159/75 04/06/19 00:00 76 04/06/19 00:00 98.5 87 20 159/75 (103) 98 04/05/19 23:00 80 28 96 Facial 35 04/05/19 21:05 81 35 96 Facial 35 04/05/19 21:00 Bi-pap 04/05/19 20:00 98.6 78 20 170/87 (114) 98 04/05/19 20:00 30 04/05/19 20:00 75 04/05/19 18:46 79 35 96 Facial 35 04/05/19 18:08 150/70 04/05/19 18:08 76 150/70 04/05/19 18:00 2.0 04/05/19 17:05 86 22 95 04/05/19 16:00 77 04/05/19 15:19 87 38 91 Facial 35 04/05/19 14:55 2.0 04/05/19 14:45 75 04/05/19 13:32 160/74 04/05/19 13:14 88 20 94 04/05/19 10:59 98 40 92 Facial 35 04/05/19 09:00 74 129/65 04/05/19 09:00 Nasal Cannula 2.0 04/05/19 08:34 88 35 93 Facial 35 04/05/19 08:00 75 04/05/19 07:00 80 18 93 Intake and Output 04/06/19 04/07/19 19:00 07:00 Intake Total 240 ml Output Total 2800 ml Balance -2560 ml Intake Oral 240 ml Hemodialysis UF 2800 ml # Bowel Movements 1 Labs Test 04/04/19 09:40 04/04/19 14:36 04/06/19 05:40 White Blood Count 6.5 K/UL (4.8-10.8) 6.7 K/UL (4.8-10.8) Red Blood Count 2.85 M/UL (4.20-5.40) 2.43 M/UL (4.20-5.40) Hemoglobin 9.3 G/DL (12.0-16.0) 8.1 G/DL (12.0-16.0) Hematocrit 29.1 % (37.0-47.0) 24.9 % (37.0-47.0) Mean Corpuscular Volume 102 FL (80-99) 102 FL (80-99) Mean Corpuscular Hemoglobin 32.9 PG (27.0-31.0) 33.1 PG (27.0-31.0) Mean Corpuscular Hemoglobin Concent 32.2 G/DL (32.0-36.0) 32.3 G/DL (32.0-36.0) Red Cell Distribution Width 16.4 % (11.6-14.8) 16.6 % (11.6-14.8) Platelet Count 173 K/UL (150-450) 156 K/UL (150-450) Mean Platelet Volume 9.2 FL (6.5-10.1) 8.4 FL (6.5-10.1) Neutrophils (%) (Auto) 74.0 % (45.0-75.0) 66.8 % (45.0-75.0) Lymphocytes (%) (Auto) 10.7 % (20.0-45.0) 15.2 % (20.0-45.0) Monocytes (%) (Auto) 8.2 % (1.0-10.0) 11.4 % (1.0-10.0) Eosinophils (%) (Auto) 5.4 % (0.0-3.0) 5.5 % (0.0-3.0) Basophils (%) (Auto) 1.6 % (0.0-2.0) 1.2 % (0.0-2.0) Sodium Level 131 MMOL/L (136-145) 137 MMOL/L (136-145) Potassium Level 5.3 MMOL/L (3.5-5.1) 5.2 MMOL/L (3.5-5.1) Chloride Level 90 MMOL/L (98-107) 98 MMOL/L (98-107) Carbon Dioxide Level 26 MMOL/L (21-32) 28 MMOL/L (21-32) Anion Gap 15 mmol/L (5-15) 11 mmol/L (5-15) Blood Urea Nitrogen 56 mg/dL (7-18) 51 mg/dL (7-18) Creatinine 5.0 MG/DL (0.55-1.30) 5.0 MG/DL (0.55-1.30) Estimat Glomerular Filtration Rate 9.1 mL/min (>60) 9.1 mL/min (>60) Glucose Level 230 MG/DL (74-106) 55 MG/DL (74-106) Calcium Level 8.6 MG/DL (8.5-10.1) 8.3 MG/DL (8.5-10.1) Total Bilirubin 1.1 MG/DL (0.2-1.0) 0.9 MG/DL (0.2-1.0) Direct Bilirubin 0.7 MG/DL (0.0-0.3) Aspartate Amino Transf (AST/SGOT) 33 U/L (15-37) 25 U/L (15-37) Alanine Aminotransferase (ALT/SGPT) 34 U/L (12-78) 24 U/L (12-78) Alkaline Phosphatase 874 U/L (46-116) 673 U/L (46-116) Troponin I 0.004 ng/mL (0.000-0.056) Pro-B-Type Natriuretic Peptide 07632 pg/mL (0-125) Total Protein 8.6 G/DL (6.4-8.2) 7.0 G/DL (6.4-8.2) Albumin 3.1 G/DL (3.4-5.0) 2.5 G/DL (3.4-5.0) Globulin 5.5 g/dL 4.5 g/dL Albumin/Globulin Ratio 0.6 (1.0-2.7) 0.6 (1.0-2.7) Arterial Blood pH 7.411 (7.350-7.450) Arterial Blood Partial Pressure CO2 41.4 mmHg (35.0-45.0) Arterial Blood Partial Pressure O2 61.5 mmHg (75.0-100.0) Arterial Blood HCO3 25.7 mmol/L (22.0-26.0) Arterial Blood Oxygen Saturation 89.5 % (95-100) Arterial Blood Base Excess 1 (-2-2) Dima Test Positive Prothrombin Time 11.4 SEC (9.30-11.50) Prothromb Time International Ratio 1.1 (0.9-1.1) Activated Partial Thromboplast Time 33 SEC (23-33) Phosphorus Level 7.1 MG/DL (2.5-4.9) Magnesium Level 2.7 MG/DL (1.8-2.4) Thyroid Stimulating Hormone (TSH) 5.189 uiU/mL (0.358-3.740) Free Thyroxine 1.15 NG/DL (0.76-1.46) Height (Feet): 5 Height (Inches): 0.00 Weight (Pounds): 141 Myke Pearson MD Apr 07, 2019 06:45
[2019-04-07] MEDS ORDERED: Nitroglycerin Subl 0.4mg tab SL PRN (07:00)
[2019-04-07] MEDS: Morphine Sulfate 2mg/ml Inj(IV/IM USE ONLY) IVP PRN (07:12)
--- NOTE | 2019-04-07 07:20 | General Progress Note ---
Assessment/Plan Problem List: (1) Hypothyroid ICD Codes: E03.9 - Hypothyroidism, unspecified SNOMED: 37811329 (2) Hypoglycemia ICD Codes: E16.2 - Hypoglycemia, unspecified SNOMED: 323174883 (3) Volume overload ICD Codes: E87.70 - Fluid overload, unspecified SNOMED: 73764869 (4) ESRD (end stage renal disease) ICD Codes: N18.6 - End stage renal disease SNOMED: 21474672 (5) Pulmonary edema ICD Codes: J81.1 - Chronic pulmonary edema SNOMED: 76121099 (6) Hyperkalemia ICD Codes: E87.5 - Hyperkalemia SNOMED: 12062554 (7) Diabetes mellitus out of control ICD Codes: E11.65 - Type 2 diabetes mellitus with hyperglycemia SNOMED: 44414198, 663983531 Status: progressing Assessment/Plan: continue to hold Glipizide glucose check - Novolog low dose coverage hypoglycemia protocol in order TSH is elevated due to non compliance continue Levothyroxine 125 mcg daily Subjective Allergies: Coded Allergies: PENICILLINS (Verified Allergy, Unknown, 10/07/18) PIPERACILLIN (Verified Allergy, Unknown, 10/07/18) TAZOBACTAM (Verified Allergy, Unknown, 10/07/18) All Systems: reviewed and negative except above Subjective events noted no more hypoglycemia refused Levothyroxine Item Value Date Time Bedside Blood Glucose 141 mg/dl H 04/07/19 0610 Bedside Blood Glucose 98 mg/dl 04/06/19 2100 Bedside Blood Glucose 246 mg/dl H 04/06/19 1702 Bedside Blood Glucose 216 mg/dl H 04/06/19 1141 Bedside Blood Glucose 91 mg/dl 04/06/19 0650 Objective Last 24 Hour Vital Signs Date Time Temp Pulse Resp B/P (MAP) Pulse Ox O2 Delivery O2 Flow Rate FiO2 04/07/19 06:38 83 30 99 Facial 35 04/07/19 06:00 132/54 04/07/19 04:00 30 04/07/19 04:00 97.9 83 19 132/54 (80) 93 04/07/19 04:00 80 04/07/19 01:36 80 34 97 Facial 35 04/07/19 00:00 30 04/07/19 00:00 98.7 93 20 147/65 (92) 93 04/07/19 00:00 94 04/06/19 23:51 88 29 96 Facial 35 04/06/19 23:36 147/65 04/06/19 21:48 83 26 96 Facial 35 04/06/19 21:31 85 20 99 Nasal Cannula 2.0 28 83 20 96 04/06/19 21:00 Bi-pap 04/06/19 20:00 90 04/06/19 20:00 98.0 88 19 158/87 (110) 96 04/06/19 20:00 2.0 04/06/19 17:22 97.2 84 20 160/78 (105) 99 04/06/19 16:00 2.0 04/06/19 15:50 81 04/06/19 12:00 97.2 78 20 159/78 (105) 99 04/06/19 12:00 2.0 04/06/19 11:44 81 04/06/19 09:00 Bi-pap 04/06/19 08:32 82 134/71 04/06/19 08:11 82 20 95 Nasal Cannula 3.0 32 04/06/19 08:00 2.0 04/06/19 07:49 82 04/06/19 07:42 98.2 80 20 134/71 (92) 99 Intake and Output 04/06/19 04/07/19 19:00 07:00 Intake Total 240 ml Output Total 2800 ml Balance -2560 ml Intake Oral 240 ml Hemodialysis UF 2800 ml # Bowel Movements 1 Height (Feet): 5 Height (Inches): 0.00 Weight (Pounds): 141 General Appearance: no apparent distress EENT: other - blind Neck: normal alignment Cardiovascular: normal rate Respiratory/Chest: decreased breath sounds Abdomen: normal bowel sounds Objective Current Medications Medications (Trade) Dose Ordered Sig/Sorne Route PRN Reason Start Time Stop Time Status Last Admin Dose Admin Acetaminophen (Tylenol) 650 mg Q6H PRN ORAL Pain Scale (3-5) 04/04/19 14:45 05/04/19 14:44 04/06/19 23:39 Albuterol/ Ipratropium (Albuterol/ Ipratropium) 3 ml Q4H PRN HHN Shortness of Breath 04/04/19 14:00 04/09/19 13:59 04/06/19 21:31 Amlodipine Besylate (Norvasc) 5 mg BID ORAL 04/04/19 18:00 05/04/19 17:59 04/05/19 18:08 Aspirin (Ecotrin) 81 mg DAILY ORAL 04/05/19 09:00 05/05/19 08:59 04/05/19 09:00 Chlorhexidine Gluconate (Di-Hex 2%) 1 applic DAILY@2000 TOPIC 04/06/19 20:00 05/06/19 19:59 04/06/19 20:20 Dextrose (Dextrose 50%) 25 ml Q30M PRN IV Hypoglycemia 04/04/19 14:30 05/04/19 14:29 Dextrose (Dextrose 50%) 50 ml Q30M PRN IV Hypoglycemia 04/04/19 14:30 05/04/19 14:29 Diphenhydramine HCl (Benadryl) 25 mg QHS PRN ORAL Insomnia 04/05/19 01:45 05/05/19 01:44 04/06/19 23:36 Epoetin Dimitry (Epoetin Dimitry(ESRD on dialysis)) 10,000 unit TUE-TUE-TUE SUBQ 04/04/19 21:00 05/04/19 20:59 04/06/19 20:46 Guaifenesin/ Dextromethorphan (Robitussin DM Syrup) 5 ml Q6H PRN ORAL For Cough 04/05/19 01:45 05/05/19 01:44 04/05/19 13:34 Heparin Sodium (Porcine) (Heparin 5000 units/ml) 5,000 units EVERY 12 HOURS SUBQ 04/04/19 21:00 05/04/19 20:59 04/05/19 09:00 Hydralazine HCl (Apresoline) 25 mg Q4H PRN ORAL SBP > 160mmHg 04/04/19 14:45 05/04/19 14:29 Hydralazine HCl (Apresoline) 25 mg Q6HR ORAL 04/04/19 18:00 05/04/19 17:59 04/06/19 23:36 Insulin Aspart (NovoLOG) BEFORE MEALS AND HS SUBQ 04/04/19 16:30 05/04/19 16:29 04/07/19 06:10 Levothyroxine Sodium (Synthroid) 125 mcg DAILY@0630 ORAL 04/07/19 06:30 05/07/19 06:29 Morphine Sulfate (Morphine Sulfate) 1 mg Q6H PRN IVP For Pain 04/07/19 07:00 04/14/19 06:59 Nitroglycerin (Ntg) 0.4 mg Q5M PRN SL Prn Chest Pain 04/07/19 07:00 05/07/19 06:59 Sevelamer Carbonate (Renvela) 2,400 mg THREE TIMES A DAY ORAL 04/06/19 13:00 05/06/19 12:59 04/06/19 17:03 Marck Iqbal MD Apr 07, 2019 07:20
[2019-04-07 08:00] VITALS: BP 152/68
[2019-04-07] MEDS: Aspirin EC 81mg tab ORAL SCH (09:00)
[2019-04-07] MEDS: Heparin 5000 units/ml inj SUBQ SCH ×2 (09:00→21:00)
[2019-04-07 12:00] VITALS: BP 147/67
--- NOTE | 2019-04-07 14:10 | Pulmonology Progress Note ---
Assessment/Plan Assessment/Plan Pulmonary Progress Note HPI Patient is a 48-year-old female with a history of ESRD on hemodialysis MWF admitted with shortness of breath and chest pain. Denies any recent fevers, chills, cough. Noted to have fluid overload and Pulmonary Congestion on CXR, Less SOB s/p HD sp thoracentesis, on PRN BiPAP PMH: ESRD, Diabetes, Hypertension, Hypertensive Heart Disease, Weakness PSH: Dialysis catheter insertion Allergies: Penicillin, Zosyn Social Hx: Denies drug or alcohol abuse Allergies: PENICILLINS (Verified Allergy, Unknown, 10/07/18) PIPERACILLIN (Verified Allergy, Unknown, 10/07/18) TAZOBACTAM (Verified Allergy, Unknown, 10/07/18) Physical Exam . Vital Signs Noted General: Awake and alert, breathing comfortably on O2 HEENT: NC/AT. EOMI. Chest Wall: No tenderness, no deformity. Permacath in the left upper chest Cardiovascular: RRR. S1 and S2 normal. No murmur appreciated Resp: Normal work of breathing. CTAB Abdomen: Abdomen is soft, nondistended. Nontender Skin: Intact. No abrasions, laceration or rash over the exposed skin MSK: Normal tone and bulk. Moving all extremities. No obvious deformity. Neuro: Awake and alert. Mentating appropriately. Impression: End stage renal disease Volume overload, Pulmonary edema improved s/p HD Pleural effusions - sp thoracentesis - 750ml Diabetes Hypertension Hypertensive Heart Disease Weakness Plan HD per Renal O2 PRN BiPAP PRN PPX Monitor labs [employer] medications Laboratory Tests Noted Test 04/04/19 09:40 White Blood Count 6.5 K/UL (4.8-10.8) Red Blood Count 2.85 M/UL (4.20-5.40) L Hemoglobin 9.3 G/DL (12.0-16.0) L Hematocrit 29.1 % (37.0-47.0) L Mean Corpuscular Volume 102 FL (80-99) H Mean Corpuscular Hemoglobin 32.9 PG (27.0-31.0) H Mean Corpuscular Hemoglobin Concent 32.2 G/DL (32.0-36.0) Red Cell Distribution Width 16.4 % (11.6-14.8) H Platelet Count 173 K/UL (150-450) Mean Platelet Volume 9.2 FL (6.5-10.1) Neutrophils (%) (Auto) 74.0 % (45.0-75.0) Lymphocytes (%) (Auto) 10.7 % (20.0-45.0) L Monocytes (%) (Auto) 8.2 % (1.0-10.0) Eosinophils (%) (Auto) 5.4 % (0.0-3.0) H Basophils (%) (Auto) 1.6 % (0.0-2.0) Sodium Level 131 MMOL/L (136-145) L Potassium Level 5.3 MMOL/L (3.5-5.1) H Chloride Level 90 MMOL/L (98-107) L Carbon Dioxide Level 26 MMOL/L (21-32) Anion Gap 15 mmol/L (5-15) Blood Urea Nitrogen 56 mg/dL (7-18) H Creatinine 5.0 MG/DL (0.55-1.30) H Estimate Glomerular Filtration Rate 9.1 mL/min (>60) Glucose Level 230 MG/DL (74-106) H Calcium Level 8.6 MG/DL (8.5-10.1) Total Bilirubin 1.1 MG/DL (0.2-1.0) H Direct Bilirubin 0.7 MG/DL (0.0-0.3) H Aspartate Amino Transferase (AST) 33 U/L (15-37) Alanine Aminotransferase (ALT) 34 U/L (12-78) Alkaline Phosphatase 874 U/L (46-116) H Troponin I 0.004 ng/mL (0.000-0.056) Pro-B-Type Natriuretic Peptide 53875 pg/mL (0-125) H Total Protein 8.6 G/DL (6.4-8.2) H Albumin 3.1 G/DL (3.4-5.0) L Globulin 5.5 g/dL Albumin/Globulin Ratio 0.6 (1.0-2.7) L EKG: Rate: normal Rhythm: NSR Sinus rhythm, normal axis, first-degree AV block with SD intervals [address] segment changes. Chest X-Ray: Bilateral moderate to severe pulmonary edema with bilateral effusions Subjective ROS Limited/Unobtainable: No Allergies: Coded Allergies: PENICILLINS (Verified Allergy, Unknown, 10/07/18) PIPERACILLIN (Verified Allergy, Unknown, 10/07/18) TAZOBACTAM (Verified Allergy, Unknown, 10/07/18) Objective Last 24 Hour Vital Signs Date Time Temp Pulse Resp B/P (MAP) Pulse Ox O2 Delivery O2 Flow Rate FiO2 04/07/19 13:18 81 24 98 Facial 35 04/07/19 12:00 97.9 79 29 147/67 (93) 99 04/07/19 12:00 30 04/07/19 12:00 147/67 04/07/19 11:40 78 04/07/19 10:56 86 29 99 Facial 35 04/07/19 10:55 80 19 98 Facial 35 04/07/19 09:00 83 152/68 04/07/19 09:00 Bi-pap 04/07/19 08:00 97.9 83 29 152/68 (96) 98 04/07/19 08:00 30 04/07/19 07:57 80 04/07/19 06:38 83 30 99 Facial 35 04/07/19 06:00 132/54 04/07/19 04:00 30 04/07/19 04:00 97.9 83 19 132/54 (80) 93 04/07/19 04:00 80 04/07/19 01:36 80 34 97 Facial 35 04/07/19 00:00 30 04/07/19 00:00 98.7 93 20 147/65 (92) 93 04/07/19 00:00 94 04/06/19 23:51 88 29 96 Facial 35 04/06/19 23:36 147/65 04/06/19 21:48 83 26 96 Facial 35 04/06/19 21:31 85 20 99 Nasal Cannula 2.0 28 83 20 96 04/06/19 21:00 Bi-pap 04/06/19 20:00 90 04/06/19 20:00 98.0 88 19 158/87 (110) 96 04/06/19 20:00 2.0 04/06/19 17:22 97.2 84 20 160/78 (105) 99 04/06/19 16:00 2.0 04/06/19 15:50 81 Intake and Output 04/06/19 04/07/19 19:00 07:00 Intake Total 240 ml Output Total 2800 ml Balance -2560 ml Intake Oral 240 ml Hemodialysis UF 2800 ml # Voids 2 # Bowel Movements 2 Current Medications Medications (Trade) Dose Ordered Sig/Soren Route PRN Reason Start Time Stop Time Status Last Admin Dose Admin Acetaminophen (Tylenol) 650 mg Q6H PRN ORAL Pain Scale (3-5) 04/04/19 14:45 05/04/19 14:44 04/06/19 23:39 Albuterol/ Ipratropium (Albuterol/ Ipratropium) 3 ml Q4H PRN HHN Shortness of Breath 04/04/19 14:00 04/09/19 13:59 04/06/19 21:31 Amlodipine Besylate (Norvasc) 5 mg BID ORAL 04/04/19 18:00 05/04/19 17:59 04/05/19 18:08 Aspirin (Ecotrin) 81 mg DAILY ORAL 04/05/19 09:00 05/05/19 08:59 04/05/19 09:00 Chlorhexidine Gluconate (Di-Hex 2%) 1 applic DAILY@1999 TOPIC 04/06/19 20:00 05/06/19 19:59 04/06/19 20:20 Dextrose (Dextrose 50%) 25 ml Q30M PRN IV Hypoglycemia 04/04/19 14:30 05/04/19 14:29 Dextrose (Dextrose 50%) 50 ml Q30M PRN IV Hypoglycemia 04/04/19 14:30 05/04/19 14:29 Diphenhydramine HCl (Benadryl) 25 mg QHS PRN ORAL Insomnia 04/05/19 01:45 05/05/19 01:44 04/06/19 23:36 Epoetin Dimitry (Epoetin Dimitry(ESRD on dialysis)) 10,000 unit TUE-TUE-TUE SUBQ 04/04/19 21:00 05/04/19 20:59 04/06/19 20:46 Guaifenesin/ Dextromethorphan (Robitussin DM Syrup) 5 ml Q6H PRN ORAL For Cough 04/05/19 01:45 05/05/19 01:44 04/05/19 13:34 Heparin Sodium (Porcine) (Heparin 5000 units/ml) 5,000 units EVERY 12 HOURS SUBQ 04/04/19 21:00 05/04/19 20:59 04/05/19 09:00 Hydralazine HCl (Apresoline) 25 mg Q4H PRN ORAL SBP > 160mmHg 04/04/19 14:45 05/04/19 14:29 Hydralazine HCl (Apresoline) 25 mg Q6HR ORAL 04/04/19 18:00 05/04/19 17:59 04/06/19 23:36 Insulin Aspart (NovoLOG) BEFORE MEALS AND HS SUBQ 04/04/19 16:30 05/04/19 16:29 04/07/19 06:10 Levothyroxine Sodium (Synthroid) 125 mcg DAILY@0630 ORAL 04/07/19 06:30 05/07/19 06:29 Morphine Sulfate (Morphine Sulfate) 1 mg Q6H PRN IVP For Pain 04/07/19 07:00 04/14/19 06:59 Nitroglycerin (Ntg) 0.4 mg Q5M PRN SL Prn Chest Pain 04/07/19 07:00 05/07/19 06:59 Sevelamer Carbonate (Renvela) 2,400 mg THREE TIMES A DAY ORAL 04/06/19 13:00 05/06/19 12:59 04/06/19 17:03 Roel Flood MD Apr 07, 2019 14:10
[2019-04-07 16:00] VITALS: BP 128/68
--- NOTE | 2019-04-07 17:21 | Nephrology Progress Note ---
Assessment/Plan Problem List: (1) ESRD (end stage renal disease) (2) Hyperkalemia (3) Pulmonary edema Assessment End stage renal disease Volume overload Hyperkalemia Pulmonary edema Pleuraleffusions Diabetes Hypertension Hypertensive Heart Disease Plan HD with UF ordered and done 04/04 , 04/06 and repeat 29/05 keep bp under control per pulmonary per orders Subjective ROS Limited/Unobtainable: No Constitutional: Reports: malaise Objective Objective Last 24 Hour Vital Signs Date Time Temp Pulse Resp B/P (MAP) Pulse Ox O2 Delivery O2 Flow Rate FiO2 04/07/19 17:03 128/68 04/07/19 17:03 79 128/68 04/07/19 16:00 98.1 79 24 128/68 (88) 98 04/07/19 16:00 30 04/07/19 13:18 81 24 98 Facial 35 04/07/19 12:00 97.9 79 29 147/67 (93) 99 04/07/19 12:00 30 04/07/19 12:00 147/67 04/07/19 11:40 78 04/07/19 10:56 86 29 99 Facial 35 04/07/19 10:55 80 19 98 Facial 35 04/07/19 09:00 83 152/68 04/07/19 09:00 Bi-pap 04/07/19 08:00 97.9 83 29 152/68 (96) 98 04/07/19 08:00 30 04/07/19 07:57 80 04/07/19 06:38 83 30 99 Facial 35 04/07/19 06:00 132/54 04/07/19 04:00 30 04/07/19 04:00 97.9 83 19 132/54 (80) 93 04/07/19 04:00 80 04/07/19 01:36 80 34 97 Facial 35 04/07/19 00:00 30 04/07/19 00:00 98.7 93 20 147/65 (92) 93 04/07/19 00:00 94 04/06/19 23:51 88 29 96 Facial 35 04/06/19 23:36 147/65 04/06/19 21:48 83 26 96 Facial 35 04/06/19 21:31 85 20 99 Nasal Cannula 2.0 28 83 20 96 04/06/19 21:00 Bi-pap 04/06/19 20:00 90 04/06/19 20:00 98.0 88 19 158/87 (110) 96 04/06/19 20:00 2.0 04/06/19 17:22 97.2 84 20 160/78 (105) 99 Intake and Output 04/06/19 04/07/19 19:00 07:00 Intake Total 240 ml Output Total 2800 ml Balance -2560 ml Intake Oral 240 ml Hemodialysis UF 2800 ml # Voids 2 # Bowel Movements 2 Height (Feet): 5 Height (Inches): 0.00 Weight (Pounds): 136 General Appearance: mild distress EENT: other - bipap Cardiovascular: normal rate Respiratory/Chest: decreased breath sounds Abdomen: distended Elvin Garcia MD Apr 07, 2019 17:21
--- NOTE | 2019-04-07 18:35 | Cardiology Progress Note ---
Assessment/Plan Assessment/Plan The patient is seen and examined, full consult note will be dictated. Objective Last 24 Hour Vital Signs Date Time Temp Pulse Resp B/P (MAP) Pulse Ox O2 Delivery O2 Flow Rate FiO2 04/07/19 17:38 85 29 97 Facial 35 04/07/19 17:03 128/68 04/07/19 17:03 79 128/68 04/07/19 16:00 98.1 79 24 128/68 (88) 98 04/07/19 16:00 30 04/07/19 15:30 81 04/07/19 13:18 81 24 98 Facial 35 04/07/19 12:00 97.9 79 29 147/67 (93) 99 04/07/19 12:00 30 04/07/19 12:00 147/67 04/07/19 11:40 78 04/07/19 10:56 86 29 99 Facial 35 04/07/19 10:55 80 19 98 Facial 35 04/07/19 09:00 83 152/68 04/07/19 09:00 Bi-pap 04/07/19 08:00 97.9 83 29 152/68 (96) 98 04/07/19 08:00 30 04/07/19 07:57 80 04/07/19 06:38 83 30 99 Facial 35 04/07/19 06:00 132/54 04/07/19 04:00 30 04/07/19 04:00 97.9 83 19 132/54 (80) 93 04/07/19 04:00 80 04/07/19 01:36 80 34 97 Facial 35 04/07/19 00:00 30 04/07/19 00:00 98.7 93 20 147/65 (92) 93 04/07/19 00:00 94 04/06/19 23:51 88 29 96 Facial 35 04/06/19 23:36 147/65 04/06/19 21:48 83 26 96 Facial 35 04/06/19 21:31 85 20 99 Nasal Cannula 2.0 28 83 20 96 04/06/19 21:00 Bi-pap 04/06/19 20:00 90 04/06/19 20:00 98.0 88 19 158/87 (110) 96 04/06/19 20:00 2.0 Intake and Output 04/06/19 04/07/19 19:00 07:00 Intake Total 240 ml Output Total 2800 ml Balance -2560 ml Intake Oral 240 ml Hemodialysis UF 2800 ml # Voids 2 # Bowel Movements 2 Amanuel Garcias MD Apr 07, 2019 18:35
[2019-04-07 20:00] VITALS: BP 150/77
[2019-04-07] MEDS: Dyna-Hex 2% Top Sol 2oz TOPIC SCH (20:00)
--- NOTE | 2019-04-07 21:30 | General Progress Note ---
Assessment/Plan Problem List: (1) Hyperkalemia ICD Codes: E87.5 - Hyperkalemia SNOMED: 93710838 (2) Volume overload ICD Codes: E87.70 - Fluid overload, unspecified SNOMED: 84589338 (3) Pulmonary edema ICD Codes: J81.1 - Chronic pulmonary edema SNOMED: 89224049 (4) ESRD (end stage renal disease) ICD Codes: N18.6 - End stage renal disease SNOMED: 25665998 Status: progressing Assessment/Plan: pulmonary edema is improving fluid overload improving hyperkalemia is borderline hypogylcemia hd per renal esrd Subjective ROS Limited/Unobtainable: Yes Allergies: Coded Allergies: PENICILLINS (Verified Allergy, Unknown, 10/07/18) PIPERACILLIN (Verified Allergy, Unknown, 10/07/18) TAZOBACTAM (Verified Allergy, Unknown, 10/07/18) Objective Last 24 Hour Vital Signs Date Time Temp Pulse Resp B/P (MAP) Pulse Ox O2 Delivery O2 Flow Rate FiO2 04/07/19 21:13 70 29 98 Facial 35 04/07/19 20:16 74 30 98 Facial 35 04/07/19 17:38 85 29 97 Facial 35 04/07/19 17:03 128/68 04/07/19 17:03 79 128/68 04/07/19 16:00 98.1 79 24 128/68 (88) 98 04/07/19 16:00 30 04/07/19 15:30 81 04/07/19 13:18 81 24 98 Facial 35 04/07/19 12:00 97.9 79 29 147/67 (93) 99 04/07/19 12:00 30 04/07/19 12:00 147/67 04/07/19 11:40 78 04/07/19 10:56 86 29 99 Facial 35 04/07/19 10:55 80 19 98 Facial 35 04/07/19 09:00 83 152/68 04/07/19 09:00 Bi-pap 04/07/19 08:00 97.9 83 29 152/68 (96) 98 04/07/19 08:00 30 04/07/19 07:57 80 04/07/19 06:38 83 30 99 Facial 35 04/07/19 06:00 132/54 04/07/19 04:00 30 04/07/19 04:00 97.9 83 19 132/54 (80) 93 04/07/19 04:00 80 04/07/19 01:36 80 34 97 Facial 35 04/07/19 00:00 30 04/07/19 00:00 98.7 93 20 147/65 (92) 93 04/07/19 00:00 94 04/06/19 23:51 88 29 96 Facial 35 04/06/19 23:36 147/65 04/06/19 21:48 83 26 96 Facial 35 04/06/19 21:31 85 20 99 Nasal Cannula 2.0 28 83 20 96 Intake and Output 04/06/19 04/07/19 19:00 07:00 Intake Total 240 ml Output Total 2800 ml Balance -2560 ml Intake Oral 240 ml Hemodialysis UF 2800 ml # Voids 2 # Bowel Movements 2 Height (Feet): 5 Height (Inches): 0.00 Weight (Pounds): 136 Neck: supple Cardiovascular: normal rate Respiratory/Chest: lungs clear Kimberlee Guzman MD Apr 07, 2019 21:30
[2019-04-08] VITALS: BP 155/75
[2019-04-08] MEDS: HydrALAZINE 25mg tab ORAL SCH ×4 (00:01→17:56)
[2019-04-08 04:00] VITALS: BP 150/73
[2019-04-08] MEDS: Levothyroxine 125mcg tab ORAL SCH (05:50)
[2019-04-08] MEDS: NovoLOG Insulin Flexpen SUBQ SCH ×4 (05:52→21:00)
[2019-04-08 08:00] VITALS: BP 130/82
[2019-04-08] MEDS: Heparin 5000 units/ml inj SUBQ SCH ×2 (09:00→21:00)
[2019-04-08] MEDS: Aspirin EC 81mg tab ORAL SCH (09:00)
--- NOTE | 2019-04-08 09:37 | Nephrology Progress Note ---
Assessment/Plan Problem List: (1) ESRD (end stage renal disease) (2) Hyperkalemia (3) Pulmonary edema Assessment End stage renal disease Volume overload Hyperkalemia Pulmonary edema Pleuraleffusions Diabetes Hypertension Hypertensive Heart Disease Plan Refuses blood draw HD with UF ordered and done 04/04 , 04/06 and repeat 29/05 keep bp under control per pulmonary per orders Subjective ROS Limited/Unobtainable: No Constitutional: Reports: malaise Objective Objective Last 24 Hour Vital Signs Date Time Temp Pulse Resp B/P (MAP) Pulse Ox O2 Delivery O2 Flow Rate FiO2 04/08/19 09:00 76 130/82 04/08/19 08:05 81 29 96 Facial 35 04/08/19 07:08 71 19 95 3.0 32 04/08/19 05:50 150/73 04/08/19 05:01 95 3.0 32 04/08/19 04:00 30 04/08/19 04:00 69 04/08/19 04:00 97.5 78 21 150/73 (98) 95 04/08/19 03:30 72 27 98 Facial 35 04/08/19 01:41 70 30 97 Facial 35 04/08/19 00:01 150/77 04/08/19 00:00 68 04/08/19 00:00 97.8 78 23 155/75 (101) 97 04/08/19 00:00 30 04/07/19 23:30 72 28 98 Facial 35 04/07/19 21:13 70 29 98 Facial 35 04/07/19 21:00 Bi-pap 04/07/19 20:16 74 30 98 Facial 35 04/07/19 20:00 97.5 75 22 150/77 (101) 94 04/07/19 20:00 76 04/07/19 20:00 30 04/07/19 17:38 85 29 97 Facial 35 04/07/19 17:03 128/68 04/07/19 17:03 79 128/68 04/07/19 16:00 98.1 79 24 128/68 (88) 98 04/07/19 16:00 30 04/07/19 15:30 81 04/07/19 13:18 81 24 98 Facial 35 04/07/19 12:00 97.9 79 29 147/67 (93) 99 04/07/19 12:00 30 04/07/19 12:00 147/67 04/07/19 11:40 78 04/07/19 10:56 86 29 99 Facial 35 04/07/19 10:55 80 19 98 Facial 35 Intake and Output 04/07/19 04/08/19 19:00 07:00 Intake Total 300 ml Balance 300 ml Intake Oral 300 ml # Bowel Movements 1 1 Height (Feet): 5 Height (Inches): 0.00 Weight (Pounds): 137 General Appearance: mild distress EENT: other - BIPAP Cardiovascular: normal rate Respiratory/Chest: decreased breath sounds Abdomen: distended Elvin Garcia MD Apr 08, 2019 09:37
--- NOTE | 2019-04-08 11:51 | General Progress Note ---
Assessment/Plan Problem List: (1) Hyperkalemia ICD Codes: E87.5 - Hyperkalemia SNOMED: 63751287 (2) Volume overload ICD Codes: E87.70 - Fluid overload, unspecified SNOMED: 99764811 (3) Pulmonary edema ICD Codes: J81.1 - Chronic pulmonary edema SNOMED: 99793855 (4) ESRD (end stage renal disease) ICD Codes: N18.6 - End stage renal disease SNOMED: 91573203 Status: progressing Assessment/Plan: pulmonary edema is improving fluid overload improving hyperkalemia i hypogylcemia hd per renal esrd no changes check labs and labs and vitals Subjective ROS Limited/Unobtainable: Yes Allergies: Coded Allergies: PENICILLINS (Verified Allergy, Unknown, 10/07/18) PIPERACILLIN (Verified Allergy, Unknown, 10/07/18) TAZOBACTAM (Verified Allergy, Unknown, 10/07/18) Objective Last 24 Hour Vital Signs Date Time Temp Pulse Resp B/P (MAP) Pulse Ox O2 Delivery O2 Flow Rate FiO2 04/08/19 11:00 76 28 100 Facial 35 04/08/19 09:00 76 130/82 04/08/19 08:05 81 29 96 Facial 35 04/08/19 07:08 71 19 95 3.0 32 04/08/19 05:50 150/73 04/08/19 05:01 95 3.0 32 04/08/19 04:00 30 04/08/19 04:00 69 04/08/19 04:00 97.5 78 21 150/73 (98) 95 04/08/19 03:30 72 27 98 Facial 35 04/08/19 01:41 70 30 97 Facial 35 04/08/19 00:01 150/77 04/08/19 00:00 68 04/08/19 00:00 97.8 78 23 155/75 (101) 97 04/08/19 00:00 30 04/07/19 23:30 72 28 98 Facial 35 04/07/19 21:13 70 29 98 Facial 35 04/07/19 21:00 Bi-pap 04/07/19 20:16 74 30 98 Facial 35 04/07/19 20:00 97.5 75 22 150/77 (101) 94 04/07/19 20:00 76 04/07/19 20:00 30 04/07/19 17:38 85 29 97 Facial 35 04/07/19 17:03 128/68 04/07/19 17:03 79 128/68 04/07/19 16:00 98.1 79 24 128/68 (88) 98 04/07/19 16:00 30 04/07/19 15:30 81 04/07/19 13:18 81 24 98 Facial 35 04/07/19 12:00 97.9 79 29 147/67 (93) 99 04/07/19 12:00 30 04/07/19 12:00 147/67 Intake and Output 04/07/19 04/08/19 19:00 07:00 Intake Total 300 ml Balance 300 ml Intake Oral 300 ml # Bowel Movements 1 1 Height (Feet): 5 Height (Inches): 0.00 Weight (Pounds): 137 Neck: supple Cardiovascular: normal rate Respiratory/Chest: lungs clear Kimberlee Guzman MD Apr 08, 2019 11:51
[2019-04-08 12:00] VITALS: BP 156/81
--- NOTE | 2019-04-08 13:30 | General Progress Note ---
Assessment/Plan Problem List: (1) Hypothyroid ICD Codes: E03.9 - Hypothyroidism, unspecified SNOMED: 64925670 (2) Hypoglycemia ICD Codes: E16.2 - Hypoglycemia, unspecified SNOMED: 360134287 (3) Volume overload ICD Codes: E87.70 - Fluid overload, unspecified SNOMED: 58608538 (4) ESRD (end stage renal disease) ICD Codes: N18.6 - End stage renal disease SNOMED: 46350613 (5) Pulmonary edema ICD Codes: J81.1 - Chronic pulmonary edema SNOMED: 23250240 (6) Hyperkalemia ICD Codes: E87.5 - Hyperkalemia SNOMED: 32462567 (7) Diabetes mellitus out of control ICD Codes: E11.65 - Type 2 diabetes mellitus with hyperglycemia SNOMED: 01890660, 553269038 Status: progressing Assessment/Plan: continue to hold Glipizide and do not resume as OP glucose check - Novolog low dose coverage hypoglycemia protocol in order TSH is elevated due to non compliance continue Levothyroxine 125 mcg daily Subjective Allergies: Coded Allergies: PENICILLINS (Verified Allergy, Unknown, 10/07/18) PIPERACILLIN (Verified Allergy, Unknown, 10/07/18) TAZOBACTAM (Verified Allergy, Unknown, 10/07/18) All Systems: reviewed and negative except above Subjective events noted no more hypoglycemia - glucose values are stable Item Value Date Time Bedside Blood Glucose 159 mg/dl H 04/08/19 1221 Bedside Blood Glucose 126 mg/dl H 04/08/19 0630 Bedside Blood Glucose 74 mg/dl 04/07/19 2100 Bedside Blood Glucose 180 mg/dl H 04/07/19 1702 Bedside Blood Glucose 113 mg/dl 04/07/19 1130 Objective Last 24 Hour Vital Signs Date Time Temp Pulse Resp B/P (MAP) Pulse Ox O2 Delivery O2 Flow Rate FiO2 04/08/19 12:00 156/81 04/08/19 11:00 76 28 100 Facial 35 04/08/19 09:00 76 130/82 04/08/19 08:05 81 29 96 Facial 35 04/08/19 07:08 71 19 95 3.0 32 04/08/19 05:50 150/73 04/08/19 05:01 95 3.0 32 04/08/19 04:00 30 04/08/19 04:00 69 04/08/19 04:00 97.5 78 21 150/73 (98) 95 04/08/19 03:30 72 27 98 Facial 35 04/08/19 01:41 70 30 97 Facial 35 04/08/19 00:01 150/77 04/08/19 00:00 68 04/08/19 00:00 97.8 78 23 155/75 (101) 97 04/08/19 00:00 30 04/07/19 23:30 72 28 98 Facial 35 04/07/19 21:13 70 29 98 Facial 35 04/07/19 21:00 Bi-pap 04/07/19 20:16 74 30 98 Facial 35 04/07/19 20:00 97.5 75 22 150/77 (101) 94 04/07/19 20:00 76 04/07/19 20:00 30 04/07/19 17:38 85 29 97 Facial 35 04/07/19 17:03 128/68 04/07/19 17:03 79 128/68 04/07/19 16:00 98.1 79 24 128/68 (88) 98 04/07/19 16:00 30 04/07/19 15:30 81 Intake and Output 04/07/19 04/08/19 19:00 07:00 Intake Total 300 ml Balance 300 ml Intake Oral 300 ml # Bowel Movements 1 1 Height (Feet): 5 Height (Inches): 0.00 Weight (Pounds): 137 General Appearance: no apparent distress Neck: normal alignment Cardiovascular: normal rate Respiratory/Chest: lungs clear Abdomen: normal bowel sounds Edema: no edema noted Arm (L), no edema noted Arm (R), no edema noted Leg (L), no edema noted Leg (R), no edema noted Pedal (L), no edema noted Pedal (R), no edema noted Generalized Objective Current Medications Medications (Trade) Dose Ordered Sig/Soren Route PRN Reason Start Time Stop Time Status Last Admin Dose Admin Acetaminophen (Tylenol) 650 mg Q6H PRN ORAL Pain Scale (3-5) 04/04/19 14:45 05/04/19 14:44 04/06/19 23:39 Albuterol/ Ipratropium (Albuterol/ Ipratropium) 3 ml Q4H PRN HHN Shortness of Breath 04/04/19 14:00 04/09/19 13:59 04/06/19 21:31 Amlodipine Besylate (Norvasc) 5 mg BID ORAL 04/04/19 18:00 05/04/19 17:59 04/07/19 17:03 Aspirin (Ecotrin) 81 mg DAILY ORAL 04/05/19 09:00 05/05/19 08:59 04/05/19 09:00 Chlorhexidine Gluconate (Di-Hex 2%) 1 applic DAILY@2000 TOPIC 04/06/19 20:00 05/06/19 19:59 04/06/19 20:20 Dextrose (Dextrose 50%) 25 ml Q30M PRN IV Hypoglycemia 04/04/19 14:30 05/04/19 14:29 Dextrose (Dextrose 50%) 50 ml Q30M PRN IV Hypoglycemia 04/04/19 14:30 05/04/19 14:29 Diphenhydramine HCl (Benadryl) 25 mg QHS PRN ORAL Insomnia 04/05/19 01:45 05/05/19 01:44 04/06/19 23:36 Epoetin Dimitry (Epoetin Dimitry(ESRD on dialysis)) 10,000 unit TUE-TUE-TUE SUBQ 04/04/19 21:00 05/04/19 20:59 04/06/19 20:46 Guaifenesin/ Dextromethorphan (Robitussin DM Syrup) 5 ml Q6H PRN ORAL For Cough 04/05/19 01:45 05/05/19 01:44 04/05/19 13:34 Heparin Sodium (Porcine) (Heparin 5000 units/ml) 5,000 units EVERY 12 HOURS SUBQ 04/04/19 21:00 05/04/19 20:59 04/05/19 09:00 Hydralazine HCl (Apresoline) 25 mg Q4H PRN ORAL SBP > 160mmHg 04/04/19 14:45 05/04/19 14:29 Hydralazine HCl (Apresoline) 25 mg Q6HR ORAL 04/04/19 18:00 05/04/19 17:59 04/08/19 05:50 Insulin Aspart (NovoLOG) BEFORE MEALS AND HS SUBQ 04/04/19 16:30 05/04/19 16:29 04/08/19 12:21 Levothyroxine Sodium (Synthroid) 125 mcg DAILY@0630 ORAL 04/07/19 06:30 05/07/19 06:29 04/08/19 05:50 Morphine Sulfate (Morphine Sulfate) 1 mg Q6H PRN IVP For Pain 04/07/19 07:00 04/14/19 06:59 Nitroglycerin (Ntg) 0.4 mg Q5M PRN SL Prn Chest Pain 04/07/19 07:00 05/07/19 06:59 Sevelamer Carbonate (Renvela) 2,400 mg THREE TIMES A DAY ORAL 04/06/19 13:00 05/06/19 12:59 04/08/19 12:21 Marck Iqbal MD Apr 08, 2019 13:30
[2019-04-08 14:01] LABS: HEMOGLOBIN 7.6 G/DL (12.0-16.0); MEAN CORPUSCULAR VOLUME 103 FL (80-99); PLATELET COUNT 197 K/UL (150-450); RED BLOOD COUNT 2.33 M/UL (4.20-5.40); RED CELL DISTRIBUTION WIDTH 15.6 % (11.6-14.8); WHITE BLOOD COUNT 7.1 K/UL (4.8-10.8)
[2019-04-08 14:24] LABS: ALANINE AMINOTRANSFERASE 22 U/L (12-78); ALBUMIN 2.5 G/DL (3.4-5.0); ALBUMIN/GLOBULIN RATIO 0.6 (1.0-2.7); ALKALINE PHOSPHATASE 547 U/L (46-116); ANION GAP 7 mmol/L (5-15); ASPARTATE AMINO TRANSFERASE 25 U/L (15-37); BILIRUBIN,TOTAL 0.8 MG/DL (0.2-1.0); BLOOD UREA NITROGEN 43 mg/dL (7-18); CARBON DIOXIDE 31 MMOL/L (21-32); CHLORIDE 96 MMOL/L (98-107); PHOSPHORUS 5.8 MG/DL (2.5-4.9); SODIUM 134 MMOL/L (136-145)
--- NOTE | 2019-04-08 14:41 | Pulmonology Progress Note ---
Assessment/Plan Assessment/Plan Pulmonary Progress Note HPI Patient is a 48-year-old female with a history of ESRD on hemodialysis MWF admitted with shortness of breath and chest pain. Denies any recent fevers, chills, cough. Noted to have fluid overload and Pulmonary Congestion on CXR, Less SOB s/p HD sp thoracentesis, on PRN BiPAP PMH: ESRD, Diabetes, Hypertension, Hypertensive Heart Disease, Weakness PSH: Dialysis catheter insertion Allergies: Penicillin, Zosyn Social Hx: Denies drug or alcohol abuse Allergies: PENICILLINS (Verified Allergy, Unknown, 10/07/18) PIPERACILLIN (Verified Allergy, Unknown, 10/07/18) TAZOBACTAM (Verified Allergy, Unknown, 10/07/18) Physical Exam . Vital Signs Noted General: Awake and alert, breathing comfortably on O2, PRN BiPAP HEENT: NC/AT. EOMI. Chest Wall: No tenderness, no deformity. Permacath in the left upper chest Cardiovascular: RRR. S1 and S2 normal. No murmur appreciated Resp: Normal work of breathing. CTAB Abdomen: Abdomen is soft, nondistended. Nontender Skin: Intact. No abrasions, laceration or rash over the exposed skin MSK: Normal tone and bulk. Moving all extremities. No obvious deformity. Neuro: Awake and alert. Mentating appropriately. Impression: End stage renal disease Volume overload, Pulmonary edema improved s/p HD Pleural effusions - sp thoracentesis - 750ml Diabetes Hypertension Hypertensive Heart Disease Weakness Plan HD per Renal O2 PRN BiPAP PRN PPX Monitor labs [facility] medications Laboratory Tests Noted EKG: Rate: normal Rhythm: NSR Sinus rhythm, normal axis, first-degree AV block with LA intervals [address] segment changes. Chest X-Ray: Bilateral moderate to severe pulmonary edema with bilateral effusions Subjective ROS Limited/Unobtainable: No Allergies: Coded Allergies: PENICILLINS (Verified Allergy, Unknown, 10/07/18) PIPERACILLIN (Verified Allergy, Unknown, 10/07/18) TAZOBACTAM (Verified Allergy, Unknown, 10/07/18) Objective Last 24 Hour Vital Signs Date Time Temp Pulse Resp B/P (MAP) Pulse Ox O2 Delivery O2 Flow Rate FiO2 04/08/19 12:00 156/81 04/08/19 11:00 76 28 100 Facial 35 04/08/19 09:00 76 130/82 04/08/19 08:05 81 29 96 Facial 35 04/08/19 07:08 71 19 95 3.0 32 04/08/19 05:50 150/73 04/08/19 05:01 95 3.0 32 04/08/19 04:00 30 04/08/19 04:00 69 04/08/19 04:00 97.5 78 21 150/73 (98) 95 04/08/19 03:30 72 27 98 Facial 35 04/08/19 01:41 70 30 97 Facial 35 04/08/19 00:01 150/77 04/08/19 00:00 68 04/08/19 00:00 97.8 78 23 155/75 (101) 97 04/08/19 00:00 30 04/07/19 23:30 72 28 98 Facial 35 04/07/19 21:13 70 29 98 Facial 35 04/07/19 21:00 Bi-pap 04/07/19 20:16 74 30 98 Facial 35 04/07/19 20:00 97.5 75 22 150/77 (101) 94 04/07/19 20:00 76 04/07/19 20:00 30 04/07/19 17:38 85 29 97 Facial 35 04/07/19 17:03 128/68 04/07/19 17:03 79 128/68 04/07/19 16:00 98.1 79 24 128/68 (88) 98 04/07/19 16:00 30 04/07/19 15:30 81 Intake and Output 04/07/19 04/08/19 19:00 07:00 Intake Total 300 ml Balance 300 ml Intake Oral 300 ml # Bowel Movements 1 1 Laboratory Tests 04/08/19 13:45: White Blood Count 7.1, Red Blood Count 2.33L, Hemoglobin 7.6L, Hematocrit 24.0L , Mean Corpuscular Volume 103H, Mean Corpuscular Hemoglobin 32.4H, Mean Corpuscular Hemoglobin Concent 31.5L, Red Cell Distribution Width 15.6H, Platelet Count 197, Mean Platelet Volume 6.8, Neutrophils (%) (Auto) , Lymphocytes (%) (Auto) , Monocytes (%) (Auto) , Eosinophils (%) (Auto) , Basophils (%) (Auto) , Differential Total Cells Counted 100, Neutrophils % ( Manual) 69, Lymphocytes % (Manual) 14L, Monocytes % (Manual) 14H, Eosinophils % (Manual) 3, Basophils % (Manual) 0, Band Neutrophils 0, Platelet Estimate Adequate, Platelet Morphology Normal, Polychromasia 1+, Hypochromasia 1+, Anisocytosis 1+, Macrocytosis 1+, Sodium Level 134L, Potassium Level 5.0, Chloride Level 96L, Carbon Dioxide Level 31, Anion Gap 7, Blood Urea Nitrogen 43H, Creatinine 5.0H, Estimat Glomerular Filtration Rate 9.1, Glucose Level 143H , Uric Acid 5.3, Calcium Level 8.0L, Phosphorus Level 5.8H, Magnesium Level 2.6H , Total Bilirubin 0.8, Aspartate Amino Transf (AST/SGOT) 25, Alanine Aminotransferase (ALT/SGPT) 22, Alkaline Phosphatase 547H, Total Protein 7.0, Albumin 2.5L, Globulin 4.5, Albumin/Globulin Ratio 0.6L Current Medications Medications (Trade) Dose Ordered Sig/Soren Route PRN Reason Start Time Stop Time Status Last Admin Dose Admin Acetaminophen (Tylenol) 650 mg Q6H PRN ORAL Pain Scale (3-5) 04/04/19 14:45 05/04/19 14:44 04/06/19 23:39 Albuterol/ Ipratropium (Albuterol/ Ipratropium) 3 ml Q4H PRN HHN Shortness of Breath 04/04/19 14:00 04/09/19 13:59 04/06/19 21:31 Amlodipine Besylate (Norvasc) 5 mg BID ORAL 04/04/19 18:00 05/04/19 17:59 04/07/19 17:03 Aspirin (Ecotrin) 81 mg DAILY ORAL 04/05/19 09:00 05/05/19 08:59 04/05/19 09:00 Chlorhexidine Gluconate (Di-Hex 2%) 1 applic DAILY@1999 TOPIC 04/06/19 20:00 05/06/19 19:59 04/06/19 20:20 Dextrose (Dextrose 50%) 25 ml Q30M PRN IV Hypoglycemia 04/04/19 14:30 05/04/19 14:29 Dextrose (Dextrose 50%) 50 ml Q30M PRN IV Hypoglycemia 04/04/19 14:30 05/04/19 14:29 Diphenhydramine HCl (Benadryl) 25 mg QHS PRN ORAL Insomnia 04/05/19 01:45 05/05/19 01:44 04/06/19 23:36 Epoetin Dimitry (Epoetin Dimitry(ESRD on dialysis)) 10,000 unit TUE-TUE-TUE SUBQ 04/04/19 21:00 05/04/19 20:59 04/06/19 20:46 Guaifenesin/ Dextromethorphan (Robitussin DM Syrup) 5 ml Q6H PRN ORAL For Cough 04/05/19 01:45 05/05/19 01:44 04/05/19 13:34 Heparin Sodium (Porcine) (Heparin 5000 units/ml) 5,000 units EVERY 12 HOURS SUBQ 04/04/19 21:00 05/04/19 20:59 04/05/19 09:00 Hydralazine HCl (Apresoline) 25 mg Q4H PRN ORAL SBP > 160mmHg 04/04/19 14:45 05/04/19 14:29 Hydralazine HCl (Apresoline) 25 mg Q6HR ORAL 04/04/19 18:00 05/04/19 17:59 04/08/19 05:50 Insulin Aspart (NovoLOG) BEFORE MEALS AND HS SUBQ 04/04/19 16:30 05/04/19 16:29 04/08/19 12:21 Levothyroxine Sodium (Synthroid) 125 mcg DAILY@0630 ORAL 04/07/19 06:30 05/07/19 06:29 04/08/19 05:50 Morphine Sulfate (Morphine Sulfate) 1 mg Q6H PRN IVP For Pain 04/07/19 07:00 04/14/19 06:59 Nitroglycerin (Ntg) 0.4 mg Q5M PRN SL Prn Chest Pain 04/07/19 07:00 05/07/19 06:59 Sevelamer Carbonate (Renvela) 2,400 mg THREE TIMES A DAY ORAL 04/06/19 13:00 05/06/19 12:59 04/08/19 12:21 Roel Flood MD Apr 08, 2019 14:41
--- NOTE | 2019-04-08 15:15 | Consultation ---
DATE OF CONSULTATION: 04/07/2019 CARDIOLOGY CONSULTATION CONSULTING PHYSICIAN: Amanuel Garcias M.D. REFERRING PHYSICIAN: Kimberlee Guzman M.D. REASON FOR CONSULTATION: Management of chest pain. HISTORY OF PRESENT ILLNESS: The patient is a very unfortunate 48-year-old lady who presents to the hospital for management and evaluation of chest pain. The patient has history of end-stage renal disease on hemodialysis Mondays, Wednesdays, and Fridays. The patient at the time of arrival to this facility was found to have shortness of breath and was hypoxic with O2 saturations in the 70s. Oxygenation improved on non-rebreather mask. Chest x-ray in the emergency department was significant for near whiteout due to massive right pleural effusion as well left pleural effusion in addition to bilateral interstitial airspace infiltration. Dialysis catheter was also evident. On arrival to the emergency department, initial blood pressure was 187/92 mmHg and heart rate was 83. A 12-lead electrocardiogram was significant for sinus rhythm with a first-degree AV block, but no acute ST and T-wave abnormalities. The patient was admitted to telemetry for further evaluation and management. Cardiology consultation was made at the request of Dr. Guzman for evaluation and management of chest pain. PAST MEDICAL HISTORY: 1. End-stage renal disease. 2. Hypertension. 3. Diabetes mellitus. 4. Hypertensive heart disease. PAST SURGICAL HISTORY: Dialysis catheter insertion. ALLERGIES: Penicillin derivatives. MEDICATIONS: List of medications are acetaminophen 650 mg q.4 h. p.r.n. mild pain, amlodipine 10 mg daily, aspirin 81 mg daily, clonidine 0.1 mg q.6 h. p.r.n. systolic blood pressure above 160, glipizide 5 mg daily, Robitussin cough, insulin Humalog, DuoNeb 3 mL HHN q.6 h. p.r.n. shortness of breath, isosorbide mononitrate 60 mg daily, levothyroxine 50 mcg p.o. daily, lisinopril 5 mg twice daily, and nitroglycerin 0.4 mg every 5 minutes x3 dose p.r.n. chest pain. SOCIAL HISTORY: Denies any tobacco, alcohol, or illicit drug use. REVIEW OF SYSTEMS: A 12-system review done, essentially negative except what was mentioned in the history of present illness. PHYSICAL EXAMINATION: VITAL SIGNS: Blood pressure at the time of my evaluation was 150/77, pulse of 75, temperature 97.5 degrees Fahrenheit, and respirations of 22. O2 saturation was 94% on FiO2 of 30%. GENERAL: The patient is a very chronic ill-appearing 48-year-old female on non-rebreather mask, moaning most of the time during physical examination, not verbally communicating, in [id number] respiratory distress. HEENT: Atraumatic and normocephalic. Anicteric. Pupils are equal, round, and reactive to light and accommodation. Extraocular muscles intact. NECK: JVP less than 5 cm. No carotid bruit. Carotid upstrokes 2+ bilaterally. CARDIOVASCULAR: Normal S1 and S2. Regular rate and rhythm. No murmurs, gallops, or rubs. PMI is at fourth intercostal space in the midclavicular line. LUNGS: Diminished breath sounds in both bases. ABDOMEN: Soft, nontender, and nondistended. No hepatosplenomegaly. Positive bowel sounds. EXTREMITIES: There is no edema, clubbing, or cyanosis. LABORATORY FINDINGS: WBC was 6.7, hemoglobin 8.1, hematocrit 24.9, and platelet count 156,000. Sodium 137, potassium 5.2, chloride 98, bicarbonate 28, BUN 51, and creatinine 5.0. Glucose is 55. Calcium is 8.3. Troponin I was 0.004. ProBNP was 11,214. TSH was 5.1. INR was 1.1. ABG showed hypoxic respiratory failure. ASSESSMENT AND PLAN: The patient is a very unfortunate 48-year-old female, who is seen in Cardiology consultation. 1. Chest pain. This is most likely due to her underlying pulmonary pathology including bilateral pleural effusion. The patient had thoracentesis removing 750 mL of fluid from the right pleural cavity. The last 2-D echocardiography in this patient had shown evidence of cardiomyopathy with LVEF of 40% to 45% due to septal wall hypokinesia, which was felt to be secondary to RV pressure overload. There was no other wall motion abnormalities. This patient, however, is considered to be a high risk for having coronary artery disease in view of many risk factors for coronary artery disease including diabetes mellitus, hypertension, and presence of end-stage renal disease. First troponin I level is negative. She may benefit from an ischemic workup some time in the future once she is hemodynamically stable. 2. Acute on chronic diastolic congestive heart failure with presence of severe elevation of intracardiac filling pressure. The patient requires to be on aggressive hemodialysis as well as afterload reduction. 3. Severe pulmonary hypertension due to end-stage renal disease and left heart failure, i.e. diastolic congestive heart failure. 4. Diabetes mellitus. Aspirin and statin for prevention of progressive vasculopathy. 5. Hypertensive crisis. We will continue aggressive preload and afterload reduction. I would like to thank Dr. Guzman for the courtesy of this consultation. Amanuel Garcias M.D. DR: BOB JOB#: [id number] CC:
[2019-04-08 16:00] VITALS: BP 156/79
--- NOTE | 2019-04-08 19:31 | Hematology/Onc Progress Note ---
Assessment/Plan Assessment/Plan Assessment and Recs: # Anemia due to underlying chronic disease, multifactorial, does have a hx of esrd, ferritin in the past was 1004 --> anemia panel has been reviewed from prior adm --> hgb goal is >7, transfuse prn --> on epogen as per renal --> diuresis may help anemia as well, negative fluid balance --> smear has been reviewed and no schistocytes noted --> hgb trend 9.3-->8.1->7.4 --> REFUSING PRBC TRANSFUSIONs # Hyperproteinemia, on admission protein is >9 --> at this time can be 2/2 inflammatory process --> if negative, consider get upep --> spep reviewed from before # Thrombocytopenia likely related to infection/chf --> in prior was negative --> reviewed and us abd neg # Acute respiratory failure secondary to CHF --> diuresis as per cards --> pulm has evaluated, breathing rx --> hd will help as well # Bradycardia --> per cards # Esrd requiring HD --> as per renal --> continue 3x a week # Pleural effusions --> likely related to overload # Noncompliance, refusing labs, meds # Dvt ppx scds Time of note does not necessarily correspond to then patient was seen. Greatly appreciate consultation. Subjective HEENT: Denies: no symptoms, eye pain, blurred vision, tearing, double vision, ear pain, ear discharge, nose pain, nose congestion, throat pain, throat swelling, mouth pain, mouth swelling, other Cardiovascular: Denies: no symptoms, chest pain, edema, irregular heart rate, lightheadedness, palpitations, syncope, other Respiratory: Denies: no symptoms, cough, shortness of breath, SOB with excertion, SOB at rest, sputum, wheezing, other Gastrointestinal/Abdominal: Denies: no symptoms, abdomen distended, abdominal pain, black stools, tarry stools, blood in stool, constipated, diarrhea, difficulty swallowing, nausea, poor appetite, poor fluid intake, rectal bleeding , vomiting, other Genitourinary: Denies: no symptoms, burning, discharge, frequency, flank pain, hematuria, incontinence, pain, urgency, other Neurologic/Psychiatric: Denies: no symptoms, anxiety, depressed, emotional problems, headache, numbness, paresthesia, pre-existing deficit, seizure, tingling, tremors, weakness, other Endocrine: Denies: no symptoms, excessive sweating, flushing, intolerance to cold, intolerance to heat, increased hunger, increased thirst, increased urine, unexplained weight gain, unexplained weight loss, other Allergies: Coded Allergies: PENICILLINS (Verified Allergy, Unknown, 10/07/18) PIPERACILLIN (Verified Allergy, Unknown, 10/07/18) TAZOBACTAM (Verified Allergy, Unknown, 10/07/18) Subjective 04/08: no major changes, hgb low, but she is refusing prbc transf Objective Objective Current Medications Medications (Trade) Dose Ordered Sig/Soren Route PRN Reason Start Time Stop Time Status Last Admin Dose Admin Acetaminophen (Tylenol) 650 mg Q6H PRN ORAL Pain Scale (3-5) 04/04/19 14:45 05/04/19 14:44 04/06/19 23:39 Albuterol/ Ipratropium (Albuterol/ Ipratropium) 3 ml Q4H PRN HHN Shortness of Breath 04/04/19 14:00 04/09/19 13:59 04/06/19 21:31 Amlodipine Besylate (Norvasc) 5 mg BID ORAL 04/04/19 18:00 05/04/19 17:59 04/08/19 17:56 Aspirin (Ecotrin) 81 mg DAILY ORAL 04/05/19 09:00 05/05/19 08:59 04/05/19 09:00 Chlorhexidine Gluconate (Di-Hex 2%) 1 applic DAILY@1999 TOPIC 04/06/19 20:00 05/06/19 19:59 04/06/19 20:20 Dextrose (Dextrose 50%) 25 ml Q30M PRN IV Hypoglycemia 04/04/19 14:30 05/04/19 14:29 Dextrose (Dextrose 50%) 50 ml Q30M PRN IV Hypoglycemia 04/04/19 14:30 05/04/19 14:29 Diphenhydramine HCl (Benadryl) 25 mg QHS PRN ORAL Insomnia 04/05/19 01:45 05/05/19 01:44 04/06/19 23:36 Epoetin Dimitry (Epoetin Dimitry(ESRD on dialysis)) 10,000 unit TUE-TUE-FRI SUBQ 04/04/19 21:00 05/04/19 20:59 04/06/19 20:46 Guaifenesin/ Dextromethorphan (Robitussin DM Syrup) 5 ml Q6H PRN ORAL For Cough 04/05/19 01:45 05/05/19 01:44 04/05/19 13:34 Heparin Sodium (Porcine) (Heparin 5000 units/ml) 5,000 units EVERY 12 HOURS SUBQ 04/04/19 21:00 05/04/19 20:59 04/05/19 09:00 Hydralazine HCl (Apresoline) 25 mg Q4H PRN ORAL SBP > 160mmHg 04/04/19 14:45 05/04/19 14:29 Hydralazine HCl (Apresoline) 25 mg Q6HR ORAL 04/04/19 18:00 05/04/19 17:59 04/08/19 17:56 Insulin Aspart (NovoLOG) BEFORE MEALS AND HS SUBQ 04/04/19 16:30 05/04/19 16:29 04/08/19 12:21 Levothyroxine Sodium (Synthroid) 125 mcg DAILY@0630 ORAL 04/07/19 06:30 05/07/19 06:29 04/08/19 05:50 Morphine Sulfate (Morphine Sulfate) 1 mg Q6H PRN IVP For Pain 04/07/19 07:00 04/14/19 06:59 Nitroglycerin (Ntg) 0.4 mg Q5M PRN SL Prn Chest Pain 04/07/19 07:00 05/07/19 06:59 Sevelamer Carbonate (Renvela) 2,400 mg THREE TIMES A DAY ORAL 04/06/19 13:00 05/06/19 12:59 04/08/19 17:57 Last 24 Hour Vital Signs Date Time Temp Pulse Resp B/P (MAP) Pulse Ox O2 Delivery O2 Flow Rate FiO2 04/08/19 17:56 156/79 04/08/19 17:56 79 156/79 04/08/19 16:45 79 28 100 Facial 35 04/08/19 16:00 2.0 04/08/19 16:00 80 04/08/19 16:00 97.2 77 20 156/79 (104) 100 04/08/19 14:52 78 34 100 Facial 35 04/08/19 13:41 79 26 100 Facial 35 04/08/19 12:00 2.0 04/08/19 12:00 97.3 77 20 156/81 (106) 98 04/08/19 12:00 77 04/08/19 12:00 156/81 04/08/19 11:00 76 28 100 Facial 35 04/08/19 09:00 Nasal Cannula 2.0 Nasal Cannula 2.0 04/08/19 09:00 76 130/82 04/08/19 08:05 81 29 96 Facial 35 04/08/19 08:00 76 04/08/19 08:00 97.2 76 20 130/82 (98) 94 04/08/19 08:00 2.0 04/08/19 07:08 71 19 95 3.0 32 04/08/19 05:50 150/73 04/08/19 05:01 95 3.0 32 04/08/19 04:00 30 04/08/19 04:00 69 04/08/19 04:00 97.5 78 21 150/73 (98) 95 04/08/19 03:30 72 27 98 Facial 35 04/08/19 01:41 70 30 97 Facial 35 04/08/19 00:01 150/77 04/08/19 00:00 68 04/08/19 00:00 97.8 78 23 155/75 (101) 97 04/08/19 00:00 30 04/07/19 23:30 72 28 98 Facial 35 04/07/19 21:13 70 29 98 Facial 35 04/07/19 21:00 Bi-pap 04/07/19 20:16 74 30 98 Facial 35 04/07/19 20:00 97.5 75 22 150/77 (101) 94 04/07/19 20:00 76 04/07/19 20:00 30 04/07/19 17:38 85 29 97 Facial 35 04/07/19 17:03 128/68 04/07/19 17:03 79 128/68 04/07/19 16:00 98.1 79 24 128/68 (88) 98 04/07/19 16:00 30 04/07/19 15:30 81 04/07/19 13:18 81 24 98 Facial 35 04/07/19 12:00 97.9 79 29 147/67 (93) 99 04/07/19 12:00 30 04/07/19 12:00 147/67 04/07/19 11:40 78 04/07/19 10:56 86 29 99 Facial 35 04/07/19 10:55 80 19 98 Facial 35 04/07/19 09:00 83 152/68 04/07/19 09:00 Bi-pap 04/07/19 08:00 97.9 83 29 152/68 (96) 98 04/07/19 08:00 30 04/07/19 07:57 80 04/07/19 06:38 83 30 99 Facial 35 04/07/19 06:00 132/54 04/07/19 04:00 30 04/07/19 04:00 97.9 83 19 132/54 (80) 93 04/07/19 04:00 80 04/07/19 01:36 80 34 97 Facial 35 04/07/19 00:00 30 04/07/19 00:00 98.7 93 20 147/65 (92) 93 04/07/19 00:00 94 04/06/19 23:51 88 29 96 Facial 35 04/06/19 23:36 147/65 04/06/19 21:48 83 26 96 Facial 35 04/06/19 21:31 85 20 99 Nasal Cannula 2.0 28 83 20 96 04/06/19 21:00 Bi-pap 04/06/19 20:00 90 04/06/19 20:00 98.0 88 19 158/87 (110) 96 04/06/19 20:00 2.0 Intake and Output 04/07/19 04/08/19 19:00 07:00 Intake Total 300 ml Balance 300 ml Intake Oral 300 ml # Bowel Movements 1 1 Labs Test 04/06/19 05:40 04/08/19 13:45 White Blood Count 6.7 K/UL (4.8-10.8) 7.1 K/UL (4.8-10.8) Red Blood Count 2.43 M/UL (4.20-5.40) 2.33 M/UL (4.20-5.40) Hemoglobin 8.1 G/DL (12.0-16.0) 7.6 G/DL (12.0-16.0) Hematocrit 24.9 % (37.0-47.0) 24.0 % (37.0-47.0) Mean Corpuscular Volume 102 FL (80-99) 103 FL (80-99) Mean Corpuscular Hemoglobin 33.1 PG (27.0-31.0) 32.4 PG (27.0-31.0) Mean Corpuscular Hemoglobin Concent 32.3 G/DL (32.0-36.0) 31.5 G/DL (32.0-36.0) Red Cell Distribution Width 16.6 % (11.6-14.8) 15.6 % (11.6-14.8) Platelet Count 156 K/UL (150-450) 197 K/UL (150-450) Mean Platelet Volume 8.4 FL (6.5-10.1) 6.8 FL (6.5-10.1) Neutrophils (%) (Auto) 66.8 % (45.0-75.0) % (45.0-75.0) Lymphocytes (%) (Auto) 15.2 % (20.0-45.0) % (20.0-45.0) Monocytes (%) (Auto) 11.4 % (1.0-10.0) % (1.0-10.0) Eosinophils (%) (Auto) 5.5 % (0.0-3.0) % (0.0-3.0) Basophils (%) (Auto) 1.2 % (0.0-2.0) % (0.0-2.0) Prothrombin Time 11.4 SEC (9.30-11.50) Prothromb Time International Ratio 1.1 (0.9-1.1) Activated Partial Thromboplast Time 33 SEC (23-33) Sodium Level 137 MMOL/L (136-145) 134 MMOL/L (136-145) Potassium Level 5.2 MMOL/L (3.5-5.1) 5.0 MMOL/L (3.5-5.1) Chloride Level 98 MMOL/L (98-107) 96 MMOL/L (98-107) Carbon Dioxide Level 28 MMOL/L (21-32) 31 MMOL/L (21-32) Anion Gap 11 mmol/L (5-15) 7 mmol/L (5-15) Blood Urea Nitrogen 51 mg/dL (7-18) 43 mg/dL (7-18) Creatinine 5.0 MG/DL (0.55-1.30) 5.0 MG/DL (0.55-1.30) Estimat Glomerular Filtration Rate 9.1 mL/min (>60) 9.1 mL/min (>60) Glucose Level 55 MG/DL (74-106) 143 MG/DL (74-106) Calcium Level 8.3 MG/DL (8.5-10.1) 8.0 MG/DL (8.5-10.1) Phosphorus Level 7.1 MG/DL (2.5-4.9) 5.8 MG/DL (2.5-4.9) Magnesium Level 2.7 MG/DL (1.8-2.4) 2.6 MG/DL (1.8-2.4) Total Bilirubin 0.9 MG/DL (0.2-1.0) 0.8 MG/DL (0.2-1.0) Aspartate Amino Transf (AST/SGOT) 25 U/L (15-37) 25 U/L (15-37) Alanine Aminotransferase (ALT/SGPT) 24 U/L (12-78) 22 U/L (12-78) Alkaline Phosphatase 673 U/L (46-116) 547 U/L (46-116) Total Protein 7.0 G/DL (6.4-8.2) 7.0 G/DL (6.4-8.2) Albumin 2.5 G/DL (3.4-5.0) 2.5 G/DL (3.4-5.0) Globulin 4.5 g/dL 4.5 g/dL Albumin/Globulin Ratio 0.6 (1.0-2.7) 0.6 (1.0-2.7) Thyroid Stimulating Hormone (TSH) 5.189 uiU/mL (0.358-3.740) Free Thyroxine 1.15 NG/DL (0.76-1.46) Differential Total Cells Counted 100 Neutrophils % (Manual) 69 % (45-75) Lymphocytes % (Manual) 14 % (20-45) Monocytes % (Manual) 14 % (1-10) Eosinophils % (Manual) 3 % (0-3) Basophils % (Manual) 0 % (0-2) Band Neutrophils 0 % (0-8) Platelet Estimate Adequate Platelet Morphology Normal Polychromasia 1+ Hypochromasia 1+ Anisocytosis 1+ Macrocytosis 1+ Uric Acid 5.3 MG/DL (2.6-7.2) Height (Feet): 5 Height (Inches): 0.00 Weight (Pounds): 137 Lymphatic: normal other Objective Gen: nad Pulm: ctab, no cwr CV: rrr, no mgr Abd: soft, nt, nd Ext: no cce Myke Pearson MD Apr 08, 2019 19:31
[2019-04-08] MEDS: Dyna-Hex 2% Top Sol 2oz TOPIC SCH (20:00)
[2019-04-08 22:00] VITALS: BP 157/63
[2019-04-09] VITALS: BP 149/66
[2019-04-09] MEDS: HydrALAZINE 25mg tab ORAL SCH ×4 (06:00→14:31)
--- NOTE | 2019-04-09 06:14 | Hematology/Onc Progress Note ---
Assessment/Plan Assessment/Plan Assessment and Recs: # Anemia due to underlying chronic disease, multifactorial, does have a hx of esrd, ferritin in the past was 1004 --> anemia panel has been reviewed from prior adm --> hgb goal is >7, transfuse prn --> on epogen as per renal --> diuresis may help anemia as well, negative fluid balance --> smear has been reviewed and no schistocytes noted --> hgb trend 9.3-->8.1->7.4 --> REFUSING PRBC TRANSFUSIONs --> Will discuss with sister, patient somewhat confused # Hyperproteinemia, on admission protein is >9 --> at this time can be 2/2 inflammatory process --> if negative, consider get upep --> spep reviewed from before # Thrombocytopenia likely related to infection/chf --> in prior was negative --> reviewed and us abd neg # Acute respiratory failure secondary to CHF --> diuresis as per cards --> pulm has evaluated, breathing rx --> hd will help as well # Bradycardia --> per cards # Esrd requiring HD --> as per renal --> continue 3x a week # Pleural effusions --> likely related to overload # Noncompliance, refusing labs, meds # Dvt ppx scds Time of note does not necessarily correspond to then patient was seen. Greatly appreciate consultation. Subjective Constitutional: Denies: no symptoms, chills, fever, malaise, weakness, other HEENT: Denies: no symptoms, eye pain, blurred vision, tearing, double vision, ear pain, ear discharge, nose pain, nose congestion, throat pain, throat swelling, mouth pain, mouth swelling, other Cardiovascular: Denies: no symptoms, chest pain, edema, irregular heart rate, lightheadedness, palpitations, syncope, other Respiratory: Denies: no symptoms, cough, shortness of breath, SOB with excertion, SOB at rest, sputum, wheezing, other Gastrointestinal/Abdominal: Denies: no symptoms, abdomen distended, abdominal pain, black stools, tarry stools, blood in stool, constipated, diarrhea, difficulty swallowing, nausea, poor appetite, poor fluid intake, rectal bleeding , vomiting, other Genitourinary: Denies: no symptoms, burning, discharge, frequency, flank pain, hematuria, incontinence, pain, urgency, other Neurologic/Psychiatric: Denies: no symptoms, anxiety, depressed, emotional problems, headache, numbness, paresthesia, pre-existing deficit, seizure, tingling, tremors, weakness, other Allergies: Coded Allergies: PENICILLINS (Verified Allergy, Unknown, 10/07/18) PIPERACILLIN (Verified Allergy, Unknown, 10/07/18) TAZOBACTAM (Verified Allergy, Unknown, 10/07/18) Subjective 04/08: no major changes, hgb low, but she is refusing prbc transf 04/09: refuses blood transfusion, no bleeding, no night sweats Objective Objective Current Medications Medications (Trade) Dose Ordered Sig/Soren Route PRN Reason Start Time Stop Time Status Last Admin Dose Admin Acetaminophen (Tylenol) 650 mg Q6H PRN ORAL Pain Scale (3-5) 04/04/19 14:45 05/04/19 14:44 04/06/19 23:39 Albuterol/ Ipratropium (Albuterol/ Ipratropium) 3 ml Q4H PRN HHN Shortness of Breath 04/04/19 14:00 04/09/19 13:59 04/06/19 21:31 Amlodipine Besylate (Norvasc) 5 mg BID ORAL 04/04/19 18:00 05/04/19 17:59 04/08/19 17:56 Aspirin (Ecotrin) 81 mg DAILY ORAL 04/05/19 09:00 05/05/19 08:59 04/05/19 09:00 Chlorhexidine Gluconate (Di-Hex 2%) 1 applic DAILY@1999 TOPIC 04/06/19 20:00 05/06/19 19:59 04/06/19 20:20 Dextrose (Dextrose 50%) 25 ml Q30M PRN IV Hypoglycemia 04/04/19 14:30 05/04/19 14:29 Dextrose (Dextrose 50%) 50 ml Q30M PRN IV Hypoglycemia 04/04/19 14:30 05/04/19 14:29 Diphenhydramine HCl (Benadryl) 25 mg QHS PRN ORAL Insomnia 04/05/19 01:45 05/05/19 01:44 04/06/19 23:36 Epoetin Dimitry (Epoetin Dimitry(ESRD on dialysis)) 10,000 unit TUE-TUE-TUE SUBQ 04/04/19 21:00 05/04/19 20:59 04/06/19 20:46 Guaifenesin/ Dextromethorphan (Robitussin DM Syrup) 5 ml Q6H PRN ORAL For Cough 04/05/19 01:45 05/05/19 01:44 04/05/19 13:34 Heparin Sodium (Porcine) (Heparin 5000 units/ml) 5,000 units EVERY 12 HOURS SUBQ 04/04/19 21:00 05/04/19 20:59 04/05/19 09:00 Hydralazine HCl (Apresoline) 25 mg Q4H PRN ORAL SBP > 160mmHg 04/04/19 14:45 05/04/19 14:29 Hydralazine HCl (Apresoline) 25 mg Q6HR ORAL 04/04/19 18:00 05/04/19 17:59 04/08/19 17:56 Insulin Aspart (NovoLOG) BEFORE MEALS AND HS SUBQ 04/04/19 16:30 05/04/19 16:29 04/08/19 12:21 Levothyroxine Sodium (Synthroid) 125 mcg DAILY@0630 ORAL 04/07/19 06:30 05/07/19 06:29 04/08/19 05:50 Morphine Sulfate (Morphine Sulfate) 1 mg Q6H PRN IVP For Pain 04/07/19 07:00 04/14/19 06:59 Nitroglycerin (Ntg) 0.4 mg Q5M PRN SL Prn Chest Pain 04/07/19 07:00 05/07/19 06:59 Sevelamer Carbonate (Renvela) 2,400 mg THREE TIMES A DAY ORAL 04/06/19 13:00 05/06/19 12:59 04/08/19 17:57 Last 24 Hour Vital Signs Date Time Temp Pulse Resp B/P (MAP) Pulse Ox O2 Delivery O2 Flow Rate FiO2 04/09/19 04:57 81 27 95 Facial 35 04/09/19 04:00 30 04/09/19 04:00 81 04/09/19 02:58 68 37 97 Facial 35 04/09/19 00:58 69 38 95 Facial 35 04/09/19 00:00 81 04/09/19 00:00 149/66 04/09/19 00:00 97.8 82 18 149/66 (93) 97 04/08/19 22:51 79 28 93 Facial 35 04/08/19 22:00 97.5 81 19 157/63 (94) 98 04/08/19 21:00 Nasal Cannula 2.0 Nasal Cannula 2.0 04/08/19 21:00 30 04/08/19 20:47 78 32 97 Facial 35 04/08/19 20:00 81 04/08/19 17:56 156/79 04/08/19 17:56 79 156/79 04/08/19 16:45 79 28 100 Facial 35 04/08/19 16:00 2.0 04/08/19 16:00 80 04/08/19 16:00 97.2 77 20 156/79 (104) 100 04/08/19 14:52 78 34 100 Facial 35 04/08/19 13:41 79 26 100 Facial 35 04/08/19 12:00 2.0 04/08/19 12:00 97.3 77 20 156/81 (106) 98 04/08/19 12:00 77 04/08/19 12:00 156/81 04/08/19 11:00 76 28 100 Facial 35 04/08/19 09:00 Nasal Cannula 2.0 Nasal Cannula 2.0 04/08/19 09:00 76 130/82 04/08/19 08:05 81 29 96 Facial 35 04/08/19 08:00 76 04/08/19 08:00 97.2 76 20 130/82 (98) 94 04/08/19 08:00 2.0 04/08/19 07:08 71 19 95 3.0 32 04/08/19 05:50 150/73 04/08/19 05:01 95 3.0 32 04/08/19 04:00 30 04/08/19 04:00 69 04/08/19 04:00 97.5 78 21 150/73 (98) 95 04/08/19 03:30 72 27 98 Facial 35 04/08/19 01:41 70 30 97 Facial 35 04/08/19 00:01 150/77 04/08/19 00:00 68 04/08/19 00:00 97.8 78 23 155/75 (101) 97 04/08/19 00:00 30 04/07/19 23:30 72 28 98 Facial 35 04/07/19 21:13 70 29 98 Facial 35 04/07/19 21:00 Bi-pap 04/07/19 20:16 74 30 98 Facial 35 04/07/19 20:00 97.5 75 22 150/77 (101) 94 04/07/19 20:00 76 04/07/19 20:00 30 04/07/19 17:38 85 29 97 Facial 35 04/07/19 17:03 128/68 04/07/19 17:03 79 128/68 04/07/19 16:00 98.1 79 24 128/68 (88) 98 04/07/19 16:00 30 04/07/19 15:30 81 04/07/19 13:18 81 24 98 Facial 35 04/07/19 12:00 97.9 79 29 147/67 (93) 99 04/07/19 12:00 30 04/07/19 12:00 147/67 04/07/19 11:40 78 04/07/19 10:56 86 29 99 Facial 35 04/07/19 10:55 80 19 98 Facial 35 04/07/19 09:00 83 152/68 04/07/19 09:00 Bi-pap 04/07/19 08:00 97.9 83 29 152/68 (96) 98 04/07/19 08:00 30 04/07/19 07:57 80 04/07/19 06:38 83 30 99 Facial 35 Intake and Output 04/08/19 04/09/19 18:59 06:59 Intake Total 120 ml Output Total 3000 ml Balance -2880 ml Intake Oral 120 ml Hemodialysis UF 3000 ml Labs Test 04/08/19 13:45 White Blood Count 7.1 K/UL (4.8-10.8) Red Blood Count 2.33 M/UL (4.20-5.40) Hemoglobin 7.6 G/DL (12.0-16.0) Hematocrit 24.0 % (37.0-47.0) Mean Corpuscular Volume 103 FL (80-99) Mean Corpuscular Hemoglobin 32.4 PG (27.0-31.0) Mean Corpuscular Hemoglobin Concent 31.5 G/DL (32.0-36.0) Red Cell Distribution Width 15.6 % (11.6-14.8) Platelet Count 197 K/UL (150-450) Mean Platelet Volume 6.8 FL (6.5-10.1) Neutrophils (%) (Auto) % (45.0-75.0) Lymphocytes (%) (Auto) % (20.0-45.0) Monocytes (%) (Auto) % (1.0-10.0) Eosinophils (%) (Auto) % (0.0-3.0) Basophils (%) (Auto) % (0.0-2.0) Differential Total Cells Counted 100 Neutrophils % (Manual) 69 % (45-75) Lymphocytes % (Manual) 14 % (20-45) Monocytes % (Manual) 14 % (1-10) Eosinophils % (Manual) 3 % (0-3) Basophils % (Manual) 0 % (0-2) Band Neutrophils 0 % (0-8) Platelet Estimate Adequate Platelet Morphology Normal Polychromasia 1+ Hypochromasia 1+ Anisocytosis 1+ Macrocytosis 1+ Sodium Level 134 MMOL/L (136-145) Potassium Level 5.0 MMOL/L (3.5-5.1) Chloride Level 96 MMOL/L (98-107) Carbon Dioxide Level 31 MMOL/L (21-32) Anion Gap 7 mmol/L (5-15) Blood Urea Nitrogen 43 mg/dL (7-18) Creatinine 5.0 MG/DL (0.55-1.30) Estimat Glomerular Filtration Rate 9.1 mL/min (>60) Glucose Level 143 MG/DL (74-106) Uric Acid 5.3 MG/DL (2.6-7.2) Calcium Level 8.0 MG/DL (8.5-10.1) Phosphorus Level 5.8 MG/DL (2.5-4.9) Magnesium Level 2.6 MG/DL (1.8-2.4) Total Bilirubin 0.8 MG/DL (0.2-1.0) Aspartate Amino Transf (AST/SGOT) 25 U/L (15-37) Alanine Aminotransferase (ALT/SGPT) 22 U/L (12-78) Alkaline Phosphatase 547 U/L (46-116) Total Protein 7.0 G/DL (6.4-8.2) Albumin 2.5 G/DL (3.4-5.0) Globulin 4.5 g/dL Albumin/Globulin Ratio 0.6 (1.0-2.7) Height (Feet): 5 Height (Inches): 0.00 Weight (Pounds): 137 Objective Gen: nad Pulm: ctab, no cwr CV: rrr, no mgr Abd: soft, nt, nd Ext: no cce Myke Pearson MD Apr 09, 2019 06:13
[2019-04-09] MEDS: NovoLOG Insulin Flexpen SUBQ SCH ×4 (06:30→21:00)
[2019-04-09] MEDS: Levothyroxine 125mcg tab ORAL SCH (06:30)
--- NOTE | 2019-04-09 06:58 | General Progress Note ---
Assessment/Plan Problem List: (1) Hypothyroid ICD Codes: E03.9 - Hypothyroidism, unspecified SNOMED: 85644911 (2) Hypoglycemia ICD Codes: E16.2 - Hypoglycemia, unspecified SNOMED: 208261280 (3) Volume overload ICD Codes: E87.70 - Fluid overload, unspecified SNOMED: 37977084 (4) ESRD (end stage renal disease) ICD Codes: N18.6 - End stage renal disease SNOMED: 89452925 (5) Pulmonary edema ICD Codes: J81.1 - Chronic pulmonary edema SNOMED: 23865323 (6) Hyperkalemia ICD Codes: E87.5 - Hyperkalemia SNOMED: 18168862 (7) Diabetes mellitus out of control ICD Codes: E11.65 - Type 2 diabetes mellitus with hyperglycemia SNOMED: 78682852, 221061148 Status: progressing Assessment/Plan: continue to hold Glipizide and do not resume as OP glucose check - Novolog low dose coverage hypoglycemia protocol in order TSH is elevated due to non compliance continue Levothyroxine 125 mcg daily Subjective ROS Limited/Unobtainable: Yes Allergies: Coded Allergies: PENICILLINS (Verified Allergy, Unknown, 10/07/18) PIPERACILLIN (Verified Allergy, Unknown, 10/07/18) TAZOBACTAM (Verified Allergy, Unknown, 10/07/18) Subjective events noted non cooperative refusing most of her medications including Levothyroxine glucose values are stable w/o recurrence of hypoglycemia Item Value Date Time Bedside Blood Glucose 135 mg/dl H 04/09/19 0630 Bedside Blood Glucose 111 mg/dl 04/08/19 1630 Bedside Blood Glucose 159 mg/dl H 04/08/19 1221 Bedside Blood Glucose 126 mg/dl H 04/08/19 0630 Objective Last 24 Hour Vital Signs Date Time Temp Pulse Resp B/P (MAP) Pulse Ox O2 Delivery O2 Flow Rate FiO2 04/09/19 06:00 149/66 04/09/19 04:57 81 27 95 Facial 35 04/09/19 04:00 30 04/09/19 04:00 81 04/09/19 02:58 68 37 97 Facial 35 04/09/19 00:58 69 38 95 Facial 35 04/09/19 00:00 81 04/09/19 00:00 149/66 04/09/19 00:00 97.8 82 18 149/66 (93) 97 04/08/19 22:51 79 28 93 Facial 35 04/08/19 22:00 97.5 81 19 157/63 (94) 98 04/08/19 21:00 Nasal Cannula 2.0 Nasal Cannula 2.0 04/08/19 21:00 30 04/08/19 20:47 78 32 97 Facial 35 04/08/19 20:00 81 04/08/19 17:56 156/79 04/08/19 17:56 79 156/79 04/08/19 16:45 79 28 100 Facial 35 04/08/19 16:00 2.0 04/08/19 16:00 80 04/08/19 16:00 97.2 77 20 156/79 (104) 100 04/08/19 14:52 78 34 100 Facial 35 04/08/19 13:41 79 26 100 Facial 35 04/08/19 12:00 2.0 04/08/19 12:00 97.3 77 20 156/81 (106) 98 04/08/19 12:00 77 04/08/19 12:00 156/81 04/08/19 11:00 76 28 100 Facial 35 04/08/19 09:00 Nasal Cannula 2.0 Nasal Cannula 2.0 04/08/19 09:00 76 130/82 04/08/19 08:05 81 29 96 Facial 35 04/08/19 08:00 76 04/08/19 08:00 97.2 76 20 130/82 (98) 94 04/08/19 08:00 2.0 04/08/19 07:08 71 19 95 3.0 32 Intake and Output 04/08/19 04/09/19 18:59 06:59 Intake Total 120 ml 360 ml Output Total 3000 ml 3000 ml Balance -2880 ml -2640 ml Intake Oral 120 ml 120 ml Other 240 ml Output Urine Total 0 ml Hemodialysis UF 3000 ml 3000 ml # Voids 2 # Bowel Movements 1 Laboratory Tests 04/08/19 13:45: White Blood Count 7.1, Red Blood Count 2.33L, Hemoglobin 7.6L, Hematocrit 24.0L , Mean Corpuscular Volume 103H, Mean Corpuscular Hemoglobin 32.4H, Mean Corpuscular Hemoglobin Concent 31.5L, Red Cell Distribution Width 15.6H, Platelet Count 197, Mean Platelet Volume 6.8, Neutrophils (%) (Auto) , Lymphocytes (%) (Auto) , Monocytes (%) (Auto) , Eosinophils (%) (Auto) , Basophils (%) (Auto) , Differential Total Cells Counted 100, Neutrophils % ( Manual) 69, Lymphocytes % (Manual) 14L, Monocytes % (Manual) 14H, Eosinophils % (Manual) 3, Basophils % (Manual) 0, Band Neutrophils 0, Platelet Estimate Adequate, Platelet Morphology Normal, Polychromasia 1+, Hypochromasia 1+, Anisocytosis 1+, Macrocytosis 1+, Sodium Level 134L, Potassium Level 5.0, Chloride Level 96L, Carbon Dioxide Level 31, Anion Gap 7, Blood Urea Nitrogen 43H, Creatinine 5.0H, Estimat Glomerular Filtration Rate 9.1, Glucose Level 143H , Uric Acid 5.3, Calcium Level 8.0L, Phosphorus Level 5.8H, Magnesium Level 2.6H , Total Bilirubin 0.8, Aspartate Amino Transf (AST/SGOT) 25, Alanine Aminotransferase (ALT/SGPT) 22, Alkaline Phosphatase 547H, Total Protein 7.0, Albumin 2.5L, Globulin 4.5, Albumin/Globulin Ratio 0.6L Height (Feet): 5 Height (Inches): 0.00 Weight (Pounds): 131 General Appearance: no apparent distress EENT: other - blind Cardiovascular: normal rate Respiratory/Chest: lungs clear Abdomen: hypoactive bowel sounds Pelvis: normal external exam Objective Current Medications Medications (Trade) Dose Ordered Sig/Soren Route PRN Reason Start Time Stop Time Status Last Admin Dose Admin Acetaminophen (Tylenol) 650 mg Q6H PRN ORAL Pain Scale (3-5) 04/04/19 14:45 05/04/19 14:44 04/06/19 23:39 Albuterol/ Ipratropium (Albuterol/ Ipratropium) 3 ml Q4H PRN HHN Shortness of Breath 04/04/19 14:00 04/09/19 13:59 04/06/19 21:31 Amlodipine Besylate (Norvasc) 5 mg BID ORAL 04/04/19 18:00 05/04/19 17:59 04/08/19 17:56 Aspirin (Ecotrin) 81 mg DAILY ORAL 04/05/19 09:00 05/05/19 08:59 04/05/19 09:00 Chlorhexidine Gluconate (Di-Hex 2%) 1 applic DAILY@1999 TOPIC 04/06/19 20:00 05/06/19 19:59 04/06/19 20:20 Dextrose (Dextrose 50%) 25 ml Q30M PRN IV Hypoglycemia 04/04/19 14:30 05/04/19 14:29 Dextrose (Dextrose 50%) 50 ml Q30M PRN IV Hypoglycemia 04/04/19 14:30 05/04/19 14:29 Diphenhydramine HCl (Benadryl) 25 mg QHS PRN ORAL Insomnia 04/05/19 01:45 05/05/19 01:44 04/06/19 23:36 Epoetin Dimitry (Epoetin Dimitry(ESRD on dialysis)) 10,000 unit TUE-TUE-TUE SUBQ 04/04/19 21:00 05/04/19 20:59 04/06/19 20:46 Guaifenesin/ Dextromethorphan (Robitussin DM Syrup) 5 ml Q6H PRN ORAL For Cough 04/05/19 01:45 05/05/19 01:44 04/05/19 13:34 Heparin Sodium (Porcine) (Heparin 5000 units/ml) 5,000 units EVERY 12 HOURS SUBQ 04/04/19 21:00 05/04/19 20:59 04/05/19 09:00 Hydralazine HCl (Apresoline) 25 mg Q4H PRN ORAL SBP > 160mmHg 04/04/19 14:45 05/04/19 14:29 Hydralazine HCl (Apresoline) 25 mg Q6HR ORAL 04/04/19 18:00 05/04/19 17:59 04/08/19 17:56 Insulin Aspart (NovoLOG) BEFORE MEALS AND HS SUBQ 04/04/19 16:30 05/04/19 16:29 04/08/19 12:21 Levothyroxine Sodium (Synthroid) 125 mcg DAILY@0630 ORAL 04/07/19 06:30 05/07/19 06:29 04/08/19 05:50 Morphine Sulfate (Morphine Sulfate) 1 mg Q6H PRN IVP For Pain 04/07/19 07:00 04/14/19 06:59 Nitroglycerin (Ntg) 0.4 mg Q5M PRN SL Prn Chest Pain 04/07/19 07:00 05/07/19 06:59 Sevelamer Carbonate (Renvela) 2,400 mg THREE TIMES A DAY ORAL 04/06/19 13:00 05/06/19 12:59 04/08/19 17:57 Marck Iqbal MD Apr 09, 2019 06:58
[2019-04-09 08:00] VITALS: BP 156/94
[2019-04-09] MEDS: Heparin 5000 units/ml inj SUBQ SCH ×2 (09:00→21:00)
[2019-04-09] MEDS: Aspirin EC 81mg tab ORAL SCH (09:13)
[2019-04-09 12:00] VITALS: BP_SYST 155; BP_SYST 156; BP_DIAS 92; BP_DIAS 94
[2019-04-09 14:26] VITALS: BP 165/95
--- NOTE | 2019-04-09 14:55 | Nephrology Progress Note ---
Assessment/Plan Problem List: (1) ESRD (end stage renal disease) (2) Hyperkalemia (3) Pulmonary edema (4) Hypoglycemia Assessment End stage renal disease Volume overload Hyperkalemia Pulmonary edema Pleural effusions Diabetes Hypertension Hypertensive Heart Disease Plan Refuses blood draw HD with UF ordered and done 04/04 , 04/06 and repeat 04/08 keep bp under control per pulmonary per orders Subjective ROS Limited/Unobtainable: No Constitutional: Reports: malaise Objective Objective Last 24 Hour Vital Signs Date Time Temp Pulse Resp B/P (MAP) Pulse Ox O2 Delivery O2 Flow Rate FiO2 04/09/19 14:31 165/95 04/09/19 14:26 98.3 80 21 165/95 (118) 97 04/09/19 13:30 76 32 95 Facial 35 04/09/19 12:00 30 04/09/19 12:00 98.3 79 22 155/92 (113) 97 04/09/19 12:00 75 04/09/19 10:59 74 21 96 Facial 35 04/09/19 09:13 79 156/94 04/09/19 09:04 79 33 95 Facial 35 04/09/19 09:00 Nasal Cannula 2.0 Bi-pap 2.0 04/09/19 08:00 30 04/09/19 08:00 79 04/09/19 08:00 97.1 79 21 156/94 (114) 96 04/09/19 07:22 79 19 96 Facial 35 04/09/19 06:00 149/66 04/09/19 04:57 81 27 95 Facial 35 04/09/19 04:00 30 04/09/19 04:00 81 04/09/19 02:58 68 37 97 Facial 35 04/09/19 00:58 69 38 95 Facial 35 04/09/19 00:00 81 04/09/19 00:00 149/66 04/09/19 00:00 97.8 82 18 149/66 (93) 97 04/08/19 22:51 79 28 93 Facial 35 04/08/19 22:00 97.5 81 19 157/63 (94) 98 04/08/19 21:00 Nasal Cannula 2.0 Nasal Cannula 2.0 04/08/19 21:00 30 04/08/19 20:47 78 32 97 Facial 35 04/08/19 20:00 81 12/1/19 17:56 156/79 04/08/19 17:56 79 156/79 04/08/19 16:45 79 28 100 Facial 35 04/08/19 16:00 2.0 04/08/19 16:00 80 04/08/19 16:00 97.2 77 20 156/79 (104) 100 04/08/19 14:52 78 34 100 Facial 35 Intake and Output 04/08/19 04/09/19 19:00 07:00 Intake Total 120 ml 360 ml Output Total 3000 ml 3000 ml Balance -2880 ml -2640 ml Intake Oral 120 ml 120 ml Other 240 ml Output Urine Total 0 ml Hemodialysis UF 3000 ml 3000 ml # Voids 2 # Bowel Movements 1 Height (Feet): 5 Height (Inches): 0.00 Weight (Pounds): 131 General Appearance: no apparent distress Cardiovascular: normal rate Respiratory/Chest: decreased breath sounds Abdomen: soft, distended Elvin Garcia MD Apr 09, 2019 14:55
[2019-04-09 16:00] VITALS: BP 153/95
--- NOTE | 2019-04-09 17:58 | Pulmonology Progress Note ---
Assessment/Plan Assessment/Plan Pulmonary Progress Note HPI Patient is a 48-year-old female with a history of ESRD on hemodialysis MWF admitted with shortness of breath and chest pain. Denies any recent fevers, chills, cough. Noted to have fluid overload and Pulmonary Congestion on CXR, Less SOB s/p HD sp thoracentesis, on PRN BiPAP, refusing ABG today PMH: ESRD, Diabetes, Hypertension, Hypertensive Heart Disease, Weakness PSH: Dialysis catheter insertion Allergies: Penicillin, Zosyn Social Hx: Denies drug or alcohol abuse Allergies: PENICILLINS (Verified Allergy, Unknown, 10/07/18) PIPERACILLIN (Verified Allergy, Unknown, 10/07/18) TAZOBACTAM (Verified Allergy, Unknown, 10/07/18) Physical Exam . Vital Signs Noted General: Awake and alert, breathing comfortably on O2, PRN BiPAP HEENT: NC/AT. EOMI. Chest Wall: No tenderness, no deformity. Permacath in the left upper chest Cardiovascular: RRR. S1 and S2 normal. No murmur appreciated Resp: Normal work of breathing. CTAB Abdomen: Abdomen is soft, nondistended. Nontender Skin: Intact. No abrasions, laceration or rash over the exposed skin MSK: Normal tone and bulk. Moving all extremities. No obvious deformity. Neuro: Awake and alert. Mentating appropriately. Impression: End stage renal disease Volume overload, Pulmonary edema improved s/p HD Pleural effusions - sp thoracentesis - 750ml Diabetes Hypertension Hypertensive Heart Disease Weakness Plan HD per Renal O2 PRN BiPAP PRN PPX Monitor labs STEELER medications Laboratory Tests Noted EKG: Rate: normal Rhythm: NSR Sinus rhythm, normal axis, first-degree AV block with [place] intervals [address] segment changes. Chest X-Ray: Bilateral moderate to severe pulmonary edema with bilateral effusions Subjective ROS Limited/Unobtainable: No Allergies: Coded Allergies: PENICILLINS (Verified Allergy, Unknown, 10/07/18) PIPERACILLIN (Verified Allergy, Unknown, 10/07/18) TAZOBACTAM (Verified Allergy, Unknown, 10/07/18) Objective Last 24 Hour Vital Signs Date Time Temp Pulse Resp B/P (MAP) Pulse Ox O2 Delivery O2 Flow Rate FiO2 04/09/19 17:22 77 153/95 04/09/19 16:59 77 30 95 Facial 35 04/09/19 16:00 30 04/09/19 16:00 98.2 82 20 153/95 (114) 97 04/09/19 16:00 83 04/09/19 15:47 77 28 96 Bi-Pap 40 04/09/19 15:14 74 33 96 Facial 35 04/09/19 14:31 165/95 04/09/19 14:26 98.3 80 21 165/95 (118) 97 04/09/19 13:30 76 32 95 Facial 35 04/09/19 12:00 30 04/09/19 12:00 98.3 79 22 155/92 (113) 97 04/09/19 12:00 75 04/09/19 10:59 74 21 96 Facial 35 04/09/19 09:13 79 156/94 04/09/19 09:04 79 33 95 Facial 35 04/09/19 09:00 Nasal Cannula 2.0 Bi-pap 2.0 04/09/19 08:00 30 04/09/19 08:00 79 04/09/19 08:00 97.1 79 21 156/94 (114) 96 04/09/19 07:22 79 19 96 Facial 35 04/09/19 06:00 149/66 04/09/19 04:57 81 27 95 Facial 35 04/09/19 04:00 30 04/09/19 04:00 81 04/09/19 02:58 68 37 97 Facial 35 04/09/19 00:58 69 38 95 Facial 35 04/09/19 00:00 81 04/09/19 00:00 149/66 04/09/19 00:00 97.8 82 18 149/66 (93) 97 04/08/19 22:51 79 28 93 Facial 35 04/08/19 22:00 97.5 81 19 157/63 (94) 98 04/08/19 21:00 Nasal Cannula 2.0 Nasal Cannula 2.0 04/08/19 21:00 30 04/08/19 20:47 78 32 97 Facial 35 04/08/19 20:00 81 Intake and Output 04/08/19 04/09/19 19:00 07:00 Intake Total 120 ml 360 ml Output Total 3000 ml 3000 ml Balance -2880 ml -2640 ml Intake Oral 120 ml 120 ml Other 240 ml Output Urine Total 0 ml Hemodialysis UF 3000 ml 3000 ml # Voids 2 # Bowel Movements 1 Current Medications Medications (Trade) Dose Ordered Sig/Soren Route PRN Reason Start Time Stop Time Status Last Admin Dose Admin Acetaminophen (Tylenol) 650 mg Q6H PRN ORAL Pain Scale (3-5) 04/04/19 14:45 05/04/19 14:44 04/06/19 23:39 Amlodipine Besylate (Norvasc) 5 mg BID ORAL 04/04/19 18:00 05/04/19 17:59 04/09/19 17:22 Aspirin (Ecotrin) 81 mg DAILY ORAL 04/05/19 09:00 05/05/19 08:59 04/09/19 09:13 Chlorhexidine Gluconate (Di-Hex 2%) 1 applic DAILY@1999 TOPIC 04/06/19 20:00 05/06/19 19:59 04/06/19 20:20 Dextrose (Dextrose 50%) 25 ml Q30M PRN IV Hypoglycemia 04/04/19 14:30 05/04/19 14:29 Dextrose (Dextrose 50%) 50 ml Q30M PRN IV Hypoglycemia 04/04/19 14:30 05/04/19 14:29 Diphenhydramine HCl (Benadryl) 25 mg QHS PRN ORAL Insomnia 04/05/19 01:45 05/05/19 01:44 04/06/19 23:36 Epoetin Dimitry (Epoetin Dimitry(ESRD on dialysis)) 10,000 unit TUE-TUE-TUE SUBQ 04/04/19 21:00 05/04/19 20:59 04/06/19 20:46 Guaifenesin/ Dextromethorphan (Robitussin DM Syrup) 5 ml Q6H PRN ORAL For Cough 04/05/19 01:45 05/05/19 01:44 04/05/19 13:34 Heparin Sodium (Porcine) (Heparin 5000 units/ml) 5,000 units EVERY 12 HOURS SUBQ 04/04/19 21:00 05/04/19 20:59 04/05/19 09:00 Hydralazine HCl (Apresoline) 25 mg Q4H PRN ORAL SBP > 160mmHg 04/04/19 14:45 05/04/19 14:29 Hydralazine HCl (Apresoline) 25 mg Q6HR ORAL 04/04/19 18:00 05/04/19 17:59 04/09/19 14:31 Insulin Aspart (NovoLOG) BEFORE MEALS AND HS SUBQ 04/04/19 16:30 05/04/19 16:29 04/08/19 12:21 Levothyroxine Sodium (Synthroid) 125 mcg DAILY@0630 ORAL 04/07/19 06:30 05/07/19 06:29 04/08/19 05:50 Morphine Sulfate (Morphine Sulfate) 1 mg Q6H PRN IVP For Pain 04/07/19 07:00 04/14/19 06:59 Nitroglycerin (Ntg) 0.4 mg Q5M PRN SL Prn Chest Pain 04/07/19 07:00 05/07/19 06:59 Sevelamer Carbonate (Renvela) 2,400 mg THREE TIMES A DAY ORAL 04/06/19 13:00 05/06/19 12:59 04/09/19 17:21 Roel Flood MD Apr 09, 2019 17:58
[2019-04-09 20:00] VITALS: BP 155/74
[2019-04-09] MEDS: Dyna-Hex 2% Top Sol 2oz TOPIC SCH (20:00)
--- NOTE | 2019-04-09 20:17 | General Progress Note ---
Assessment/Plan Problem List: (1) Hyperkalemia ICD Codes: E87.5 - Hyperkalemia SNOMED: 34563992 (2) Volume overload ICD Codes: E87.70 - Fluid overload, unspecified SNOMED: 77584149 (3) Pulmonary edema ICD Codes: J81.1 - Chronic pulmonary edema SNOMED: 99209173 (4) ESRD (end stage renal disease) ICD Codes: N18.6 - End stage renal disease SNOMED: 46899954 Status: progressing Assessment/Plan: hyperkalemia improved hypogylcemia resolved esrd on hd no changes check labs and labs and vitals Subjective ROS Limited/Unobtainable: Yes Allergies: Coded Allergies: PENICILLINS (Verified Allergy, Unknown, 10/07/18) PIPERACILLIN (Verified Allergy, Unknown, 10/07/18) TAZOBACTAM (Verified Allergy, Unknown, 10/07/18) Objective Last 24 Hour Vital Signs Date Time Temp Pulse Resp B/P (MAP) Pulse Ox O2 Delivery O2 Flow Rate FiO2 04/09/19 17:22 77 153/95 04/09/19 16:59 77 30 95 Facial 35 04/09/19 16:00 30 04/09/19 16:00 98.2 82 20 153/95 (114) 97 04/09/19 16:00 83 04/09/19 15:47 77 28 96 Bi-Pap 40 04/09/19 15:14 74 33 96 Facial 35 04/09/19 14:31 165/95 04/09/19 14:26 98.3 80 21 165/95 (118) 97 04/09/19 13:30 76 32 95 Facial 35 04/09/19 12:00 30 04/09/19 12:00 98.3 79 22 155/92 (113) 97 04/09/19 12:00 75 04/09/19 10:59 74 21 96 Facial 35 04/09/19 09:13 79 156/94 04/09/19 09:04 79 33 95 Facial 35 04/09/19 09:00 Nasal Cannula 2.0 Bi-pap 2.0 04/09/19 08:00 30 04/09/19 08:00 79 04/09/19 08:00 97.1 79 21 156/94 (114) 96 04/09/19 07:22 79 19 96 Facial 35 04/09/19 06:00 149/66 04/09/19 04:57 81 27 95 Facial 35 04/09/19 04:00 30 04/09/19 04:00 81 04/09/19 02:58 68 37 97 Facial 35 04/09/19 00:58 69 38 95 Facial 35 04/09/19 00:00 81 04/09/19 00:00 149/66 04/09/19 00:00 97.8 82 18 149/66 (93) 97 04/08/19 22:51 79 28 93 Facial 35 04/08/19 22:00 97.5 81 19 157/63 (94) 98 04/08/19 21:00 Nasal Cannula 2.0 Nasal Cannula 2.0 04/08/19 21:00 30 04/08/19 20:47 78 32 97 Facial 35 Intake and Output 04/08/19 04/09/19 19:00 07:00 Intake Total 120 ml 360 ml Output Total 3000 ml 3000 ml Balance -2880 ml -2640 ml Intake Oral 120 ml 120 ml Other 240 ml Output Urine Total 0 ml Hemodialysis UF 3000 ml 3000 ml # Voids 2 # Bowel Movements 1 Height (Feet): 5 Height (Inches): 0.00 Weight (Pounds): 131 Neck: supple Cardiovascular: normal rate Respiratory/Chest: lungs clear Kimberlee Guzman MD Apr 09, 2019 20:17
[2019-04-09] MEDS: Epoetin Alfa-EPBX(ESRD on dialysis)10,000 unit/ml vial SUBQ SCH (21:00)
--- NOTE | 2019-04-09 23:23 | Cardiology Progress Note ---
Assessment/Plan Assessment/Plan 1. Chest pain, likely due to her underlying pulmonary pathology, s/p right thoracentesis, last 2-D echocardiography in this patient had shown evidence of cardiomyopathy with LVEF of 40% to 45 partly due to septal wall hypokinesia felt to be secondary to RV pressure overload. 2. Acute on chronic diastolic congestive heart failure with presence severe elevation of intracardiac filling pressure, aggressive preload and afterload reduction. 3. Severe pulmonary hypertension due to end-stage renal disease and left heart failure, i.e. diastolic congestive heart failure. 4. Diabetes mellitus. Aspirin and statin for prevention of progressive vasculopathy. 5. Hypertensive crisis. Continue amlodipine, optimize hydralazine. Objective Last 24 Hour Vital Signs Date Time Temp Pulse Resp B/P (MAP) Pulse Ox O2 Delivery O2 Flow Rate FiO2 04/09/19 21:00 Bi-pap Bi-pap 04/09/19 20:55 74 28 96 Facial 35 04/09/19 20:00 83 04/09/19 20:00 97.9 76 26 155/74 (101) 98 04/09/19 20:00 30 04/09/19 19:00 79 32 94 Facial 35 04/09/19 17:22 77 153/95 04/09/19 16:59 77 30 95 Facial 35 04/09/19 16:00 30 04/09/19 16:00 98.2 82 20 153/95 (114) 97 04/09/19 16:00 83 04/09/19 15:47 77 28 96 Bi-Pap 40 04/09/19 15:14 74 33 96 Facial 35 04/09/19 14:31 165/95 04/09/19 14:26 98.3 80 21 165/95 (118) 97 04/09/19 13:30 76 32 95 Facial 35 04/09/19 12:00 30 04/09/19 12:00 98.3 79 22 155/92 (113) 97 04/09/19 12:00 75 04/09/19 10:59 74 21 96 Facial 35 04/09/19 09:13 79 156/94 04/09/19 09:04 79 33 95 Facial 35 04/09/19 09:00 Nasal Cannula 2.0 Bi-pap 2.0 04/09/19 08:00 30 04/09/19 08:00 79 04/09/19 08:00 97.1 79 21 156/94 (114) 96 04/09/19 07:22 79 19 96 Facial 35 04/09/19 06:00 149/66 04/09/19 04:57 81 27 95 Facial 35 04/09/19 04:00 30 04/09/19 04:00 81 04/09/19 02:58 68 37 97 Facial 35 04/09/19 00:58 69 38 95 Facial 35 04/09/19 00:00 81 04/09/19 00:00 149/66 04/09/19 00:00 97.8 82 18 149/66 (93) 97 Intake and Output 04/08/19 04/09/19 19:00 07:00 Intake Total 120 ml 360 ml Output Total 3000 ml 3000 ml Balance -2880 ml -2640 ml Intake Oral 120 ml 120 ml Other 240 ml Output Urine Total 0 ml Hemodialysis UF 3000 ml 3000 ml # Voids 2 # Bowel Movements 1 2D Echo: EF 40%, septal HK due to RV press overload, Mod MR, RVSP 59, Nl LVD Fxn Objective HEENT: Atraumatic and normocephalic. Anicteric. Pupils are equal, round, and reactive to light and accommodation. Extraocular muscles intact. NECK: JVP less than 5 cm. No carotid bruit. Carotid upstrokes 2+ bilaterally. CARDIOVASCULAR: Normal S1 and S2. Regular rate and rhythm. No murmurs, gallops, or rubs. PMI is at fourth intercostal space in the midclavicular line. LUNGS: Diminished breath sounds in both bases. ABDOMEN: Soft, nontender, and nondistended. No hepatosplenomegaly. Positive bowel sounds. EXTREMITIES: There is no edema, clubbing, or cyanosis. Amanuel Garcias MD Apr 09, 2019 23:23
[2019-04-10] VITALS: BP 178/81
[2019-04-10] MEDS: Morphine Sulfate 2mg/ml Inj(IV/IM USE ONLY) IVP PRN (01:39)
[2019-04-10 04:00] VITALS: BP 150/60
--- NOTE | 2019-04-10 06:14 | General Progress Note ---
Assessment/Plan Problem List: (1) Hypothyroid ICD Codes: E03.9 - Hypothyroidism, unspecified SNOMED: 49092639 (2) Hypoglycemia ICD Codes: E16.2 - Hypoglycemia, unspecified SNOMED: 920567379 (3) Volume overload ICD Codes: E87.70 - Fluid overload, unspecified SNOMED: 50131311 (4) ESRD (end stage renal disease) ICD Codes: N18.6 - End stage renal disease SNOMED: 96598126 (5) Pulmonary edema ICD Codes: J81.1 - Chronic pulmonary edema SNOMED: 23472367 (6) Hyperkalemia ICD Codes: E87.5 - Hyperkalemia SNOMED: 31119685 (7) Diabetes mellitus out of control ICD Codes: E11.65 - Type 2 diabetes mellitus with hyperglycemia SNOMED: 90810824, 405017798 Status: progressing Assessment/Plan: continue to hold Glipizide and do not resume as OP glucose check - Novolog low dose coverage hypoglycemia protocol in order TSH is elevated due to non compliance continue Levothyroxine 125 mcg daily Subjective ROS Limited/Unobtainable: Yes Allergies: Coded Allergies: PENICILLINS (Verified Allergy, Unknown, 10/07/18) PIPERACILLIN (Verified Allergy, Unknown, 10/07/18) TAZOBACTAM (Verified Allergy, Unknown, 10/07/18) Subjective events noted non cooperative refusing glucose check Item Value Date Time Bedside Blood Glucose 218 mg/dl H 04/09/19 1630 Bedside Blood Glucose 135 mg/dl H 04/09/19 0630 Objective Last 24 Hour Vital Signs Date Time Temp Pulse Resp B/P (MAP) Pulse Ox O2 Delivery O2 Flow Rate FiO2 04/10/19 04:45 79 27 95 Facial 35 04/10/19 04:00 30 04/10/19 04:00 89 04/10/19 04:00 98.6 89 26 150/60 (90) 97 04/10/19 02:55 77 31 96 Facial 35 04/10/19 01:00 79 30 95 Facial 35 04/10/19 00:48 178/81 04/10/19 00:00 86 04/10/19 00:00 30 04/10/19 00:00 97.8 91 28 178/81 (113) 97 04/09/19 22:45 81 32 95 Facial 35 04/09/19 21:00 Bi-pap Bi-pap 04/09/19 20:55 74 28 96 Facial 35 04/09/19 20:00 83 04/09/19 20:00 97.9 76 26 155/74 (101) 98 04/09/19 20:00 30 04/09/19 19:00 79 32 94 Facial 35 04/09/19 17:22 77 153/95 04/09/19 16:59 77 30 95 Facial 35 04/09/19 16:00 30 04/09/19 16:00 98.2 82 20 153/95 (114) 97 04/09/19 16:00 83 04/09/19 15:47 77 28 96 Bi-Pap 40 04/09/19 15:14 74 33 96 Facial 35 04/09/19 14:31 165/95 04/09/19 14:26 98.3 80 21 165/95 (118) 97 04/09/19 13:30 76 32 95 Facial 35 04/09/19 12:00 30 04/09/19 12:00 98.3 79 22 155/92 (113) 97 04/09/19 12:00 75 04/09/19 10:59 74 21 96 Facial 35 04/09/19 09:13 79 156/94 04/09/19 09:04 79 33 95 Facial 35 04/09/19 09:00 Nasal Cannula 2.0 Bi-pap 2.0 04/09/19 08:00 30 04/09/19 08:00 79 04/09/19 08:00 97.1 79 21 156/94 (114) 96 04/09/19 07:22 79 19 96 Facial 35 Intake and Output 04/09/19 04/10/19 19:00 07:00 Intake Total 480 ml Balance 480 ml Intake Oral 480 ml # Bowel Movements 1 Height (Feet): 5 Height (Inches): 0.00 Weight (Pounds): 131 General Appearance: no apparent distress EENT: other - blind Cardiovascular: normal rate Respiratory/Chest: decreased breath sounds Abdomen: normal bowel sounds Pelvis: normal external exam Edema: no edema noted Arm (L), no edema noted Arm (R), no edema noted Leg (L), no edema noted Leg (R), no edema noted Pedal (L), no edema noted Pedal (R), no edema noted Generalized Objective Current Medications Medications (Trade) Dose Ordered Sig/Soren Route PRN Reason Start Time Stop Time Status Last Admin Dose Admin Acetaminophen (Tylenol) 650 mg Q6H PRN ORAL Pain Scale (3-5) 04/04/19 14:45 05/04/19 14:44 04/06/19 23:39 Amlodipine Besylate (Norvasc) 5 mg BID ORAL 04/04/19 18:00 05/04/19 17:59 04/09/19 17:22 Aspirin (Ecotrin) 81 mg DAILY ORAL 04/05/19 09:00 05/05/19 08:59 04/09/19 09:13 Chlorhexidine Gluconate (Di-Hex 2%) 1 applic DAILY@1999 TOPIC 04/06/19 20:00 05/06/19 19:59 04/06/19 20:20 Dextrose (Dextrose 50%) 25 ml Q30M PRN IV Hypoglycemia 04/04/19 14:30 05/04/19 14:29 Dextrose (Dextrose 50%) 50 ml Q30M PRN IV Hypoglycemia 04/04/19 14:30 05/04/19 14:29 Diphenhydramine HCl (Benadryl) 25 mg QHS PRN ORAL Insomnia 04/05/19 01:45 05/05/19 01:44 04/10/19 00:47 Epoetin Dimitry (Epoetin Dimitry(ESRD on dialysis)) 10,000 unit TUE-TUE-TUE SUBQ 04/04/19 21:00 05/04/19 20:59 04/06/19 20:46 Guaifenesin/ Dextromethorphan (Robitussin DM Syrup) 5 ml Q6H PRN ORAL For Cough 04/05/19 01:45 05/05/19 01:44 04/05/19 13:34 Heparin Sodium (Porcine) (Heparin 5000 units/ml) 5,000 units EVERY 12 HOURS SUBQ 04/04/19 21:00 05/04/19 20:59 04/05/19 09:00 Hydralazine HCl (Apresoline) 25 mg Q4H PRN ORAL SBP > 160mmHg 04/04/19 14:45 05/04/19 14:29 04/10/19 00:48 Hydralazine HCl (Apresoline) 50 mg Q8HR ORAL 04/10/19 06:00 1/2/20 05:59 Insulin Aspart (NovoLOG) BEFORE MEALS AND HS SUBQ 04/04/19 16:30 05/04/19 16:29 04/08/19 12:21 Levothyroxine Sodium (Synthroid) 125 mcg DAILY@0630 ORAL 04/07/19 06:30 05/07/19 06:29 04/08/19 05:50 Morphine Sulfate (Morphine Sulfate) 1 mg Q6H PRN IVP For Pain 04/07/19 07:00 04/14/19 06:59 04/10/19 01:39 Nitroglycerin (Ntg) 0.4 mg Q5M PRN SL Prn Chest Pain 04/07/19 07:00 05/07/19 06:59 Sevelamer Carbonate (Renvela) 2,400 mg THREE TIMES A DAY ORAL 04/06/19 13:00 05/06/19 12:59 04/09/19 17:21 Marck Iqbal MD Apr 10, 2019 06:14
[2019-04-10] MEDS: HydrALAZINE 25mg tab ORAL SCH ×3 (06:32→21:19)
[2019-04-10] MEDS: Levothyroxine 125mcg tab ORAL SCH (06:32)
[2019-04-10] MEDS: NovoLOG Insulin Flexpen SUBQ SCH ×4 (06:33→21:00)
--- NOTE | 2019-04-10 06:35 | Hematology/Onc Progress Note ---
Assessment/Plan Assessment/Plan Assessment and Recs: # Anemia due to underlying chronic disease, multifactorial, does have a hx of esrd, ferritin in the past was 1004 --> anemia panel has been reviewed from prior adm --> hgb goal is >7, transfuse prn --> on epogen as per renal --> diuresis may help anemia as well, negative fluid balance --> smear has been reviewed and no schistocytes noted --> hgb trend 9.3-->8.1->7.6 --> REFUSING PRBC TRANSFUSIONs --> Will discuss with sister, patient somewhat confused # Hyperproteinemia, on admission protein is >9 --> at this time can be 2/2 inflammatory process --> if negative, consider get upep --> spep reviewed from before # Thrombocytopenia likely related to infection/chf --> in prior was negative --> reviewed and us abd neg # Acute respiratory failure secondary to CHF --> diuresis as per cards --> pulm has evaluated, breathing rx --> hd will help as well # Bradycardia --> per cards # Esrd requiring HD --> as per renal --> continue 3x a week # Pleural effusions --> likely related to overload # Noncompliance, refusing labs, meds # Dvt ppx scds Time of note does not necessarily correspond to then patient was seen. Greatly appreciate consultation. Subjective HEENT: Denies: no symptoms, eye pain, blurred vision, tearing, double vision, ear pain, ear discharge, nose pain, nose congestion, throat pain, throat swelling, mouth pain, mouth swelling, other Respiratory: Denies: no symptoms, cough, shortness of breath, SOB with excertion, SOB at rest, sputum, wheezing, other Gastrointestinal/Abdominal: Denies: no symptoms, abdomen distended, abdominal pain, black stools, tarry stools, blood in stool, constipated, diarrhea, difficulty swallowing, nausea, poor appetite, poor fluid intake, rectal bleeding , vomiting, other Genitourinary: Denies: no symptoms, burning, discharge, frequency, flank pain, hematuria, incontinence, pain, urgency, other Neurologic/Psychiatric: Denies: no symptoms, anxiety, depressed, emotional problems, headache, numbness, paresthesia, pre-existing deficit, seizure, tingling, tremors, weakness, other Allergies: Coded Allergies: PENICILLINS (Verified Allergy, Unknown, 10/07/18) PIPERACILLIN (Verified Allergy, Unknown, 10/07/18) TAZOBACTAM (Verified Allergy, Unknown, 10/07/18) Subjective 04/08: no major changes, hgb low, but she is refusing prbc transf 04/09: refuses blood transfusion, no bleeding, no night sweats 04/10: with bipap overnight, for hd today with vip Objective Objective Current Medications Medications (Trade) Dose Ordered Sig/Soren Route PRN Reason Start Time Stop Time Status Last Admin Dose Admin Acetaminophen (Tylenol) 650 mg Q6H PRN ORAL Pain Scale (3-5) 04/04/19 14:45 05/04/19 14:44 04/06/19 23:39 Amlodipine Besylate (Norvasc) 5 mg BID ORAL 04/04/19 18:00 05/04/19 17:59 04/09/19 17:22 Aspirin (Ecotrin) 81 mg DAILY ORAL 04/05/19 09:00 05/05/19 08:59 04/09/19 09:13 Chlorhexidine Gluconate (Di-Hex 2%) 1 applic DAILY@1999 TOPIC 04/06/19 20:00 05/06/19 19:59 04/06/19 20:20 Dextrose (Dextrose 50%) 25 ml Q30M PRN IV Hypoglycemia 04/04/19 14:30 05/04/19 14:29 Dextrose (Dextrose 50%) 50 ml Q30M PRN IV Hypoglycemia 04/04/19 14:30 05/04/19 14:29 Diphenhydramine HCl (Benadryl) 25 mg QHS PRN ORAL Insomnia 04/05/19 01:45 05/05/19 01:44 04/10/19 00:47 Epoetin Dimitry (Epoetin Dimitry(ESRD on dialysis)) 10,000 unit TUE-TUE-TUE SUBQ 04/04/19 21:00 05/04/19 20:59 04/06/19 20:46 Guaifenesin/ Dextromethorphan (Robitussin DM Syrup) 5 ml Q6H PRN ORAL For Cough 04/05/19 01:45 05/05/19 01:44 04/05/19 13:34 Heparin Sodium (Porcine) (Heparin 5000 units/ml) 5,000 units EVERY 12 HOURS SUBQ 04/04/19 21:00 05/04/19 20:59 04/05/19 09:00 Hydralazine HCl (Apresoline) 25 mg Q4H PRN ORAL SBP > 160mmHg 04/04/19 14:45 05/04/19 14:29 04/10/19 00:48 Hydralazine HCl (Apresoline) 50 mg Q8HR ORAL 04/10/19 06:00 05/10/19 05:59 04/10/19 06:32 Insulin Aspart (NovoLOG) BEFORE MEALS AND HS SUBQ 04/04/19 16:30 05/04/19 16:29 04/10/19 06:33 Levothyroxine Sodium (Synthroid) 125 mcg DAILY@0630 ORAL 04/07/19 06:30 05/07/19 06:29 04/10/19 06:32 Morphine Sulfate (Morphine Sulfate) 1 mg Q6H PRN IVP For Pain 04/07/19 07:00 04/14/19 06:59 04/10/19 01:39 Nitroglycerin (Ntg) 0.4 mg Q5M PRN SL Prn Chest Pain 04/07/19 07:00 05/07/19 06:59 Sevelamer Carbonate (Renvela) 2,400 mg THREE TIMES A DAY ORAL 04/06/19 13:00 05/06/19 12:59 04/09/19 17:21 Last 24 Hour Vital Signs Date Time Temp Pulse Resp B/P (MAP) Pulse Ox O2 Delivery O2 Flow Rate FiO2 04/10/19 06:32 150/60 04/10/19 04:45 79 27 95 Facial 35 04/10/19 04:00 30 04/10/19 04:00 89 04/10/19 04:00 98.6 89 26 150/60 (90) 97 04/10/19 02:55 77 31 96 Facial 35 04/10/19 01:00 79 30 95 Facial 35 04/10/19 00:48 178/81 04/10/19 00:00 86 04/10/19 00:00 30 04/10/19 00:00 97.8 91 28 178/81 (113) 97 04/09/19 22:45 81 32 95 Facial 35 12/2/19 21:00 Bi-pap Bi-pap 04/09/19 20:55 74 28 96 Facial 35 04/09/19 20:00 83 04/09/19 20:00 97.9 76 26 155/74 (101) 98 04/09/19 20:00 30 04/09/19 19:00 79 32 94 Facial 35 04/09/19 17:22 77 153/95 04/09/19 16:59 77 30 95 Facial 35 04/09/19 16:00 30 04/09/19 16:00 98.2 82 20 153/95 (114) 97 04/09/19 16:00 83 04/09/19 15:47 77 28 96 Bi-Pap 40 04/09/19 15:14 74 33 96 Facial 35 04/09/19 14:31 165/95 04/09/19 14:26 98.3 80 21 165/95 (118) 97 04/09/19 13:30 76 32 95 Facial 35 04/09/19 12:00 30 04/09/19 12:00 98.3 79 22 155/92 (113) 97 04/09/19 12:00 75 04/09/19 10:59 74 21 96 Facial 35 04/09/19 09:13 79 156/94 04/09/19 09:04 79 33 95 Facial 35 04/09/19 09:00 Nasal Cannula 2.0 Bi-pap 2.0 04/09/19 08:00 30 04/09/19 08:00 79 04/09/19 08:00 97.1 79 21 156/94 (114) 96 04/09/19 07:22 79 19 96 Facial 35 04/09/19 06:00 149/66 04/09/19 04:57 81 27 95 Facial 35 04/09/19 04:00 30 04/09/19 04:00 81 04/09/19 02:58 68 37 97 Facial 35 04/09/19 00:58 69 38 95 Facial 35 04/09/19 00:00 81 04/09/19 00:00 149/66 04/09/19 00:00 97.8 82 18 149/66 (93) 97 04/08/19 22:51 79 28 93 Facial 35 04/08/19 22:00 97.5 81 19 157/63 (94) 98 04/08/19 21:00 Nasal Cannula 2.0 Nasal Cannula 2.0 04/08/19 21:00 30 04/08/19 20:47 78 32 97 Facial 35 04/08/19 20:00 81 04/08/19 17:56 156/79 04/08/19 17:56 79 156/79 04/08/19 16:45 79 28 100 Facial 35 04/08/19 16:00 2.0 04/08/19 16:00 80 04/08/19 16:00 97.2 77 20 156/79 (104) 100 04/08/19 14:52 78 34 100 Facial 35 04/08/19 13:41 79 26 100 Facial 35 04/08/19 12:00 2.0 04/08/19 12:00 97.3 77 20 156/81 (106) 98 04/08/19 12:00 77 04/08/19 12:00 156/81 04/08/19 11:00 76 28 100 Facial 35 04/08/19 09:00 Nasal Cannula 2.0 Nasal Cannula 2.0 04/08/19 09:00 76 130/82 04/08/19 08:05 81 29 96 Facial 35 04/08/19 08:00 76 04/08/19 08:00 97.2 76 20 130/82 (98) 94 04/08/19 08:00 2.0 04/08/19 07:08 71 19 95 3.0 32 Intake and Output 04/09/19 04/10/19 19:00 07:00 Intake Total 480 ml Balance 480 ml Intake Oral 480 ml # Bowel Movements 1 Labs Test 04/08/19 13:45 White Blood Count 7.1 K/UL (4.8-10.8) Red Blood Count 2.33 M/UL (4.20-5.40) Hemoglobin 7.6 G/DL (12.0-16.0) Hematocrit 24.0 % (37.0-47.0) Mean Corpuscular Volume 103 FL (80-99) Mean Corpuscular Hemoglobin 32.4 PG (27.0-31.0) Mean Corpuscular Hemoglobin Concent 31.5 G/DL (32.0-36.0) Red Cell Distribution Width 15.6 % (11.6-14.8) Platelet Count 197 K/UL (150-450) Mean Platelet Volume 6.8 FL (6.5-10.1) Neutrophils (%) (Auto) % (45.0-75.0) Lymphocytes (%) (Auto) % (20.0-45.0) Monocytes (%) (Auto) % (1.0-10.0) Eosinophils (%) (Auto) % (0.0-3.0) Basophils (%) (Auto) % (0.0-2.0) Differential Total Cells Counted 100 Neutrophils % (Manual) 69 % (45-75) Lymphocytes % (Manual) 14 % (20-45) Monocytes % (Manual) 14 % (1-10) Eosinophils % (Manual) 3 % (0-3) Basophils % (Manual) 0 % (0-2) Band Neutrophils 0 % (0-8) Platelet Estimate Adequate Platelet Morphology Normal Polychromasia 1+ Hypochromasia 1+ Anisocytosis 1+ Macrocytosis 1+ Sodium Level 134 MMOL/L (136-145) Potassium Level 5.0 MMOL/L (3.5-5.1) Chloride Level 96 MMOL/L (98-107) Carbon Dioxide Level 31 MMOL/L (21-32) Anion Gap 7 mmol/L (5-15) Blood Urea Nitrogen 43 mg/dL (7-18) Creatinine 5.0 MG/DL (0.55-1.30) Estimat Glomerular Filtration Rate 9.1 mL/min (>60) Glucose Level 143 MG/DL (74-106) Uric Acid 5.3 MG/DL (2.6-7.2) Calcium Level 8.0 MG/DL (8.5-10.1) Phosphorus Level 5.8 MG/DL (2.5-4.9) Magnesium Level 2.6 MG/DL (1.8-2.4) Total Bilirubin 0.8 MG/DL (0.2-1.0) Aspartate Amino Transf (AST/SGOT) 25 U/L (15-37) Alanine Aminotransferase (ALT/SGPT) 22 U/L (12-78) Alkaline Phosphatase 547 U/L (46-116) Total Protein 7.0 G/DL (6.4-8.2) Albumin 2.5 G/DL (3.4-5.0) Globulin 4.5 g/dL Albumin/Globulin Ratio 0.6 (1.0-2.7) Height (Feet): 5 Height (Inches): 0.00 Weight (Pounds): 131 Objective Gen: nad Pulm: ctab, no cwr CV: rrr, no mgr Abd: soft, nt, nd Ext: no cce Myke Pearson MD Apr 10, 2019 06:34
[2019-04-10 08:00] VITALS: BP 141/63
[2019-04-10] MEDS: Aspirin EC 81mg tab ORAL SCH (08:44)
[2019-04-10] MEDS: Heparin 5000 units/ml inj SUBQ SCH ×3 (08:51→21:32)
[2019-04-10 12:00] VITALS: BP 142/67
--- NOTE | 2019-04-10 12:51 | General Progress Note ---
Assessment/Plan Problem List: (1) Hyperkalemia ICD Codes: E87.5 - Hyperkalemia SNOMED: 02408794 (2) Volume overload ICD Codes: E87.70 - Fluid overload, unspecified SNOMED: 63592931 (3) Pulmonary edema ICD Codes: J81.1 - Chronic pulmonary edema SNOMED: 37475376 (4) ESRD (end stage renal disease) ICD Codes: N18.6 - End stage renal disease SNOMED: 78445256 Status: progressing Assessment/Plan: hyperkalemia improved hypogylcemia resolved esrd on hd dropping hb.consulted dr garza no bleeding Subjective ROS Limited/Unobtainable: Yes Allergies: Coded Allergies: PENICILLINS (Verified Allergy, Unknown, 10/07/18) PIPERACILLIN (Verified Allergy, Unknown, 10/07/18) TAZOBACTAM (Verified Allergy, Unknown, 10/07/18) Objective Last 24 Hour Vital Signs Date Time Temp Pulse Resp B/P (MAP) Pulse Ox O2 Delivery O2 Flow Rate FiO2 04/10/19 12:00 30 04/10/19 12:00 99.0 92 22 142/67 (92) 98 04/10/19 10:52 85 33 97 Facial 35 04/10/19 09:00 Bi-pap Bi-pap 04/10/19 08:45 92 141/63 04/10/19 08:00 30 04/10/19 08:00 98.9 92 22 141/63 (89) 97 04/10/19 08:00 92 04/10/19 07:05 82 36 95 Facial 35 04/10/19 06:32 150/60 04/10/19 04:45 79 27 95 Facial 35 04/10/19 04:00 30 04/10/19 04:00 89 04/10/19 04:00 98.6 89 26 150/60 (90) 97 04/10/19 02:55 77 31 96 Facial 35 04/10/19 01:00 79 30 95 Facial 35 04/10/19 00:48 178/81 04/10/19 00:00 86 04/10/19 00:00 30 04/10/19 00:00 97.8 91 28 178/81 (113) 97 04/09/19 22:45 81 32 95 Facial 35 04/09/19 21:00 Bi-pap Bi-pap 04/09/19 20:55 74 28 96 Facial 35 04/09/19 20:00 83 04/09/19 20:00 97.9 76 26 155/74 (101) 98 04/09/19 20:00 30 04/09/19 19:00 79 32 94 Facial 35 04/09/19 17:22 77 153/95 04/09/19 16:59 77 30 95 Facial 35 04/09/19 16:00 30 04/09/19 16:00 98.2 82 20 153/95 (114) 97 04/09/19 16:00 83 04/09/19 15:47 77 28 96 Bi-Pap 40 04/09/19 15:14 74 33 96 Facial 35 04/09/19 14:31 165/95 04/09/19 14:26 98.3 80 21 165/95 (118) 97 04/09/19 13:30 76 32 95 Facial 35 Intake and Output 04/09/19 04/10/19 18:59 06:59 Intake Total 480 ml 60 ml Balance 480 ml 60 ml Intake Oral 480 ml 60 ml # Bowel Movements 1 Height (Feet): 5 Height (Inches): 0.00 Weight (Pounds): 132 General Appearance: confused Cardiovascular: normal rate Respiratory/Chest: lungs clear Abdomen: soft Kimberlee Guzman MD Apr 10, 2019 12:51
--- NOTE | 2019-04-10 13:00 | Pulmonology Progress Note ---
Assessment/Plan Assessment/Plan Pulmonary Progress Note HPI Patient is a 48-year-old female with a history of ESRD on hemodialysis MWF admitted with shortness of breath and chest pain. Denies any recent fevers, chills, cough. Noted to have fluid overload and Pulmonary Congestion on CXR, Less SOB s/p HD sp thoracentesis, on PRN BiPAP, refusing ABG, less SOB, using BiPAP less PMH: ESRD, Diabetes, Hypertension, Hypertensive Heart Disease, Weakness PSH: Dialysis catheter insertion Allergies: Penicillin, Zosyn Social Hx: Denies drug or alcohol abuse Allergies: PENICILLINS (Verified Allergy, Unknown, 10/07/18) PIPERACILLIN (Verified Allergy, Unknown, 10/07/18) TAZOBACTAM (Verified Allergy, Unknown, 10/07/18) Physical Exam . Vital Signs Noted General: Awake and alert, breathing comfortably on NC O2 HEENT: NC/AT. EOMI. Chest Wall: No tenderness, no deformity. Permacath in the left upper chest Cardiovascular: RRR. S1 and S2 normal. No murmur appreciated Resp: Normal work of breathing. CTAB Abdomen: Abdomen is soft, nondistended. Nontender Skin: Intact. No abrasions, laceration or rash over the exposed skin MSK: Normal tone and bulk. Moving all extremities. No obvious deformity. Neuro: Awake and alert. Mentating appropriately. Impression: End stage renal disease Volume overload, Pulmonary edema improved s/p HD Pleural effusions - sp thoracentesis - 750ml Anemia Diabetes Hypertension Hypertensive Heart Disease Weakness Plan HD per Renal O2 PRN BiPAP PRN PPX Monitor labs ORDER RUNNER medications Laboratory Tests Noted EKG: Rate: normal Rhythm: NSR Sinus rhythm, normal axis, first-degree AV block with NE intervals [address] segment changes. Chest X-Ray: Bilateral moderate to severe pulmonary edema with bilateral effusions Subjective ROS Limited/Unobtainable: No Allergies: Coded Allergies: PENICILLINS (Verified Allergy, Unknown, 10/07/18) PIPERACILLIN (Verified Allergy, Unknown, 10/07/18) TAZOBACTAM (Verified Allergy, Unknown, 10/07/18) Objective Last 24 Hour Vital Signs Date Time Temp Pulse Resp B/P (MAP) Pulse Ox O2 Delivery O2 Flow Rate FiO2 04/10/19 12:00 30 04/10/19 12:00 99.0 92 22 142/67 (92) 98 04/10/19 10:52 85 33 97 Facial 35 04/10/19 09:00 Bi-pap Bi-pap 04/10/19 08:45 92 141/63 04/10/19 08:00 30 04/10/19 08:00 98.9 92 22 141/63 (89) 97 04/10/19 08:00 92 04/10/19 07:05 82 36 95 Facial 35 04/10/19 06:32 150/60 04/10/19 04:45 79 27 95 Facial 35 04/10/19 04:00 30 04/10/19 04:00 89 04/10/19 04:00 98.6 89 26 150/60 (90) 97 04/10/19 02:55 77 31 96 Facial 35 04/10/19 01:00 79 30 95 Facial 35 04/10/19 00:48 178/81 04/10/19 00:00 86 04/10/19 00:00 30 04/10/19 00:00 97.8 91 28 178/81 (113) 97 04/09/19 22:45 81 32 95 Facial 35 04/09/19 21:00 Bi-pap Bi-pap 04/09/19 20:55 74 28 96 Facial 35 04/09/19 20:00 83 04/09/19 20:00 97.9 76 26 155/74 (101) 98 04/09/19 20:00 30 04/09/19 19:00 79 32 94 Facial 35 04/09/19 17:22 77 153/95 04/09/19 16:59 77 30 95 Facial 35 04/09/19 16:00 30 04/09/19 16:00 98.2 82 20 153/95 (114) 97 04/09/19 16:00 83 04/09/19 15:47 77 28 96 Bi-Pap 40 04/09/19 15:14 74 33 96 Facial 35 04/09/19 14:31 165/95 04/09/19 14:26 98.3 80 21 165/95 (118) 97 04/09/19 13:30 76 32 95 Facial 35 Intake and Output 04/09/19 04/10/19 18:59 06:59 Intake Total 480 ml 60 ml Balance 480 ml 60 ml Intake Oral 480 ml 60 ml # Bowel Movements 1 Current Medications Medications (Trade) Dose Ordered Sig/Soren Route PRN Reason Start Time Stop Time Status Last Admin Dose Admin Acetaminophen (Tylenol) 650 mg Q6H PRN ORAL Pain Scale (3-5) 04/04/19 14:45 05/04/19 14:44 04/06/19 23:39 Amlodipine Besylate (Norvasc) 5 mg BID ORAL 04/04/19 18:00 05/04/19 17:59 04/10/19 08:45 Aspirin (Ecotrin) 81 mg DAILY ORAL 04/05/19 09:00 05/05/19 08:59 04/10/19 08:44 Chlorhexidine Gluconate (Di-Hex 2%) 1 applic DAILY@1999 TOPIC 04/06/19 20:00 05/06/19 19:59 04/06/19 20:20 Dextrose (Dextrose 50%) 25 ml Q30M PRN IV Hypoglycemia 04/04/19 14:30 05/04/19 14:29 Dextrose (Dextrose 50%) 50 ml Q30M PRN IV Hypoglycemia 04/04/19 14:30 05/04/19 14:29 Diphenhydramine HCl (Benadryl) 25 mg QHS PRN ORAL Insomnia 04/05/19 01:45 05/05/19 01:44 04/10/19 00:47 Epoetin Dimitry (Epoetin Dimitry(ESRD on dialysis)) 10,000 unit TUE-TUE-TUE SUBQ 04/04/19 21:00 05/04/19 20:59 04/06/19 20:46 Guaifenesin/ Dextromethorphan (Robitussin DM Syrup) 5 ml Q6H PRN ORAL For Cough 04/05/19 01:45 05/05/19 01:44 04/05/19 13:34 Heparin Sodium (Porcine) (Heparin 5000 units/ml) 5,000 units EVERY 12 HOURS SUBQ 04/04/19 21:00 05/04/19 20:59 04/10/19 08:51 Hydralazine HCl (Apresoline) 25 mg Q4H PRN ORAL SBP > 160mmHg 04/04/19 14:45 05/04/19 14:29 04/10/19 00:48 Hydralazine HCl (Apresoline) 50 mg Q8HR ORAL 04/10/19 06:00 05/10/19 05:59 04/10/19 06:32 Insulin Aspart (NovoLOG) BEFORE MEALS AND HS SUBQ 04/04/19 16:30 05/04/19 16:29 04/10/19 11:43 Levothyroxine Sodium (Synthroid) 125 mcg DAILY@0630 ORAL 04/07/19 06:30 05/07/19 06:29 04/10/19 06:32 Morphine Sulfate (Morphine Sulfate) 1 mg Q6H PRN IVP For Pain 04/07/19 07:00 04/14/19 06:59 04/10/19 01:39 Nitroglycerin (Ntg) 0.4 mg Q5M PRN SL Prn Chest Pain 04/07/19 07:00 05/07/19 06:59 Sevelamer Carbonate (Renvela) 2,400 mg THREE TIMES A DAY ORAL 04/06/19 13:00 05/06/19 12:59 04/10/19 08:45 Roel Flood MD Apr 10, 2019 13:00
--- NOTE | 2019-04-10 15:08 | Nephrology Progress Note ---
Assessment/Plan Problem List: (1) ESRD (end stage renal disease) (2) Hyperkalemia (3) Pulmonary edema (4) Hypoglycemia Assessment End stage renal disease Volume overload Hyperkalemia Pulmonary edema Pleural effusions Diabetes Hypertension Hypertensive Heart Disease Plan Refuses blood draw HD with UF ordered and done 04/04 , 04/06 and repeat 04/08 keep bp under control per pulmonary per orders Subjective ROS Limited/Unobtainable: No Constitutional: Reports: malaise Objective Objective Last 24 Hour Vital Signs Date Time Temp Pulse Resp B/P (MAP) Pulse Ox O2 Delivery O2 Flow Rate FiO2 04/10/19 14:41 89 29 95 Facial 35 04/10/19 13:14 142/67 04/10/19 12:52 92 30 97 Facial 35 04/10/19 12:00 30 04/10/19 12:00 99.0 92 22 142/67 (92) 98 04/10/19 12:00 84 04/10/19 10:52 85 33 97 Facial 35 04/10/19 09:00 Bi-pap Bi-pap 04/10/19 08:45 92 141/63 04/10/19 08:00 30 04/10/19 08:00 98.9 92 22 141/63 (89) 97 04/10/19 08:00 92 04/10/19 07:05 82 36 95 Facial 35 04/10/19 06:32 150/60 04/10/19 04:45 79 27 95 Facial 35 04/10/19 04:00 30 04/10/19 04:00 89 04/10/19 04:00 98.6 89 26 150/60 (90) 97 04/10/19 02:55 77 31 96 Facial 35 04/10/19 01:00 79 30 95 Facial 35 04/10/19 00:48 178/81 04/10/19 00:00 86 04/10/19 00:00 30 04/10/19 00:00 97.8 91 28 178/81 (113) 97 04/09/19 22:45 81 32 95 Facial 35 04/09/19 21:00 Bi-pap Bi-pap 04/09/19 20:55 74 28 96 Facial 35 04/09/19 20:00 83 04/09/19 20:00 97.9 76 26 155/74 (101) 98 04/09/19 20:00 30 12/2/19 19:00 79 32 94 Facial 35 04/09/19 17:22 77 153/95 04/09/19 16:59 77 30 95 Facial 35 04/09/19 16:00 30 04/09/19 16:00 98.2 82 20 153/95 (114) 97 04/09/19 16:00 83 04/09/19 15:47 77 28 96 Bi-Pap 40 04/09/19 15:14 74 33 96 Facial 35 Intake and Output 04/09/19 04/10/19 18:59 06:59 Intake Total 480 ml 60 ml Balance 480 ml 60 ml Intake Oral 480 ml 60 ml # Bowel Movements 1 Height (Feet): 5 Height (Inches): 0.00 Weight (Pounds): 132 General Appearance: no apparent distress Respiratory/Chest: decreased breath sounds Abdomen: soft Elvin Garcia MD Apr 10, 2019 15:08
[2019-04-10 16:00] VITALS: BP 145/75
[2019-04-10 20:00] VITALS: BP 136/62
[2019-04-10] MEDS: Dyna-Hex 2% Top Sol 2oz TOPIC SCH (20:26)
--- NOTE | 2019-04-10 23:56 | Cardiology Progress Note ---
Assessment/Plan Assessment/Plan 1. Chest pain, likely due to her underlying pulmonary pathology, s/p right thoracentesis, last 2-D echocardiography in this patient had shown evidence of cardiomyopathy with LVEF of 40% to 45 partly due to septal wall hypokinesia felt to be secondary to RV pressure overload. 2. Acute on chronic diastolic congestive heart failure with presence severe elevation of intracardiac filling pressure, aggressive preload and afterload reduction. 3. Severe pulmonary hypertension due to end-stage renal disease and left heart failure, i.e. diastolic congestive heart failure. 4. Diabetes mellitus. Aspirin and statin for prevention of progressive vasculopathy. 5. Hypertensive crisis. Continue amlodipine, optimize hydralazine. Subjective Subjective Sinus rhythm at rate of 81. Objective Last 24 Hour Vital Signs Date Time Temp Pulse Resp B/P (MAP) Pulse Ox O2 Delivery O2 Flow Rate FiO2 04/10/19 21:49 81 04/10/19 21:28 79 29 96 Facial 35 04/10/19 21:19 136/62 04/10/19 20:00 30 04/10/19 20:00 100.0 86 20 136/62 (86) 99 04/10/19 19:28 75 31 95 Facial 35 04/10/19 18:00 82 145/75 04/10/19 17:47 82 29 97 Facial 35 04/10/19 16:00 90 04/10/19 16:00 30 04/10/19 16:00 98.7 95 22 145/75 (98) 98 04/10/19 14:41 89 29 95 Facial 35 04/10/19 13:14 142/67 04/10/19 12:52 92 30 97 Facial 35 04/10/19 12:00 30 04/10/19 12:00 99.0 92 22 142/67 (92) 98 04/10/19 12:00 84 04/10/19 10:52 85 33 97 Facial 35 04/10/19 09:00 Bi-pap Bi-pap 04/10/19 08:45 92 141/63 04/10/19 08:00 30 04/10/19 08:00 98.9 92 22 141/63 (89) 97 04/10/19 08:00 92 04/10/19 07:05 82 36 95 Facial 35 04/10/19 06:32 150/60 04/10/19 04:45 79 27 95 Facial 35 04/10/19 04:00 30 04/10/19 04:00 89 04/10/19 04:00 98.6 89 26 150/60 (90) 97 04/10/19 02:55 77 31 96 Facial 35 04/10/19 01:00 79 30 95 Facial 35 04/10/19 00:48 178/81 04/10/19 00:00 86 04/10/19 00:00 30 04/10/19 00:00 97.8 91 28 178/81 (113) 97 Intake and Output 04/09/19 04/10/19 19:00 07:00 Intake Total 480 ml 60 ml Balance 480 ml 60 ml Intake Oral 480 ml 60 ml # Bowel Movements 1 2D Echo: EF 40%, septal HK due to RV press overload, Mod MR, RVSP 59, Nl LVD Fxn Objective HEENT: Atraumatic and normocephalic. Anicteric. Pupils are equal, round, and reactive to light and accommodation. Extraocular muscles intact. NECK: JVP less than 5 cm. No carotid bruit. Carotid upstrokes 2+ bilaterally. CARDIOVASCULAR: Normal S1 and S2. Regular rate and rhythm. No murmurs, gallops, or rubs. PMI is at fourth intercostal space in the midclavicular line. LUNGS: Diminished breath sounds in both bases. ABDOMEN: Soft, nontender, and nondistended. No hepatosplenomegaly. Positive bowel sounds. EXTREMITIES: There is no edema, clubbing, or cyanosis. Amanuel Garcias MD Apr 10, 2019 23:56
[2019-04-11] VITALS: BP 131/61
[2019-04-11 04:00] VITALS: BP 105/67
[2019-04-11] MEDS: HydrALAZINE 25mg tab ORAL SCH ×2 (05:15→13:12)
[2019-04-11] MEDS: NovoLOG Insulin Flexpen SUBQ SCH ×4 (06:12→21:56)
[2019-04-11] MEDS: Levothyroxine 125mcg tab ORAL SCH ×2 (06:12→06:16)
--- NOTE | 2019-04-11 06:31 | General Progress Note ---
Assessment/Plan Problem List: (1) Hypothyroid ICD Codes: E03.9 - Hypothyroidism, unspecified SNOMED: 92954377 (2) Hypoglycemia ICD Codes: E16.2 - Hypoglycemia, unspecified SNOMED: 001166775 (3) Volume overload ICD Codes: E87.70 - Fluid overload, unspecified SNOMED: 94131778 (4) ESRD (end stage renal disease) ICD Codes: N18.6 - End stage renal disease SNOMED: 09742561 (5) Pulmonary edema ICD Codes: J81.1 - Chronic pulmonary edema SNOMED: 60575213 (6) Hyperkalemia ICD Codes: E87.5 - Hyperkalemia SNOMED: 45116337 (7) Diabetes mellitus out of control ICD Codes: E11.65 - Type 2 diabetes mellitus with hyperglycemia SNOMED: 12278193, 009721462 Status: progressing Assessment/Plan: continue to hold Glipizide and do not resume as OP glucose check - Novolog low dose coverage hypoglycemia protocol in order TSH is elevated due to non compliance continue Levothyroxine 125 mcg daily Subjective ROS Limited/Unobtainable: Yes Allergies: Coded Allergies: PENICILLINS (Verified Allergy, Unknown, 10/07/18) PIPERACILLIN (Verified Allergy, Unknown, 10/07/18) TAZOBACTAM (Verified Allergy, Unknown, 10/07/18) Subjective events noted glucose values are stable w/o hypoglycemia Item Value Date Time Bedside Blood Glucose 125 mg/dl H 04/11/19 0612 Bedside Blood Glucose 88 mg/dl 04/10/19 2100 Bedside Blood Glucose 95 mg/dl 04/10/19 1630 Bedside Blood Glucose 134 mg/dl H 04/10/19 1143 Bedside Blood Glucose 151 mg/dl H 04/10/19 0633 Objective Last 24 Hour Vital Signs Date Time Temp Pulse Resp B/P (MAP) Pulse Ox O2 Delivery O2 Flow Rate FiO2 04/11/19 05:22 78 29 96 Facial 35 04/11/19 05:15 105/67 04/11/19 04:00 99.2 80 18 105/67 (80) 97 04/11/19 04:00 30 04/11/19 03:26 78 04/11/19 02:43 71 25 97 Facial 35 04/11/19 00:48 77 32 95 Facial 35 04/11/19 00:00 79 04/11/19 00:00 98.8 81 18 131/61 (84) 96 04/10/19 21:49 81 04/10/19 21:28 79 29 96 Facial 35 04/10/19 21:19 136/62 04/10/19 21:00 Bi-pap 04/10/19 20:00 30 04/10/19 20:00 100.0 86 20 136/62 (86) 99 04/10/19 19:28 75 31 95 Facial 35 04/10/19 18:00 82 145/75 04/10/19 17:47 82 29 97 Facial 35 04/10/19 16:00 90 04/10/19 16:00 30 04/10/19 16:00 98.7 95 22 145/75 (98) 98 04/10/19 14:41 89 29 95 Facial 35 04/10/19 13:14 142/67 04/10/19 12:52 92 30 97 Facial 35 04/10/19 12:00 30 04/10/19 12:00 99.0 92 22 142/67 (92) 98 04/10/19 12:00 84 04/10/19 10:52 85 33 97 Facial 35 04/10/19 09:00 Bi-pap Bi-pap 04/10/19 08:45 92 141/63 04/10/19 08:00 30 04/10/19 08:00 98.9 92 22 141/63 (89) 97 04/10/19 08:00 92 04/10/19 07:05 82 36 95 Facial 35 04/10/19 06:32 150/60 Intake and Output 04/10/19 04/11/19 19:00 07:00 Intake Total 460 ml Balance 460 ml Intake Oral 460 ml # Voids 2 Height (Feet): 5 Height (Inches): 0.00 Weight (Pounds): 138 General Appearance: no apparent distress EENT: other - blind Neck: normal alignment Cardiovascular: normal rate Respiratory/Chest: lungs clear Abdomen: normal bowel sounds Objective Current Medications Medications (Trade) Dose Ordered Sig/Soren Route PRN Reason Start Time Stop Time Status Last Admin Dose Admin Acetaminophen (Tylenol) 650 mg Q6H PRN ORAL Pain Scale (3-5) 04/04/19 14:45 05/04/19 14:44 04/06/19 23:39 Amlodipine Besylate (Norvasc) 5 mg BID ORAL 04/04/19 18:00 05/04/19 17:59 04/10/19 08:45 Aspirin (Ecotrin) 81 mg DAILY ORAL 04/05/19 09:00 05/05/19 08:59 04/10/19 08:44 Chlorhexidine Gluconate (Di-Hex 2%) 1 applic DAILY@2000 TOPIC 04/06/19 20:00 05/06/19 19:59 04/10/19 20:26 Dextrose (Dextrose 50%) 25 ml Q30M PRN IV Hypoglycemia 04/04/19 14:30 05/04/19 14:29 Dextrose (Dextrose 50%) 50 ml Q30M PRN IV Hypoglycemia 04/04/19 14:30 05/04/19 14:29 Diphenhydramine HCl (Benadryl) 25 mg QHS PRN ORAL Insomnia 04/05/19 01:45 05/05/19 01:44 04/10/19 00:47 Epoetin Dimitry (Epoetin Dimitry(ESRD on dialysis)) 10,000 unit TUE-TUE-TUE SUBQ 04/04/19 21:00 05/04/19 20:59 04/06/19 20:46 Guaifenesin/ Dextromethorphan (Robitussin DM Syrup) 5 ml Q6H PRN ORAL For Cough 04/05/19 01:45 05/05/19 01:44 04/05/19 13:34 Heparin Sodium (Porcine) (Heparin 5000 units/ml) 5,000 units EVERY 12 HOURS SUBQ 04/04/19 21:00 05/04/19 20:59 04/10/19 08:51 Hydralazine HCl (Apresoline) 25 mg Q4H PRN ORAL SBP > 160mmHg 04/04/19 14:45 05/04/19 14:29 04/10/19 00:48 Hydralazine HCl (Apresoline) 50 mg Q8HR ORAL 04/10/19 06:00 05/10/19 05:59 04/10/19 21:19 Insulin Aspart (NovoLOG) BEFORE MEALS AND HS SUBQ 04/04/19 16:30 05/04/19 16:29 04/10/19 11:43 Levothyroxine Sodium (Synthroid) 125 mcg DAILY@0630 ORAL 04/07/19 06:30 05/07/19 06:29 04/10/19 06:32 Morphine Sulfate (Morphine Sulfate) 1 mg Q6H PRN IVP For Pain 04/07/19 07:00 04/14/19 06:59 04/10/19 01:39 Nitroglycerin (Ntg) 0.4 mg Q5M PRN SL Prn Chest Pain 04/07/19 07:00 05/07/19 06:59 Sevelamer Carbonate (Renvela) 2,400 mg THREE TIMES A DAY ORAL 04/06/19 13:00 05/06/19 12:59 04/10/19 13:14 Marck Iqbal MD Apr 11, 2019 06:31
[2019-04-11 08:00] VITALS: BP 135/59
[2019-04-11] MEDS: Aspirin EC 81mg tab ORAL SCH (09:15)
[2019-04-11] MEDS: Heparin 5000 units/ml inj SUBQ SCH ×2 (09:19→21:49)
--- NOTE | 2019-04-11 10:56 | Nephrology Progress Note ---
Assessment/Plan Problem List: (1) ESRD (end stage renal disease) (2) Hyperkalemia (3) Pulmonary edema (4) Hypoglycemia Assessment End stage renal disease Volume overload Hyperkalemia Pulmonary edema Pleural effusions Diabetes Hypertension Hypertensive Heart Disease Plan Refuses blood draw HD with UF due today 04/11 keep bp under control per pulmonary per orders Subjective ROS Limited/Unobtainable: No Constitutional: Reports: malaise Objective Objective Last 24 Hour Vital Signs Date Time Temp Pulse Resp B/P (MAP) Pulse Ox O2 Delivery O2 Flow Rate FiO2 04/11/19 09:32 89 25 97 Facial 35 04/11/19 09:00 73 135/59 04/11/19 07:18 91 21 99 Facial 35 04/11/19 05:22 78 29 96 Facial 35 04/11/19 05:15 105/67 04/11/19 04:00 99.2 80 18 105/67 (80) 97 04/11/19 04:00 30 04/11/19 03:26 78 04/11/19 02:43 71 25 97 Facial 35 04/11/19 00:48 77 32 95 Facial 35 04/11/19 00:00 79 04/11/19 00:00 98.8 81 18 131/61 (84) 96 04/10/19 21:49 81 04/10/19 21:28 79 29 96 Facial 35 04/10/19 21:19 136/62 04/10/19 21:00 Bi-pap 04/10/19 20:00 30 04/10/19 20:00 100.0 86 20 136/62 (86) 99 04/10/19 19:28 75 31 95 Facial 35 04/10/19 18:00 82 145/75 04/10/19 17:47 82 29 97 Facial 35 04/10/19 16:00 90 04/10/19 16:00 30 04/10/19 16:00 98.7 95 22 145/75 (98) 98 04/10/19 14:41 89 29 95 Facial 35 04/10/19 13:14 142/67 04/10/19 12:52 92 30 97 Facial 35 04/10/19 12:00 30 04/10/19 12:00 99.0 92 22 142/67 (92) 98 04/10/19 12:00 84 Intake and Output 04/10/19 04/11/19 19:00 07:00 Intake Total 460 ml 360 ml Balance 460 ml 360 ml Intake Oral 460 ml 360 ml # Voids 2 Height (Feet): 5 Height (Inches): 0.00 Weight (Pounds): 138 General Appearance: mild distress EENT: other - BIPAP Cardiovascular: tachycardia Respiratory/Chest: decreased breath sounds Abdomen: soft, distended Elvin Garcia MD Apr 11, 2019 10:56
[2019-04-11 12:00] VITALS: BP 130/71
--- NOTE | 2019-04-11 13:47 | Hematology/Onc Progress Note ---
Assessment/Plan Assessment/Plan Assessment and Recs: # Anemia due to underlying chronic disease, multifactorial, does have a hx of esrd, ferritin in the past was 1004 --> anemia panel has been reviewed from prior adm --> hgb goal is >7, transfuse prn --> on epogen as per renal --> diuresis may help anemia as well, negative fluid balance --> smear has been reviewed and no schistocytes noted --> hgb trend 9.3-->8.1->7.6 --> REFUSING PRBC TRANSFUSION/REFUSING BLOOD DRAW --> Will discuss with sister, patient somewhat confused # Hyperproteinemia, on admission protein is >9 --> at this time can be 2/2 inflammatory process --> if negative, consider get upep --> spep reviewed from before # Thrombocytopenia likely related to infection/chf --> in prior was negative --> reviewed and us abd neg # Acute respiratory failure secondary to CHF --> diuresis as per cards --> pulm has evaluated, breathing rx --> hd will help as well # Bradycardia --> per cards # Esrd requiring HD --> as per renal --> continue 3x a week # Pleural effusions --> likely related to overload # Noncompliance, refusing labs, meds # Dvt ppx scds Time of note does not necessarily correspond to then patient was seen. Greatly appreciate consultation. Subjective Constitutional: Denies: no symptoms, chills, fever, malaise, weakness, other HEENT: Denies: no symptoms, eye pain, blurred vision, tearing, double vision, ear pain, ear discharge, nose pain, nose congestion, throat pain, throat swelling, mouth pain, mouth swelling, other Respiratory: Denies: no symptoms, cough, shortness of breath, SOB with excertion, SOB at rest, sputum, wheezing, other Gastrointestinal/Abdominal: Denies: no symptoms, abdomen distended, abdominal pain, black stools, tarry stools, blood in stool, constipated, diarrhea, difficulty swallowing, nausea, poor appetite, poor fluid intake, rectal bleeding , vomiting, other Genitourinary: Denies: no symptoms, burning, discharge, frequency, flank pain, hematuria, incontinence, pain, urgency, other Neurologic/Psychiatric: Denies: no symptoms, anxiety, depressed, emotional problems, headache, numbness, paresthesia, pre-existing deficit, seizure, tingling, tremors, weakness, other Allergies: Coded Allergies: PENICILLINS (Verified Allergy, Unknown, 10/07/18) PIPERACILLIN (Verified Allergy, Unknown, 10/07/18) TAZOBACTAM (Verified Allergy, Unknown, 10/07/18) Subjective 04/08: no major changes, hgb low, but she is refusing prbc transf 04/09: refuses blood transfusion, no bleeding, no night sweats 04/10: with bipap overnight, for hd today with vip 04/11: no events, no bleeding, hd with uf, no major changes Objective Objective Current Medications Medications (Trade) Dose Ordered Sig/Soren Route PRN Reason Start Time Stop Time Status Last Admin Dose Admin Acetaminophen (Tylenol) 650 mg Q6H PRN ORAL Pain Scale (3-5) 04/04/19 14:45 05/04/19 14:44 04/06/19 23:39 Amlodipine Besylate (Norvasc) 5 mg BID ORAL 04/04/19 18:00 05/04/19 17:59 04/10/19 08:45 Aspirin (Ecotrin) 81 mg DAILY ORAL 04/05/19 09:00 05/05/19 08:59 04/11/19 09:15 Chlorhexidine Gluconate (Di-Hex 2%) 1 applic DAILY@1999 TOPIC 04/06/19 20:00 05/06/19 19:59 04/10/19 20:26 Dextrose (Dextrose 50%) 25 ml Q30M PRN IV Hypoglycemia 04/04/19 14:30 05/04/19 14:29 Dextrose (Dextrose 50%) 50 ml Q30M PRN IV Hypoglycemia 04/04/19 14:30 05/04/19 14:29 Diphenhydramine HCl (Benadryl) 25 mg QHS PRN ORAL Insomnia 04/05/19 01:45 05/05/19 01:44 04/10/19 00:47 Epoetin Dimitry (Epoetin Dimitry(ESRD on dialysis)) 10,000 unit MON-WED-TUE SUBQ 04/04/19 21:00 05/04/19 20:59 04/06/19 20:46 Guaifenesin/ Dextromethorphan (Robitussin DM Syrup) 5 ml Q6H PRN ORAL For Cough 04/05/19 01:45 05/05/19 01:44 04/05/19 13:34 Heparin Sodium (Porcine) (Heparin 5000 units/ml) 5,000 units EVERY 12 HOURS SUBQ 04/04/19 21:00 05/04/19 20:59 04/11/19 09:19 Hydralazine HCl (Apresoline) 25 mg Q4H PRN ORAL SBP > 160mmHg 04/04/19 14:45 05/04/19 14:29 04/10/19 00:48 Hydralazine HCl (Apresoline) 50 mg Q8HR ORAL 04/11/19 14:00 05/10/19 13:59 Insulin Aspart (NovoLOG) BEFORE MEALS AND HS SUBQ 04/04/19 16:30 05/04/19 16:29 04/11/19 12:04 Levothyroxine Sodium (Synthroid) 125 mcg DAILY@0630 ORAL 04/07/19 06:30 05/07/19 06:29 04/10/19 06:32 Morphine Sulfate (Morphine Sulfate) 1 mg Q6H PRN IVP For Pain 04/07/19 07:00 04/14/19 06:59 04/10/19 01:39 Nitroglycerin (Ntg) 0.4 mg Q5M PRN SL Prn Chest Pain 04/07/19 07:00 05/07/19 06:59 Sevelamer Carbonate (Renvela) 2,400 mg THREE TIMES A DAY ORAL 04/06/19 13:00 05/06/19 12:59 04/11/19 09:15 Last 24 Hour Vital Signs Date Time Temp Pulse Resp B/P (MAP) Pulse Ox O2 Delivery O2 Flow Rate FiO2 04/11/19 13:25 95 27 97 Facial 35 04/11/19 13:12 130/71 04/11/19 12:00 30 04/11/19 12:00 100 04/11/19 12:00 96.7 100 19 130/71 (90) 99 04/11/19 11:17 98 22 97 Facial 35 04/11/19 09:32 89 25 97 Facial 35 04/11/19 09:00 Bi-pap 04/11/19 09:00 73 135/59 04/11/19 08:00 30 04/11/19 08:00 96.8 79 18 135/59 (84) 98 04/11/19 08:00 79 04/11/19 07:18 91 21 99 Facial 35 04/11/19 05:22 78 29 96 Facial 35 04/11/19 05:15 105/67 04/11/19 04:00 99.2 80 18 105/67 (80) 97 04/11/19 04:00 30 04/11/19 03:26 78 04/11/19 02:43 71 25 97 Facial 35 04/11/19 00:48 77 32 95 Facial 35 04/11/19 00:00 79 04/11/19 00:00 98.8 81 18 131/61 (84) 96 04/10/19 21:49 81 04/10/19 21:28 79 29 96 Facial 35 04/10/19 21:19 136/62 04/10/19 21:00 Bi-pap 04/10/19 20:00 30 04/10/19 20:00 100.0 86 20 136/62 (86) 99 04/10/19 19:28 75 31 95 Facial 35 04/10/19 18:00 82 145/75 04/10/19 17:47 82 29 97 Facial 35 04/10/19 16:00 90 04/10/19 16:00 30 04/10/19 16:00 98.7 95 22 145/75 (98) 98 04/10/19 14:41 89 29 95 Facial 35 04/10/19 13:14 142/67 04/10/19 12:52 92 30 97 Facial 35 04/10/19 12:00 30 04/10/19 12:00 99.0 92 22 142/67 (92) 98 04/10/19 12:00 84 04/10/19 10:52 85 33 97 Facial 35 04/10/19 09:00 Bi-pap Bi-pap 04/10/19 08:45 92 141/63 04/10/19 08:00 30 04/10/19 08:00 98.9 92 22 141/63 (89) 97 04/10/19 08:00 92 04/10/19 07:05 82 36 95 Facial 35 04/10/19 06:32 150/60 04/10/19 04:45 79 27 95 Facial 35 04/10/19 04:00 30 04/10/19 04:00 89 04/10/19 04:00 98.6 89 26 150/60 (90) 97 04/10/19 02:55 77 31 96 Facial 35 04/10/19 01:00 79 30 95 Facial 35 04/10/19 00:48 178/81 04/10/19 00:00 86 04/10/19 00:00 30 04/10/19 00:00 97.8 91 28 178/81 (113) 97 04/09/19 22:45 81 32 95 Facial 35 04/09/19 21:00 Bi-pap Bi-pap 04/09/19 20:55 74 28 96 Facial 35 04/09/19 20:00 83 04/09/19 20:00 97.9 76 26 155/74 (101) 98 04/09/19 20:00 30 04/09/19 19:00 79 32 94 Facial 35 04/09/19 17:22 77 153/95 04/09/19 16:59 77 30 95 Facial 35 04/09/19 16:00 30 04/09/19 16:00 98.2 82 20 153/95 (114) 97 04/09/19 16:00 83 04/09/19 15:47 77 28 96 Bi-Pap 40 04/09/19 15:14 74 33 96 Facial 35 04/09/19 14:31 165/95 04/09/19 14:26 98.3 80 21 165/95 (118) 97 Intake and Output 04/10/19 04/11/19 18:59 06:59 Intake Total 460 ml 240 ml Balance 460 ml 240 ml Intake Oral 460 ml 240 ml # Voids 2 Height (Feet): 5 Height (Inches): 0.00 Weight (Pounds): 138 Objective Gen: nad Pulm: ctab, no cwr CV: rrr, no mgr Abd: soft, nt, nd Ext: no cce Myke Pearson MD Apr 11, 2019 13:47
[2019-04-11] MEDS: HydrALAZINE 50mg tab ORAL SCH ×2 (14:28→21:49)
--- NOTE | 2019-04-11 15:13 | General Progress Note ---
Assessment/Plan Problem List: (1) Hyperkalemia ICD Codes: E87.5 - Hyperkalemia SNOMED: 03146886 (2) Volume overload ICD Codes: E87.70 - Fluid overload, unspecified SNOMED: 95838491 (3) Pulmonary edema ICD Codes: J81.1 - Chronic pulmonary edema SNOMED: 54722447 (4) ESRD (end stage renal disease) ICD Codes: N18.6 - End stage renal disease SNOMED: 53384099 Status: progressing Assessment/Plan: refusing diaylsis and care dc if cleared by hem/onc and renal esrd on hd Subjective ROS Limited/Unobtainable: Yes Allergies: Coded Allergies: PENICILLINS (Verified Allergy, Unknown, 10/07/18) PIPERACILLIN (Verified Allergy, Unknown, 10/07/18) TAZOBACTAM (Verified Allergy, Unknown, 10/07/18) Objective Last 24 Hour Vital Signs Date Time Temp Pulse Resp B/P (MAP) Pulse Ox O2 Delivery O2 Flow Rate FiO2 04/11/19 14:28 130/71 04/11/19 13:25 95 27 97 Facial 35 04/11/19 13:12 130/71 04/11/19 12:00 30 04/11/19 12:00 100 04/11/19 12:00 96.7 100 19 130/71 (90) 99 04/11/19 11:17 98 22 97 Facial 35 04/11/19 09:32 89 25 97 Facial 35 04/11/19 09:00 Bi-pap 04/11/19 09:00 73 135/59 04/11/19 08:00 30 04/11/19 08:00 96.8 79 18 135/59 (84) 98 04/11/19 08:00 79 04/11/19 07:18 91 21 99 Facial 35 04/11/19 05:22 78 29 96 Facial 35 04/11/19 05:15 105/67 04/11/19 04:00 99.2 80 18 105/67 (80) 97 04/11/19 04:00 30 04/11/19 03:26 78 04/11/19 02:43 71 25 97 Facial 35 04/11/19 00:48 77 32 95 Facial 35 04/11/19 00:00 79 04/11/19 00:00 98.8 81 18 131/61 (84) 96 04/10/19 21:49 81 04/10/19 21:28 79 29 96 Facial 35 04/10/19 21:19 136/62 04/10/19 21:00 Bi-pap 04/10/19 20:00 30 04/10/19 20:00 100.0 86 20 136/62 (86) 99 04/10/19 19:28 75 31 95 Facial 35 04/10/19 18:00 82 145/75 04/10/19 17:47 82 29 97 Facial 35 04/10/19 16:00 90 04/10/19 16:00 30 04/10/19 16:00 98.7 95 22 145/75 (98) 98 Intake and Output 04/10/19 04/11/19 18:59 06:59 Intake Total 460 ml 240 ml Balance 460 ml 240 ml Intake Oral 460 ml 240 ml # Voids 2 Height (Feet): 5 Height (Inches): 0.00 Weight (Pounds): 138 Cardiovascular: normal rate Respiratory/Chest: lungs clear Abdomen: soft Kimberlee Guzman MD Apr 11, 2019 15:13
--- NOTE | 2019-04-11 15:29 | Pulmonology Progress Note ---
Assessment/Plan Assessment/Plan Pulmonary Progress Note HPI Patient is a 48-year-old female with a history of ESRD on hemodialysis MWF admitted with shortness of breath and chest pain. Denies any recent fevers, chills, cough. Noted to have fluid overload and Pulmonary Congestion on CXR, Less SOB s/p HD sp thoracentesis, on PRN BiPAP, refusing ABG, less SOB, using BiPAP less PMH: ESRD, Diabetes, Hypertension, Hypertensive Heart Disease, Weakness PSH: Dialysis catheter insertion Allergies: Penicillin, Zosyn Social Hx: Denies drug or alcohol abuse Allergies: PENICILLINS (Verified Allergy, Unknown, 10/07/18) PIPERACILLIN (Verified Allergy, Unknown, 10/07/18) TAZOBACTAM (Verified Allergy, Unknown, 10/07/18) Physical Exam . Vital Signs Noted General: Awake and alert, breathing comfortably on NC O2 HEENT: NC/AT. EOMI. Chest Wall: No tenderness, no deformity. Permacath in the left upper chest Cardiovascular: RRR. S1 and S2 normal. No murmur appreciated Resp: Normal work of breathing. CTAB Abdomen: Abdomen is soft, nondistended. Nontender Skin: Intact. No abrasions, laceration or rash over the exposed skin MSK: Normal tone and bulk. Moving all extremities. No obvious deformity. Neuro: Awake and alert. Mentating appropriately. 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 segment changes. Chest X-Ray: Bilateral moderate to severe pulmonary edema with bilateral effusions Subjective ROS Limited/Unobtainable: No Allergies: Coded Allergies: PENICILLINS (Verified Allergy, Unknown, 10/07/18) PIPERACILLIN (Verified Allergy, Unknown, 10/07/18) TAZOBACTAM (Verified Allergy, Unknown, 10/07/18) Objective Last 24 Hour Vital Signs Date Time Temp Pulse Resp B/P (MAP) Pulse Ox O2 Delivery O2 Flow Rate FiO2 04/11/19 14:28 130/71 04/11/19 13:25 95 27 97 Facial 35 04/11/19 13:12 130/71 04/11/19 12:00 30 04/11/19 12:00 100 04/11/19 12:00 96.7 100 19 130/71 (90) 99 04/11/19 11:17 98 22 97 Facial 35 04/11/19 09:32 89 25 97 Facial 35 04/11/19 09:00 Bi-pap 04/11/19 09:00 73 135/59 04/11/19 08:00 30 04/11/19 08:00 96.8 79 18 135/59 (84) 98 04/11/19 08:00 79 04/11/19 07:18 91 21 99 Facial 35 04/11/19 05:22 78 29 96 Facial 35 04/11/19 05:15 105/67 04/11/19 04:00 99.2 80 18 105/67 (80) 97 04/11/19 04:00 30 04/11/19 03:26 78 04/11/19 02:43 71 25 97 Facial 35 04/11/19 00:48 77 32 95 Facial 35 04/11/19 00:00 79 04/11/19 00:00 98.8 81 18 131/61 (84) 96 04/10/19 21:49 81 04/10/19 21:28 79 29 96 Facial 35 04/10/19 21:19 136/62 04/10/19 21:00 Bi-pap 04/10/19 20:00 30 04/10/19 20:00 100.0 86 20 136/62 (86) 99 04/10/19 19:28 75 31 95 Facial 35 04/10/19 18:00 82 145/75 04/10/19 17:47 82 29 97 Facial 35 04/10/19 16:00 90 04/10/19 16:00 30 04/10/19 16:00 98.7 95 22 145/75 (98) 98 Intake and Output 04/10/19 04/11/19 18:59 06:59 Intake Total 460 ml 240 ml Balance 460 ml 240 ml Intake Oral 460 ml 240 ml # Voids 2 Current Medications Medications (Trade) Dose Ordered Sig/Soren Route PRN Reason Start Time Stop Time Status Last Admin Dose Admin Acetaminophen (Tylenol) 650 mg Q6H PRN ORAL Pain Scale (3-5) 04/04/19 14:45 05/04/19 14:44 04/06/19 23:39 Amlodipine Besylate (Norvasc) 5 mg BID ORAL 04/04/19 18:00 05/04/19 17:59 04/10/19 08:45 Aspirin (Ecotrin) 81 mg DAILY ORAL 04/05/19 09:00 05/05/19 08:59 04/11/19 09:15 Chlorhexidine Gluconate (Di-Hex 2%) 1 applic DAILY@1999 TOPIC 04/06/19 20:00 05/06/19 19:59 04/10/19 20:26 Dextrose (Dextrose 50%) 25 ml Q30M PRN IV Hypoglycemia 04/04/19 14:30 05/04/19 14:29 Dextrose (Dextrose 50%) 50 ml Q30M PRN IV Hypoglycemia 04/04/19 14:30 05/04/19 14:29 Diphenhydramine HCl (Benadryl) 25 mg QHS PRN ORAL Insomnia 04/05/19 01:45 05/05/19 01:44 04/10/19 00:47 Epoetin Dimitry (Epoetin Dimitry(ESRD on dialysis)) 10,000 unit TUE-TUE-TUE SUBQ 04/04/19 21:00 05/04/19 20:59 04/06/19 20:46 Guaifenesin/ Dextromethorphan (Robitussin DM Syrup) 5 ml Q6H PRN ORAL For Cough 04/05/19 01:45 05/05/19 01:44 04/05/19 13:34 Heparin Sodium (Porcine) (Heparin 5000 units/ml) 5,000 units EVERY 12 HOURS SUBQ 04/04/19 21:00 05/04/19 20:59 04/11/19 09:19 Hydralazine HCl (Apresoline) 25 mg Q4H PRN ORAL SBP > 160mmHg 04/04/19 14:45 05/04/19 14:29 04/10/19 00:48 Hydralazine HCl (Apresoline) 50 mg Q8HR ORAL 04/11/19 14:00 05/10/19 13:59 04/11/19 14:28 Insulin Aspart (NovoLOG) BEFORE MEALS AND HS SUBQ 04/04/19 16:30 05/04/19 16:29 04/11/19 12:04 Levothyroxine Sodium (Synthroid) 125 mcg DAILY@0630 ORAL 04/07/19 06:30 05/07/19 06:29 04/10/19 06:32 Morphine Sulfate (Morphine Sulfate) 1 mg Q6H PRN IVP For Pain 04/07/19 07:00 04/14/19 06:59 04/10/19 01:39 Nitroglycerin (Ntg) 0.4 mg Q5M PRN SL Prn Chest Pain 04/07/19 07:00 05/07/19 06:59 Sevelamer Carbonate (Renvela) 2,400 mg THREE TIMES A DAY ORAL 04/06/19 13:00 05/06/19 12:59 04/11/19 09:15 Roel Flood MD Apr 11, 2019 15:29
[2019-04-11 16:00] VITALS: BP 130/67
[2019-04-11 20:00] VITALS: BP 149/71
[2019-04-11] MEDS: Dyna-Hex 2% Top Sol 2oz TOPIC SCH (20:25)
[2019-04-11] MEDS: Epoetin Alfa-EPBX(ESRD on dialysis)10,000 unit/ml vial SUBQ SCH (21:49)
[2019-04-12] VITALS: BP 130/84
--- NOTE | 2019-04-12 | Cardiology Progress Note ---
Assessment/Plan Assessment/Plan LATE ENTRY NOT Date of Encounter: 04/11/19 Time of Encounter: 22:11 1. Chest pain, likely due to her underlying pulmonary pathology, s/p right thoracentesis, last 2-D echocardiography in this patient had shown evidence of cardiomyopathy with LVEF of 40% to 45 partly due to septal wall hypokinesia felt to be secondary to RV pressure overload. 2. Acute on chronic diastolic congestive heart failure with presence severe elevation of intracardiac filling pressure, aggressive preload and afterload reduction. 3. Severe pulmonary hypertension due to end-stage renal disease and left heart failure, i.e. diastolic congestive heart failure. 4. Diabetes mellitus. Aspirin and statin for prevention of progressive vasculopathy. 5. Hypertensive crisis. Continue amlodipine, optimize hydralazine. Subjective Subjective Sinus rhythm at rate of 96. Objective Last 24 Hour Vital Signs Date Time Temp Pulse Resp B/P (MAP) Pulse Ox O2 Delivery O2 Flow Rate FiO2 04/11/19 23:37 96 36 96 Facial 35 04/11/19 21:49 149/71 04/11/19 21:41 97 29 97 Facial 35 04/11/19 21:25 93 22 95 32 04/11/19 19:54 90 24 94 32 04/11/19 17:57 85 130/67 04/11/19 16:16 30 04/11/19 16:00 98.9 85 18 130/67 (88) 97 04/11/19 16:00 85 04/11/19 14:28 130/71 04/11/19 13:25 95 27 97 Facial 35 04/11/19 13:12 130/71 04/11/19 12:00 30 04/11/19 12:00 100 04/11/19 12:00 96.7 100 19 130/71 (90) 99 04/11/19 11:17 98 22 97 Facial 35 04/11/19 09:32 89 25 97 Facial 35 04/11/19 09:00 Bi-pap 04/11/19 09:00 73 135/59 04/11/19 08:00 30 04/11/19 08:00 96.8 79 18 135/59 (84) 98 04/11/19 08:00 79 04/11/19 07:18 91 21 99 Facial 35 04/11/19 05:22 78 29 96 Facial 35 12/4/19 05:15 105/67 04/11/19 04:00 99.2 80 18 105/67 (80) 97 04/11/19 04:00 30 04/11/19 03:26 78 04/11/19 02:43 71 25 97 Facial 35 04/11/19 00:48 77 32 95 Facial 35 2D Echo: EF 40%, septal HK due to RV press overload, Mod MR, RVSP 59, Nl LVD Fxn Objective HEENT: Atraumatic and normocephalic. Anicteric. Pupils are equal, round, and reactive to light and accommodation. Extraocular muscles intact. NECK: JVP less than 5 cm. No carotid bruit. Carotid upstrokes 2+ bilaterally. CARDIOVASCULAR: Normal S1 and S2. Regular rate and rhythm. No murmurs, gallops, or rubs. PMI is at fourth intercostal space in the midclavicular line. LUNGS: Diminished breath sounds in both bases. ABDOMEN: Soft, nontender, and nondistended. No hepatosplenomegaly. Positive bowel sounds. EXTREMITIES: There is no edema, clubbing, or cyanosis. Amanuel Garcias MD Apr 12, 2019 00:00
[2019-04-12] MEDS ORDERED: HydrALAZINE 50mg tab ORAL SCH (06:00)
--- NOTE | 2019-04-12 12:44 | Cardiology Report ---
APPROVED REPORT EKG Measurement Heart [id number] Sinus rhythm with 1st degree AV block Low voltage QRS Cannot rule out Anteroseptal infarct, age undetermined Abnormal ECG
--- NOTE | 2019-04-13 15:37 | Discharge Summary ---
Discharge Summary Discharge Summary _ DATE OF ADMISSION: 04/04/2019 DATE OF DISCHARGE: 04/12/2019 DISCHARGED BY: Dr. Guzman REASON FOR ADMISSION: 48 years old female with past medical history of end-stage renal disease, on hemodialysis, hypertension, COPD, diabetes mellitus, sent for evaluation due to chest pain. Patient had many prior visits for chest pain and stated that they all were somewhat related to hemodialysis. Chest pain usually occurred during hemodialysis or shortly before it. This time patient reported several hours of chest pain. She apparently missed hemodialysis for few days. Patient was found to be hypoxic by EMS with pulse oximetry in the 70s , but improved on nonrebreathing mask. Patient received nitroglycerin en route to the hospital with so,me improvement. No fever or chills , no cough. Vital signs initially revealed elevated blood pressure 187/92, pulse oximetry was stable on 100% d nonrebreathing mask . Patient was afebrile. Laboratory work-up revealed no leukocytosis , hemoglobin 9.3, hematocrit 29.1, platelet count 173. MCV 102. ABG on simple mask with 8L revealed O2 sat 89.5%. Troponin was negative . EKG revealed sinus rhythm with first-degree AV block, no ST segment changes. Pro BNP 10917. Sodium 131, potassium 5.3. BUN 56, creatinine 5.0. Glucose 230. Chest x-ray demonstrated bilateral interstitial and airspace infiltrates versus edema. Bilateral pleural effusion. In emergency room patient was scheduled for urgent dialysis. Patient received aspirin and nitroglycerin along with Lasix . Bronchodilator treatment was given via HHN. Patient subsequently admitted for further management to telemetry floor. CONSULTANTS: communication and outreach manager Dr. Garcias pulmonary Dr Flood range scientist Dr. Garcia cephalometric analyst/oncologist Dr. Pearson children's book author Dr. Iqbal [facility] COURSE: Patient was admitted to monitored floor. Dialysis was urgently as per range scientist orders with ultrafiltration. Volumes, renal parameters and electrolytes were closely monitored, electrolytes corrected as needed , and nephrotoxic's were avoided . Per POLST patient had comfort focused treatment with primary goal of maximizing comfort. Furs Salesperson followed. Patient undergone ultrasound-guided thoracentesis of right pleural effusion , which yielded 750 cc of pleural fluid. Follow-up chest x-ray revealed no pneumothorax , moderate pulmonary edema. Pathology of pleural fluid revealed no evidence of malignancy. Supplemental oxygen provided and titrated to keep pulse oximetry above 92%. Patient was eventually able to be weaned from non-rebreathing mask to face mask and then to nasal cannula . BiPAP provided at night and as needed. DVT prophylaxis provided. Per communication and outreach manager , chest pain was likely due to underlying pulmonary pathology. Patient also had evidence of acute on chronic diastolic congestive heart failure , managed with hemodialysis with ultrafiltration. Hotel Valet Attendant recommended aggressive preload and afterload reduction. Severe pulmonary hypertension was due to end-stage renal disease Blood pressure was managed with calcium channel mylene and hydralazine. Blood pressure stabilized as patient's condition improved. Antiplatelet therapy with aspirin continued. Back Winder consulted due to episode of hypoglycemia. Back Winder recommended hold glipizide , and continue low dose sliding scale of short-acting NovoLog as needed. Hypoglycemia protocol was in order. TSH was mildly elevated, likely due to noncompliance . Back Winder recommended continue current dose of levothyroxine. Lehr Tender followed. Hemoglobin and hematocrit were closely monitored with goal to keep hemoglobin above 7. Patient was on Epogen as per range scientist. Anemia was likely due to anemia of chronic disease. Serum protein electrophoresis stable . Patient clinically stabilized and was ready for transfer back to [facility] for continuation of care. FINAL DIAGNOSES: Acute hypoxemic respiratory failure secondary to CHF -improved Pulmonary edema End-stage renal disease, on hemodialysis Acute on chronic diastolic congestive heart failure Severe pulmonary hypertension HTN crisis/hypertensive urgency-on admission , improved Hyperkalemia -improved Chest pain , likely due to underlying pulmonary pathology Right pleural effusion status post thoracentesis Hypothyroidism Hypoglycemia Hyperkalemia Diabetes mellitus [id number] Anemia of chronic disease Noncompliance DISCHARGE MEDICATIONS: See Medication Reconciliation list. DISCHARGE INSTRUCTIONS: Patient was discharged to the [facility] facility. Follow up with medical doctor at the facility. I have been assigned to dictate discharge summary for this account. I was not involved in the patient's management. Chioma Sosa NP Apr 13, 2019 15:37
== END 2019-04-12 03:18 | DRG 425 ==
LOC: EDBD 09:46 → EMR 10:51 → 2E 12:58 → EDBEDREQ 13:30
PROC: 5A1D70Z Performance of Urinary Filtration, Intermittent, Less than 6 Hours Per Day (ICD-10-PCS; 2019-04-04)
PROC: 0W993ZZ Drainage of Right Pleural Cavity, Percutaneous Approach (ICD-10-PCS; principal; 2019-04-06)
DX: E87.70 Fluid overload, unspecified (principal); N18.6 End stage renal disease; J96.00 Acute respiratory failure, unspecified whether with hypoxia or hypercapnia; E03.9 Hypothyroidism, unspecified; Z88.0 Allergy status to penicillin; Z79.82 Long term (current) use of aspirin; Z79.4 Long term (current) use of insulin; I12.0 Hypertensive chronic kidney disease with stage 5 chronic kidney disease or end stage renal disease; E11.22 Type 2 diabetes mellitus with diabetic chronic kidney disease; Z99.2 Dependence on renal dialysis; I13.2 Hypertensive heart and chronic kidney disease with heart failure and with stage 5 chronic kidney disease, or end stage renal disease; I50.33 Acute on chronic diastolic (congestive) heart failure; J90 Pleural effusion, not elsewhere classified; J96.01 Acute respiratory failure with hypoxia; D63.8 Anemia in other chronic diseases classified elsewhere; E87.5 Hyperkalemia; E11.649 Type 2 diabetes mellitus with hypoglycemia without coma; I16.9 Hypertensive crisis, unspecified; I27.20 Pulmonary hypertension, unspecified; Z88.1 Allergy status to other antibiotic agents; I44.0 Atrioventricular block, first degree; E88.09 Other disorders of plasma-protein metabolism, not elsewhere classified; D69.6 Thrombocytopenia, unspecified; Z91.19 Patient's noncompliance with other medical treatment and regimen
CPT/HCPCS: 36415; 36600; 71045; 76942; 80053; 82248; 82803; 82962; 83735; 83880; 84100; 84165; 84439; 84443; 84484; 84550; 85007; 85025; 85610; 85730; 86850; 86900; 86901; 86920; 87081; 87340; 93005; 94640; 94660; 94664; 96374; 99285; J1815; J2405; J7620